=== PATIENT | female | born 1945 | race Caucasian/White ===

== ENCOUNTER 2020-03-28 01:00 | Observation (INO) | payer MEDICARE, SELFPAY ==
[2020-03-28] VITALS (9 sets, daily range): BP systolic 136–165; BP diastolic 65–88; PULSE 75–93; RESP 18–24; TEMP 36.1–37.2; O2SAT 96–99; BMI 38.7
--- NOTE | ~2020-03-28 | XR_ITS ---
EXAMINATION: XR forearm RT 2V, XR wrist RT 2V EXAM DATE: 03/28/2020 07:45 INDICATION: Right forearm pain. Right wrist pain. No known recent injury. TECHNIQUE: Right wrist frontal, frontal with ulnar deviation, oblique and lateral projections obtain ed and reviewed. Right forearm frontal and lateral projections. There are no prior studies for valdemar shaggy. TECHNIQUE: The right scapholunate joint space is maintained. Carpal bones, radius and ulna are unrema rkable.. There are no acute fractures or dislocations identified. There is no subcutaneous gas. The soft tissue is unremarkable. There are no radiopaque foreign bodies. IMPRESSION: Unremarkable right wrist, forearm exams. Reviewed, dictated and finalized at location G. WAY YARD ASSISTANT IMPRESSION: Unremarkable right wrist, forearm exams.
--- NOTE | ~2020-03-28 | XR_ITS ---
EXAMINATION: XR shoulder RT min 2V, XR humerus RT EXAM DATE: 03/28/2020 07:45 (accession [id number]), 03/28/2020 07:46 (accession [id number]) INDICATION: No known recent injury provided at this time. Pain of the right shoulder, arm. TECHNIQUE: The following right shoulder projections obtained: frontal projection with internal rotati on, frontal projection with external rotation, Grashey, and scapular Y view (4+ views). 2 orthogonal projections of the right humerus. There are no prior studies for comparison. FINDINGS: No evidence of right shoulder rotator cuff calcific tendinosis. There is mild to moderate acromioclavicular and glenohumeral acromioclavicular joint primary osteoarthritis. There are no acute fractures or dislocations identified. There is no subcutaneous gas. The soft tissue is unremarkabl e. There are no radiopaque foreign bodies. IMPRESSION: 1. Mild to moderate right shoulder osteoarthritis. 2. No acute findings. Reviewed, dictated and finalized at location G. NUE CYCLE CONSULTANT IMPRESSION: 1. Mild to moderate right shoulder osteoarthritis. 2. No acute findings.
[2020-03-28] MEDS: KETOROLAC (*BKC) 60 MG/2 ML VIAL IM (01:20)
[2020-03-28 01:53] LABS: Eosinophils Absolute Auto 0.12 K/mm3 (0.02-0.50); Eosinophils Percent Auto 1.9 % (1.0-6.0); Hematocrit 36.4 % (35.0-42.0); Hemoglobin 11.2 g/dL (11.7-13.8); Immature Granulocyte Absolute 0.02 K/mm3 (0.00-0.00); Immature Granulocyte Percent A 0.3 % (0.0-0.0); Lactic Acid Reflex 1.5 mmol/L (0.4-2.0); Lymphocytes Absolute Auto 0.57 K/mm3 (1.10-4.50); Lymphocytes Percent Auto 9.3 % (18.0-42.0); Mean Corpuscular HGB Conc 30.8 g/dL (32.0-36.0); Mean Corpuscular Hemoglobin 28.3 pg (27.0-31.0); Mean Corpuscular Volume 91.9 fL (78.0-102.0); Mean Platelet Volume 9.6 fl (9.2-11.8); Monocytes Absolute Auto 0.39 K/mm3 (0.10-0.90); Monocytes Percent Auto 6.3 % (2.0-11.0); Neutrophils Absolute Auto 5.1 K/mm3 (1.7-7.2); Neutrophils Percent Auto 82.2 % (50.0-70.0); Platelet Count Result 193 K/mm3 (150-420); Red Blood Count 3.96 M/mm3 (4.20-5.40); Red Cell Distribution Width 14.6 % (11.6-14.4); White Blood Count 6.2 K/mm3 (4.8-10.8)
[2020-03-28 01:56] LABS: Alanine Aminotransferase 19 U/L (14-59); Albumin Level 3.4 g/dL (3.4-5.0); Alkaline Phosphatase 99 U/L (46-116); Anion Gap 13 mmol/L (8-16); Aspartate Amino Transferase 11 U/L (15-37); Bilirubin,Total 0.2 mg/dL (0.00-1.00); Blood Urea Nitrogen 32 mg/dL (7-18); Calcium 8.3 mg/dL (8.5-10.1); Carbon Dioxide 22 mmol/L (21-32); Chloride 106 mmol/L (98-108); Estimated CRCL calculation 26 ml/min; Estimated Glomerular Filt Rate 24; Glucose 210 mg/dL (70-99); Osmolality Calculated 304 mOsm/kg (285-295); Sodium 141 mmol/L (136-145); Total Protein 7.5 g/dL (6.4-8.2); Uric Acid 8.3 mg/dL (2.6-6.0)
[2020-03-28 01:58] LABS: CRP 1.9 mg/dL (0.0-0.9)
--- NOTE | 2020-03-28 02:07 | ED.UPPEXIN ---
HPI - Extremity Injury (Upper) General Chief Complaint: Extremity Injury, Upper Stated Complaint: Bilateral hand pain Source: patient Mode of arrival: ambulatory Limitations: no limitations History of Present Illness HPI narrative: This is a 74-year-old female presents with some severe pain with some warmth and tenderness with decreased range of motion in her right wrist and radiating into her forearm and shoulder started earlier this evening no history of gout. The patient takes medicine for COPD and urinary incontinence. Currently there is no fever or chills no known injury to the right upper extremity and has extreme pain with with movement and pain warmth and tenderness to the right wrist. There is currently no shortness of breath no bruising no known injury to the right upper extremity with no chest pain no nausea vomiting. MD complaint: injury to: right, shoulder, forearm, wrist and hand Onset (ago): hour(s) Other injuries: none Handedness: right Place: home Severity: severe Severity scale (1-10): 10 Relieving factors: none Exacerbating factors: none Related Data Home Medications Medication Instructions Recorded Confirmed Brovana 15 mcg INHALATION BID 03/28/20 03/28/20 albuterol 0.83 mg INHALATION BID 03/28/20 03/28/20 oxybutynin chloride 5 mg PO HS 03/28/20 03/28/20 Allergies Allergy/AdvReac Type Severity Reaction Status Date / Time Iodinated Contrast Media Allergy Unknown Swelling Verified 10/10/17 14:40 Contrast Media Allergy Unknown HIVES AND Uncoded 09/25/14 10:02 SWELLING Review of Systems Review of Systems: All systems reviewed & are unremarkable except as noted in HPI and below PMFSH Past Medical History Medical History COPD (chronic obstructive pulmonary disease) Family History Family History Father Patient's father is Family history of cardiovascular disease Mother Family history of cardiovascular disease Social History Social History Smoking status: Former smoker Alcohol intake: never Exam Const: General: no acute distress and alert Orientation/consciousness: patient oriented x3 HENMT: Head: normal to inspection Eyes: Conjunctivae: conjunctivae normal Pupils: Equal, round and reactive pupils present Neck: Neck: normal visual inspection, no lymphadenopathy and no meningeal signs Lymphatic: no lymphadenopathy noted Chest: Chest palpation & inspection: normal inspection of the chest Resp: Effort & Inspection: normal respiratory effort Auscultation: clear to auscultation bilaterally Cardio: Rate: regular rate Rhythm: regular rhythm GI: GI Palp: Yes Soft to palpation : General: Yes no CVA tenderness Skin: Other: right wrist and elbow and forearm that is warm and tender with decreased range of motion secondary to pain. Extrem: General: no pedal edema Psych: Mental Status: mental status grossly normal Course Course Emergency Course: Patient receive 60 mg of IM Toradol with minimal relief of her pain Vital Signs Vital signs: Vital Signs Temperature 37.2 C 03/28/20 01:00 Pulse Rate 93 03/28/20 01:00 Respiratory Rate 20 03/28/20 01:00 Blood Pressure 153/82 H 03/28/20 01:00 Pulse Oximetry 97 03/28/20 01:00 Temperature 37.2 C 03/28/20 01:00 Pulse Rate 93 03/28/20 01:00 Respiratory Rate 20 03/28/20 01:00 Blood Pressure 153/82 H 03/28/20 01:00 Pulse Oximetry 97 03/28/20 01:00 MDM - Extremity Injury (Upper) Lab Data Result diagrams: 03/28/20 01:31 03/28/20 01:31 Labs: Lab Results 03/28/20 03/28/20 03/28/20 Range/Units 01:31 01:31 01:31 WBC 6.2 (4.8-10.8) K/mm3 RBC 3.96 L (4.20-5.40) M/mm3 Hgb 11.2 L (11.7-13.8) g/dL Hct 36.4 (35.0-42.0) % MCV 91.9 (78.0-102.0) fL MCH 28.3 (27
[2020-03-28] MEDS: MORPHINE SULFATE (*CRX) 2 MG/ML INJ IV PUSH ×3 (02:31→10:11)
--- NOTE | 2020-03-28 02:50 | ADMGEN ---
This patient, Lacie Blue, was admitted to 2nd Floor Room 208-2. Patient/family oriented to hospital policies and general routines including ID bracelet, bed and alarms, visiting hours, pain management, procedures, bathroom and other care routines, personal items, smoking policy, room service/diet, and visiting hours. Information on how to activate the Rapid Response Team has been discussed. Patient/Family are encouraged to report perceived risks to care and to ask questions if they do not understand what they are told or what they should do.
--- NOTE | 2020-03-28 02:50 | PC.NURSE ---
Patient admitted to room 208 from ER for new onset bilateral hand pain. Patient states that she started having intense bilateral hand and wrist pain that started shortly before dinner. She states that she took Tylenol at home and then went to bed but the pain continued to get worse. She describes the pain as a throbbing feeling and she is currently rating the pain 8/10 after receiving morphine in ER shortly before transfer to the floor. The pain is aggravated by movement and and painful to touch. She states that the pain radiates up her arm to her elbow and shoulder. She states that the pain is similar in both hands but that the pain is more intense on the right side. She reports inability to use her right hand or to squeeze her hand into a fist without sever pain. Her left hand is weak and she reports pain with movement but she is able to squeeze it into a fist. No edema or redness is observed and no obvious signs of trauma are observed. Patient denies any recent injury.
[2020-03-28] MEDS: SODIUM CHLORIDE 0.9% IV 1,000 ML 100 ML IV CONT (03:04)
[2020-03-28 05:49] LABS: Basophils Absolute Auto 0.01 K/mm3 (0.00-0.10); Basophils Percent Auto 0.2 % (0.0-1.0); Eosinophils Absolute Auto 0.12 K/mm3 (0.02-0.50); Eosinophils Percent Auto 2.3 % (1.0-6.0); Hematocrit 36.4 % (35.0-42.0); Hemoglobin 10.8 g/dL (11.7-13.8); Immature Granulocyte Absolute 0.03 K/mm3 (0.00-0.00); Immature Granulocyte Percent A 0.6 % (0.0-0.0); Lymphocytes Absolute Auto 0.64 K/mm3 (1.10-4.50); Lymphocytes Percent Auto 12.2 % (18.0-42.0); Mean Corpuscular HGB Conc 29.7 g/dL (32.0-36.0); Mean Corpuscular Hemoglobin 28.1 pg (27.0-31.0); Mean Corpuscular Volume 94.5 fL (78.0-102.0); Monocytes Absolute Auto 0.39 K/mm3 (0.10-0.90); Monocytes Percent Auto 7.4 % (2.0-11.0); Neutrophils Absolute Auto 4.1 K/mm3 (1.7-7.2); Neutrophils Percent Auto 77.3 % (50.0-70.0); Platelet Count Result 179 K/mm3 (150-420); Red Blood Count 3.85 M/mm3 (4.20-5.40); Red Cell Distribution Width 14.7 % (11.6-14.4); White Blood Count 5.3 K/mm3 (4.8-10.8)
--- NOTE | 2020-03-28 06:03 | PC.NURSE ---
Patient ambulated to the bathroom with stand by assist. Patient has sever pain with activity. Patient required assistance to get her legs in bed. Pillows were placed under her arms and a warm blanket was placed over her right arm. PRN pain medication was administered.
[2020-03-28 06:07] LABS: Alanine Aminotransferase 19 U/L (14-59); Albumin Level 3.2 g/dL (3.4-5.0); Alkaline Phosphatase 88 U/L (46-116); Anion Gap 14 mmol/L (8-16); Aspartate Amino Transferase 17 U/L (15-37); Bilirubin,Total 0.2 mg/dL (0.00-1.00); Blood Urea Nitrogen 33 mg/dL (7-18); Calcium 8.2 mg/dL (8.5-10.1); Carbon Dioxide 21 mmol/L (21-32); Chloride 108 mmol/L (98-108); Estimated CRCL calculation 26 ml/min; Estimated Glomerular Filt Rate 25; Glucose 117 mg/dL (70-99); Osmolality Calculated 304 mOsm/kg (285-295); Potassium 4.4 mmol/L (3.5-5.1); Sodium 143 mmol/L (136-145); Total Protein 6.6 g/dL (6.4-8.2)
[2020-03-28] MEDS: ALBUTEROL SULFATE NEB 2.5 MG/3 ML INH INHALATION (06:50)
[2020-03-28] MEDS: ALBUTEROL SULFATE NEB 2.5 MG/3 ML INH (06:50)
--- NOTE | 2020-03-28 06:50 | PCRCNOTE ---
Two albuterol entries on JUL; only one given
[2020-03-28] MEDS: ARFORMOTEROL TARTRATE 15 MCG/2 ML NEB INHALATION (06:51)
[2020-03-28 08:06] LABS: Glucose Point of Care 130 (65-105)
[2020-03-28] MEDS: INDOMETHACIN 25 MG CAPSULE 100 MG PO (08:10)
[2020-03-28] MEDS: predniSONE 20 MG TABLET 60 MG PO (08:11)
[2020-03-28] MEDS: COLCHICINE 0.6 MG TABLET 1.2 MG PO (08:12)
--- NOTE | 2020-03-28 09:39 | PM.SD ---
Same Day Admit/Disch: HPI History of Present Illness Chief complaint: CELLULITIS Narrative: Lacie Blue is a 74 year old female that presented to the ER yesterday with complaints pain to her right wrist forearm and shoulder. Patient has a past medical history of COPD and chronic kidney disease. According to the patient at approximately 4:00 PM she developed pain to her right wrist forearm shoulders. Patient did take Tylenol for her pain with no relief. 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 X-ray of her shoulders, humerus, wrist and forearm did not indicate displacement or fracture, shoulder imaging did indicate osteoarthritis. Patient WBCs hemoglobin hematocrit and platelets were all within normal limits, electrolytes were all within normal limits, patient's BUN and creatinine were elevated, patient's lactic acid was within normal limits, patient's uric acid and CRP were elevated. Patient is being admitted for gout. The patient denies SOB, CP, palpitation, extremity numbness, lightheadedness, dizziness, constipation, diarrhea, chills, or fever. PMF Past Medical History Medical History COPD (chronic obstructive pulmonary disease) Family History Family History Father Patient's father is Family history of cardiovascular disease Mother Family history of cardiovascular disease Social History Social History Smoking packs per day: 1.5 Smoking cigarettes per day: 30.0 Years smoked: 30 Smoking pack-years: 45.00 Smoking status: Former smoker Tobacco type: cigarettes Second hand tobacco smoke exposure: Yes Alcohol intake: never Substance use: never Substance use type: does not use Gender identity (if verbalized by the patient): Female Sexual Orientation (if Verbalized by the Patient): Straight or Heterosexual Spiritual care concerns: No Same Day Admit/Disch: Med Pre-admit Medications Home Medications Medication Instructions Recorded Confirmed Type Brovana 15 mcg INHALATION BID 03/28/20 03/28/20 History albuterol 0.83 mg INHALATION BID 03/28/20 03/28/20 History colchicine 0.6 mg PO DAILY 5 Days #5 tablet 03/28/20 Rx hydrocodone-acetaminophen 1 tab PO Q4H PRN #12 tablet 03/28/20 Rx indomethacin 50 mg PO TID 7 Days #21 cap 03/28/20 Rx methylprednisolone [Medrol (Karel)] See Rx Instructions .ROUTE 03/28/20 Rx .COMPLEX #21 ea oxybutynin chloride 5 mg PO HS 03/28/20 03/28/20 History Exam Narrative: Exam Narrative: GENERAL: This is a well-nourished, well-developed patient, in no apparent distress. HEAD: normocephalic, atraumatic. EYES: PERRL. Sclera clear/white. Vision is grossly intact. EARS: External ears normal, auditory canals clear and without drainage, TMs normal without perforation. Hearing grossly intact. NOSE: External nose normal with no obvious nasal discharge, nares without redness, no rhinorrhea. THROAT: Mucous membranes moist, posterior pharynx clear. NECK: Neck supple, non-tender without lymphadenopathy, masses or thyromegaly. CARDIOVASCULAR: Regular rate and rhythm without murmurs, gallops, or rubs. RESPIRATORY: Clear to auscultation. Breath sounds equal bilaterally. No wheezes, rales, or rhonchi. GASTROINTESTINAL: Abdomen soft, non-tender, nondistended. Bowel sounds are active. No hepato-splenomegaly, or palpable masses. No guarding. SKIN: warm, intact with no suspicious lesions or rash, good texture and turgor. NEURO: awake, alert, and oriented to person, place and time. There were no obvious focal neurologic abnormalities. Steady gait EXTREMITIES: Limited range of motion to the right upper extremity. Right upper extremity warm and tender to touch No calf tenderness. BACK: Nontender without deformity or crepitance. No flank tenderness.
--- NOTE | 2020-03-31 13:19 | PC.NURSE ---
states they received and understood the discharge instructions and states the care was excellent .
== END 2020-03-28 11:25 | disposition home or self-care (01) ==
LOC: CHSED 02:12 → CHS2ND 07:17
PROVIDERS: Admitting Provider Emergency Medicine; Emergency Provider Emergency Medicine; Visit Provider Emergency Medicine
DX: L03.113 Cellulitis of right upper limb (principal); J44.9 Chronic obstructive pulmonary disease, unspecified; N18.9 Chronic kidney disease, unspecified; M19.011 Primary osteoarthritis, right shoulder; Z87.891 Personal history of nicotine dependence
CPT/HCPCS: 36415; 73030; 73060; 73090; 73100; 80053; 83605; 84550; 85025; 86140; 87040; 94640; 96361; 96365; 96372; 96375; 96376; 99285; A9270; G0378; J0696; J1885; J2270; J7030; J7512

== ENCOUNTER 2020-04-08 11:41 | Inpatient (IN) | payer MEDICARE, SELFPAY ==
--- NOTE | ~2020-04-08 | US_ITS ---
EXAMINATION: US venous doppler [facility] DATE: 04/09/2020 08:44 INDICATION: Chest pain. TECHNIQUE: Grayscale ultrasound images without and with compression and Doppler ultrasound images of the bilateral lower extremity veins were obtained. COMPARISON: None. FINDINGS: The visualized portions of right common femoral vein, profunda (deep) femoral vein, femoral vein, pop liteal vein, peroneal veins, posterior tibial veins, and greater saphenous vein outflow are patent. The visualized portions of left common femoral vein, profunda femoral vein, femoral vein, popliteal v ein, peroneal veins, posterior tibial veins, and greater saphenous vein outflow are patent. IMPRESSION: 1. No deep venous thrombosis. Reviewed, dictated and finalized at location A. PRE COOLER
--- NOTE | ~2020-04-08 | XR_ITS ---
EXAMINATION: XR chest 1V portable DATE: 04/08/2020 13:36 INDICATION: Cough. COVID-19 pneumonia. TECHNIQUE: A single frontal view of the chest was obtained. COMPARISON: Chest 2 views 03/13/2019 FINDINGS: Sensitivity is decreased by obesity. A calcified right lung nodule is consistent with old g ranulomatous disease. High density material overlying the left diaphragm may be in the stomach. There are peripheral airspace opacities in the mid and lower lung zones. No pleural effusion or pneumothor ax. The heart size is normal. IMPRESSION: 1. Peripheral airspace opacities in the mid and lower lung zones, consistent with pneumonia. Reviewed, dictated and finalized at location A. ENSATION INTERN IMPRESSION: 1. Peripheral airspace opacities in the mid and lower lung zones, consistent wi th pneumonia.
[2020-04-08 11:56] VITALS: BP 118/63; PULSE 95; RESP 22; TEMP 36.8; O2SAT 95
[2020-04-08 12:00] VITALS: BP 133/62; PULSE 91; RESP 20; O2SAT 95
[2020-04-08] MEDS: KETOROLAC (*BKC) 60 MG/2 ML VIAL 30 MG IM (12:12)
[2020-04-08 12:41] LABS: Eosinophils Absolute Auto 0.01 K/mm3 (0.02-0.50); Eosinophils Percent Auto 0.2 % (1.0-6.0); Hematocrit 38.2 % (35.0-42.0); Hemoglobin 11.8 g/dL (11.7-13.8); Immature Granulocyte Absolute 0.09 K/mm3 (0.00-0.00); Immature Granulocyte Percent A 1.8 % (0.0-0.0); Lymphocytes Percent Auto 7.9 % (18.0-42.0); Mean Corpuscular HGB Conc 30.9 g/dL (32.0-36.0); Mean Corpuscular Hemoglobin 27.8 pg (27.0-31.0); Mean Corpuscular Volume 89.9 fL (78.0-102.0); Mean Platelet Volume 10.1 fl (9.2-11.8); Monocytes Absolute Auto 0.13 K/mm3 (0.10-0.90); Monocytes Percent Auto 2.6 % (2.0-11.0); Neutrophils Absolute Auto 4.4 K/mm3 (1.7-7.2); Neutrophils Percent Auto 87.5 % (50.0-70.0); Platelet Count Result 173 K/mm3 (150-420); Red Blood Count 4.25 M/mm3 (4.20-5.40); Red Cell Distribution Width 14.9 % (11.6-14.4); White Blood Count 5.1 K/mm3 (4.8-10.8)
[2020-04-08 12:49] LABS: Alanine Aminotransferase 17 U/L (14-59); Albumin Level 2.7 g/dL (3.4-5.0); Alkaline Phosphatase 68 U/L (46-116); Anion Gap 13 mmol/L (8-16); Aspartate Amino Transferase 17 U/L (15-37); Bilirubin,Total 0.3 mg/dL (0.00-1.00); Blood Urea Nitrogen 24 mg/dL (7-18); Calcium 8.5 mg/dL (8.5-10.1); Carbon Dioxide 21 mmol/L (21-32); Chloride 101 mmol/L (98-108); Estimated CRCL calculation 21 ml/min; Estimated Glomerular Filt Rate 22; Glucose 108 mg/dL (70-99); Osmolality Calculated 285 mOsm/kg (285-295); Potassium 3.3 mmol/L (3.5-5.1); Sodium 135 mmol/L (136-145); Total Protein 8.1 g/dL (6.4-8.2); Uric Acid 8.6 mg/dL (2.6-6.0)
[2020-04-08 13:04] LABS: SARS-CoV-2 Ag Positive (Negative)
[2020-04-08 13:15] VITALS: BP 125/48; PULSE 85; RESP 20; O2SAT 95
[2020-04-08 13:17] LABS: Add Urine Microscopic? YES; Appearance Urine Cloudy (Clear); Bilirubin Urine 2+ (Negative); Blood Urine 3+ (Negative); Color Urine Yellow (Yellow); Glucose Urine UA Negative (Negative); Ketones Urine Trace (Negative); Leukocyte Esterase Ur Negative (Negative); Nitrate Urine Negative (Negative); Protein Urine 2+ (Negative); Specific Grav Ur >= 1.030 (1.010-1.020); Urobilinogen Urine 0.2 mg/dL (0.2-1.0)
[2020-04-08 13:22] LABS: Squamous Epithelial Cell Urine Few /hpf (Few); WBC Urine 0-3 /hpf (0-3)
[2020-04-08 13:23] LABS: Bacteria Urine 2+ /hpf
[2020-04-08 14:00] VITALS: BP 110/61; PULSE 89; RESP 20; O2SAT 93
--- NOTE | 2020-04-08 14:06 | ED.GENADULT ---
HPI - General Adult General Chief complaint: Nausea/Vomiting/Diarrhea Stated complaint: ambulance Time Seen by Provider: 04/08/20 12:10 Source: patient Mode of arrival: ambulatory Limitations: no limitations History of Present Illness HPI narrative: Patient comes in stating she has not felt well for the past 1 week with body aches and chills. She does not think she has had a fever. Diffuse body aches have been moderately severe, and ongoing for the past several days. She has had loose stools as well. She has had cough but no significant sputum production. Related Data Home Medications Medication Instructions Recorded Confirmed oxybutynin chloride 5 mg PO HS 03/28/20 04/08/20 albuterol sulfate [ProAir HFA] 2 puff INHALATION QID PRN 04/08/20 04/08/20 allopurinol 300 mg PO DAILY 04/08/20 04/08/20 arformoterol 2 ml INHALATION BID 04/08/20 04/08/20 budesonide-formoterol [Symbicort] 2 puff INHALATION DAILY 04/08/20 04/08/20 colchicine [Colcrys] 0.6 mg PO DAILY 04/08/20 04/08/20 naproxen sodium 220 mg PO QID 04/08/20 04/08/20 revefenacin [Yupelri] 175 mcg INHALATION DAILY 04/08/20 04/08/20 tramadol 50 mg PO Q6H PRN 04/08/20 04/08/20 umeclidinium [Incruse Ellipta] 1 inh INHALATION DAILY 04/08/20 04/08/20 Allergies Allergy/AdvReac Type Severity Reaction Status Date / Time Iodinated Contrast Media Allergy Unknown Swelling Verified 10/10/17 14:40 Contrast Media Allergy Unknown HIVES AND Uncoded 09/25/14 10:02 SWELLING Review of Systems Constitutional: Constitutional: Reports no additional constitutional complaints Eyes: Eyes: Reports no additional eye complaints Cardiovascular: Cardiovascular: Reports no additional cardiovascular complaints Respiratory: Respiratory: Reports no additional respiratory complaints Gastrointestinal: Gastrointestinal: Reports no additional gastrointestinal complaints Musculoskeletal: Musculoskeletal: Reports no additional musculoskeletal complaints Integumentary/Breasts: Skin/Breast: Reports system reviewed and no additional complaints, except as docu Neurologic: Reports system reviewed and no additional complaints, except as documented Psychiatric: Psychiatric: Reports no additional psychiatric complaints Endocrine: Endocrine: Reports no additional endocrine complaints Hematologic/Lymphatic: Hematologic/Lymphatic: Reports no additional hematologic/lymphatic complaints Allergic/Immunologic: Allergic/Immunologic: Reports no additional allergic/immunologic complaints [facility] Past Medical History Medical History COPD (chronic obstructive pulmonary disease) Family History Family History Father Patient's father is Family history of cardiovascular disease Mother Family history of cardiovascular disease Social History Social History Smoking packs per day: 1.5 Smoking cigarettes per day: 30.0 Years smoked: 30 Smoking pack-years: 45.00 Smoking status: Former smoker Tobacco type: cigarettes Second hand tobacco smoke exposure: Yes Alcohol intake: never Substance use: never Substance use type: does not use Gender identity (if verbalized by the patient): Female Spiritual care concerns: No Exam Const: General: no acute distress Nutritional Appearance: well nourished and obese Orientation/consciousness: patient oriented x3 HENMT: Head: normal to inspection Ears: TM abnormal Face and sinus: normal facial exam Eyes: Conjunctivae: conjunctivae normal Neck: Neck: normal visual inspection and no lymphadenopathy Chest: Chest palpation & inspection: normal inspection of the chest Other: breath sounds decreased throughout Resp: Effort & Inspection: normal respiratory effort Auscultation: diminished lung sounds Cardio: Rate: regular rate Rhythm: regular rhythm GI: GI Palp: Yes Soft to palpation
[2020-04-08 14:26] LABS: Base Excess ABG -5.9 mmol/L (0-2); HCO3 ABG 17.7 mmol/L (23-29); Oxygen Content ABG 16.4 %vol (16.0-22.0); Oxyhemoglobin 93.4 % (94-100); PCO2 ABG 29.4 mmHg (35-45); PO2 ABG 69.6 mmHg (75-85); Total Hemoglobin 12.5 g/dL
[2020-04-08 14:28] LABS: Device ROOM AIR; Modified Allen's Test Pass; Site Drawn LEFT RADIAL
[2020-04-08 14:45] LABS: Magnesium 2.1 mg/dL (1.8-2.4)
--- NOTE | 2020-04-08 14:58 | ECG_ITS ---
Measurements Intervals [place] Rate: 90 P: 79 IA: 167 QRS: -57 QRSD: 104 T: 70 QT: 369 QTc: 452 Interpretive Statements SINUS RHYTHM LEFT ANTERIOR FASCICULAR BLOCK VOLTAGE CRITERIA FOR LVH BASELINE WANDER- AVR, AVL, AVF ABNORMAL ECG Electronically Signed On 04-08-2020 16:08:12 SOCIAL ORGANIZATION PROFESSOR by Jose Henry D.O.
[2020-04-08] MEDS: SODIUM CHLORIDE 0.9% IV 1,000 ML 100 ML IV CONT (15:17)
[2020-04-08] MEDS: POTASSIUM CHLORIDE 20 MEQ TABLET 40 MEQ PO (15:17)
[2020-04-08 16:00] VITALS: BP 112/52; PULSE 83; RESP 20; TEMP 36.5; O2SAT 92
[2020-04-08] MEDS: REMDESIVIR 200 MG/NS 250 ML 200 MG/250 ML BAG 250 MG IVPB (16:15)
[2020-04-08 16:24] VITALS: BMI 42.4
--- NOTE | 2020-04-08 16:27 | PC.NURSE ---
observation admit for covid, s/s started on of last week, cough, aches all over and diarrhea, continues and feeling worse today, never had fever, just aches all over and headache today, presents from ER on droplet precautions, educated on no visitors during this time and how to use call system IV fluids and medications for covid discussed,
[2020-04-08] MEDS: BUDESONIDE/FORMOTEROL (*SP) 160-4.5 MCG 6 GM INH 2 PUFF INHALATION (17:30)
[2020-04-08] MEDS: ENOXAPARIN 40 MG/0.4 ML SYRINGE SUB-Q (17:31)
[2020-04-08] MEDS: INDOMETHACIN 25 MG CAPSULE 50 MG PO (17:31)
[2020-04-08] MEDS: traMADol HCL (*CRX) 25 MG TABLET PO (17:41)
[2020-04-08] MEDS: PHARMACIST COMMUNICATION ORDER 1 EACH XX (17:47)
--- NOTE | 2020-04-08 18:12 | PC.NURSE ---
fluids infusing at this time, abx infusing as instructed, call light inr each of patient, know s to call for assistance, not to get up alone
[2020-04-08] MEDS: ALBUTEROL SULFATE (*SP) INHALER 2 PUFF INHALATION (20:44)
[2020-04-08] MEDS: OXYBUTYNIN CHLORIDE 5 MG TABLET PO (20:44)
--- NOTE | 2020-04-08 23:30 | PC.NURSE ---
Patient complaining of not being able to sleep. Nurse told patient would be notified of her being unable to sleep. Denies pain/needs @ this time. Respirations even and unlabored. Patient asked nurse for a cold washcloth to put on her head. Patient asked that temperature of room be decreased saying she's used to it being a lot cooler in her house. Ice water refreshed. No distress noted. Call light in reach.
--- NOTE | 2020-04-08 23:36 | PC.NURSE ---
Dr. Lobato notified of pt's inability to sleep; New orders received and noted.
[2020-04-09] VITALS: BP 120/75; PULSE 76; RESP 20; TEMP 36.6; O2SAT 94
[2020-04-09] MEDS: ZOLPIDEM TARTRATE (*CRX) 5 MG TABLET PO (00:16)
--- NOTE | 2020-04-09 00:20 | PC.NURSE ---
Patient given PRN Rigo as ordered for sleeplessness. Patient says room is cooler now. Call light in reach.
[2020-04-09 05:51] LABS: Hematocrit 32.8 % (35.0-42.0); Hemoglobin 10.2 g/dL (11.7-13.8); Mean Corpuscular HGB Conc 31.1 g/dL (32.0-36.0); Mean Corpuscular Hemoglobin 27.9 pg (27.0-31.0); Mean Corpuscular Volume 89.6 fL (78.0-102.0); Mean Platelet Volume 9.7 fl (9.2-11.8); Platelet Count Result 144 K/mm3 (150-420); Red Blood Count 3.66 M/mm3 (4.20-5.40); Red Cell Distribution Width 14.8 % (11.6-14.4); White Blood Count 3.7 K/mm3 (4.8-10.8)
[2020-04-09] MEDS: BUDESONIDE/FORMOTEROL (*SP) 160-4.5 MCG 6 GM INH 2 PUFF INHALATION ×2 (05:58→19:12)
[2020-04-09] MEDS: ALBUTEROL SULFATE (*SP) INHALER 2 PUFF INHALATION ×4 (05:59→21:01)
--- NOTE | 2020-04-09 06:11 | PC.NURSE ---
Lab called to report a critical d-dimer of 1.47.
[2020-04-09 06:12] LABS: D Dimer 1.47 mg/L (0.19-0.50)
[2020-04-09 06:13] LABS: Lactic Acid Reflex 0.9 mmol/L (0.4-2.0)
[2020-04-09 06:20] LABS: Band Neutrophils Percent 0 % (0-6); Eosinophils Percent Manual 0 % (1-6); Lymphocytes Percent Manual 11 % (18-44); Monocytes Absolute Manual 0.11 K/mm3 (0.1-0.90); Monocytes Percent Manual 3 % (3-9); Neutrophils Absolute Manual 3.18 K/mm3 (1.7-7.2); Neutrophils Percent Manual 86 % (46-73); Platelet Estimate Adequate (Adequate); Total Cells Counted 100
[2020-04-09 06:22] LABS: Alanine Aminotransferase 16 U/L (14-59); Albumin Level 2.1 g/dL (3.4-5.0); Alkaline Phosphatase 59 U/L (46-116); Anion Gap 13 mmol/L (8-16); Aspartate Amino Transferase 19 U/L (15-37); Bilirubin,Total 0.1 mg/dL (0.00-1.00); Blood Urea Nitrogen 28 mg/dL (7-18); Calcium 7.7 mg/dL (8.5-10.1); Carbon Dioxide 20 mmol/L (21-32); Chloride 104 mmol/L (98-108); Estimated CRCL calculation 20 ml/min; Estimated Glomerular Filt Rate 20; Glucose 86 mg/dL (70-99); Magnesium 1.8 mg/dL (1.8-2.4); Osmolality Calculated 288 mOsm/kg (285-295); Potassium 3.7 mmol/L (3.5-5.1); Sodium 137 mmol/L (136-145); Total Protein 7.3 g/dL (6.4-8.2)
--- NOTE | 2020-04-09 06:33 | PC.NURSE ---
Dr. Lobato notified of pt's critical d-dimer; No new orders at this time.
--- NOTE | 2020-04-09 07:57 | PC.NURSE ---
Assisted up to void with stand by assist, states has been using a walker last few days due to weakness, tolerated well, denies needs, back to bed per self
[2020-04-09 08:00] VITALS: BP 124/54; PULSE 84; RESP 20; TEMP 36.8; O2SAT 93
[2020-04-09] MEDS: COLCHICINE 0.6 MG TABLET PO (09:13)
[2020-04-09] MEDS: DEXAMETHASONE SOD PHOS INJ 4 MG/ML VIAL 6 MG IV PUSH (09:14)
[2020-04-09] MEDS: POTASSIUM CHLORIDE 20 MEQ TABLET PO (09:14)
[2020-04-09] MEDS: INDOMETHACIN 25 MG CAPSULE 50 MG PO ×3 (09:14→16:12)
[2020-04-09] MEDS: allopurinoL 300 MG TABLET PO (09:14)
[2020-04-09] MEDS: traMADol HCL (*CRX) 25 MG TABLET PO ×2 (09:39→21:01)
--- NOTE | 2020-04-09 10:03 | PM.IMHP ---
H&P: HPI History of Present Illness Date/Time: 04/09/20 10:03 <DEON Shahid - Last Filed: 04/09/20 14:09> Chief complaint: COVID <DEON Shahid - Last Filed: 04/09/20 14:09> Narrative: Lacie Blue is a 74 year old female that presented with body aches, chills and fatigue. Patient has a past medical history of COPD, chronic kidney disease and gout. According to patient last she started experiencing a decreased appetite, body aches, chills, diarrhea, nonproductive cough and fatigue. Patient did test positive for Covid with elevated CRP EKG sinus rhythm with a heart rate in the 90s. Patient will be admitted and treated with dexamethasone and remdesivir. During this assessment day patient still continues to complain about generalized body aches and fatigue. Patient does not feel like she is ready to go home today and would like to remain for 1 more day. Patient will be discharged tomorrow if labs in assessment is negative. I did call patient's to inform him that he needs to remain in quarantine for 14 days also explained to him what quarantine meant. Patient's agrees to remain quarantine. The patient denies SOB, CP, palpitation, extremity numbness, lightheadedness, dizziness, constipation, or fever. <DEON Shahid - Last Filed: 04/09/20 14:09> Review of Systems Review of Systems: All systems reviewed & are unremarkable except as noted in HPI and below (10 point system reviewed) <DEON Shahid - Last Filed: 04/09/20 14:09> [facility] Past Medical History Medical History: Medical History COPD (chronic obstructive pulmonary disease) <DEON Shahid - Last Filed: 04/09/20 14:09> Family History Family History: Family History Father Patient's father is Family history of cardiovascular disease Mother Family history of cardiovascular disease <DEON Shahid - Last Filed: 04/09/20 14:09> Social History Social History: Social History Smoking packs per day: 1.5 Smoking cigarettes per day: 30.0 Years smoked: 30 Smoking pack-years: 45.00 Smoking status: Former smoker Tobacco type: cigarettes Second hand tobacco smoke exposure: Yes Alcohol intake: never Substance use: never Substance use type: does not use Gender identity (if verbalized by the patient): Female Spiritual care concerns: No <DEON Shahid - Last Filed: 04/09/20 14:09> Meds Home Medications and Allergies Home medications: Home Medications Medication Instructions Recorded Confirmed Type indomethacin 50 mg PO TID 7 Days #21 cap 03/28/20 04/08/20 Rx methylprednisolone [Medrol (Karel)] See Rx Instructions .ROUTE 03/28/20 04/08/20 Rx .COMPLEX #21 ea oxybutynin chloride 5 mg PO HS 03/28/20 04/08/20 History albuterol sulfate [ProAir HFA] 2 puff INHALATION QID PRN 04/08/20 04/08/20 History allopurinol 300 mg PO DAILY 04/08/20 04/08/20 History arformoterol 2 ml INHALATION BID 04/08/20 04/08/20 History budesonide-formoterol [Symbicort] 2 puff INHALATION DAILY 04/08/20 04/08/20 History colchicine [Colcrys] 0.6 mg PO DAILY 04/08/20 04/08/20 History naproxen sodium 220 mg PO QID 04/08/20 04/08/20 History revefenacin [Yupelri] 175 mcg INHALATION DAILY 04/08/20 04/08/20 History tramadol 50 mg PO Q6H PRN 04/08/20 04/08/20 History umeclidinium [Incruse Ellipta] 1 inh INHALATION DAILY 04/08/20 04/08/20 History <DEON Shahid - Last Filed: 04/09/20 14:09> Allergies/Adverse reactions: Allergies Allergy/AdvReac Type Severity Reaction Status Date / Time Iodinated Contrast Media Allergy Unknown Swelling Verified 10/10/17 14:40 Contrast Media Allergy Unknown HIVES AND Uncoded 09/25/14 10:02 SWELLING <Saurav Mcgrath, MITZI-C - Last Filed:
[2020-04-09] MEDS: SODIUM CHLORIDE 0.9% IV 1,000 ML 100 ML IV CONT ×2 (10:30→21:02)
--- NOTE | 2020-04-09 10:35 | PC.NURSE ---
feeling more SOB and hot, temp check 98.5, oxygen level 94% on room air, fan to room for comfort
--- NOTE | 2020-04-09 11:13 | PC.NURSE ---
feeling better, fan in room to circulate air, headache improved
--- NOTE | 2020-04-09 14:00 | PC.NURSE ---
Up to commode, didn't want to walk to [facility] due to worsening sob at times, compalints of vaginal itching, Saurav RN OUTPATIENT SURGERY notified, awaiting orders
[2020-04-09] MEDS: FLUCONAZOLE 100 MG TABLET 150 MG PO (14:49)
[2020-04-09] MEDS: ENOXAPARIN 40 MG/0.4 ML SYRINGE SUB-Q (16:13)
[2020-04-09 16:36] VITALS: BP 151/67; PULSE 67; RESP 16; TEMP 36.3; O2SAT 94
[2020-04-09] MEDS: REMDESIVIR 100 MG/NS 250 ML 100 MG/250 ML BAG 250 MG IVPB (17:17)
[2020-04-09] MEDS: traZODone HCL 50 MG TABLET PO (21:00)
[2020-04-09] MEDS: OXYBUTYNIN CHLORIDE 5 MG TABLET PO (21:01)
[2020-04-09 23:53] VITALS: BP 148/81; PULSE 64; RESP 16; TEMP 36.3; O2SAT 95
[2020-04-10] MEDS: ZOLPIDEM TARTRATE (*CRX) 5 MG TABLET PO (00:35)
[2020-04-10] MEDS: BUDESONIDE/FORMOTEROL (*SP) 160-4.5 MCG 6 GM INH 2 PUFF INHALATION (05:40)
[2020-04-10] MEDS: ALBUTEROL SULFATE (*SP) INHALER 2 PUFF INHALATION ×2 (05:40→09:39)
[2020-04-10] MEDS: SODIUM CHLORIDE 0.9% IV 1,000 ML 100 ML IV CONT (05:48)
[2020-04-10 06:12] LABS: Alanine Aminotransferase 16 U/L (14-59)
[2020-04-10 07:42] VITALS: BP 146/78; PULSE 77; RESP 20; TEMP 35.9; O2SAT 92
[2020-04-10 08:02] LABS: Hematocrit 34.3 % (35.0-42.0); Hemoglobin 10.9 g/dL (11.7-13.8); Mean Corpuscular HGB Conc 31.8 g/dL (32.0-36.0); Mean Corpuscular Hemoglobin 28.3 pg (27.0-31.0); Mean Corpuscular Volume 89.1 fL (78.0-102.0); Mean Platelet Volume 10.2 fl (9.2-11.8); Platelet Count Result 193 K/mm3 (150-420); Red Blood Count 3.85 M/mm3 (4.20-5.40); Red Cell Distribution Width 14.9 % (11.6-14.4); White Blood Count 2.3 K/mm3 (4.8-10.8)
[2020-04-10] MEDS: POTASSIUM CHLORIDE 20 MEQ TABLET PO (08:09)
[2020-04-10] MEDS: INDOMETHACIN 25 MG CAPSULE 50 MG PO (08:09)
[2020-04-10] MEDS: ACETAMINOPHEN 500 MG TABLET 1000 MG PO (08:10)
[2020-04-10] MEDS: DEXAMETHASONE SOD PHOS INJ 4 MG/ML VIAL 6 MG IV PUSH (08:10)
[2020-04-10] MEDS: allopurinoL 300 MG TABLET PO (08:10)
[2020-04-10] MEDS: COLCHICINE 0.6 MG TABLET PO (08:11)
[2020-04-10 08:28] LABS: Alanine Aminotransferase 16 U/L (14-59); Albumin Level 2.4 g/dL (3.4-5.0); Alkaline Phosphatase 62 U/L (46-116); Anion Gap 16 mmol/L (8-16); Aspartate Amino Transferase 16 U/L (15-37); Bilirubin,Total 0.1 mg/dL (0.00-1.00); Blood Urea Nitrogen 28 mg/dL (7-18); Calcium 7.9 mg/dL (8.5-10.1); Carbon Dioxide 18 mmol/L (21-32); Chloride 108 mmol/L (98-108); Estimated CRCL calculation 24 ml/min; Estimated Glomerular Filt Rate 26; Glucose 122 mg/dL (70-99); Osmolality Calculated 300 mOsm/kg (285-295); Potassium 4.5 mmol/L (3.5-5.1); Sodium 142 mmol/L (136-145); Total Protein 6.4 g/dL (6.4-8.2)
--- NOTE | 2020-04-10 10:48 | PM.DS ---
DS: Admitting Diagnosis Admitting Diagnosis Admitting Diagnosis: COVID DS: Discharge Diagnosis Discharge Diagnosis (1) CKD (chronic kidney disease): Code(s): N18.9 - Chronic kidney disease, unspecified Status: Acute Assessment and Plan: Patient BUN/creatinine currently 28/1.90 back , 03/28/2020 patient creatinine appears to be 1.99. Renal function has improved patient appears to be at baseline EKG indicate sinus rhythm ? Potassium level within normal limits ? CXR indicate Peripheral airspace opacities in the mid and lower lung zones, consistent with pneumonia. ? (2) Gout: Qualifiers: Chronicity: acute Gout etiology: unspecified cause Gout site: multiple sites Qualified Code(s): M10.9 - Gout, unspecified Code(s): M10.9 - Gout, unspecified Status: Acute Assessment and Plan: Continue home medication (3) COPD (chronic obstructive pulmonary disease): Code(s): J44.9 - Chronic obstructive pulmonary disease, unspecified Status: Acute Assessment and Plan: ? CXR indicate Peripheral airspace opacities in the mid and lower lung zones, consistent with pneumonia. ? Continue inhaler/ nebs ? Continue Solu-Medrol ? Continue the use of ABX Rocephin and azithromycin ? (4) Pneumonia: Qualifiers: Lung location: lower lobe of lung Code(s): J18.9 - Pneumonia, unspecified organism Status: Acute Assessment and Plan: Chest x-ray indicates-Peripheral airspace opacities in the mid and lower lung zones, consistent with pneumonia. Continue azithromycin and Rocephin Blood cultures preliminary with no growth (5) COVID-19 virus detected: Code(s): U07.1 - COVID-19 Status: Acute Assessment and Plan: Continue dexamethasone for 7 additional days (6) D-dimer, elevated: Code(s): R79.89 - Other specified abnormal findings of blood chemistry Status: Acute Assessment and Plan: Patient not indicating any respiratory distress Doppler negative for DVT Unable to complete a CTA due to GFR at 20 DS: Summary Time Spent with Patient Time attestation: Total time spent providing and/or coordinating discharge services: Exam Narrative: Exam Narrative: GENERAL: This is a well-nourished, well-developed patient, in no apparent distress. HEAD: normocephalic, atraumatic. EYES: PERRL. Sclera clear/white. Vision is grossly intact. EARS: External ears normal, auditory canals clear and without drainage, TMs normal without perforation. Hearing grossly intact. NOSE: External nose normal with no obvious nasal discharge, nares without redness, no rhinorrhea. THROAT: Mucous membranes moist, posterior pharynx clear. NECK: Neck supple, non-tender without lymphadenopathy, masses or thyromegaly. CARDIOVASCULAR: Regular rate and rhythm without murmurs, gallops, or rubs. RESPIRATORY: Clear to auscultation. Breath sounds equal bilaterally. No wheezes, rales, or rhonchi. GASTROINTESTINAL: Abdomen soft, non-tender, nondistended. Bowel sounds are active. No hepato-splenomegaly, or palpable masses. No guarding. SKIN: warm, intact with no suspicious lesions or rash, good texture and turgor. NEURO: awake, alert, and oriented to person, place and time. There were no obvious focal neurologic abnormalities. Steady gait EXTREMITIES: Normal range of motion. No edema. No calf tenderness. Negative Homans sign bilaterally. BACK: Nontender without deformity or crepitance. No flank tenderness. DS: Data Data Completed and Pending Labs on day of discharge: Labs from last 24 hours 04/10/20 04/10/20 04/10/20 05:38 05:38 05:38 WBC 2.3 L RBC 3.85 L Hgb 10.9 L Hct 34.3 L MCV 89.1 MCH 28.3 MCHC 31.8 L RDW 14.9 H Plt Count 193 MPV 10.2 Sodium 142 Potassium 4.5 Chloride 108 Carbon Dioxide 18 L Anion Gap 16 BUN 28 H Creatinine 1.90 H Estim Creat Clear Calc 24 Estimated GFR 26
--- NOTE | 2020-04-14 12:04 | PC.NURSE ---
states patient received and understood her discharge instructions. He had no other comments.
== END 2020-04-10 11:35 | disposition home or self-care (01) | DRG 177 ==
LOC: CHSED 11:58 → CHS2ND 14:59
PROVIDERS: Nurse Practitioner; Admitting Provider Emergency Medicine; Emergency Provider Emergency Medicine; PCP Nurse Practitioner Family; Visit Provider Emergency Medicine
DX: U07.1 COVID-19 (principal); J12.89 Other viral pneumonia; J44.9 Chronic obstructive pulmonary disease, unspecified; N18.9 Chronic kidney disease, unspecified; M10.9 Gout, unspecified; R79.1 Abnormal coagulation profile
CPT/HCPCS: 36415; 36600; 71045; 80053; 81001; 82805; 83605; 83735; 84460; 84550; 85025; 85027; 85380; 86140; 87040; 87045; 87046; 87324; 87426; 87427; 93005; 93970; 96360; 96361; 96365; 96366; 96367; 96372; 96375; 96376; 99285; A9270; G0378; J0456; J0696; J1100; J1650; J1885; J7030

== ENCOUNTER 2020-05-13 10:47 | Outpatient (CLI) | payer MEDICARE, SELFPAY ==
--- NOTE | ~2020-05-13 | NM_ITS ---
EXAMINATION: NM pulmonary perfusion DATE: 05/13/2020 16:12 INDICATION: Shortness of breath. TECHNIQUE: 4.9 mCi Tc-99m MAA was administered intravenously for perfusion images. Scintigraphic wanda ges of the chest were obtained. COMPARISON: Chest 2 views 05/13/2020 FINDINGS: Perfusion images show a large defect in apicoposterior segment left upper lobe. There are small and m oderate sized defects in the lower lobes and right upper lobe. IMPRESSION: 1. Nondiagnostic (intermediate probability for pulmonary embolism). Reviewed, dictated and finalized at location A. OR INTEGRATION DEVELOPER
--- NOTE | ~2020-05-13 | XR_ITS ---
EXAMINATION: XR chest 2V DATE: 05/13/2020 11:13 INDICATION: Cough. COVID-19 positive on 04/08/2020. TECHNIQUE: Frontal and lateral views of the chest were obtained. COMPARISON: Chest 2 views 04/08/2020 FINDINGS: There are peripheral airspace opacities with architectural distortion in the mid and lower lung zones. A calcified right lung nodule and calcified right hilar lymph nodes are consistent with o ld granulomatous disease. No pleural effusion or pneumothorax. The heart size is normal. IMPRESSION: 1. Stable peripheral airspace opacities in the mid and lower lung zones, consistent with pneumonia. Reviewed, dictated and finalized at location A. ICAL SOCIOLOGIST IMPRESSION: 1. Stable peripheral airspace opacities in the mid and lower lung zones, consis tent with pneumonia.
[2020-05-13 11:01] LABS: Basophils Absolute Auto 0.02 K/mm3 (0.00-0.10); Basophils Percent Auto 0.4 % (0.0-1.0); Eosinophils Absolute Auto 0.08 K/mm3 (0.02-0.50); Eosinophils Percent Auto 1.5 % (1.0-6.0); Hematocrit 40.1 % (35.0-42.0); Hemoglobin 11.9 g/dL (11.7-13.8); Immature Granulocyte Absolute 0.04 K/mm3 (0.00-0.00); Immature Granulocyte Percent A 0.8 % (0.0-0.0); Lymphocytes Absolute Auto 0.92 K/mm3 (1.10-4.50); Lymphocytes Percent Auto 17.8 % (18.0-42.0); Mean Corpuscular HGB Conc 29.7 g/dL (32.0-36.0); Mean Corpuscular Hemoglobin 28.4 pg (27.0-31.0); Mean Corpuscular Volume 95.7 fL (78.0-102.0); Mean Platelet Volume 9.5 fl (9.2-11.8); Monocytes Absolute Auto 0.32 K/mm3 (0.10-0.90); Monocytes Percent Auto 6.2 % (2.0-11.0); Neutrophils Absolute Auto 3.8 K/mm3 (1.7-7.2); Neutrophils Percent Auto 73.3 % (50.0-70.0); Platelet Count Result 248 K/mm3 (150-420); Red Blood Count 4.19 M/mm3 (4.20-5.40); Red Cell Distribution Width 16.4 % (11.6-14.4); White Blood Count 5.2 K/mm3 (4.8-10.8)
[2020-05-13 11:18] LABS: D Dimer 1.38 mg/L (0.19-0.50)
[2020-05-13 11:56] LABS: CRP 0.8 mg/dL (0.0-0.9)
[2020-05-13 12:07] LABS: Erythrocyte Sedimentation Rate 45 mm/hr (0-20)
[2020-05-13 12:31] LABS: Estimated Glomerular Filt Rate 26
[2020-05-15 13:52] LABS: Procalcitonin 0.23 ng/mL (<0.10)
== END 2020-05-13 10:48 | disposition home or self-care (01) ==
PROVIDERS: PCP Nurse Practitioner Family; Visit Provider Internal Medicine Pulmonary Disease
DX: R06.02 Shortness of breath (principal); R79.1 Abnormal coagulation profile; R79.89 Other specified abnormal findings of blood chemistry; R05 Cough; J18.9 Pneumonia, unspecified organism; U07.1 COVID-19
CPT/HCPCS: 36415; 71046; 78580; 82565; 84145; 85025; 85380; 85652; 86140; A9540

== ENCOUNTER 2020-06-03 10:08 | Outpatient (CLI) | payer MEDICARE, SELFPAY ==
--- NOTE | ~2020-06-03 | CT_ITS ---
EXAMINATION: CT chest wo con DATE: 06/03/2020 10:43 INDICATION: Shortness of breath, history of COVID 19 pneumonia TECHNIQUE: Computed tomography (CT) of the chest was performed without intravenous contrast. The dose -length product (DLP) was 458.56 mGy-cm. Automated exposure control and iterative reconstruction tech Firethornque were employed. COMPARISON: 12/15/2017, 05/13/2020 FINDINGS: There are widespread subpleural reticular opacities in the lungs with a mid and lower lung zone predominance. Distribution is similar to that seen on the recent chest radiograph. There is mild emphysema. There is no pleural effusion or pneumothorax. No pathologically enlarged thoracic lymph n odes are identified. The heart size is normal. Calcified coronary artery atherosclerosis is noted. An intramuscular lipoma is noted adjacent to the left scapula. There are bridging osteophytes at multip le levels in the spine, consistent with diffuse idiopathic skeletal hyperostosis (DISH). IMPRESSION: 1. Subpleural reticular opacities with a mid and lower lung zone predominance which could reflect fib rosis related to prior COVID 19 pneumonia. Reviewed, dictated and finalized at location A. E AND SKIP CAR OPERATOR IMPRESSION: 1. Subpleural reticular opacities with a mid and lower lung zone predominance w hich could reflect fibrosis related to prior COVID 19 pneumonia.
== END 2020-06-03 10:09 | disposition home or self-care (01) ==
LOC: CHSIMG 10:13
PROVIDERS: PCP Nurse Practitioner Family; Visit Provider Internal Medicine Pulmonary Disease
DX: U07.1 COVID-19 (principal); J18.9 Pneumonia, unspecified organism
CPT/HCPCS: 71250

== ENCOUNTER 2020-06-25 12:41 | Outpatient (CLI) | payer MEDICARE, SELFPAY ==
--- NOTE | ~2020-06-25 | XR_ITS ---
XR chest 2V DATE: 06/25/2020 13:23 INDICATION: Shortness of breath for one month. Severe shortness breath for one week. TECHNIQUE: 2 views COMPARISON: 06/03/2020 CT thorax 05/13/2020 PA and lateral chest 03/13/2019 PA and lateral chest FINDINGS: There is peripheral pulmonary infiltrate or fibrotic change involving the mid and particula rly lower lung zones, mildly improved on the right since 05/13/2020. Moderate hyperinflation. No pleural effusion or pulmonary vascular congestion or pneumothorax is evident. Borderline cardiomeg vanessa. Mild aortic tortuosity. Diffuse osteopenia. There is degenerative spurring of the thoracic spine. IMPRESSION: Preferentially peripheral pulmonary infiltrate and/or fibrotic change in the mid and part icularly lower lung zones, mildly improved on the right since 05/13/2020 Reviewed, dictated and finalized at location A. IO PRODUCER IMPRESSION: Preferentially peripheral pulmonary infiltrate and/or fibrotic menon ge in the mid and particularly lower lung zones, mildly improved on the right s pan 05/13/2020
== END 2020-06-25 12:42 | disposition home or self-care (01) ==
PROVIDERS: PCP Nurse Practitioner Family; Visit Provider Nurse Practitioner Family
DX: R06.02 Shortness of breath (principal)
CPT/HCPCS: 71046

== ENCOUNTER 2020-06-26 12:12 | Outpatient (CLI) | payer MEDICARE, SELFPAY ==
--- NOTE | 2020-06-26 12:25 | ECHO_ITS ---
Patient Info Name: Lacie Blue Age: 75 years : 1945 Gender: Female Ht: 62 in Wt: 234 lbs BSA: 2.22 m2 HR: 77 bpm BP: 190 / 75 mmHg Heart Rhythm: Sinus Rhythm Technical Quality: Good Exam Date: 06/26/2020 12:27 PM Exam Location: [facility] Patient Status: Outpatient Admit Date: 06/26/2020 Staff Ordering Physician: Christin, Lisa Julien CNP Meat Pickler: Betty Amezquita RDCS Attending Provider: Louisa, Lisa Julien CNP Referring Physician: Christin RAMOS; Exam Type: CA echo doppler color flow Study Info Indications R06.02 - Shortness of breath Complete two-dimensional, color flow and Doppler transthoracic echocardiogram is performed. Strain analysis performed. History/Risk Factors Hypertension: No Dyslipidemia: No Congenital Heart Disease (CHD): No Peripheral Arterial Disease (PAD): No Myocardial Infarction (TX): No Chronic Lung Disease: No Obesity: Yes Renal Disease: Yes Coronary Artery Disease (CAD) No Cardiomyopathy/LV Systolic Dysfunction: No Diabetes Mellitus: No COPD: On Meds Tobacco Use: Former Cerebrovascular Disease: No Family History: Diabetes Mellitus, Coronary Artery Disease Deep Vein Thrombosis (DVT): None Dialysis: None Frailty Scale (CSHA): 5: Mildly Frail Cardiac Arrest: No Summary 1. Complete two-dimensional, color flow and Doppler transthoracic echocardiogram is performed. 2. Left ventricular chamber dimension is normal. 3. Left ventricular systolic function is normal, estimated at 60-65%. 4. The left ventricular diastolic function is grade II diastolic dysfunction. 5. Global longitudinal strain is normal at -21.8%. 6. Left atrial chamber dimension is mildly enlarged. 7. Right atrial chamber dimension is mildly enlarged. 8. There is mild aortic valve sclerosis. 9. The mitral valve has moderately calcified annulus. 10. There is mild tricuspid valve regurgitation. 11. Moderate pulmonary hypertension, estimated pulmonary arterial systolic pressure is 56 mmHg. 12. Small atheroma in posterior aortic root. Left Ventricle Tissue doppler E/e' is not calculated. Global longitudinal strain is normal at -21.8%. Left ventricular chamber dimension is normal. Left ventricular systolic function is normal, estimated at 60-65%. The left ventricular diastolic function is grade II diastolic dysfunction. Right Ventricle Right ventricular chamber dimension is normal. Right ventricular systolic function is normal. Left Atria Left atrial chamber dimension is mildly enlarged. Right Atria Right atrial chamber dimension is mildly enlarged. Aortic Valve The aortic valve is trileaflet. There is mild aortic valve sclerosis. There is no aortic valve stenosis. There is no aortic valve regurgitation. Pulmonic Valve There is no pulmonic regurgitation. Mitral Valve The mitral valve has moderately calcified annulus. There is no mitral valve stenosis. There is no mitral valve regurgitation. Tricuspid Valve There is mild tricuspid valve regurgitation. Moderate pulmonary hypertension, estimated pulmonary arterial systolic pressure is 56 mmHg. Pericardium/Pleural There is no pericardial effusion. Inferior Vena Cava Normal inferior vena cava with >50% collapse upon inspiration consistent with normal right atrial pressure, 5 mmHg. Aorta Small atheroma in posterior aortic root. The aortic root size at the sinus of Vals
== END 2020-06-26 12:13 | disposition home or self-care (01) ==
LOC: CHSIMG 12:14
PROVIDERS: PCP Nurse Practitioner Family; Visit Provider Nurse Practitioner Family
DX: R06.02 Shortness of breath (principal); M79.89 Other specified soft tissue disorders
CPT/HCPCS: 93306

== ENCOUNTER 2021-11-30 22:43 | Emergency (ER) | payer MEDICARE, SELFPAY ==
--- NOTE | ~2021-11-30 | XR_ITS ---
EXAMINATION: XR knee RT 3V DATE: 11/30/2021 23:17 INDICATION: Right knee pain. TECHNIQUE: 3 views of right knee were obtained. COMPARISON: None. FINDINGS: There is a total right knee arthroplasty with patellar resurfacing in near-anatomic alignme nt. No periprosthetic lucency to suggest loosening or infection. No fracture. No knee joint effusion. IMPRESSION: 1. Total right knee arthroplasty in near-anatomic alignment. Reviewed, dictated and finalized at location A.
[2021-11-30 22:45] VITALS: BP 150/73; PULSE 83; RESP 20; TEMP 36.3; O2SAT 94
--- NOTE | 2021-11-30 22:50 | ED.LOWEXIN ---
HPI - Extremity Injury (Lower) General Chief Complaint: Extremity Problem,Nontraumatic Stated Complaint: AMB Time Seen by Provider: 11/30/21 22:51 Source: patient Mode of arrival: EMS History of Present Illness HPI Narrative: 77-year-old female with a history gout, CKD, COPD, status post B/L knee replacement 30 years ago, arthritis, presents to the ER with -- right knee pain and swelling. No history of trauma. One week ago the patient had a flare-up of her left knee joint pain possibly secondary to gout Injury: Right: knee Place: home Relieving factors: immobilization Exacerbating factors: movement Associated symptoms: unable to bear weight Other symptoms: SOB Related Data Home Medications Medication Instructions Recorded Confirmed oxybutynin chloride 5 mg tablet 5 mg PO HS 03/28/20 04/08/20 albuterol sulfate 90 mcg/actuation 2 puff inhalation QID PRN 04/08/20 04/08/20 aerosol inhaler (ProAir HFA) Shortness Of Breath allopurinol 300 mg tablet 300 mg PO DAILY 04/08/20 04/08/20 arformoterol 15 mcg/2 mL solution 2 ml inhalation BID 04/08/20 04/08/20 for nebulization budesonide-formoterol HFA 160 2 puff inhalation DAILY 04/08/20 04/08/20 mcg-4.5 mcg/actuation aerosol inhaler (Symbicort) colchicine 0.6 mg tablet (Colcrys) 0.6 mg PO DAILY 04/08/20 04/08/20 naproxen sodium 220 mg tablet 220 mg PO QID 04/08/20 04/08/20 revefenacin 175 mcg/3 mL solution 175 mcg inhalation DAILY 04/08/20 04/08/20 for nebulization (Yupelri) tramadol 50 mg tablet 50 mg PO Q6H PRN Pain 04/08/20 04/08/20 umeclidinium 62.5 mcg/actuation 1 inh inhalation DAILY 04/08/20 04/08/20 blister powder for inhalation (Incruse Ellipta) Allergies Allergy/AdvReac Type Severity Reaction Status Date / Time Iodinated Contrast Media Allergy Unknown Swelling Verified 11/30/21 23:42 Contrast Media Allergy Unknown HIVES AND Uncoded 09/25/14 10:02 SWELLING Review of Systems Review of Systems: All systems reviewed & are unremarkable except as noted in HPI and below Constitutional: Constitutional: Reports as per HPI and Reports no additional constitutional complaints Eyes: Eyes: Reports as per HPI and Reports no additional eye complaints ENT: Reports system reviewed and no additional complaints, except as documented and Reports as per HPI Cardiovascular: Cardiovascular: Reports as per HPI and Reports no additional cardiovascular complaints Respiratory: Respiratory: Reports as per HPI, Reports no additional respiratory complaints, Reports cough and Reports dyspnea Gastrointestinal: Gastrointestinal: Reports as per HPI and Reports no additional gastrointestinal complaints Genitourinary: Genitourinary: Reports no additional female genitourinary complaints Musculoskeletal: Musculoskeletal: Reports no additional musculoskeletal complaints, Reports as per HPI and Reports arthralgias Comments: right knee is swollen and tender. Integumentary/Breasts: Skin/Breast: Reports system reviewed and no additional complaints, except as docu and Reports as per HPI Neurologic: Reports system reviewed and no additional complaints, except as documented and Reports as per HPI Psychiatric: Psychiatric: Reports no additional psychiatric complaints and Reports as per HPI Endocrine: Endocrine: Reports no additional endocrine complaints and Reports as per HPI Hematologic/Lymphatic: Hematologic/Lymphatic: Reports no additional hematologic/lymphatic complaints and Reports as per HPI Allergic/Immunologic: Allergic/Immunologic: Reports no additional allergic/immunologic complaints and Reports as per HPI PMFSH Past Medical History Medical History COPD (chronic obstructive pulmonary disease) Family History Family History Father Patient's father is Family history of cardiovascular disease Mother Family history of cardiovascular disease
[2021-11-30] MEDS: ONDANSETRON HCL ODT 4 MG TABLET PO (23:27)
[2021-11-30] MEDS: HYDROmorphone HCL INJ (*CRX) 2 MG/ML VIAL 0.5 MG IM (23:29)
[2021-12-01 00:05] VITALS: BP 134/89; PULSE 77; RESP 18; O2SAT 96
== END 2021-12-01 00:15 | disposition home or self-care (01) ==
PROVIDERS: Emergency Provider Internal Medicine Critical Care Medicine
DX: M25.561 Pain in right knee (principal); Z96.651 Presence of right artificial knee joint; J44.9 Chronic obstructive pulmonary disease, unspecified; Z87.891 Personal history of nicotine dependence
CPT/HCPCS: 73562; 96372; 99283; A9270; J1170

== ENCOUNTER 2022-06-17 11:00 | Outpatient (CLI) | payer MEDICARE, SELFPAY ==
--- NOTE | ~2022-06-17 | XR_ITS ---
Right foot Technique: AP and lateral standing views were obtained. Clinical History: Rheumatoid arthritis Findings: No acute fracture or dislocation is seen. Osseous alignment is anatomic. Plantar calcaneal spur noted. Joint spaces are preserved without erosive or degenerative change. Soft tissues are unrem arkable. Impression: Plantar calcaneal spur, otherwise unremarkable exam. Reviewed, dictated and finalized at [facility] [place]. ILLMENT COORDINATOR Impression: Plantar calcaneal spur, otherwise unremarkable exam.
--- NOTE | ~2022-06-17 | XR_ITS ---
Left foot Technique: AP and lateral standing views were obtained. Clinical History: Rheumatoid arthritis Findings: No acute fracture or dislocation is seen. Osseous alignment is anatomic. Plantar calcaneal spur noted. Joint spaces are preserved without erosive or degenerative change. Soft tissues are unrem arkable. Impression: Plantar calcaneal spur, otherwise unremarkable exam. Reviewed, dictated and finalized at [facility]. E RECEIVING CLERK Impression: Plantar calcaneal spur, otherwise unremarkable exam.
--- NOTE | ~2022-06-17 | XR_ITS ---
Bilateral Hands Technique: Bilateral PA, oblique, and lateral views, and ball-catcher's view were obtained. Clinical History: Rheumatoid arthritis Findings: No acute fracture or dislocation is seen. Osseous alignment is anatomic. Joint spaces are p reserved. Soft tissues are unremarkable. Impression: Unremarkable bilateral hand radiographs. Reviewed, dictated and finalized at location . X RAY ELECTRONICS WIRING TECHNICIAN Impression: Unremarkable bilateral hand radiographs.
[2022-06-17 12:58] LABS: Basophils Percent Auto 0.4 % (0.2-1.2); Eosinophils Absolute Auto 0.2 K/mm3 (0-0.3); Eosinophils Percent Auto 3.6 % (0-4.4); Hematocrit 36.2 % (37.0-47.0); Hemoglobin 11.4 g/dL (12.0-15.0); Immature Granulocyte Absolute 0.02 K/mm3 (0.00-0.031); Immature Granulocyte Percent A 0.4 % (0-0.5); Lymphocytes Absolute Auto 1.21 K/mm3 (0.9-3.2); Lymphocytes Percent Auto 24.3 % (18.3-44.2); Mean Corpuscular HGB Conc 31.5 g/dl (32-36); Mean Corpuscular Hemoglobin 28.4 pg (26-34); Mean Platelet Volume 10.6 fl (7.4-10.4); Monocytes Absolute Auto 0.4 K/mm3 (0.1-0.6); Monocytes Percent Auto 7.2 % (2.6-8.5); Neutrophils Absolute Auto 3.2 K/mm3 (1.3-6.7); Neutrophils Percent Auto 64.1 % (45.5-73.1); Platelet Count Result 212 k/mm3 (150-375); Red Blood Count 4.02 M/mm3 (4.2-5.4); Red Cell Distribution Width 14.6 % (11.5-14.5)
[2022-06-17 13:10] LABS: Appearance Urine Slightly Cloudy (Clear); Bilirubin Urine Negative (Negative); Blood Urine 2+ (Negative); Color Urine Yellow (Yellow); Glucose Urine UA Negative (Negative); Ketones Urine Negative (Negative); Leukocyte Esterase Ur 1+ LEU/UL (Negative); Nitrate Urine Negative (Negative); Protein Urine 2+ mg/dL (Negative); Urobilinogen Urine 0.2 mg/dL (<2.0)
[2022-06-17 13:14] LABS: Alanine Aminotransferase 12 U/L (6-35); Albumin Level 3.9 g/dL (3.5-5.1); Alkaline Phosphatase 93 U/L (38-126); Anion Gap 8 mmol/L (8-16); Aspartate Amino Transferase 16 U/L (14-36); Bilirubin,Total 0.4 mg/dL (0.2-1.3); Blood Urea Nitrogen 21 mg/dL (7-17); CRP 1.4 mg/dL (<1.0); Calcium 8.8 mg/dL (8.4-10.2); Carbon Dioxide 24 mmol/L (22-30); Chloride 110 mmol/L (98-107); Estimated Glomerular Filt Rate 31; Glucose 102 mg/dL (65-110); Potassium 3.8 mmol/L (3.4-5.0); Sodium 142 mmol/L (137-145); Uric Acid 6.2 mg/dL (2.5-7.5)
[2022-06-17 13:25] LABS: Complement C3 122 mg/dL (88-165); Rheumatoid Factor < 8.6 IU/ML (<12)
[2022-06-17 13:26] LABS: Erythrocyte Sedimentation Rate 86 mm/hr (0-20); Vitamin D 25 Hydroxy 14.5 ng/mL
[2022-06-17 13:40] LABS: Bacteria Urine Trace /hpf; Mucus Urine Rare /lpf; Squamous Epithelial Cell Urine Moderate /hpf (Few)
[2022-06-17 13:47] LABS: Add Urine Microscopic? YES
[2022-06-17 13:57] LABS: Hepatitis C Virus Antibody Negative (Negative)
[2022-06-19 16:17] LABS: NIL 0.03 IU/mL; Quantiferon TB Plus, 1T NEGATIVE (NEGATIVE); TB2-NIL <0.00 IU/mL
[2022-06-21 08:20] LABS: SM Antibody <1.0; SM/RNP Antibody <1.0; SS-A <1.0; SS-B <1.0
[2022-06-22 20:45] LABS: Anti Cyclic Citrullinated Pept <16 Units (<20)
== END 2022-06-17 11:01 | disposition home or self-care (01) ==
PROVIDERS: PCP Nurse Practitioner Family; Visit Provider Internal Medicine
DX: M77.32 Calcaneal spur, left foot (principal); M77.31 Calcaneal spur, right foot; M05.79 Rheumatoid arthritis with rheumatoid factor of multiple sites without organ or systems involvement; M15.9 Polyosteoarthritis, unspecified; Z71.89 Other specified counseling; Z79.899 Other long term (current) drug therapy
CPT/HCPCS: 36415; 73130; 73620; 80053; 81001; 82306; 84550; 85025; 85613; 85652; 85730; 86038; 86140; 86160; 86200; 86225; 86235; 86430; 86480; 86803

== ENCOUNTER 2022-06-23 10:11 | Outpatient (CLI) | payer MEDICARE, SELFPAY | END 2022-06-23 10:12 | disposition home or self-care (01) | LOC: ANHLAB 10:12 | PROVIDERS: PCP Nurse Practitioner Family; Visit Provider Internal Medicine | DX: M05.79 Rheumatoid arthritis with rheumatoid factor of multiple sites without organ or systems involvement (principal); M15.9 Polyosteoarthritis, unspecified; Z71.89 Other specified counseling; Z79.899 Other long term (current) drug therapy | CPT/HCPCS: 36415; 86038 ==

== ENCOUNTER 2022-07-07 10:23 | Outpatient (CLI) | payer MEDICARE, SELFPAY ==
--- NOTE | ~2022-07-07 | XR_ITS ---
XR chest 2V 07/07/2022 10:48 Indication: COPD. Dyspnea. Procedure: PA and lateral views of the chest Comparison: Comparison to multiple prior studies sequentially, with oldest reviewed study dated 02/21. Findings: Heart size normal. There are chronic interstitial infiltrates of the mid and lower lungs. T here are calcified granuloma right lower lung. The lungs are hyperinflated which is consistent with, but not diagnostic of chronic obstructive pulmonary disease. No acute focal pneumonia, pleural effusi on or pneumothorax. There are surgical changes of right clavicular osteotomy. Impression: 1: Chronic interstitial infiltrates of the mid and lower lungs bilaterally. Reviewed, dictated and finalized at location A. NISTRATIVE SALES ASSISTANT Impression: 1: Chronic interstitial infiltrates of the mid and lower lungs bilaterally.
== END 2022-07-07 10:24 | disposition home or self-care (01) ==
LOC: ANHIMG 10:28
PROVIDERS: PCP Nurse Practitioner Family; Visit Provider Internal Medicine
DX: J44.9 Chronic obstructive pulmonary disease, unspecified (principal); Z11.59 Encounter for screening for other viral diseases; R91.8 Other nonspecific abnormal finding of lung field
CPT/HCPCS: 71046

== ENCOUNTER 2023-07-21 11:01 | Outpatient (CLI) | payer MEDICARE, SELFPAY ==
[2023-07-21 11:19] LABS: Hematocrit 43.1 % (37.0-47.0); Hemoglobin 13.4 g/dL (12.0-15.0); Mean Corpuscular HGB Conc 31.1 g/dl (32-36); Mean Corpuscular Volume 96.6 fl (80-100); Platelet Count Result 198 k/mm3 (150-375); Red Blood Count 4.46 M/mm3 (4.2-5.4); Red Cell Distribution Width 13.6 % (11.5-14.5); White Blood Count 4.6 K/mm3 (4.5-10.0)
[2023-07-21 11:32] LABS: Alanine Aminotransferase 10 U/L (6-35); Albumin Level 4.7 g/dL (3.5-5.1); Alkaline Phosphatase 108 U/L (38-126); Anion Gap 10 mmol/L (8-16); Aspartate Amino Transferase 20 U/L (14-36); Bilirubin,Total 0.4 mg/dL (0.2-1.3); Blood Urea Nitrogen 46 mg/dL (7-17); CRP < 0.5 mg/dL (<1.0); Calcium 10.1 mg/dL (8.4-10.2); Carbon Dioxide 21 mmol/L (22-30); Chloride 110 mmol/L (98-107); Estimated Glomerular Filt Rate 24; Glucose 96 mg/dL (65-110); Potassium 4.5 mmol/L (3.4-5.0); Sodium 141 mmol/L (137-145)
[2023-07-21 11:32] LABS: Appearance Urine Clear (Clear); Bacteria Urine None Seen /hpf; Bilirubin Urine Negative (Negative); Blood Urine Trace (Negative); Color Urine Yellow (Yellow); Glucose Urine UA Negative (Negative); Ketones Urine Negative (Negative); Leukocyte Esterase Ur Negative LEU/UL (Negative); Nitrate Urine Negative (Negative); Protein Urine Negative (Negative); RBC Urine 0-2 /hpf (0-2); Specific Grav Ur 1.012 (1.001-1.035); Squamous Epithelial Cell Urine None seen /hpf (Few); Urobilinogen Urine 0.2 mg/dL (<2.0); WBC Urine 0-5 /hpf
[2023-07-21 11:35] LABS: Add Urine Microscopic? YES
[2023-07-21 11:45] LABS: Erythrocyte Sedimentation Rate 16 mm/hr (0-20)
== END 2023-07-21 11:02 | disposition home or self-care (01) ==
PROVIDERS: PCP Family Medicine; Visit Provider Internal Medicine
DX: M05.79 Rheumatoid arthritis with rheumatoid factor of multiple sites without organ or systems involvement (principal); M19.90 Unspecified osteoarthritis, unspecified site; M06.9 Rheumatoid arthritis, unspecified; Z79.899 Other long term (current) drug therapy
CPT/HCPCS: 36415; 80053; 81001; 85027; 85652; 86140

== ENCOUNTER 2023-08-16 15:07 | Emergency (ER) | payer MEDICARE, SELFPAY ==
[2023-08-16] VITALS (9 sets, daily range): BP systolic 120–156; BP diastolic 46–104; PULSE 67–90; RESP 16–20; TEMP 36.4–36.6; O2SAT 93–99
--- NOTE | ~2023-08-16 | CT_ITS ---
EXAMINATION: CT abdomen pelvis wo con DATE: 08/16/2023 16:12 INDICATION: Right lower quadrant abdominal pain and nausea TECHNIQUE: Computed tomography (CT) of the abdomen and pelvis was performed without intravenous contr ast. Automated exposure control and iterative reconstruction technique were employed. The dose-length product was 1285.10 mGy-cm. COMPARISON: 02/05/2015 FINDINGS: Calcified right lower lobe nodule consistent with old granulomatous disease. There is some peripheral predominant linear atelectasis/scarring in the bilateral lower lungs. Heart size is normal. No peric ardial or pleural effusion. Gallbladder is not visualized and likely surgically absent. Liver, spleen , pancreas, bilateral adrenal glands are normal. Mild bilateral renal atrophy. 1.3 cm right renal cys t. There are a few scattered colonic diverticula without adjacent comparison to suggest diverticuliti s. No abnormal bowel wall thickening or obstruction. Decompressed bladder is unremarkable. The uterus is not identified and has likely been surgically resected. 2.1 cm left adnexal cyst. Right adnexa is unremarkable. No free intraperitoneal gas or fluid. No pathologically enlarged abdominal or pelvic l ymphadenopathy. Mild lumbar levocurvature. Combined instrumented anterior and posterior spinal fusion at L4-L5 with interbody bone graft cage and bilateral vertical gildardo and pedicle screw fixation. There are bridging osteophytes at several levels in the visualized lower thoracic spine consistent with di ffuse idiopathic skeletal hyperostosis (DISH). 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 IMPRESSION: 1. No acute intra-abdominal/pelvic process. Reviewed, dictated and finalized at location A.
--- NOTE | 2023-08-16 15:15 | ED.ABDPAIN ---
HPI - Abdominal Pain General Chief Complaint: Abdominal Pain Stated Complaint: right lower abdominal pain Time Seen by Provider: 08/16/23 15:14 Source: patient Mode of arrival: ambulatory Limitations: no limitations History of Present Illness HPI narrative: Patient is an 78-year-old female with abdominal pain. It is more so on the right flank. she was also sent to the ER for renal failure concerns by the renal specialist. she has had abdominal pain for 4 days. MD elicited complaint: abdominal pain and flank pain ( Right) Pertinent past history: other ( Renal insufficiency) Onset (ago): day(s) (4) Pain Consistency: intermittent Location: R flank Severity: moderate Pain scale (0-10): 5 Quality: sharp Radiation: none Migration to: no migration Exacerbating factors: nothing Relieving factors: nothing Associated symptoms: denies other symptoms Related Data Home Medications Medication Instructions Recorded Confirmed oxybutynin chloride 5 mg tablet 5 mg PO HS 03/28/20 08/16/23 albuterol sulfate 90 mcg/actuation 2 puff inhalation QID PRN 04/08/20 08/16/23 aerosol inhaler (ProAir HFA) Shortness Of Breath allopurinol 300 mg tablet 100 mg PO DAILY 04/08/20 08/16/23 arformoterol 15 mcg/2 mL solution 2 ml inhalation BID 04/08/20 08/16/23 for nebulization budesonide-formoterol HFA 160 2 puff inhalation DAILY 04/08/20 08/16/23 mcg-4.5 mcg/actuation aerosol inhaler (Symbicort) revefenacin 175 mcg/3 mL solution 175 mcg inhalation DAILY 04/08/20 08/16/23 for nebulization (Yupelri) umeclidinium 62.5 mcg/actuation 1 inh inhalation DAILY 04/08/20 08/16/23 blister powder for inhalation (Incruse Ellipta) Allergies Allergy/AdvReac Type Severity Reaction Status Date / Time Iodinated Contrast Media Allergy Unknown Swelling Verified 08/16/23 15:26 Contrast Media Allergy Unknown HIVES AND Uncoded 08/16/23 15:26 SWELLING Review of Systems Review of Systems: All systems reviewed & are unremarkable except as noted in HPI and below Constitutional: Constitutional: Reports no additional constitutional complaints Eyes: Eyes: Reports no additional eye complaints ENT: Reports system reviewed and no additional complaints, except as documented Cardiovascular: Cardiovascular: Reports no additional cardiovascular complaints Respiratory: Respiratory: Reports no additional respiratory complaints Gastrointestinal: Gastrointestinal: Reports no additional gastrointestinal complaints Genitourinary: Genitourinary: Reports no additional female genitourinary complaints Musculoskeletal: Musculoskeletal: Reports no additional musculoskeletal complaints Integumentary/Breasts: Skin/Breast: Reports system reviewed and no additional complaints, except as docu Neurologic: Reports system reviewed and no additional complaints, except as documented Psychiatric: Psychiatric: Reports no additional psychiatric complaints Endocrine: Endocrine: Reports no additional endocrine complaints Hematologic/Lymphatic: Hematologic/Lymphatic: Reports no additional hematologic/lymphatic complaints Allergic/Immunologic: Allergic/Immunologic: Reports no additional allergic/immunologic complaints PMFSH Past Medical History Medical History Bilateral hand pain COPD (chronic obstructive pulmonary disease) Generalized osteoarthritis of multiple sites Rheumatoid arthritis with rheumatoid factor of multiple sites without organ or systems involvement Surgical History Surgical History No pertinent past surgical history Family History Family History Father Patient's father is Family history of cardiovascular disease Mother Family history of cardiovascular disease Social History Social History Smoking packs per day: 1.5
--- NOTE | 2023-08-16 15:26 | ECG_ITS ---
Measurements Intervals [place] Rate: 89 P: 72 AR: 192 QRS: -53 QRSD: 109 T: 76 QT: 351 QTc: 428 Interpretive Statements SINUS RHYTHM VENTRICULAR PREMATURE COMPLEX LEFT ANTERIOR FASCICULAR BLOCK NONSPECIFIC ST-T WAVE ABNORMALITY- HIGH LATERAL LEADS ABNORMAL ECG COMPARED TO ECG 04/08/2020 15:10:43 NO SIGNIFICANT CHANGES Electronically Signed On 08-16-2023 16:11:41 CDT by Jose Henry D.O.
[2023-08-16 16:02] LABS: Hematocrit 37.7 % (35.0-42.0); Hemoglobin 12.1 g/dL (11.7-13.8); Mean Corpuscular HGB Conc 32.1 g/dL (32-36); Mean Corpuscular Hemoglobin 30.5 pg (27.0-31.0); Platelet Count Result 135 K/mm3 (150-420); Red Blood Count 3.97 M/mm3 (4.20-5.40); Red Cell Distribution Width 14.4 % (11.6-14.4); White Blood Count 2.6 K/mm3 (4.8-10.8)
--- NOTE | 2023-08-16 16:05 | PC.NURSE ---
This RN took the patient to the bathroom in a wheelchair to obtain a urine sample. PT helped back into bed. Call light within reach. Family at bedside.
[2023-08-16 16:10] LABS: Appearance Urine Clear (Clear); Bilirubin Urine Negative (Negative); Blood Urine 1+ (Negative); Color Urine Light Yellow (Yellow); Glucose Urine UA Negative (Negative); Ketones Urine Negative (Negative); Leukocyte Esterase Ur Trace LEU/UL (Negative); Nitrate Urine Negative (Negative); Protein Urine Negative (Negative); Specific Grav Ur 1.025 (1.010-1.020); Urobilinogen Urine 0.2 mg/dL (0.2-1.0); pH Urine 5.5 (5.0-8.0)
[2023-08-16 16:14] LABS: Add Urine Microscopic? YES; Bacteria Urine Trace /hpf; Squamous Epithelial Cell Urine Few /hpf (Few); WBC Urine 0-3 /hpf (0-3)
[2023-08-16 16:21] LABS: Alanine Aminotransferase 15 U/L (14-59); Albumin Level 3.4 g/dL (3.4-5.0); Alkaline Phosphatase 86 U/L (46-116); Anion Gap 12 mmol/L (4-12); Aspartate Amino Transferase 13 U/L (15-37); Bilirubin,Total 0.2 mg/dL (0.00-1.00); Blood Urea Nitrogen 32 mg/dL (7-18); Calcium 8.8 mg/dL (8.5-10.1); Carbon Dioxide 24 mmol/L (21-32); Chloride 105 mmol/L (98-108); Estimated CRCL calculation 35 ml/min; Estimated Glomerular Filt Rate 23; Glucose 108 mg/dL (70-99); Lactic Acid Reflex 0.6 mmol/L (0.4-2.0); Lipase 29 U/L (16-77); Osmolality Calculated 299 mOsm/kg (285-295); Potassium 4.1 mmol/L (3.5-5.1); Sodium 141 mmol/L (136-145); Total Protein 6.9 g/dL (6.4-8.2); Troponin I 9.6 ng/L (0.00-60.4)
[2023-08-16 16:30] LABS: Band Neutrophils Percent 1 % (0-6); Basophils Percent Manual 0 % (0-1); Eosinophils Absolute Manual 0.05 K/mm3 (0.02-0.50); Eosinophils Percent Manual 2 % (1-6); Lymphocytes Absolute Manual 0.57 K/mm3 (1.1-4.5); Lymphocytes Percent Manual 22 % (18-44); Monocytes Absolute Manual 0.13 K/mm3 (0.1-0.90); Monocytes Percent Manual 5 % (3-9); Neutrophils Absolute Manual 1.84 K/mm3 (1.7-7.2); Neutrophils Percent Manual 70 % (46-73); Platelet Estimate Adequate (Adequate); Total Cells Counted 100
--- NOTE | 2023-08-16 16:46 | PC.NURSE ---
On arrival of ERP to the room to explain discharge paperwork. Pt is requesting pain medication before leaving. Pt has PRN pain medications at home but will be given pain medication here before discharge.
[2023-08-16] MEDS: traMADol HCL (*CRX) 50 MG TABLET 100 MG PO (16:55)
[2023-08-16] MEDS: CEPHALEXIN 500 MG CAPSULE PO (16:56)
== END 2023-08-16 17:01 | disposition home or self-care (01) ==
PROVIDERS: Emergency Provider Emergency Medicine; PCP Family Medicine
DX: N39.0 Urinary tract infection, site not specified (principal); N18.9 Chronic kidney disease, unspecified; J44.9 Chronic obstructive pulmonary disease, unspecified; M06.89 Other specified rheumatoid arthritis, multiple sites; Z79.51 Long term (current) use of inhaled steroids; Z87.891 Personal history of nicotine dependence
CPT/HCPCS: 36415; 74176; 80053; 81001; 83605; 83690; 84484; 85025; 93005; 99284; A9270

== ENCOUNTER 2024-11-16 13:17 | Outpatient (CLI) | payer MEDICARE, SELFPAY ==
[2024-11-16 13:40] LABS: Estimated Glomerular Filt Rate 29
== END 2024-11-16 13:18 | disposition home or self-care (01) ==
PROVIDERS: PCP Family Medicine; Visit Provider Physician Assistant
DX: R31.9 Hematuria, unspecified (principal)
CPT/HCPCS: 99199

== ENCOUNTER 2024-11-28 13:36 | Outpatient (CLI) | payer MEDICARE, SELFPAY ==
--- NOTE | ~2024-11-28 | CT_ITS ---
Non-contrast CT scan of the Abdomen and Pelvis Clinical indication: Hematuria Technique: 2.5 mm axial scans were obtained through the abdomen and pelvis without intravenous or or al contrast. Dose reduction technique was used on this scan by utilizing automated exposure control a nd iterative reconstruction technique. The dose-length product (DLP) was 676.74 mGy-cm. COMPARISON: 08/16/2023 Findings: Images through the lung bases reveal mild bibasilar scarring. There is no evidence of renal or ureteral calculi. The kidneys and the ureters are nondilated. The liver, spleen, pancreas, and adrenals appear normal. Gallbladder absent. There are atheroscleroti c calcifications of the aorta. Focal infrarenal abdominal aortic aneurysm measures 3.1 cm in diameter . There is no evidence of bowel obstruction. Images through the pelvis were performed. There is no evidence of ascites or lymphadenopathy. Urinary bladder unremarkable. No pelvic mass seen. Status post hysterectomy. Impression: No acute abnormality. 3.1 cm infrarenal aortic aneurysm. Reviewed, dictated and finalized at [facility]. Impression: No acute abnormality. 3.1 cm infrarenal aortic aneurysm.
--- OUTSIDE RECORDS SUMMARY | 2024-11-28 13:50 | XMS_ITS | Encounter Summary ---
Author Organization [facility] Address [facility] [place] [address] Care Team Providers Care Roller Inspector Name Role Phone Guido Perez MD Primary Care Provider [phone] Reason for Visit * Reason Onset Date Comments Referral 11/28/2024 RIGHT hip pain - PCP referral Encounter Details Date Type Department Care Team (Late st Contact Info) Description 11/28/2024 [place] [address] Hiral Powers PA [address] [place], [place] [id number] Referral (RIGHT hip pain - PCP referral) Social History Tobacco Use Types Packs/Day Years Used Date Smoking Tobacco: Former Cigarettes 1 994 - 1824 Smokeless Tobacco: Never Tobacco Cessation:Counseling Given: Not Answered Alcohol Use Standard Drinks/Week Comments Not Currently 0 (1 standard drink = 0.6 oz pur e alcohol) Comments Unknown Sex and Gender Information Value Date Recorded Sex Assigned at Female 09/04/2024 9:22 AM CDT Legal Sex Female 4:55 PM CDT Gender Identity Not on file Sexual Orientation Not on file documented as of this encounter Progress Notes * Josef Arauz RN - 11/28/2024 10:51 AM CDT Faxed referral received from [facility] for pain in RIGHT hip. Orthopedic Triage Calls Patient Name Lacie Michelleeldonboogie Date of 1945 Name of caller if NOT speaking with patient. Patient Relationship to Patient patient Verify Patient Primary Car Provider GUIDO PEREZ MD Has there been an injury: No Date of Injury Being seen for: RIGHT hip pain Work Comp Case No Work Comp Case #: Seen at Another Facilty [facility] imaging If yes what is the name of facility Date seen at facility 11/22/24 Previous Imaging Yes If yes what type of imaging? X-ray Imaging Pushed to [facility] Not Applicable Report from outside radiology obtained? Not Applicable New X-Ray Orders placed Yes Ambulatory Devices If yes what type being used Splint or bracing No If yes what type and when placed Other information: Patient reports onset of pain approximately 3 weeks ago without injury. Locates pain in RIGHT hip with radiation into her groin. PCP had images obtained at [facility]. Denies any injections or other treatments for RIGHT hip pain. documented in this encounter Plan of Treatment Upcoming Encounters Date Type Department Care Team (Late st Contact Info) Description 12/07/2024 8:30 AM CDT Office Visit [facility] [address] [address] [place], [facility] [place] [address] Scheduled Orders Name Type Priority Associated Diagnoses Orde r Schedule XR PELVIS 1 OR 2 VIEWS Imaging Routine Pain of right hip Expected: 12/07/2024, Expires: 02/28/2025 documented as of this encounter Visit Diagnoses Diagnosis Pain of right hip- Primary documented in this encounter Care Teams Roller Inspector Relationship Specialty Start Date End Date Guido Perez MD [address] [place] [phone] PCP - General FAMILY PRACTICE 09/04/24 documented as of this encounter
--- OUTSIDE RECORDS SUMMARY | 2024-11-28 13:50 | XMS_ITS | Clinical Summary ---
Author Organization [facility] Address [address] [place] [address] Care Team Providers Care Property Administrator Name Role Phone Alma Jamison MD Primary Care Provider [phone] Allergies Active Allergy Reactions Criticality Noted Date Comments Iodinated Contrast Media Itching,Rash,Hives Medium Medications amoxicillin-cla vulanate (AUGMENTIN) 875-125 MG tablet Take 1 tablet (875 mg total) by mouth 2 (two) times daily. Active chlorhexidine (PERIDEX) 0.12 % solution Use as directed 15 mLs in the mouth or throat 3 (three) times daily. Active baclofen (LIORESAL) 10 MG tablet Take 1 tablet (10 mg total) by mouth daily. Active furosemide (LASIX) 20 MG tablet Take 1 tablet (20 mg total) by mouth daily. Active calcitriol (ROCALTROL) 0.25 MCG capsule Take 1 capsule (0.25 mcg total) by mouth daily. Active allopurinol (ZYLOPRIM) 100 MG tablet Take 1 tablet (100 mg total) by mouth daily. Active busPIRone (BUSPAR) 5 MG tablet Take 1 tablet (5 mg total) by mouth daily. Active gabapentin (NEURONTIN) 300 MG capsule Take 1 capsule (300 mg total) by mouth 3 (three) times daily. Active docusate sodium (COLACE) 100 MG capsule Take 1 capsule (100 mg total) by mouth 2 (two) times daily for 3 days, THEN 1 capsule (100 mg total) daily for 28 days. 34 capsule 11/15/19 25 Active Problems No known active problems Encounters Date Type Department Care Team Description 11/28/2024 Telephone [facility] [address] [facility] [address] [place] [address] Hiral Powers PA Referral (RIGHT hip pain - PCP referral) 11/22/2024 3:44 PM CDT - 11/22/2024 11:59 PM CDT Hospital Encounter [facility] [address] [place] [address] Dru Nath PA Discharge Disposition: Home or Self Care (Routine Discharge) 11/22/2024 Travel 10/17/2024 2:39 PM CDT - 10/17/2024 11:59 PM CDT Hospital Encounter [facility] [address] [place] [address] [place] [address] Alma Jamison MD Discharge Disposition: Home or Self Care (Routine Discharge) 10/17/2024 Travel 10/14/2024 9:10 AM CDT - 10/14/2024 12:30 PM CDT Emergency [facility] [place] [address] Trey Springer DO Abdominal Pain Discharge Disposition: Home or Self Care (Routine Discharge) 10/14/2024 Travel 10/11/[address] [facility] [place] [address] Gibson Rosales MD 10/10/2024 3:44 PM CDT - 10/10/2024 11:59 PM CDT Hospital Encounter [facility] [place] [address] Gibson Rosales MD Discharge Disposition: Home or Self Care (Routine Discharge) 09/17/2024 1:12 PM CDT - 09/17/2024 11:59 PM CDT Hospital Encounter [facility] [address] [place] [address] Ashely Padilla NP Discharge Disposition: Home or Self Care (Routine Discharge) 09/17/2024 Travel 09/04/2024 10:23 AM CDT - 09/04/2024 11:59 PM CDT Hospital Encounter [facility] [address] [place] [address] Alma Jamison MD Discharge Disposition: Home or Self Care (Routine Discharge) 09/04/2024 9:25 AM CDT - 09/04/2024 10:22 AM CDT Hospital Encounter [facility] [address] [place] [address] Ashely Padilla NP Discharge Disposition: Home or Self Care (Routine Discharge) 09/04/2024 Orders Only [place] [id number] [place] [address] Ashely Padilla NP 09/04/2024 Travel from Last 3 Months Social History Tobacco Use Types Packs/Day Years Used Date Smoking Tobacco: Former Cigarettes 1 - 1962 Smokeless Tobacco: Never Tobacco Cessation:Counseling Given: Not Answered Alcohol Use Standard Drinks/Week Comments Not Currently 0 (1 standard drink = 0.6 oz pur e alcohol) Comments Unknown Sex and Gender Information Value Date Recorded Sex Assigned at Female 09/04/2024 9:22 AM CDT Legal Sex Female 4:55 PM CDT Gender Identity Not on file Sexual Orientation Not on file Last Filed Vital Signs Vital Sign Reading Time Taken Comments Blood Pressure 148/69 10/14/2024 12:30 PM CDT Pulse 66 10/14/2024 11:09 AM CDT Temperature 36.1 C (96.9 F) 10/14/2024 9:19 AM CDT Respiratory Rate 18 10/14/2024 9:19 AM CDT Oxygen Saturation 98% 10/14/2024 12:30 PM CDT Inhaled Oxygen Concentration - - Weight 99.3 kg (219 lb) 10/14/2024 9:19 AM CDT Height 152.4 cm (5') 10/14/2024 9:19 AM CDT Body Mass Index 42.77 10/14/2024 9:19 AM CDT Plan of Treatment Upcoming Encounters Date Type Department Care Team (Late st Contact Info) Description 12/07/2024 8:30 AM CDT Office Visit [facility] [address], [address] [place] [address] [address] Hernandez, ASSISTANT COOK- [address] [place] [address] Health Maintenance Due Date Last Done Comments DTaP, Tdap and Td Vaccines (1 - Tdap) 1964 Annual Medicare Wellness Visit 2008 RSV Immunization or 60+ Years (1 - 1-dose 75+ series) 2018 Zoster Vaccines (2 of 2) 06/27/2023 05/02/2023 COVID-19 Vaccine (5 - season) 2024 05/02/2023, 12/11/2021, 10/01/2020, Additional history exists Pneumococcal Vaccine: 50+ Years Completed 06/06/2020, 06/01/2019, 04/05/2012 Dexa Scan (General) Completed 05/10/2023, 05/26/2020, 05/26/2020 Meningococcal B Vaccine Aged Out No l onger eligible based on patient's age to complete this topic Meningococcal Vaccine Aged Out No janeen lolly eligible based on patient's age to complete this topic RSV Immunizations Under 20 Months Aged Out No longer eligible based on patient's age to complete this topic Procedures Procedure Name Priority Date/Time Associated Diagnosis Comments XR HIP RT 2V Routine 11/22/2024 4:01 PM CDT Right hip pain XR ABD SERIES W CHEST 1V Routine 10/17/2024 3:08 PM CDT Abdominal pain CT ABD+PEL KIDNEY STONE STAT 10/14/2024 11:15 AM CDT LACTIC ACID W REFLEX (SEPSIS) STAT 10/14/2024 10:02 AM CDT COMPREHENSIVE METABOLIC PANEL STAT 10/14/2024 10:02 AM CDT CBC W/DIFF AUTOMATED STAT 10/14/2024 10:02 AM CDT HC URINALYSIS AUTO W/MICRO STAT 10/14/2024 9:43 AM CDT MISCELLANEOUS LAB TEST Routine 3:00 PM CDT US PELVIC NON OB COMP TA Routine 09/17/2024 2:18 PM CDT Ovarian cyst US SOFT TISS HEAD OR NECK Routine 09/17/2024 2:18 PM CDT Lymphadenopathy COMPREHENSIVE METABOLIC PANEL Routine 09/04/2024 10:53 AM CDT Abdominal pain CT ABD+PEL WO CON STAT 09/04/2024 10: 51 AM CDT Abdominal pain BONE DENSITY/DEXA Routine 05/10/2023 10: 49 AM DELIVERY DIRECTOR Postmenopausal from Last 3 Months or Most Recently Relevant to Health Maintenance Results * XR HIP RT 2V (11/22/2024 4:01 PM CDT) Anatomical Region Laterality Modality Hip Radiographic Traci ging 11/24/2024 7:55 AM CDT Impressions 11/24/2024 7:56 AM CDT IMPRESSION: Degenerative changes Ordered By: DRU NATH Interpreted By: Alexey Malhotra MD, 11/24/2024 7:55 AM Narrative 11/24/2024 7:56 AM CDT [address] [place] [address] 2 VIEWS OF THE RIGHT HIP Clinical History: Pain Comparison: None 2 views of the right hip demonstrate the bony elements to be intact. There is no evidence of fracture or dislocation. Moderate degenerative changes are noted throughout the joint. The visualized bony elements of the pelvis are intact. The surrounding soft tissues appear normal. Procedure Note Alexey Malhotra MD - 11/24/[address] [place] [address] 2 VIEWS OF THE RIGHT HIP Clinical History: Pain Comparison: None 2 views of the right hip demonstrate the bony elements to be intact.There is no evidence of fracture or dislocation. Moderate degenerativechanges are noted throughout the joint. The visualized bony elements ofthe pelvis are intact. The surrounding soft tissues appear normal. IMPRESSION: Degenerative changes Ordered By: DRU NATH Interpreted By: Alexey Malhotra MD, 11/24/2024 7:55 AM us Dru Nath PA GENERAL IMAGING Final Result * XR ABD SERIES W CHEST 1V (10/17/2024 3:08 PM CDT) Anatomical Region Laterality Modality Abdomen, Chest Radiographic Traci ging 10/17/2024 3:32 PM CDT Impressions 10/17/2024 3:35 PM CDT IMPRESSION: 1. No acute findings. 2. Interval epidural stimulator placement. Ordered By: ALMA JAMISON Interpreted By: Thiago Moore MD, 10/17/2024 3:32 PM Narrative 10/17/2024 3:35 PM CDT [address] [place] [address] Examination: Abdomen series. Exam time: 1428 hours. Clinical history: Right-sided pain. Comparison: Two-view chest, 05/17/2013 ([facility]). Technique: PA chest, AP supine and upright abdomen. Findings: The heart remains within normal limits for size. Pulmonary vascularity is within normal limits. No acute infiltrates or effusions are identified. Granulomatous scarring is again evident. Implanted epidural stimulator is now in place with the lead terminating near the T7 level. There is no free air. The bowel gas pattern is unremarkable. No organomegaly or mass is noted. Atherosclerotic calcification and pelvic phleboliths noted. Changes of interbody and posterior gildardo and pedicle screw fusion at L5-S1 are evident. Epidural stimulator generator lies on the left. There are degenerative changes in the lumbar spine and hips, not unusual for age. Procedure Note Thiago Moore MD - 10/17/2024 [facility] [address] [place] [address] Examination: Abdomen series. Exam time: 1428 hours. Clinical history: Right-sided pain. Comparison: Two-view chest, 05/17/2013 ([facility]). Technique: PA chest, AP supine and upright abdomen. Findings: The heart remains within normal limits for size. Pulmonaryvascularity is within normal limits. No acute infiltrates or effusions areidentified. Granulomatous scarring is again evident. Implanted epiduralstimulator is now in place with the lead terminating near the T7 level. There is no free air. The bowel gas pattern is unremarkable. Noorganomegaly or mass is noted. Atherosclerotic calcification and pelvicphleboliths noted. Changes of interbody and posterior gildardo and pediclescrew fusion at L5-S1 are evident. Epidural stimulator generator lies onthe left. There are degenerative changes in the lumbar spine and hips, notunusual for age. IMPRESSION: 1. No acute findings. 2. Interval epidural stimulator placement. Ordered By: ALMA JAMISON Interpreted By: Thiago Moore MD, 10/17/2024 3:32 PM us Alma Jamison MD GENERAL IMAGING Final Resu lt * CT ABD+PEL KIDNEY STONE (10/14/2024 11:15 AM CDT) Anatomical Region Laterality Modality Abdomen Computed Tomogra phy 10/14/2024 11:4 6 AM CDT Impressions 10/14/2024 12:01 PM CDT IMPRESSION: NO APPRECIABLE URINARY TRACT STONE OR OBSTRUCTION. EXTENSIVE VASCULAR CALCIFICATIONS AROUND THE COURSE OF THE URETERS AND IN THE RECTOVESICAL REGION. NO DEFINITE INTRINSIC URINARY TRACT STONE. BILATERAL RENAL CORTICAL ATROPHY AND LOW-DENSITY PROBABLE CYSTS. COLONIC DIVERTICULA WITH NO DIVERTICULITIS. STABLE 2.5 CM LEFT ADNEXAL CYSTIC STRUCTURE, PREVIOUSLY NOTED. IF CONCERN WARRANTS, NONEMERGENT PELVIC ULTRASOUND AND GYNECOLOGY REFERRAL MAY BE APPROPRIATE. Referred By: Interpreted By: Edwin Burrows MD, 10/14/2024 11:46 AM Narrative 10/14/2024 12:01 PM CDT [place] [id number] [facility] [place] [address] EXAM: CT ABD+PEL KIDNEY STONE INDICATION: Right lower quadrant pain and microscopic hematuria. TECHNIQUE: Axial noncontrast CT of the abdomen and pelvis, using urinary tract stone protocol was performed. Coronal and sagittal reformatted images were created and reviewed. A radiation dose lowering technique was used for this procedure, which may include, but is not limited to, dose reduction technique, automated exposure control, the use of iterative reconstruction, ALARA (As Low As Reasonably Achievable) techniques, and Image Gently techniques. COMPARISON EXAM: CT abdomen and pelvis without contrast from 09/04/2024. FINDINGS: There is no appreciable urinary tract stone or obstruction. Bilateral renal cortical atrophy and thinning, more notable on the left than the right. Low-density probable cysts. There are couple arteriovascular calcifications and calcified phleboliths around the course of the ureters and in the pelvis no collecting system dilatation or surrounding inflammation. No stone within the relatively collapsed urinary bladder. No intrinsic bladder mass. The uterus is surgically absent or atrophic. Bilateral atrophic ovaries. There is a oval 2.5 cm left adnexal cystic structure, unchanged from the previous study. Noncontrast liver, spleen pancreas adrenal glands are unremarkable. The gallbladder is absent or collapsed. No bowel obstruction or free air. Colonic diverticula with no diverticulitis. No adenopathy or free fluid. There is an ectatic abdominal aorta with no aneurysm. Skeletal structures demonstrate L4-5 fusion hardware and moderate multilevel spondylosis. Epidural neurostimulator again noted. Bibasilar atelectatic and/or fibrotic change and granulomatous calcifications. No acute infiltrates. Procedure Note Edwin Burrows MD - 10/14/[address] [place] [address] EXAM: CT ABD+PEL KIDNEY STONE INDICATION: Right lower quadrant pain and microscopic hematuria. TECHNIQUE: Axial noncontrast CT of the abdomen and pelvis, using urinarytract stone protocol was performed. Coronal and sagittal reformattedimages were created and reviewed. A radiation dose lowering technique was used for this procedure, which mayinclude, but is not limited to, dose reduction technique, automatedexposure control, the use of iterative reconstruction, ALARA (As Low AsReasonably Achievable) techniques, and Image Gently techniques. COMPARISON EXAM: CT abdomen and pelvis without contrast from 09/04/2024. FINDINGS: There is no appreciable urinary tract stone or obstruction.Bilateral renal cortical atrophy and thinning, more notable on the leftthan the right. Low- density probable cysts. There are couplearteriovascular calcifications and calcified phleboliths around the courseof the ureters and in the pelvis no collecting system dilatation orsurrounding inflammation. No stone within the relatively collapsedurinary bladder. No intrinsic bladder mass. The uterus is surgicallyabsent or atrophic. Bilateral atrophic ovaries. There is a oval 2.5 cmleft adnexal cystic structure, unchanged from the previous study.Noncontrast liver, spleen pancreas adrenal glands are unremarkable. Thegallbladder is absent or collapsed. No bowel obstruction or free air.Colonic diverticula with no diverticulitis. No adenopathy or free fluid.There is an ectatic abdominal aorta with no aneurysm. Skeletal structuresdemonstrate L4-5 fusion hardware and moderate multilevel spondylosis.Epidural neurostimulator again noted. Bibasilar atelectatic and/orfibrotic change and granulomatous calcifications. No acute infiltrates. IMPRESSION: NO APPRECIABLE URINARY TRACT STONE OR OBSTRUCTION. EXTENSIVEVASCULAR CALCIFICATIONS AROUND THE COURSE OF THE URETERS AND IN THERECTOVESICAL REGION. NO DEFINITE INTRINSIC URINARY TRACT STONE. BILATERAL RENAL CORTICAL ATROPHY AND LOW-DENSITY PROBABLE CYSTS. COLONIC DIVERTICULA WITH NO DIVERTICULITIS. STABLE 2.5 CM LEFT ADNEXAL CYSTIC STRUCTURE, PREVIOUSLY NOTED. IFCONCERN WARRANTS, NONEMERGENT PELVIC ULTRASOUND AND GYNECOLOGY REFERRALMAY BE APPROPRIATE. Referred By: Interpreted By: Edwin Burrows MD, 10/14/2024 11:46 AM Trey Springer DO CT Final Result * LACTIC ACID W REFLEX (SEPSIS) (10/14/2024 10:02 AM CDT) LACTIC ACID VENOUS 0.8 0.4 - 2.0 MMOL/L 10/14/2024 10:29 AM CDT [facility] 10/14/2024 10:0 2 AM CDT Trey Springer DO LABORATORY Final Result [facility] [address] [place] [id number], * (ABNORMAL) COMPREHENSIVE METABOLIC PANEL (10/14/2024 10:02 AM CDT) Only the most recent of2 resultswithin the time period is included. SODIUM S/P/B 143 136 - 145 MMOL/L 10/14/2024 10:41 AM CDT [facility] POTASSIUM S/P/B 4.3 3.5 - 5.1 MMOL/L 10/14/2024 10:41 AM CDT [facility] Comment:SLIGHT HEMOLYSIS, RE SULT MAY BE AFFECTED. CHLORIDE S/P/B 108(H) 98 - 107 MMOL/L 10/14/2024 10:41 AM CDT [facility] CO2 27.6 21.0 - 32.0 MMOL/L 10/14/2024 10:41 AM CDT [facility] GLUCOSE 95 70 - 99 MG/DL 10/14/2024 10:41 AM CDT [facility] Comment: FASTING GLUCOSE 100 TO 125 MG/DL IS CONSISTENT WITH IMPAIRED FASTING GLUCOSE. FASTING GLUCOSE >125 MG/DL IS CONSISTENT WITH DIABETES. RANDOM GLUCOSE >200 MG/DL WITH HYPERGLYCEMIC SYMPTOMS IS CONSISTENT WITH DIABETES. PER ADA GUIDELINES BUN 31(H) 6 - 24 MG/DL 10/14/2024 10:41 AM CDT [facility] CREATININE S/P/B 2.08(H) 0.55 - 1.02 MG/DL 10/14/2024 10:41 AM CDT [facility] CALCIUM S/P/B 9.5 8.4 - 10.5 MG/DL 10/14/2024 10:41 AM CDT [facility] BILIRUBIN TOTAL S/P/B 0.2 0.2 - 1.0 MG/DL 10/14/2024 10:41 AM [facility] Comment: THIS ASSAY IS NOT RECOMMENDED FOR PATIENTS UNDERGOING TREATMENT WITH ELTROMBOPAG DUE TO THE POTENTIAL FOR FALSELY ELEVATED RESULTS. ALKALINE PHOSPHATASE S/P/B 116 55 - 142 U/L 10/14/2024 10:41 AM [facility] AST 13(L) 15 - 37 U/L 10/14/2024 10:41 AM [facility] ALT 13(L) 14 - 59 U/L 10/14/2024 10:41 AM [facility] TOTAL PROTEIN S/P/B 7.3 6.4 - 8.2 G/DL 10/14/2024 10:41 AM [facility] ALBUMIN S/P/B 3.2(L) 3.4 - 5.0 G/DL 10/14/2024 10:41 AM [facility] ANION GAP 7.4 5.0 - 15.0 MMOL/L 10/14/2024 10:41 AM [facility] OSMOLALITY (CALC) 302 MOSM/KG 025 10:41 AM [facility] Comment:REFERENCE RANGE NOT ESTABLISHED GFR ESTIMATE 24(L) >89 ML/MIN/1. 73 M2 10/14/2024 10:41 AM [facility] GFR NOTES GFR REFERENCE S: 10/14/2024 10:41 AM [facility] Comment: THE ESTIMATED GFR IS CALCULATED USING THE 2020 CKD-EPI EQUATION. THE FOLLOWING CATEGORIES FOR GRADING RENAL FUNCTION ARE RECOMMENDED BY THE INTERNATIONAL SOCIETY OF NEPHROLOGY (KDIGO 2012 CLINICAL PRACTICE GUIDELINE). G1,NORMAL OR HIGH: >89 ml/min/1.73 m2 G2,MILDLY DECREASED: 60-89 ml/min/1.73 m2 G3A,MILDLY TO MODERATELY DECREASED: 45-59 ml/min/1.73 m2 G3B,MODERATELY TO SEVERELY DECREASED: 30-44 ml/min/1.73 m2 G4,SEVERELY DECREASED: 15-29 ml/min/1.73 m2 G5,KIDNEY FAILURE: <15 ml/min/1.73 m2 10/14/2024 10:0 2 AM CDT Trey Weisshugoeduar LABORATORY Final Result [facility] [address] [place] [address], * (ABNORMAL) CBC W/DIFF AUTOMATED (10/14/2024 10:02 AM CDT) WBC 3.82(L) 4.00 - 10.80 x10'3/uL 10/14/2024 10:09 AM CDT [facility] RBC 4.11 4.10 - 5.40 x10'6/uL 10/14/2024 10:09 AM CDT [facility] HGB 12.1 12.0 - 16.0 G/DL 10/14/2024 10:09 AM CDT [facility] HCT 39.0 36.0 - 47.0 % 10/14/2024 10:09 AM CDT [facility] MCV 94.9 78.0 - 100.0 FL 10/14/2024 10:09 AM CDT [facility] MCH 29.4 27.0 - 31.0 PG 10/14/2024 10:09 AM CDT [facility] MCHC 31.0(L) 33.0 - 36.0 G/DL 10/14/2024 10:09 AM CDT [facility] RDW 13.2 11.5 - 14.5 % 10/14/2024 10:09 AM CDT [facility] PLT 167 150 - 350 x10'3/uL 10/14/2024 10:09 AM CDT [facility] MPV 10.0 7.4 - 10.4 FL 10/14/2024 10:09 AM CDT [facility] CBC COMMENT NORMAL REFERENCE RANGE NOT ESTABLISHED FOR THE PROPORTIONAL LEUKOCYTE DIFFERENTIAL. 10/14/2024 10:09 AM CDT [facility] NEUTROPHILS % 61.7 % 10/14/2024 10:09 AM CDT [facility] LYMPHOCYTES % 27.2 % 10/14/2024 10:09 AM CDT [facility] MONOCYTES % 6.0 % 10/14/2024 10:09 AM CDT [facility] EOSINOPHILS % 4.5 % 10/14/2024 10:09 AM CDT [facility] BASOPHILS % 0.3 % 10/14/2024 10:09 AM CDT [facility] IMMATURE GRANS % 0.3 % 10/15/19 10:09 AM CDT [facility] NRBC % 0.0 % 10/14/2024 10:09 AM CDT [facility] ABS. NEUTROPHILS 2.36 1.60 - 8.30 x10'3/uL 10/14/2024 10:09 AM CDT [facility] ABS. LYMPHOCYTES 1.04 0.80 - 4.70 x10'3/uL 10/14/2024 10:09 AM CDT [facility] ABS. MONOCYTES 0.23 0.00 - 1.50 x10'3/uL 10/14/2024 10:09 AM CDT [facility] ABS. EOSINOPHILS 0.17 0.00 - 0.40 x10'3/uL 10/14/2024 10:09 AM CDT [facility] ABS. BASOPHILS 0.01 0.00 - 0.20 x10'3/uL 10/14/2024 10:09 AM CDT [facility] ABS. IMMATURE GRANULOCYTES 0.01 0.00 - 0.03 x10'3/uL 10/14/2024 10:09 AM CDT [facility] ABS. NUCLEATED RBC'S 0.00 0.00 - 0.01 x10'3/uL 10/14/2024 10:09 AM CDT [facility] 10/14/2024 10:0 2 AM CDT us Trey Springer DO LABORATORY Final Result [facility] [address] [place] [address], * (ABNORMAL) URINALYSIS (10/14/2024 9:43 AM CDT) COLOR (U) STRAW 10/14/2024 10:07 AM CDT [facility] TRANSPARENCY CLEAR 10/14/2024 10:07 AM CDT [facility] SPECIFIC GRAVITY (U) 1.010 1.000 - 1.025 10/14/2024 10:07 AM CDT [facility] U PH 5.0 5.0 - 8.0 10/14/2024 10:07 AM CDT [facility] LEUKOCYTES (U) NEGATIVE NEGATIVE 10/14/2024 10:07 AM CDT [facility] NITRITES NEGATIVE NEGATIVE 10/14/2024 10:07 AM CDT [facility] PROTEIN RANDOM (U) NEGATIVE NEGATIVE 10/14/2024 10:07 AM CDT [facility] GLUCOSE (U) NEGATIVE NEGATIVE 10/14/2024 10:07 AM CDT [facility] KETONES MG/DL (U) NEGATIVE NEGATIVE 10/14/2024 10:07 AM CDT [facility] UROBILINOGEN 0.2 <1.0 EU/DL 10/14/2024 10:07 AM CDT [facility] BILIRUBIN (U) NEGATIVE NEGATIVE 10/14/2024 10:07 AM CDT [facility] BLOOD (U) TRACE(A) NEGATIVE 10/14/2024 10:07 AM CDT [facility] WBC/HPF RARE(A) 0 - 5 /HPF 10/14/2024 10:07 AM CDT [facility] RBC/HPF RARE(A) 0 - 5 /HPF 10/14/2024 10:07 AM CDT [facility] EPI/LPF RARE /LPF 10/14/2024 10:07 AM CDT [facility] BACTERIA (U) TRACE /HPF 10/14/2024 10:07 AM CDT [facility] MUCUS PRESENT 10/14/2024 10:07 AM CDT [facility] OTHER CASTS (U) HYALINE /LPF 10:07 AM CDT [facility] Comment:0-5 URINE SPECIMEN OBTAINED BY CLEAN CATCH PROCEDURE / Unknown 10/14/2024 9:43 AM CDT us Trey Springer DO URINE ORDERABLES Final Result [facility] [address] [place] [address], * MISCELLANEOUS LAB TEST (10/10/2024 3:00 PM CDT) TEST NAME: [id number] CUTANEOUS DIRECT IMMUNOFLUORESCENCE 5 2:11 PM CDT [facility] Comment:CORRECTED ON 10/11 A T 1411: PREVIOUSLY REPORTED [id number] BUCCAL MUCOSA SPECIMEN TYPE RIGHT BUCCAL MUCOSA ROOM TEMP 5 2:11 PM CDT [facility] Comment:CORRECTED ON 10/11 A T 1411: PREVIOUSLY REPORTED BUCCAL TEST RESULT: Flexitest 1 5 5:34 PM CDT [facility] Comment: Flexitest 1 Cutaneous Direct Immunofluorescence CUTANEOUS DIRECT IMMUNOFLUORESCENCE TESTS: Cutaneous Direct Immunofluorescence (1) DM CHUCKY (1) CLINICAL DIAGNOSIS / INFORMATION: Not provided. SITE OF BIOPSY / SOURCE: Dif - Right buccal mucosa Client Acc. #: [id number] GROSS DESCRIPTION: [employer] [facility] GROSS DESCRIPTION: The specimen is a punch biopsy received in immunofluorescence transport medium that measures 0.4 x 0.4 x 0.2 cm. The specimen is flash frozen and multiple 4 micron sections are cut for manual immunofluorescence staining. The sections are probed with fluorescein labeled antihuman antibodies as reported above. [facility] MICROSCOPIC DESCRIPTION: All positive and negative controls stained appropriately as required. FINAL DIAGNOSIS DIRECT IMMUNOFLUORESCENCE, RIGHT BUCCAL MUCOSA: - POSITIVE CONSISTENT WITH LICHEN PLANUS (SEE NOTE). COMMENTS: Note: There are thick, linear and shaggy fibrinogen deposits along with patchy granular IgM and C3 along the basement membrane zone. There is no IgG, IgG4,IgA or C5b-9 deposition in this specimen. Lichenoid mucositis or mucosal lichenoid tissue reactions other than lichen planus can rarely present with similar immunofluorescence findings; therefore, clinical and histologic correlation is recommended. There is no immunofluorescence evidence of autoimmune mucosal blistering disease. Multiple immunoreactant dilutions and sections were performed. This specimen was sent for internal consult to [facility], [address] [place] [address], [address], [place] [address], a division of [employer]. The diagnostic interpretation for this case was provided by: Farhat Vieira M.D., Dermatopathologist. SIGNATURE ON FILE Farhat Vieira M.D. Pathologist [phone] Electronic Report Released By: SALVADOR JONES M.D. Pathologist Test Performed by Enrique Guerrero, [facility], [address] [place] [address] Acosta Núñez M.D., Ph.D., Director of Laboratories , [facility] [id number] 10/10/2024 3:00 PM CDT us Gibson Rosales MD LABORATORY Edited Result - Final Opez [address] , [place] [phone] [facility] [address] [place] [address], [place] [phone] * US PELVIC NON OB COMP TA (09/17/2024 2:18 PM CDT) Anatomical Region Laterality Modality Pelvis Ultrasound 09/17/2024 2:37 PM CDT Impressions 09/17/2024 4:50 PM CDT IMPRESSION: 1. Simple left ovarian cyst as described, considered benign. 2. Nonvisualization of the right ovary without adnexal mass. Ordered By: ASHELY PADILLA Interpreted By: Thiago Moore MD, 09/17/2024 2:37 PM Narrative 09/17/2024 4:50 PM [address]T [address] [place] [address] Examination: Pelvic ultrasound. Exam time: 1356 hours. Clinical history: Follow-up of abnormal CT scan. Prior hysterectomy. Comparison: CT of the abdomen and pelvis, 09/04/2024, 01/06/2022 ([place] [facility] [place] Technique: Grayscale and color Doppler images including spectral analysis. Findings: The uterus is not identified, compatible with the history. The left ovary is identified measuring 3.4 cm in greatest dimension. Flow to the left ovary is documented on color Doppler with normal appearing spectrum. 2.8 cm simple left ovarian cyst correlates with the CT finding now shown to be chronically present and stable and considered benign on this basis. No further workup or surveillance is required. The right ovary could not be visualized however, no adnexal mass is seen. There is no free fluid. Procedure Note Thiago Moore MD - 09/17/[address] [place] [address] Examination: Pelvic ultrasound. Exam time: 1356 hours. Clinical history: Follow-up of abnormal CT scan. Prior hysterectomy. Comparison: CT of the abdomen and pelvis, 09/04/2024, 01/06/2022 ([place] [facility] [place] Technique: Grayscale and color Doppler images including spectralanalysis. Findings: The uterus is not identified, compatible with the history. Theleft ovary is identified measuring 3.4 cm in greatest dimension. Flow tothe left ovary is documented on color Doppler with normal appearingspectrum. 2.8 cm simple left ovarian cyst correlates with the CT findingnow shown to be chronically present and stable and considered benign onthis basis. No further workup or surveillance is required. The right ovarycould not be visualized however, no adnexal mass is seen. There is no freefluid. IMPRESSION: 1. Simple left ovarian cyst as described, considered benign. 2. Nonvisualization of the right ovary without adnexal mass. Ordered By: ASHELY PADILLA Interpreted By: Thiago Moore MD, 09/17/2024 2:37 PM us Ashely Padilla MANAGER WOMEN ULTRASOUND Fin al Result * US SOFT TISS HEAD OR NECK (09/17/2024 2:18 PM CDT) Anatomical Region Laterality Modality Head, Neck Ultrasound 09/19/2024 4:36 PM CDT Impressions 09/19/2024 4:40 PM CDT IMPRESSION: Bilateral reactive appearing but otherwise nonspecific lymph nodes. Clinical correlation is required with further evaluation as deemed appropriate. Ordered By: ASHELY PADILLA Interpreted By: Thiago Moore MD, 09/19/2024 4:36 PM Narrative 09/19/2024 4:40 PM CDT [address] [place] [address] Examination: Ultrasound of the soft tissues of the neck. Exam time: 1346 hours. Clinical history: Left submental/submandibular lymphadenopathy. Comparison: None. Technique: Grayscale and color Doppler images. Findings: Evaluation of the region of interest was performed with limited contralateral views for comparison. There are bilateral reactive appearing lymph nodes. The largest, on the right, measures 1.9 cm in greatest dimension. [place] appearing tissue architecture is otherwise demonstrated. No other sonographically discrete finding is identified. Procedure Note Thiago Moore MD - 09/19/[address] [place] [address] Examination: Ultrasound of the soft tissues of the neck. Exam time: 1346 hours. Clinical history: Left submental/submandibular lymphadenopathy. Comparison: None. Technique: Grayscale and color Doppler images. Findings: Evaluation of the region of interest was performed with limitedcontralateral views for comparison. There are bilateral reactive appearinglymph nodes. The largest, on the right, measures 1.9 cm in greatestdimension. [place] appearing tissue architecture is otherwise demonstrated.No other sonographically discrete finding is identified. IMPRESSION: Bilateral reactive appearing but otherwise nonspecific lymph nodes.Clinical correlation is required with further evaluation as deemedappropriate. Ordered By: ASHELY PADILLA Interpreted By: Thiago Moore MD, 09/19/2024 4:36 PM Ashely Padilla MANAGER WOMEN ULTRASOUND Fin al Result * CT ABD+PEL WO CON (09/04/2024 10:51 AM CDT) Anatomical Region Laterality Modality Abdomen Computed Tomogra phy 09/04/2024 11:3 4 AM CDT Impressions 09/04/2024 1:26 PM CDT IMPRESSION: 1. No acute intra-abdominal or intrapelvic process identified. 2. Coronary artery disease. 3. Probable 2.5 cm left ovarian cyst. Correlation with ultrasound as deemed clinically appropriate. 4. Colonic diverticulosis. 5. Additional chronic/nonurgent findings as described. Ordered By: ALMA JAMISON Interpreted By: Thiago Moore MD, 09/04/2024 11:34 AM Narrative 09/04/2024 1:26 PM CDT [address] [place] [address] Examination: CT of the abdomen and pelvis without contrast. Exam time: 1048 hours. Clinical history: Right-sided pain for one week. Reported hematuria. Prior cholecystectomy, hysterectomy and appendectomy. Comparison: None. Technique: Spiral scanning was performed through the abdomen and pelvis without contrast. Sagittal and coronal reconstructions were performed from the data set. Intravenous contrast was not administered due to the stated allergy history. A dose lowering technique was used for this procedure, which may include, but is not limited to, dose reduction techniques, automated exposure control, the use of iterative reconstruction and ALARA/Image Gently techniques. Findings: There is minor scarring at the lung bases including a calcified granuloma in the right lower lobe. Allowing for respiratory motion, the lung bases are otherwise clear. No pleural effusions are seen. Calcific coronary artery disease and mitral annular calcification noted. The gallbladder is not identified, compatible with the history. Incidental splenule is noted. There is mild bilateral renal atrophy, greater on the left. Small right renal cyst requires no further workup or surveillance. The liver, spleen, pancreas, adrenals and kidneys are otherwise unremarkable for the noncontrast technique. The urinary bladder is nondistended. The uterus and appendix are not identified, compatible with the history. Approximately 2.5 cm in greatest dimension fluid attenuation left adnexal mass is presumably ovarian cyst. Ultrasound could be considered for correlation as deemed clinically appropriate. There is colonic diverticulosis without signs of diverticulitis. There is no ascites, lymphadenopathy or bowel distention. There is mild ectasia of the infrarenal abdominal aorta, without aneurysm. There is interbody and posterior gildardo and pedicle screw fusion at L4-5. Implanted epidural stimulator is in place with the leads entering at the L1-2 level and terminating near the T6-7 level. Procedure Note Thiago Moore MD - 09/04/[address] [place] [address] Examination: CT of the abdomen and pelvis without contrast. Exam time: 1048 hours. Clinical history: Right-sided pain for one week. Reported hematuria. Priorcholecystectomy, hysterectomy and appendectomy. Comparison: None. Technique: Spiral scanning was performed through the abdomen and pelviswithout contrast. Sagittal and coronal reconstructions were performed fromthe data set. Intravenous contrast was not administered due to the statedallergy history. A dose lowering technique was used for this procedure,which may include, but is not limited to, dose reduction techniques,automated exposure control, the use of iterative reconstruction andALARA/Image Gently techniques. Findings: There is minor scarring at the lung bases including a calcifiedgranuloma in the right lower lobe. Allowing for respiratory motion, thelung bases are otherwise clear. No pleural effusions are seen. Calcificcoronary artery disease and mitral annular calcification noted. Thegallbladder is not identified, compatible with the history. Incidentalsplenule is noted. There is mild bilateral renal atrophy, greater on theleft. Small right renal cyst requires no further workup or surveillance.The liver, spleen, pancreas, adrenals and kidneys are otherwiseunremarkable for the noncontrast technique. The urinary bladder isnondistended. The uterus and appendix are not identified, compatible withthe history. Approximately 2.5 cm in greatest dimension fluid attenuationleft adnexal mass is presumably ovarian cyst. Ultrasound could beconsidered for correlation as deemed clinically appropriate. There iscolonic diverticulosis without signs of diverticulitis. There is noascites, lymphadenopathy or bowel distention. There is mild ectasia of theinfrarenal abdominal aorta, without aneurysm. There is interbody andposterior gildardo and pedicle screw fusion at L4-5. Implanted epiduralstimulator is in place with the leads entering at the L1-2 level andterminating near the T6-7 level. IMPRESSION: 1. No acute intra-abdominal or intrapelvic process identified. 2. Coronary artery disease. 3. Probable 2.5 cm left ovarian cyst. Correlation with ultrasound asdeemed clinically appropriate. 4. Colonic diverticulosis. 5. Additional chronic/nonurgent findings as described. Ordered By: ALMA JAMISON Interpreted By: Thiago Moore MD, 09/04/2024 11:34 AM us Alma Jamison MD CT Final Resu lt * BONE DENSITY/DEXA (05/10/2023 10:49 AM DELIVERY DIRECTOR) Anatomical Region Laterality Modality Bone Bone Density 05/10/2023 12:4 2 PM DELIVERY DIRECTOR Impressions 05/10/2023 12:43 PM DELIVERY DIRECTOR IMPRESSION: WHO Classification: osteopenia. FRAX Score: 4.4% chance of hip fracture and 16% chance of major osteoporotic fracture over the next 10 years Ordered By: ALMA JAMISON Interpreted By: Johann Titus MD, 05/10/2023 12:42 PM Narrative 05/10/2023 12:43 PM DELIVERY DIRECTOR Examination: Bone Density Axial Exam Date/Time: 05/10/2023 10:49 AM Reason For Exam: POSTMENOPAUSAL STATUS Prior BX or surgery with hardware. Comparison: None Findings: DEXA bone densitometry The bone mineral density (BMD) was determined by dual-energy x-ray absorptiometry, the results are as follows: Right femoral neck: BMD Patient (GM/SQCM): 0.641 T-Score (Standard deviations from young adult peak bone density): -1.9 Total right femur: BMD Patient (GM/SQCM): 0.676 T-Score (Standard deviations from young adult peak bone density): -2.2 Procedure Note Johann Titus MD - 05/10/2023 Examination: Bone Density Axial Exam Date/Time: 05/10/2023 10:49 AM Reason For Exam: POSTMENOPAUSAL STATUS Prior BX or surgery with hardware. Comparison: None Findings: DEXA bone densitometry The bone mineral density (BMD) was determined bydual-energy x-ray absorptiometry, the results are as follows: Right femoral neck: BMD Patient (GM/SQCM): 0.641 T-Score (Standard deviations from young adult peak bonedensity): -1.9 Total right femur: BMD Patient (GM/SQCM): 0.676 T-Score (Standard deviations from young adult peak bonedensity): -2.2 IMPRESSION: WHO Classification: osteopenia. FRAX Score: 4.4% chance of hip fracture and 16% chance of majorosteoporotic fracture over the next 10 years Ordered By: ALMA JAMISON Interpreted By: Johann Titus MD, 05/10/2023 12:42 PM us Alma Jamison MD DEXA Final Resu lt from Last 3 Months or Most Recently Relevant to Health Maintenance Insurance [employer] Care Teams Property Administrator Relationship Specialty Start Date End Date Alma Jamison MD [address] [place] [address] [phone] PCP - General FAMILY PRACTICE 09/04/24
== END 2024-11-28 13:37 | disposition home or self-care (01) ==
PROVIDERS: PCP Family Medicine; Visit Provider Physician Assistant
DX: R31.0 Gross hematuria (principal); I71.43 Infrarenal abdominal aortic aneurysm, without rupture
CPT/HCPCS: 74176

== ENCOUNTER 2025-05-06 13:34 | Emergency (ER) | payer MEDICARE, SELFPAY ==
[2025-05-06] VITALS (37 sets, daily range): BP systolic 126–234; BP diastolic 64–136; PULSE 53–114; RESP 11–27; TEMP 35.9; O2SAT 96–100
--- NOTE | ~2025-05-06 | CT_ITS ---
EXAMINATION: CT brain wo con, 05/06/2025 14:00 GUT SNATCHER HISTORY: Unresponsive COMPARISON: No comparisons available. Technique: Axial images obtained of the brain without contrast. One or more of the following dose reduction techniques were used: automated exposure control, adjustment of the mA and/or kV according to patient size, use of iterative reconstruction technique. Findings: No acute infarct or parenchymal hemorrhage. No abnormal mass or mass effect. No midline shift. No extra-axial fluid collections. No hydrocephalus. Mastoid air cells unremarkable. Sinuses and orbits unremarkable. No acute fracture. No significant facial or scalp soft tissue swelling evident. No radiopaque foreign body is seen. Impression: 1.No acute intracranial abnormality. Reviewed, dictated and finalized at location P. SNATCHER Impression: 1.No acute intracranial abnormality.
--- NOTE | ~2025-05-06 | XR_ITS ---
EXAMINATION: XR chest 1V portable COMPARISON: No comparisons available. HISTORY: Unresponsive FINDINGS: Mild pulmonary venous congestion. No pneumothorax. Mild cardiomegaly. Mediastinal and hilar contours are within normal limits. Bony thorax no acute abnormality. Miscellaneous: Spinal canal catheter noted. Impression: Mild CHF Reviewed, dictated and finalized at location P. FARM DESIGNER Impression: Mild CHF
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
--- NOTE | 2025-05-06 13:45 | ECG_ITS ---
Test Date: 2025-05-06 13:57:13 Measurements Intervals Millen Rate: 68 P: 66 IN: 175 QRS: -66 QRSD: 111 T: 73 QT: 409 QTc: 437 Interpretive Statements SINUS RHYTHM LEFT ANTERIOR FASCICULAR BLOCK LEFT VENTRICULAR HYPERTROPHY AND ST-T CHANGE CANNOT R/O SEPTAL INFARCT, AGE INDETERMINATE BASELINE ARTIFACT- I, II, III, AVR, AVF, V1 ABNORMAL ECG No previous ECG available for comparison Electronically Signed On 05-06-2025 14:02:23 PRODUCT LEAD by Jose Henry D.O.
--- NOTE | 2025-05-06 13:54 | PC.NURSE ---
RN and ERP Dr. Oliver spoke with patient's son and on the phone, both state patient is a DNR/Comfort Care. They will be up to the hospital as quick as they can.
[2025-05-06] MEDS: NALOXONE HCL INJ 2 MG/2 ML AMP IV PUSH ×3 (14:47→16:17)
--- NOTE | 2025-05-06 14:49 | PC.NURSE ---
Narcan administered, patient is more awake, ERP pulled to bedside. Will administer a second narcan per ERP.
--- NOTE | 2025-05-06 15:00 | PC.NURSE ---
Second Narcan administered, no change in mental status since original Narcan administered.
[2025-05-06 15:04] LABS: Hematocrit 43.9 % (35.0-42.0); Hemoglobin 13.0 g/dL (11.7-13.8); Immature Granulocyte Percent A 0.6 % (0.0-0.0); Lymphocytes Absolute Auto 0.90 K/mm3 (1.10-4.50); Mean Corpuscular HGB Conc 29.6 g/dL (32-36); Mean Corpuscular Hemoglobin 29.7 pg (27.0-31.0); Mean Corpuscular Volume 100.2 fL (78.0-102.0); Nucleated Red Blood Cells Absolute Auto 0.00 K/mm3 (0.00-0.00); Nucleated Red Blood Cells Perc 0.0 % (0-0.0); Platelet Count Result 176 K/mm3 (150-420); Red Blood Count 4.38 M/mm3 (4.20-5.40); White Blood Count 8.6 K/mm3 (4.8-10.8)
[2025-05-06 15:16] LABS: Add Urine Microscopic? YES; Appearance Urine Clear (Clear); Glucose Urine UA Negative (Negative); Leukocyte Esterase Ur Negative LEU/UL (Negative); Nitrate Urine Negative (Negative); Specific Grav Ur 1.020 (1.010-1.020)
[2025-05-06 15:18] LABS: Acetaminophen < 10 ug/mL (10-30); Salicylate < 1.0 mg/dL (2-20)
[2025-05-06 15:19] LABS: Anion Gap 11 mmol/L (4-12); Bilirubin,Total 0.4 mg/dL (0.2-1.3); Blood Urea Nitrogen 41 mg/dL (7-17); Calcium 9.5 mg/dL (8.4-10.2); Carbon Dioxide 21 mmol/L (22-30); Chloride 113 mmol/L (98-107); Estimated Glomerular Filt Rate 24; Glucose 147 mg/dL (65-110); INR 1.0; Osmolality Calculated 313 mOsm/kg (285-295); Partial Thromboplastin Time 26.5 Sec (23.9-30.70); Potassium 4.0 mmol/L (3.4-5.0); Prothrombin Time 11.1 Seconds (9.50-12.1); Sodium 145 mmol/L (137-145)
[2025-05-06 15:20] LABS: Alkaline Phosphatase 82 U/L (38-126); Aspartate Amino Transferase 25 U/L (14-36); Creatine Kinase 423 U/L (30-135); Total Protein 7.1 g/dL (6.3-8.2)
[2025-05-06 15:21] LABS: Alanine Aminotransferase 14 U/L (6-35); Albumin Level 4.3 g/dL (3.5-5.1)
[2025-05-06 15:49] LABS: Cannabinoid Screen Urine Negative (Negative)
[2025-05-06 15:51] LABS: NT Pro B Type Natriuretic Pept 471 pg/mL (19.9-100)
[2025-05-06 15:52] LABS: Troponin I < 0.012 ng/mL (0.000-0.034)
--- NOTE | 2025-05-06 16:16 | PC.NURSE ---
Family went home to find neurostimulator service coordinator elderly facility. Upon looking for service coordinator elderly facility they found multiple suicide notes to all family members. ERP is made aware, parking lot supervisor made aware at [place] and is going to get ahold of mill operator for ICU Placement.
[2025-05-06 16:56] LABS: HCO3 ABG 23.6 mmol/L (23-29); Modified Allen's Test Unable to perform; Oxygen Saturation ABG 96.7 % (95-97); PCO2 ABG 44.9 mmHg (35-45); PO2 ABG 87.3 mmHg (75-85); Site Drawn RIGHT RADIAL
[2025-05-06 16:57] LABS: Liters per Minute 4.5 LPM
[2025-05-06] MEDS: SODIUM CHLORIDE 0.9% IV 1,000 ML 250 ML IV CONT (17:25)
== END 2025-05-06 18:13 | disposition short-term general hospital (02) ==
PROVIDERS: Emergency Provider Emergency Medicine; PCP Family Medicine
DX: F32.A Depression, unspecified (principal); T65.92XA Toxic effect of unspecified substance, intentional self-harm, initial encounter; N17.9 Acute kidney failure, unspecified; J44.9 Chronic obstructive pulmonary disease, unspecified; M06.9 Rheumatoid arthritis, unspecified; Z87.891 Personal history of nicotine dependence
CPT/HCPCS: 36415; 36600; 70450; 71045; 80053; 80143; 80179; 80307; 81001; 82077; 82550; 82805; 83605; 83880; 84484; 85025; 85610; 85730; 93005; 96361; 96374; 96376; 99285; J2312; J7030

== ENCOUNTER 2025-05-06 19:08 | Inpatient (IN) | payer MEDICARE, SELFPAY ==
--- NOTE | ~2025-05-06 | XR_ITS ---
EXAM/PROCEDURE: XR abdomen gastric tube insert HISTORY: NG placement COMPARISON: None available. TECHNIQUE: KUB FINDINGS: Gastric catheter present in the upper body portion of the stomach. Dorsal column stimulating device and wires as well as lumbar spinal fusion hardware noted. Visualized bowel gas pattern is nonspecific. IMPRESSION: Gastric catheter in good position. NOTE: Preliminary radiology report provided by [facility] radiologist/physician. Reviewed, dictated and finalized at location A. ER
--- NOTE | ~2025-05-06 | CT_ITS ---
EXAM/PROCEDURE: CT chest abdomen pelvis wo con HISTORY: worsened respiratory status, sepsis COMPARISON: December 18, 2024 TECHNIQUE: Noncontrast enhanced CT of the chest abdomen and pelvis performed FINDINGS: CHEST CT: Subsegmental atelectatic changes are present in the right lower lobe. There is also [place] wall thickening, and trace right-sided pleural effusion. Scattered fibrotic appearing changes in the left lung which is clear. Central large airways are patent. Gastric catheter is present extending into the body of the stomach. Heart size normal. No pericardial effusion or bulky lymphadenopathy. ABDOMEN AND PELVIC CT: The bowel gas pattern is nonobstructive with no free air free fluid or pneumatosis. No AAA or grossly inflamed appendix. No hydroureteronephrosis. Adrenal glands spleen pancreas and liver appear stable. No bulky mesenteric or retroperitoneal lymphadenopathy or masses. Fusion hardware at the L4-5 level appears intact Diffuse degenerative changes throughout the bones. Dorsal column stimulating device in the left gluteal region with intraspinal wire entering at the L1-2 level and extending up to the mid thoracic spine. Urinary bladder is nondistended with no obvious acute abnormality. Patient appears to be status post hysterectomy. Gallbladder also appears removed. Moderate amount of stool extends to the cecum. Scattered diverticular disease with no gross acute diverticulitis. IMPRESSION: Directed noncontrast exam demonstrating no focal acute process in the abdomen and pelvis. Subsegmental atelectatic changes in the right lower lobe with peribronchial thickening may represent atypical inflammatory or infectious airways mediated process. Reviewed, dictated and finalized at location A. FLOW DEVELOPER IMPRESSION: Directed noncontrast exam demonstrating no focal acute process in the abdomen a nd pelvis. Subsegmental atelectatic changes in the right lower lobe with peribr onchial thickening may represent atypical inflammatory or infectious airways me diated process.
--- NOTE | ~2025-05-06 | CT_ITS ---
EXAMINATION: CT brain wo con DATE: 05/07/2025 11:28 INDICATION: Altered mental status TECHNIQUE: Computed tomography (CT) of the head was performed without intravenous contrast. Sagittal and coronal reconstructions were performed. The mA was adjusted according to patient size. Iterative reconstruction technique was employed. The dose-length product was 1210.67 mGy-cm. COMPARISON: head CT dated 05/06/25 FINDINGS: Evaluation mildly limited by small amount of motion artifact. No acute intracranial hemorrhage, acute infarction or abnormal extra axial fluid collection. There is mild scattered white matter hypoattenuation with periventricular predominance consistent with chronic small vessel ischemic disease. Symmetric prominence of the sulci consistent with mild age-appropriate diffuse cerebral volume loss. Ventricles are normal and symmetric. No mass/mass effect. Changes of bilateral intraocular lens replacement. The orbits and mastoid air cells are normal. Mild mucosal thickening in the bilateral ethmoid and maxillary sinuses. IMPRESSION: 1. Age-related changes including mild diffuse volume loss and mild scattered white matter hypoattenuation consistent with chronic small vessel ischemic disease. No acute intracranial process. Reviewed, dictated and finalized at location A. [place] IMPRESSION: 1. Age-related changes including mild diffuse volume loss and mild scattered wh ite matter hypoattenuation consistent with chronic small vessel ischemic diseas e. No acute intracranial process.
[2025-05-06 19:06] VITALS: O2SAT 98
--- OUTSIDE RECORDS SUMMARY | 2025-05-06 19:19 | XMS_ITS | Encounter Summary ---
Author Organization [facility] Address [address] [place] [id number] Care Team Providers Care Community Service Director Name Role Phone Cinthya Mcdonald NP Primary Care Provider [phone] Sylvain Salinas MD Primary Care Provider + [phone] Everton Cordon MD Unavailable Max Saldana MD Unavailable [phone] Alma Jamison MD Primary Care Provider Robbie Wylie NP Unavailable [phone] Amanuel Mckee MD Unavailable [phone] Encounter Details Date Type Department Care Team (Late st Contact Info) Description 05/22/2020 Telephone [facility] [address] [place] [id number] Brianna Espinoza, RT Social History Tobacco Use Types Packs/Day Years Used Date Smoking Tobacco: Former Cigarettes Smokeless Tobacco: Never Alcohol Use Standard Drinks/Week Comments No 0 (1 standard drink = 0.6 oz pur e alcohol) PHQ-2 Answer Date Recorded PHQ-2 Score 0 06/01/2019 Comments No Sex and Gender Information Value Date Recorded Sex Assigned at Not on file Legal Sex Female 10:23 AM [employer]FT [employer] Gender Identity Not on file Sexual Orientation Not on file documented as of this encounter Plan of Treatment Not on file documented as of this encounter Visit Diagnoses Not on filedocumented in this encounter Additional Health Concerns Infection Onset Date Last Indicated Resolved Time COVID: Suspected 02/05/2021 02/05/2021 02/05/2021 4:26 PM CDT COVID: Suspected 02/05/2021 02/05/2021 02/09/2021 9:03 AM CDT documented as of this encounter Care Teams Community Service Director Relationship Specialty Start Date End Date Cinthya Mcdonald NP PCP - General 06/01/19 06/24/20 Sylvain Salinas MD [address] [place] [address] PCP - General Family Medicine 06/25/20 05/03/23 Alma Jamison MD [address] [place] [id number] PCP - General Family Medicine 05/04/23 Everton Cordon MD [address] [place] [address] Consulting Physician Pulmonary Disease 02/13/21 Max Saldana MD [address] [place] [address] [address] [place] [address] [address] Consulting Physician Nephrology 01/22/22 [place] [address] [address] [place] [address] Nurse Practitioner Pain Management 04/03/24 [place] [address] [address] [place] [address] Consulting Physician Pain Management 04/02/25 documented as of this encounter
--- OUTSIDE RECORDS SUMMARY | 2025-05-06 19:19 | XMS_ITS | Continuity of Care Document ---
Author Organization [facility], [place] Address [address] [place] [address] [place] [address] Assessment No assessment recorded. Plan of Treatment Reminders Order Date Submit Date Provider Last Modified By Organization Details Last Modified Time Details Appointments None recorded. Lab None recorded. Referral None recorded. Procedures None recorded. Surgeries None recorded. Imaging CT, abdomen + pelvis, w/ contrast 2024 025 [facility], [address], [address], [place], [address], 04:01:57 Medication Orders None recorded. Patient TargetsNo targets recorded. Patient InstructionsNo instructions recorded. Reason for Referral None Reported. Results Created Date Observation Date Name Description Value Unit Range Abnormal Flag Note LastModifiedBy Organization Detail LastModifiedTime 03/21/2003/21/2025 CULTU RE: URINE result report SEE RESULT S BELOW abnormal Test: Cultu re: Urine Speci men Sourc e: Urine - Clean Catch Speci men Type: Urine Speci men Date: 03/21 1540 Resul t Date: 2024 2321 Resul t Statu s: Final resul t Abnor mal: Yes Resul lillian Lab: [facility] [address] [facility] [address] Tel: CULTU RE ----- ----- ----- --- >100, 000 CFU/m l Esche david a coli (Abno rmal) MILENACE PTIBI LITY ----- ----- ----- --- Esche david a coli METHO D JULISSA ----- ----- ----- ----- ----- ---- ----- ----- ----- ----- ----- - AMPIC ILLIN >16 ug/mL Resis tant AMPIC ILLIN /SULB ACTAM 16 ug/mL Inter media te AZTRE ONAM <=4 ug/mL Susce ptibl e CEFAZ EMILIE <=2 ug/mL Susce ptibl e CEFEP PRABHAKAR <=2 ug/mL Susce ptibl e CEFTA ZIDIM E <=1 ug/mL Susce ptibl e CEFTR IAXON E <=1 ug/mL Susce ptibl e CIPRO FLOXA MEÑO <=0.2 5 ug/mL Susce ptibl e GENTA MICIN 8 ug/mL Resis tant LEVOF LOXAC IN <=0.5 ug/mL Susce ptibl e MEROP ENEM <=1 ug/mL Susce ptibl e NITRO FURAN TOIN <=32 ug/mL Susce ptibl e PIPER ACILL IN/TA ZOBAC SANDERS <=8 ug/mL Susce ptibl e TOBRA MYCIN <=2 ug/mL Susce ptibl e TRIME THOPR IM/GIRALDO LFAME THOXA ZOLE >2 ug/mL Resis tant Not Available [facility] (Lab) [address], [place], [address], 03/24/2025 00:25:43 03/21/20 25 03/21/2025 urina lysis , dipst ick Leukocytes + Not Available [facility] [address], [place], [address], 03/21/2025 14:43:48 03/21/20 25 03/21/2025 urina lysis , dipst ick Protein + Not Available [place] [address], [place], [address], 03/21/2025 14:43:48 03/21/20 25 03/21/2025 urina lysis , dipst ick pH 5 Not Available [place] [address], [place], [address], 03/21/2025 14:43:48 03/21/20 25 03/21/2025 urina lysis , dipst ick Blood +++ Not Available [place] [address], [place], [address], 03/21/2025 14:43:48 03/21/20 25 03/21/2025 urina lysis , dipst ick Specific Zebulon 1.020 Not Available [facility] franky [address], [place], [address], 03/21/2025 14:43:48 03/21/20 25 03/21/2025 urina lysis , dipst ick Bilirubin + Not Available [facility] [address], [place], [address], 03/21/2025 14:43:48 04/01/20 25 04/01/2025 US, pelvi s No observ ation record ed. [facility] [address], [place], [address], 04/01/2025 18:50:02 04/01/20 25 04/01/2025 US, trans vagin al No observ ation record ed. [facility] [address], [place], [address], 04/01/2025 18:50:16 04/01/20 25 04/01/2025 US, pelvi s No observ ation record ed. [email or web address] Gretchen [address] [place] [address] [address], [place], [address], 04/01/2025 15:27:32 Result Notes None recorded. Procedures Surgical History Date Name Laterality Status Provider Name and Address Organization Details Recorded Time 05/23/19 24 Date of Last Mammogram completed Kassandra Barrett [facility] 03/21/2025 14:17:05 hysterectomy completed [facility] 03/21/2025 14:27:59 total arthroplasty of knee, geomedic or polycentric completed [facility] 03/21/2025 14:28:41 operation on vertebra completed [facility] 03/21/2025 14:29:01 cholecystectomy completed [facility] 03/21/2025 14:29:31 Imaging Results None recorded. Procedure Notes None recorded. Medical Equipment None Reported. Allergies Allergen ID Allergen Name Allergen Category Reaction Reaction Severity Criticality Documentation Date Start Date Code Code System Note Provider Name and Address Organization Details Recorded Time 36101 iodine medicatio n Not available Not available Not available 04/12/20252019 5933 RxNorm Not Available [employer] - prod 03:07:59 62868 Iodinated contrast media (substanc e) medicatio n hives itching rash Not available Not available Not available high 04/12/20252024 84118 2004 SNOMED Not Available [employer] - prod 10:26:31 Medications Name Sig Start Date Stop Date Status Note LastModified by Organization Details LastModified Time furosemide 40 mg tablet Take 1 tablet every day by oral route. active Not Available Not Available No t Available buspirone 5 mg tablet TAKE 1 TABLET BY MOUTH EVERY DAY active Not Available Not Available No t Available nystatin 100,000 unit/mL oral suspension 10 MILLILITE R DAILY SWISH AND SWALLOW 03/21 completed Not Available Not Available Not Available azithromyci n 250 mg tablet TAKE 2 TABLETS BY MOUTH TODAY, THEN TAKE 1 TABLET DAILY FOR 4 DAYS DIRECTED 03/21 completed Not Available Not Available Not Available valacyclovi r 1 gram tablet TAKE 1 TABLET BY MOUTH TWICE A DAY FOR 7 DAYS active Not Available Not Available No t Available hydrocodone 5 mg-acetamin ophen 325 mg tablet TAKE 1 TABLET BY MOUTH THREE TIMES A DAY NEEDED 03/21 completed Not Available Not Available Not Available prednisone 20 mg tablet TAKE 2 TABLETS BY MOUTH EVERY DAY FOR 5 DAYS 04/12 completed Not Available Not Available Not Available gabapentin 400 mg capsule TAKE 1 CAPSULE BY MOUTH THREE TIMES A DAY 03/21 completed Not Available Not Available Not Available allopurinol 100 mg tablet TAKE 1 TABLET BY MOUTH EVERY DAY active Not Available Not Available No t Available dexamethaso ne 0.5 mg/5 mL oral solution SWISH AND SPIT 1 TEASPOONF UL BY MOUTH FOR 2 MINUTES 3 TIMES DAILY FOR 1 WEEK 03/21 completed Not Available Not Available Not Available Macrobid 100 mg capsule Take 1 capsule every 12 hours by oral route for 7 days. 04/04 completed Not Available Not Available Not Available baclofen 10 mg tablet TAKE 1 TABLET BY MOUTH THREE TIMES A DAY active Not Available Not Available No t Available hydrocodone 7.5 mg-acetamin ophen 325 mg tablet TAKE 1 TABLET BY MOUTH EVERY 8 (EIGHT) HOURS NEEDED (MODERATE TO SEVERE PAIN) active Not Available Not Available No t Available prednisone 50 mg tablet PLEASE SEE ATTACHED FOR DETAILED DIRECTION S 03/21 completed Not Available Not Available Not Available docusate sodium 100 mg capsule TAKE 1 CAPSULE BY MOUTH 2 TIMES DAILY FOR 3 DAYS, THEN 1 CAPSULE DAILY FOR 28 DAYS. 03/21 completed Not Available Not Available Not Available gabapentin 300 mg capsule TAKE 1 CAPSULE BY MOUTH THREE TIMES A DAY 03/21 completed Not Available Not Available Not Available furosemide 20 mg tablet TAKE 1 TABLET BY MOUTH EVERY DAY 03/21 completed Not Available Not Available Not Available clobetasol 0.05 % topical ointment APPLY TO AFFECTED SKIN 2 TIMES PER DAY 03/21 completed Not Available Not Available Not Available methylpredn isolone 4 mg tablets in a dose pack TAKE 6 TABLETS ON DAY 1 DIRECTED ON PACKAGE AND DECREASE BY 1 TAB EACH DAY FOR A TOTAL OF 6 DAYS 03/21 completed Not Available Not Available Not Available calcitriol 0.25 mcg capsule TAKE 1 CAPSULE BY MOUTH EVERY DAY active Not Available Not Available No t Available amoxicillin 875 mg-potassiu m clavulanate 125 mg tablet TAKE 1 TABLET BY MOUTH TWICE A DAY FOR 7 DAYS 03/21 completed Not Available Not Available Not Available chlorhexidi ne gluconate 0.12 % mouthwash USE 5 ML SWISH FOR 30 SECONDS, THEN SPIT,DO NOT SWALLOW. USE THREE TIMES A DAY 7 DAYS 03/21 completed Not Available Not Available Not Available albuterol sulfate active Not Available Not Available Not Available Tylenol active Not Available Not Avail able Not Available Cortisone (hydrocorti sone) 1 % topical cream APPLY TO AFFECTED AREA NEEDED 03/21 completed Not Available Not Available Not Available Stiolto Respimat 2.5 mcg-2.5 mcg/actuati on solution for inhalation Inhale 2 puffs every day by inhalatio n route. active Not Available Not Available No t Available Vitals Date Recorded Body height Body mass index (BMI) Body weight Systolic And Diastolic Provider Name and Address Organization Details Last Updated DateTime 04/12/2025 152.4 cm 39.6 kg/m2 26209.25 g 152/94 mm[Hg] Cookie Shazia [facility] 04/12/2025 10:53:37 Social History Question Answer Notes LastModified by Organizat ion Details LastModified Time Tobacco Smoking Status Never Smoker Kassandra yadav, [facility] 03/21/2025 14:20:05 Are You Blind Or Do You Have Difficulty Seeing? Yes Glasses Information n ot available 03/21/2025 What Is Your Level Of Caffeine Consumption? None Information not available 03/21/2025 In The 14 Days Before Symptom Onset, Have You Had Close Contact With A Laboratory-confirm ed COVID-19 While That Case Was Ill? No Information n ot available 03/21/2025 In The 14 Days Before Symptom Onset, Have You Had Close Contact With A Person Who Is Under Investigation For COVID-19 While That Person Was Ill? No Information not available 03/21/2025 Have You Been To An Area Known To Be High Risk For COVID-19? No Information not available 03/21/2025 Are You Deaf Or Do You Have Serious Difficulty Hearing? Yes Information not available 03/21/2025 Are There Any Guns Present In Your Home? No Information not available 03/21/2025 Are You Sexually Active? No Information not available 03/21/2025 Do You Have Smoke And Carbon Monoxide Detectors In Your Home? Yes Information not available 03/21/2025 Do You Use Sunscreen Routinely? Yes Information not available 03/21/2025 Do You Have Difficulty Walking Or Climbing Stairs? Yes Information not available 03/21/2025 Sex: Unknown Functional Status Question Answer Note LastModified by Organizat ion Details LastModified Time What is your level of alcohol consumption? None Information not available 03/21/2025 Are you currently employed? No Information not available 03/21/2025 Are you able to walk independently without assistance or assistive devices? YESWOREST Information not available 03/21/2025 Are you able to care for yourself independently? Yes Information not available 03/21/2025 Do you have difficulty dressing, bathing, grooming, or toileting? No Information not available 03/21/2025 Mental Status Question Answer Note LastModified by Organization D etails LastModified Time Do you feel stressed (tense, restless, nervous, or anxious, or unable to sleep at night)? [id number] Information not available 03/21/2025 Family History Relationship Description Onset Age of this Age Resolved Age Notes LastModified by Organization Details LastModified Time Father Asthma [email or web address] Not available 1 14:23:30 Father Heart disease Not available 2024 14:23:41 Brother Heart disease [email or web address] Not available 2024 14:23:42 Medical History Condition Response Ovarian Cancer Y Other Y Asthma Y Gynecological History Statement/Question Response Abnormal Pap N Date of Last Mammogram 05/23/2023 Date of LMP 05/23/1984 STIs/STDs N HPV Vaccine N Current Control Method Hysterectom y Date of Last Colonoscopy Most Recent Bone Density Sexually Active? N Menses Monthly N Age of first menstrual cycle 8 Date of Last Pap Smear Sexual Problems? N LMP Approximate Obstetrics History GPAL:G 4 P 4 0 0 4 Type Value Full Term 4 Living 4 Total 4 Past Encounters Encounter ID Performer Location Encounter Start Date Encounter Closed Date Diagnosis/Indication Diagnosis SNOMED-CT Code Diagnosis ICD10 Code Diagnosis IMO Codes Diagnosis Note [id number] Eder Polo MD [place] [address] [address] 03/21/2025 12:37:44 03/22/2025 14:17:48 Urinary symptoms 100906422 R39.9 84401 Pain in female pelvis 42 9920774 R10.20 [id number] this patient is an 79-year-ol d female with recurrent urinary tract infection and right-side d pelvic and flank pain. The pain has been present for a couple of years now. It is sharp pain in the right flank that radiates upward into her chest and down into her Right pelvis. It is intermitte nt. It is worse with movement. The pain lasts hours. It is rupturing her quality of life and activities of daily living. Patient is a poor historian has very poor hearing. She has had some evaluation of this pain. It appears an adequate. We are going to refer to Urology for recurrent urinary tract infection and rule out renal calculi. We are going to treat her for urinary tract infection today. She is prescribed medication . She understand s risks, benefits, and alternativ es of the medication . She has been given precaution s and instructio ns. I spent over 30 minutes on the patient's care in total. To have pelvic ultrasound and to see me afterwards . We will discuss results of the ultrasound . To rule out problems with her single remaining ovary. She is uncertain if it is left or right-side d. [id number] Eder Polo MD [place] [address] [address] 04/01/2025 10:43:27 04/01/2025 11:58:53 Pain in pelvis [id number] R10.20 [id number] this patient is an 79-year-ol d female with recurrent urinary tract infection and right-side d pelvic and flank pain. The pain has been present for a couple of years now. It is sharp pain in the right flank that radiates upward into her chest and down into her Right pelvis. It is intermitte nt. It is worse with movement. The pain lasts hours. It is rupturing her quality of life and activities of daily living. Patient is a poor historian has very poor hearing. She has had some evaluation of this pain. It appears an adequate. We are going to refer to Urology for recurrent urinary tract infection and rule out renal calculi. We are going to treat her for urinary tract infection today. She is prescribed medication . She understand s risks, benefits, and alternativ es of the medication . She has been given precaution s and instructio ns. I spent over 30 minutes on the patient's care in total. To have pelvic ultrasound and to see me afterwards . We will discuss results of the ultrasound . To rule out problems with her single remaining ovary. She is uncertain if it is left or right-side d. [id number] Eder Polo MD [place] [address] [address] 04/12/2025 10:24:38 04/15/2025 08:57:43 Pain in pelvis 88408053 R10.21 [id number] this patient is an 79-year-ol d female with chronic abdominal pain. We performed a pelvic ultrasound . She is here to follow up on those results a. There are no specific findings on the ultrasound that would show a gynecologi c reason for the pain. Ovary appears normal but maybe large for her age. Talked about further pursuit of the pain issue. She has a primary care doctor who is aware of this pain. We agreed to perform CT scan of the abdomen and pelvis to possibly I identify an etiology of this pain. I spent over 20 minutes with the patient. Health Concerns Section Related Observation LastModified by Organization Detai ls LastModified Time None Recorded Concern Status LastModified by Organization Details LastModified Time None Recorded Payers Encounter Date Sequence Insurance Name Policy Number Policy Byrd Covered Member ID Byrd Member ID Guarantor Name 04/12/2025 1 [employer] (MEDICARE REPLACEMENT /ADVANTAGE - PPO) [id number] Lacie Blue [id number] Lacie Blue Notes Date Note Type Note Provider Name and Address Organization Details Recorded Time 04/12/2025 text/html this patient is an 79-year-old female with chronic abdominal pain. We performed a pelvic ultrasound. She is here to follow up on those results a. There are no specific findings on the ultrasound that would show a gynecologic reason for the pain. Ovary appears normal but maybe large for her age. Talked about further pursuit of the pain issue. She has a primary care doctor who is aware of this pain. We agreed to perform CT scan of the abdomen and pelvis to possibly I identify an etiology of this pain. I spent over 20 minutes with the patient. Eder Polo MD [address], [place], [address], [facility] 04/14/2025 22:30:32 OBGyn Episode No OBEpisode recorded.
--- OUTSIDE RECORDS SUMMARY | 2025-05-06 19:19 | XMS_ITS | Encounter Summary ---
Author Organization [facility] Address [address] [place] [address] Care Team Providers Care Bulk Intake Worker Name Role Phone iCnthya Mcdonald NP Primary Care Provider [phone] Sylvain Salinas MD Primary Care Provider + [phone] Everton Cordon MD Unavailable Max Saldana MD Unavailable [phone] Alma Jamison MD Primary Care Provider Robbie Wylie NP Unavailable [phone] Amanuel Mckee MD Unavailable Reason for Visit * Reason Onset Date Comments Scheduling Appointments 04/10/2020 Called f or DEXA appointment. Patient is going to cancel DEXA appointment for, tomorrow 04/11/20 Encounter Details Date Type Department Care Team (Late st Contact Info) Description 04/10/2020 Telephone [facility] [address] [place] [id number] Melita Valencia RT Scheduling Appointments (Called for DEXA appointment. 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 Gender Identity Not on file Sexual Orientation [...] documented as of this encounter Care Teams Bulk Intake Worker Relationship Specialty Start Date End Date Cinthya Mcdonald DESIGN TECHNICIAN PCP - General 06/01/19 06/24/20 Sylvain Salinas MD [address] [place] [address] PCP - General Family Medicine 06/25/20 05/03/23 Alma Jamison MD [address] [place], [place] [id number] PCP - General Family Medicine 05/04/23 Everton Cordon MD [address] [place] [address] Consulting Physician Pulmonary Disease 02/13/21 Max Saldana MD [address] [place] [address] [address] [place] [address] Consulting Physician Nephrology 01/22/22 [place] [address] [address] [facility] [address] [place] [address] Nurse Practitioner Pain Management 04/03/24 [place] [id number] [address] [facility] [address] [place] [address] Consulting Physician Pain Management 04/02/25 documented as of this encounter
--- OUTSIDE RECORDS SUMMARY | 2025-05-06 19:19 | XMS_ITS | Clinical Summary ---
Author Organization [facility] [address] [place] [id number] Care Team Providers Care Retention Specialist Name Role Phone Everton Cordon MD Unavailable Max Saldana MD Unavailable [phone] Alma Jamison MD Primary Care Provider Robbie Wylie NP Unavailable [phone] Amanuel Mckee MD Unavailable Allergies Active Allergy Reactions Criticality Noted Date Comments Iodinated Contrast Media Hives Medium 06/21/2023 Iodine Hives Medium Medications albuterol HFA (PROVENTIL HFA,VENTOLIN HFA,PROAIR HFA) 90 mcg/actuation inhaler Active calcitRIOL (ROCALTROL) 0.25 mcg capsule Take 1 capsule (0.25 mcg total) by mouth daily Active albuterol 2.5 mg /3 mL (0.083 %) nebulizer solution Take 3 mL (2.5 mg total) by nebulization 4 (four) times a day as needed for wheezing or shortness of breath 270 mL 3 03/02/20 21 Active acetaminophen (TYLENOL) 500 mg tablet Take 1 tablet (500 mg total) by mouth every 6 (six) hours as needed for pain Active furosemide (LASIX) 20 mg tablet Take 1 tablet (20 mg total) by mouth daily 90 tablet 1 04/12/20 22 Active camphor-menthoL (SARNA) lotion Apply topically as needed for itching 222 mL 09/18/19 23 Active oxyBUTYnin (DITROPAN) 5 mg tabletIndication s:Increased Urinary Frequency,Urinar y Urge Incontinence Take 1 tablet (5 mg total) by mouth nightly 90 tablet 11/04/19 23 Active allopurinoL (ZYLOPRIM) 100 mg tabletIndication s:Acute idiopathic gout of multiple sites TAKE 1 TABLET (100 MG TOTAL) BY MOUTH DAILY 90 tablet 1 01/11/20 23 Active nystatin 100,000 unit/mL suspension SWISH AND SWALLOW 10 ML DAILY 04/25/20 24 Active clobetasoL (TEMOVATE) 0.05 % ointment APPLY TO AFFECTED SKIN 2 TIMES PER DAY Active HYDROcodone-acet aminophen (NORCO) 7.5-325 mg per tablet Take 1 tablet by mouth every 8 (eight) hours as needed (moderate to severe pain) 90 tablet 04/08/20 25 025 Active HYDROcodone-acet aminophen (NORCO) 7.5-325 mg per tablet Take 1 tablet by mouth every 8 (eight) hours as needed (moderate to severe pain) 90 tablet 05/08/20 25 026 Active budesonide-glyco pyr-formoterol (Breztri Aerosphere) 160-9-4.8 mcg/actuation inhaler Inhale 2 puffs 2 (two) times a day 1 each 04/15/20 25 Active tiotropium-oloda teroL (Stiolto Respimat) 2.5-2.5 mcg/actuation inhaler Inhale 2 puffs daily 1 g 3 09/29/19 22 025 Discontin ued(Alter olive therapy) Active Problems Problem Noted Date Diagnosed Date Right hip pain 01/31/2025 Primary localized osteoarthritis of right hip Localized osteoarthritis of left shoulder 2023 Pulmonary hypertension 07/07/2023 Assessment & Plan (08/06/2024 1:07 PM CDT): RVSP was 40 per echocardiogram 06/2020 She has not had a RHC This is likely secondary to group 2 and group 3 disease I have recommended testing for KOFI I recommend a repeat echocardiogram, ordered today There is no indication for pulmonary vasodilators Assessment & Plan (01/05/2024 9:43 AM CDT): Elevated RVSP per echocardiogram This is likely secondary to group 2 and group 3 disease I have recommended testing for KOFI, she will consider There is no indication for pulmonary vasodilators Assessment & Plan (07/07/2023 9:38 AM CLOUD SUBJECT MATTER EXPERT): Elevated RVSP per last 2 echocardiograms Secondary to group 2 and group 3 No indication for pulmonary vasodilators at this time Chronic diastolic congestive heart failure 07/07 Assessment & Plan (08/06/2024 1:09 PM CDT): Continue furosemide 20 mg daily Keep follow-up with Cardiology and nephrology I have ordered a repeat echocardiogram today. Assessment & Plan (01/05/2024 9:44 AM CDT): Continue furosemide 20 mg daily Keep follow-up with Cardiology Assessment & Plan (07/07/2023 9:36 AM CLOUD SUBJECT MATTER EXPERT): Continue furosemide and follow up with Cardiology as needed Other lesions of oral mucosa 07/07/2023 Assessment & Plan (07/07/2023 9:39 AM CLOUD SUBJECT MATTER EXPERT): These lesions appear to be excoriation and irritation where her dentures sit against the oral mucosa and gums This does not appear to be thrush-like and her tongue appears normal - she is not on an ICS I have encouraged her to schedule an appointment with her dentist to check the fit of her teeth History of nicotine use 07/07/2023 Assessment & Plan (07/07/2023 9:41 AM CLOUD SUBJECT MATTER EXPERT): Lung nodule resolved on previous imaging She has not a candidate for lung cancer screening Lumbar radiculopathy 05/04/2023 Mixed hyperlipidemia 04/18/2023 Assessment & Plan (04/18/2023 9:33 AM CLOUD SUBJECT MATTER EXPERT): Has been diet controlled. Will check lipid panel plan accordingly. Lumbar post-laminectomy syndrome 05/27/2022 Gallstones 01/21/2022 Overview (01/21/2022): Added automatically from request for surgery [id number] Right wrist pain 11/12/2021 Generalized arthritis 09/07/2021 Localized osteoarthritis of both shoulder region s 08/06/2021 Spinal stenosis of lumbar re gion without neurogenic claudication 06/11/2021 Lumbosacral spondylosis without myelopathy 04/01 Sacroiliitis, not elsewhere classified Assessment & Plan (03/19/2021 8:40 AM CDT): Patient has sacroiliitis of the right sacroiliac joint. Her spinal fusion puts additional stress at the SI joint. She has mild arthritis in the hip joint and is not likely the source of her ongoing pain. A referral to pain management was given. Weight loss would be beneficial. Rotator cuff arthropathy of left shoulder 2020 Assessment & Plan (03/19/2021 8:42 AM CDT): Patient did have suggestion of superior migration of her humeral head which is usually associated with rotator cuff tearing. She does have advanced arthritis of the shoulder joint itself and evidence of cuff tendinitis clinically. After reviewing the treatment options elected undergo a cortisone injection today. She tolerated the procedure well. She may find therapy beneficial as well. Rheumatoid arthritis 02/06/2021 Assessment & Plan (04/18/2023 9:34 AM CLOUD SUBJECT MATTER EXPERT): No recent exacerbations. Continue following with rheumatology as directed. 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 Assessment & Plan (11/10/2020 10:09 AM CDT): Reviewed need to lose weight, reviewed health benefits. Reviewed recommendations for daily intake & activity 20-30 minutes/day. Discussed healthy diet and importance of regular physical activity. Vitamin D deficiency 08/07/2020 Assessment & Plan (11/10/2020 8:14 AM CDT): D level has improved from 5 to now 18. Takes vitamin D 50,000IU weekly. Advise to get 10 min of sun exposure to the hands and face 2-3 days of the week to boost Vit D levels. Assessment & Plan (08/07/2020 12:44 PM CDT): Copy of results FROM 06/06/20 given to Lacie Blue. Reviewed results at time of appointment. Ergocalciferol 50,000IU weekly sent to pharmacy. Will start today. To have labs repeated in 3 mos (few days prior to next appt). Advise to get 10 min of sun exposure to the hands and face 2-3 days of the week to boost Vit D levels. 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 No further gouty flares. Assessment & Plan (08/07/2020 12:48 PM CDT): Doing well on current allopurinol. No further gouty flares. Diastolic dysfunction 08/07/2020 Assessment & Plan (11/10/2020 8:13 AM CDT): Lasix 40mg daily. Aware to watch salt/fluid intake. Decrease canned good, lunch meats, take out foods. Exercise regularly. Taking medications as ordered. Aware to check weight daily & call if increase over 2#/day or 5#/wk. Reviewed red flags; what would warrant ED for more emergent eval. Assessment & Plan (08/07/2020 12:51 PM CDT): Reports doing well w/current furosemide 40mg daily. Minimal BLE edema. Weight remains down from 235#. Aware to watch salt/fluid intake. Decrease canned good, lunch meats, take out foods. Exercise regularly. Taking medications as ordered. Aware to check weight daily & call if increase over 2#/day or 5#/wk. Reviewed red flags; what would warrant ED for more emergent eval. Neuropathy of both feet 06/06/2020 Assessment & Plan (11/10/2020 8:12 AM CDT): Taking max dose gabapentin 100mg tid per renal dosing. Aware to check feet nightly. Assessment & Plan (08/07/2020 12:46 PM CDT): Will increase gabapentin to 200mg tid. Call placed to Dr Saldana office to verify that it is ok. Denies any SE from gabapentin. Assessment & Plan (06/06/2020 3:03 PM CLOUD SUBJECT MATTER EXPERT): Gabapentin 100mg tid prn. Wrote down titration schedule: 1 tab daily x3 days, increase to 1 tab bid x3 days if needed, may then increase to 1 tab tid if needed. Reviewed med SE & scheduling. Aware that it will make her sleepy. Osteoporosis of multiple sites 06/06/2020 Assessment & Plan (11/10/2020 8:11 AM CDT): Fosamax 70mg weekly started 05/26/20. Ergocalciferol 50,000IU weekly started 08/07/20 Assessment & Plan (08/07/2020 12:45 PM CDT): Vitamin D 50,000IU sent today. Assessment & Plan (06/06/2020 3:01 PM CLOUD SUBJECT MATTER EXPERT): 05/26/20 DEXA showing osteoporosis. Takes vitamin D The blood level will be checked today. Advise to get 10 min of sun exposure to the hands and face 2-3 days of the week to boost Vit D levels. Started fosamax. COVID-19 virus detected 04/16/2020 Assessment & Plan (04/16/2020 3:42 PM CLOUD SUBJECT MATTER EXPERT): dx'd +covid-19 while admitted to [facility] 04/08/20. Some SOB remains but back to baseline. She and are masking in the house until the end of her 10 day period. OAB (overactive bladder) 12/09/2019 Assessment & Plan (11/10/2020 4:51 PM CDT): Will continue oxybutynin 5mg qhs. Able to sleep more. Had been getting up 5- 6x/noc & now approx 2x/noc. Denies any med SE. Assessment & Plan (08/07/2020 12:45 PM CDT): Reports improvement. Now up only 2x/noc for urination. Sleeping better. Assessment & Plan (06/06/2020 2:57 PM CLOUD SUBJECT MATTER EXPERT): Oxybutynin refilled today. Has improved OAB. Had been getting up 6x/noc & now only getting up 3x/noc. Denies any med SE. Assessment & Plan (12/09/2019 9:05 AM CDT): Reports great improvement in nocturia w/oxybutynin use. Resting more at HS. Denies any med SE. No changes at this time. Oxybutynin refilled. Degenerative disc disease, thoracic 07/02/2019 Encounter for Medicare annual wellness exam 05/23 Assessment & Plan (04/18/2023 9:34 AM CLOUD SUBJECT MATTER EXPERT): Visit preventive in nature. We reviewed medications, chronic conditions, risk factors, lifestyle recommendations. Reviewed immunization recommendations. Follow-up in 6 months for chronic conditions and 1 year for annual wellness. Assessment & Plan (06/06/2020 2:27 PM CLOUD SUBJECT MATTER EXPERT): 06/01/19 a1c=6.1% rso=703 es=787 hdl=32 zc=491 ldl=72 tc/hdl=4.5 12/07/19 KW=057 HDL=35 UT=784 LDL=99 TC/HDL=4.9 06/06/20 A1C=6.0% RJ=653 HDL=83 XQ=957 LDL=50 TC/HDL=1.9 Great improvement in lipid panel. Copy of results given to Lacie Blue. Reviewed results at time of appointment. Assessment & Plan (12/09/2019 8:50 AM CDT): 06/01/19 rw=424 hdl=32 kc=503 ldl=72 tc/hdl=4.5 12/07/19 BM=914 HDL=35 OL=938 LDL=99 TC/HDL=4.9 Copy of results given to Mrs Blue as well as written explanation. Worsening lipid panel. Discussed dietary/lifestyle changest o improve HDL/TG. LDL & TC starting to rise as well. Assessment & Plan (06/01/2019 9:54 AM CLOUD SUBJECT MATTER EXPERT): POCT lipid panel today: fz=788 hdl=32 rm=182 ldl=72 tc/hdl=4.5 . Written explanation w/results given to Mrs Blue after discussing w/her & . To increase activity & watch carbs sugars. Hyperglycemia, unspecified 06/01/2019 Assessment & Plan (06/06/2020 2:27 PM CLOUD SUBJECT MATTER EXPERT): Lab Results Component Value Date HGBA1C 6.0% 06/06/2020 HGBA1C 6.1 06/01/2019 Copy of results given to Lacie Blue. Reviewed results at time of appointment. Increased steroid use d/t pulm issues & gout. Chronic kidney disease, stage 4 (severe) 018 Assessment & Plan (04/18/2023 9:33 AM CLOUD SUBJECT MATTER EXPERT): Stable. Avoid nephrotoxic medications. Continue following with Nephrology. Assessment & Plan (11/10/2020 4:50 PM CDT): Managed by Dr Saldana. Continues to see him q3 mos. Assessment & Plan (08/07/2020 12:48 PM CDT): Managed by Dr Saldana. States that she had phone visit w/him last week. Relates that he felt her kidney function had improved somewhat. Is to f/u again in 3 mos. Assessment & Plan (06/06/2020 2:59 PM CLOUD SUBJECT MATTER EXPERT): Has not f/u w/Dr Saldana in some time (prior to covid). Asked her to re-engage. Labs drawn today. Denies any itching. 03/28/20 GFR=25. Assessment & Plan (12/09/2019 9:01 AM CDT): Followed by Dr Saldana but has not seen in some time d/t Covid. Will call to set up appt. GFR 05/2019=26. Denies itching. Reviewed meds to avoid. Centrilobular emphysema 10/10/2017 Assessment & Plan (08/06/2024 9:48 AM CDT): Continue Stiolto 2 puffs daily Albuterol as needed only, we have discussed indications for use Alpha 1 buccal swab collected in clinic today I recommend pulmonary rehab however she is caring for her with prostate cancer at this time We have discussed signs and symptoms that would require earlier evaluation or change to her plan of care Assessment & Plan (01/05/2024 9:42 AM CDT): Continue Stiolto 2 puffs daily Albuterol as needed only, we have discussed indications for use Need alpha-1 buccal swab Assessment & Plan (07/07/2023 9:33 AM CLOUD SUBJECT MATTER EXPERT): She is doing well on Stiolto 2 puffs daily, continue I do not think this is a causative factor in her oral lesions Albuterol as needed, discussed indications for use I do not see alpha-1 testing in previous records, will swab at next office visit if this has not been completed Assessment & Plan (04/18/2023 9:33 AM CLOUD SUBJECT MATTER EXPERT): Stable. Compliant with inhalers. Continue following with pulmonology as directed. Assessment & Plan (11/10/2020 8:13 AM CDT): COPD remains stable. Followed by Dr Chahal in [place]. Discussed monitoring symptoms and use of quick-relief medications; to contact us early in course of exacerbation. Warning signs of respiratory distress were reviewed with Lacie Blue. Will continue current treatment at this time. Assessment & Plan (08/07/2020 12:47 PM CDT): Managed by Dr Chahal. Sees q3 mos. Has upcoming appt in 08/2020 COPD remains stable. Discussed monitoring symptoms and use of quick-relief medications; to contact us early in course of exacerbation. Warning signs of respiratory distress were reviewed with Lacie Blue. Will continue current treatment at this time. Assessment & Plan (06/06/2020 2:59 PM CLOUD SUBJECT MATTER EXPERT): Follows w/Dr Chahal in [facility] for pulm. Saw him Tues; rec'd IVF & steroids. Has appt Tues for CT. Asked for her to have him fax notes/results (card given w/fax #). COPD remains stable. Discussed monitoring symptoms and use of quick-relief medications; to contact us early in course of exacerbation. Warning signs of respiratory distress were reviewed with Lacie Blue. Will continue current treatment at this time. Assessment & Plan (12/09/2019 9:02 AM CDT): Doing well on current therapy. Followed by Dr Chahal in [place] for pulm. Relates difficulty in heat/humidity of summer w/breathing. Aware to be cautious this time of year. Reviewed red flags. KOFI on CPAP 10/10/2017 Assessment & Plan (11/10/2020 4:49 PM CDT): Reports compliance. States that she still wears from 4-7 hrs/noc. Assessment & Plan (08/07/2020 12:45 PM CDT): Reports compliance w/CPAP. Wears anywhere from 4-7hr/noc. Assessment & Plan (06/06/2020 2:57 PM CLOUD SUBJECT MATTER EXPERT): Reports compliance w/CPAP QHS. Assessment & Plan (12/09/2019 9:06 AM CDT): Wearing CPAP at HS nightly but only able to wear average of 4hr/noc. Does feel more rested even w/only 4hr usage per noc. Assessment & Plan (06/01/2019 9:52 AM CLOUD SUBJECT MATTER EXPERT): Wears CPAP at HS w/o difficulty. Reports improved sleep. Cervical spondylosis with radiculopathy 11/18/19 16 Overview (08/28/2016): Cervical spondylosis with radiculopathy Resolved Problems Problem Noted Date Diagnosed Date Resolved Date Class 3 severe obesity due t o excess calories with serious comorbidity and body mass index (BMI) of 40.0 to 44.9 in adult 08/07/2020 Assessment & Plan (08/07/2020 12:51 PM CDT): Reviewed need to lose weight, reviewed health benefits. Reviewed recommendations for daily intake & activity 20-30 minutes/day. Discussed healthy diet and importance of regular physical activity. Morbid obesity with BMI of 40.0-44.9, adult 06/06/2020 08/07/2020 Assessment & Plan (06/06/2020 2:18 PM CLOUD SUBJECT MATTER EXPERT): Reviewed need to lose weight, reviewed health benefits. Reviewed recommendations for daily intake & activity 20-30 minutes/day. Discussed healthy diet and importance of regular physical activity. Need for pneumococcal vaccination 06/06/2020 08/07/2020 Assessment & Plan (06/06/2020 3:01 PM CLOUD SUBJECT MATTER EXPERT): prevnar 13 vaccine given today. Discussed possible tenderness/redness at injection site. Functional diarrhea 04/16/2020 08/08/19 Assessment & Plan (04/16/2020 3:46 PM CLOUD SUBJECT MATTER EXPERT): rec'd multiple abx in hospital. Discussed ensuring adequate hydration. BRAT diet. Start probiotic to help. Reviewed red flags. BMI 39.0-39.9,adult 04/16/2020 06/06/19 Assessment & Plan (04/16/2020 3:41 PM CLOUD SUBJECT MATTER EXPERT): Reviewed need to lose weight, reviewed health benefits. Reviewed recommendations for daily intake & activity 20-30 minutes/day. Discussed healthy diet and importance of regular physical activity. Encounter for osteoporosis s creening in asymptomatic postmenopausal patient 04/03/202005/23 Assessment & Plan (04/05/2020 3:38 PM CLOUD SUBJECT MATTER EXPERT): DEXA ordered. Will contact with results once received. Acute idiopathic gout of multiple sites 04/03/2020 08/07/2020 Assessment & Plan (04/16/2020 3:39 PM CLOUD SUBJECT MATTER EXPERT): No further pain. Some foot pain Hands no longer painful. Able to assess/visualize as it was a telephone telehealth visit. Has been taking allopurinol 1/2 of the 100mg tab. Completed indocin in hospital. Has hydrocodone at home now. Only takes every 2-3 days; only w/severe pain. Assessment & Plan (04/05/2020 3:39 PM CLOUD SUBJECT MATTER EXPERT): Allopurinol 100mg sent. To take 1/2 tab daily (d/t CKD). Medrol dose pack sent. Can take naproxen 500mg po bid also. Release signed to get copy of results from [facility]. Discussed foods to avoid:high-fructose foods (soda & store bought cakes & cookies), meats, poultry, fish, organ meats, beans, peas, shrimp, asparagus & ETOH. Can eat: low purine foods include: protein intake--eggs & cheeses; increase vegetables & whole grain foods. Reviewed red flags. Acute thoracic myofascial strain 07/02/2019 12/09/2019 Encounter for medical examin ation to establish care 06/01/2019 12/09/2019 Assessment & Plan (06/01/2019 10:04 AM CLOUD SUBJECT MATTER EXPERT): Reviewed screening guidelines: no family history of breast or colon cancer. Encouraged monthly SBEs. Mammogram ordered. Number for [facility] given to call to schedule appt. Colonoscopy ~5yrs ago at [facility]. Release signed to get copy. Reviewed dietary/activity recommendations. Encounter for screening for diabetes mellitus 06/01/19 20 06/06/2020 Assessment & Plan (06/01/2019 9:55 AM CLOUD SUBJECT MATTER EXPERT): POCT A1c: a1c=6.1% Spg=715. Discussed inhalers as possible cause for increase glucose/A1c. Discussed increasing activity. Encounter for screening mamm ogram for breast cancer 06/01/2019 12/09/2019 Assessment & Plan (06/01/2019 9:56 AM CLOUD SUBJECT MATTER EXPERT): Mammogram order given; will call with results when received. Encouraged to perform monthly SBE. Acute cystitis with hematuria 06/01/2019 12/07/2019 Assessment & Plan (06/01/2019 10:00 AM CLOUD SUBJECT MATTER EXPERT): Complete antibiotic as prescribed Do not hold your urine. Urinate as soon as you feel the need to go Drink plenty of water and fluids. Limit alcohol, caffeine, and citrus juices- They will irritate the bladder Wipe front to back & wear cotton underwear Try emptying your bladder before and after having sexual intercourse Follow up with your PCP if you are not getting better If you have severe back, flank, or groin pain with nausea/vomiting or are unable to get comfortable from the pain, please go to ER for further treatment Tylenol/Motrin for pain Can add cranberry supplement to acidify the urine I will culture the urine to ensure bacteria is sensitive to antibiotic prescribed- this will take a few days to come back. Urinary frequency 06/01/2019 12/07/2019 Assessment & Plan (06/01/2019 10:01 AM CLOUD SUBJECT MATTER EXPERT): Oxybutynin 5mg qhs sent. Aware to take 30-60 minutes prior to bed. Aware to stop drinking 2-3 hours before bed. Reviewed SE; to watch for dizziness. Reviewed safety. Discussed possible increase in frequency of medication if improvement noted w/o SE. Need for pneumococcal vaccination 06/01/2019 12/07/2019 Assessment & Plan (06/01/2019 10:01 AM CLOUD SUBJECT MATTER EXPERT): Pneumovax 23 vaccine given today. Discussed possible tenderness/redness at injection site. Morbid obesity with BMI of 45.0-49.9, adult 06/01/2019 06/06/2020 Assessment & Plan (04/05/2020 3:38 PM CLOUD SUBJECT MATTER EXPERT): Reviewed need to lose weight, reviewed health benefits. Reviewed recommendations for daily intake & activity 20-30 minutes/day Discussed healthy diet and importance of regular physical activity. Difficulty exercising at this time d/t gouty flare. Weight remains down from beginning of year. Assessment & Plan (12/09/2019 9:04 AM CDT): Reviewed need to lose weight, reviewed health benefits. Reviewed recommendations for daily intake & activity 20-30 minutes/day. Discussed healthy diet and importance of regular physical activity. Has lost 24# since 06/2019. Congratulated on weight loss. Encouraged to continue. Assessment & Plan (06/01/2019 10:01 AM CLOUD SUBJECT MATTER EXPERT): The BMI is in the obese range thus increasing your risk for cardiovascular, endocrine, GI, and musculoskeletal problems. Strive to cut back on calories and increase exercise to achieve weight loss. Include at least 4-5 fruits and vegetables in the diet daily and exercise for about 30 min nearly every day. Limit fried and high fat foods and include lean sources of protein as well as low fat dairy or other calcium sources. Consider making short and residential goal to track your progress. Keep a diet/exercise record or on line resource to track calories in and out. Discuss your efforts with me at the next visit. Look up Promuc - this is a free calorie tracking renetta. Discussed healthy diet and importance of regular physical activity. Essential hypertension 11/14/201712/08 Encounters Date Type Department Care Team Description 04/15/2025 Orders Only [facility] at [address] [place] [phone] Everton Cordon MD 04/14/2025 Results Follow-Up [facility] at [address] [place] [phone] Everton Cordon MD D-dimer, quantitative, Pro B-type natriuretic peptide, Basic metabolic panel, Additional followed-up results: 3 04/02/2025 7:20 AM CLOUD SUBJECT MATTER EXPERT - 04/02/2025 11:59 PM CLOUD SUBJECT MATTER EXPERT Hospital Encounter [facility] [address] [place] [id number] Robbie Wylie NP Spinal stenosis of lumbar region without neurogenic claudication (Primary Dx); Lumbar radiculopathy; Right hip pain; Lumbosacral spondylosis without myelopathy; Lumbar post-laminectomy syndrome; Primary localized osteoarthritis of right hip Discharge Disposition: Discharge to home or self care 03/29/2025 1:46 PM CLOUD SUBJECT MATTER EXPERT - 03/29/2025 11:59 PM CLOUD SUBJECT MATTER EXPERT Hospital Encounter [address] [id number] Screening mammogram, encounter for Discharge Disposition: Discharge to home or self care 03/29/2025 Orders Only [facility] Pulmonary at [address] [phone] Everton Cordon MD 03/22/2025 8:45 AM CDT Lab [address] [phone] Acute hypoxemic respiratory failure (HCC) 03/22/2025 8:42 AM CDT - 03/22/2025 11:59 PM CDT Hospital Encounter [address] [address] Acute hypoxemic respiratory failure (HCC) Discharge Disposition: Discharge to home or self care 03/20/2025 Orders Only [facility] Pulmonary at [address] [phone] Everton Cordon MD Acute hypoxemic respiratory failure (HCC) (Primary Dx) 03/20/2025 Telephone [facility] Pulmonary at [address] [phone] Chela Carballo LPN 02/14/2025 9:15 AM CDT Office Visit [facility] Orthopedics and Sports Medicine at [address] [phone] Goyo Jay MD Right hip pain (Primary Dx); Chronic pain of right hip; Trochanteric bursitis of right hip 02/14/2025 8:58 AM CDT - 02/14/2025 11:59 PM CDT Hospital Encounter [facility] [address] [place] [phone] Discharge Disposition: Discharge to home or self care 02/14/2025 Telephone [facility] Pulmonary at [address] [place] [phone] Chela Carballo LPN PFT results 02/13/2025 8:06 AM CDT - 02/13/2025 11:59 PM CDT Hospital Encounter [facility] [address] [place] [address] Chronic obstructive pulmonary disease, unspecified COPD type (HCC) Discharge Disposition: Discharge to home or self care 02/06/2025 11:00 AM CDT Lab [address] Chronic diastolic heart failure (HCC) 02/06/2025 10:30 AM CDT Office Visit [facility] Pulmonary at [address] [place] [phone] Everton Cordon MD Chronic obstructive pulmonary disease, unspecified COPD type (HCC) (Primary Dx); Pulmonary hypertension (HCC); Chronic diastolic heart failure (HCC) from Last 3 Months Immunizations Immunization Administration Dates Next Due Influenza, Quadrivalent, Hig h Dose, Preservative Free, Intrr 04/18/2023,04/12/2022,02/23/2021 Influenza, Quadrivalent, Spl it, Intramuscular 04/09/2016,04/09/2016,02/26/2014,02/26 Influenza, Quadrivalent, Spl it, Preservative Free, Intramuscular 02/03/2018,02/03/2018,04/05/2017,04/05 Influenza, Trivalent, Adjuva nted, Intramuscular 01/15/2020 Influenza, Trivalent, High D ose, Split, Preservative Free, Intramuscular 02/27/2013,02/27/2013,02/11/2012,02/10 Influenza, Trivalent, IM (MDV) 02/05/2015,2014 Influenza, Unspecified 02/20/2021,2019,02/21/2020,05/30,05/30/2019,02/20/2019,02/20/2019 Pfizer SARS-CoV-2 Monovalent Vaccination (12+ Yrs) PURPLE 10/01/2020,10/01/2020,09/10/2020,09/10 Pneumococcal Conjugate PCV 13 06/06/2020 Pneumococcal Polysaccharide PPV23 06/01/2019,,04/05/2012 Surgical History Surgery Date Site/Laterality Comments KNEE ARTHROPLASTY 05/23/1999 - 05/22/2000 Right Knee replacement KNEE ARTHROPLASTY Bilateral Knee replacement ROTATOR CUFF REPAIR 05/23/2012 - 05/22/2013 Bilateral Rotator cuff repair APPENDECTOMY 1957 BACK SURGERY 2016, x2 with Dr Monet HYSTERECTOMY 05/23/1983 - 05/22/1984 Hysterectomy OOPHORECTOMY 05/23/1983 - 05/22/1984 1 ovary removed CHOLECYSTECTOMY 02/01/2022 FLUORO GUIDED ASPIRATION OR INJECTION INTERMEDIATE JOINT RIGHT 09/22/2023 Right SPINAL CORD STIMULATOR IMPLANT 11/18/2023 Dr.Chris Mckee Medical History Medical History Date Comments Hx Other Medical Lung disease Asthma Asthma Hypertension Hypertension Chronic obstructive pulmonary disease COPD Rheumatoid arthritis (HCC) Rheum atoid arthritis Back pain Gout 03/2020 Bilateral hands Covid-19 03/2020 Gout 03/2020 Malignant neoplasm of ovary 1984 Canc er, ovarian Sleep apnea Other lesions of oral mucosa 07/07/2023 Chronic kidney disease Cataract Family History Medical History Relation Name Comments Diabetes Daughter dutch uncontrolled T2 DM Heart disease Father Heart disease Mother Hypertension Mother Stroke Mother Diabetes Other 1 Family history of Diabetes mellitus; Heart disease Other 2 Family history of Heart disease; Hypertension Other 3 Family history of Hypertension; Suicide Completion Son 2018 Breast cancer Neg Hx Ovarian cancer Neg Hx Relation Name Status Comments Daughter dutch Alive Father Mother Other 1 Other 2 Other 3 Son Social History Tobacco Use Types Packs/Day Years Used Date Smoking Tobacco: Former Cigarettes Q uit: 1993 Passive Smoke Exposure: Never Smokeless Tobacco: Never Comments:Quit over 30 years ago Alcohol Use Standard Drinks/Week Comments No 0 (1 standard drink = 0.6 oz pur e alcohol) PHQ-2 Answer Date Recorded PHQ-2 Total Score (If total score is 3 or more points, staff should administer the PHQ-9) 0 04/18/2023 AUDIT-C Answer Date Recorded Frequency of Alcohol Consumption Not on file 02/06/2025 Q2: How many drinks containi ng alcohol do you have on a typical day when you are drinking? Patient does not drink Frequency of Binge Drinking Not on file 01/21 Personal Safety Answer Date Recorded Have you ever been in or are you currently in a harmful physical or emotional relationship or is someone making you feel afraid or unsafe? Denies 11/18/2023 Comments No Sex and Gender Information Value Date Recorded Sex Assigned at Not on file Legal Sex Female 10:23 AM CLOUD SUBJECT MATTER EXPERT Gender Identity Not on file Sexual Orientation Not on file Obstetrics History Para Term AB IAB SAB Ectopic Multiple Livin g Live Births 4 4 4 Date Outcome GA Total Labor Labor/2nd/3rd Weight Sex Type Anes PTL Veronica A1 A5 Name Clin Term Term Term Term Last Filed Vital Signs Vital Sign Reading Time Taken Comments Blood Pressure 186/85 04/02/2025 7:30 AM CLOUD SUBJECT MATTER EXPERT Pulse 80 04/02/2025 7:30 AM CLOUD SUBJECT MATTER EXPERT Temperature 36.5 C (97.7 F) 02/06/2025 10:20 AM CDT Respiratory Rate 18 04/02/2025 7:30 AM CLOUD SUBJECT MATTER EXPERT Oxygen Saturation 96% 04/02/2025 7:30 AM CLOUD SUBJECT MATTER EXPERT Inhaled Oxygen Concentration - - Weight 98 kg (216 lb) 03/29/2025 1:49 PM CLOUD SUBJECT MATTER EXPERT Height 152.4 cm (5') 02/14/2025 8:37 AM CDT Body Mass Index 42.18 02/14/2025 8:37 AM CDT Plan of Treatment Health Maintenance Due Date Last Done Comments DTaP/Tdap/Td Vaccine (1 - Tdap) 1954 Hepatitis B Screening 1961 Zoster Vaccine (1 of 2) 1993 Depression Screening 04/18/2024 04/18/2023, 11/03/2022, 09/23/2022, Additional history exists Well Visit 65+ 04/18/2024 04/18/2023, 03/24, 02/23/2021 Covid-19 Vaccine (6 - 2024-2 6 season) 2025 12/11/2021, 10/01/2020, 10/01/2020, Additional history exists Influenza Vaccine (#1) 2025 , 04/12/2022, 02/23/2021, Additional history exists Osteoporosis Screening-Bone Density Scan 05/10/2025 05/10/2023, 05/26/2020 Fall Risk Assessment 04/02/2026 04/02/2025, 04/18/2023, 11/03/2022, Additional history exists Pneumococcal vaccine 65+ Completed 021, 06/01/2019, 04/05/2012, Additional history exists Medical Devices Implanted Type Area Irrigation Equipment Mechanic Device Identifier Shelf Expiration Date Model / Serial / Lot [employer] Vectris 5mm 60cm 1x8 Electrode Mri Lead Neurostimulator [id number] - [id number] Implanted:Qty: 1 on 11/18/2023 by Amanuel Mckee MD at [facility] Left: Back [employer] 07/13/2027 [id number] / / [id number] [employer] Vectris 5mm 60cm 1x8 Electrode Mri Lead Neurostimulator [id number] - [id number] Implanted:Qty: 1 on 11/18/2023 by Amanuel Mckee MD at [facility] Left: Back [employer] 10/06/2027 [id number] / / [id number] [employer] Neurostimulator Implantable Chronic Pain [id number] - [id number] - [id number] Implanted:Qty: 1 on 11/18/2023 by Amanuel Mckee MD at [facility] Left: Back [employer] 09/17/2024 [id number] / [id number] / Procedures Procedure Name Priority Date/Time Associated Diagnosis Comments SCREENING MAMMOGRAM BILATERAL W YOBANY Schedule Routine, Read Routine (OP Routine) 03/29/2025 1:54 PM CLOUD SUBJECT MATTER EXPERT Screening mammogram, encounter for XR CHEST PA LATERAL 2 VIEWS Schedule Routine, Read Routine (OP Routine) 03/22/2025 9:04 AM CDT Acute hypoxemic respiratory failure (HCC) EGFR Routine 03/22/2025 8:52 AM CDT Acute hypoxemic respiratory failure (HCC) DIFFERENTIAL AUTO Routine 03/22/2025 8:5 2 AM CDT Acute hypoxemic respiratory failure (HCC) CBC WITH AUTO DIFFERENTIAL Routine 03/22/2025 8:52 AM CDT Acute hypoxemic respiratory failure (HCC) BASIC METABOLIC PANEL Routine 03/22/2025 8:52 AM CDT Acute hypoxemic respiratory failure (HCC) PRO B-TYPE NATRIURETIC PEPTIDE Routine 03/22/2025 8:52 AM CDT Acute hypoxemic respiratory failure (HCC) D-DIMER, QUANTITATIVE Routine 03/22/2025 8:52 AM CDT Acute hypoxemic respiratory failure (HCC) DC ARTHROCENTESIS ASPIR&/INJ MAJOR JT/BURSA W/O US Routine 02/14/2025 9:15 AM CDT Chronic pain of right hip Trochanteric bursitis of right hip PULMONARY FUNCTION TEST (PFT) Routine 02/13/2025 9:21 AM CDT Chronic obstructive pulmonary disease, unspecified COPD type (HCC) PRO B-TYPE NATRIURETIC PEPTIDE Routine 02/06/2025 11:00 AM CDT Chronic diastolic heart failure (HCC) DEXA AXIAL SKELETON BONE DENSITY 1 OR MORE SITES Schedule Routine, Read Routine (OP Routine) 05/26/2020 10:53 AM CLOUD SUBJECT MATTER EXPERT Encounter for osteoporosis screening in asymptomatic postmenopausal patient from Last 3 Months or Most Recently Relevant to Health Maintenance Results * Screening Mammogram Bilateral W Yobany (03/29/2025 1:54 PM CLOUD SUBJECT MATTER EXPERT) Anatomical Region Laterality Modality Breast Bilateral Mammography Impressions 03/29/2025 2:16 PM CLOUD SUBJECT MATTER EXPERT Bilateral No evidence of malignancy in either breast. OVERALL BI-RADS FINAL ASSESSMENT: 1 - Negative RECOMMENDATION: Recommend bilateral annual screening mammography. Decision to continue screening mammography should be made based on clinical factors. Narrative 03/29/2025 2:16 PM CLOUD SUBJECT MATTER EXPERT EXAMINATION: Screening Mammogram Bilateral W Yobany: 03/29/2025 COMPARISON: Relevant prior studies available at the time of interpretation were reviewed, including the most recent mammogram on: 02/17/2024. TECHNIQUE: Mammography was performed with 2D and 3D digital breast tomosynthesis (DBT) images. CAD was utilized. BREAST PARENCHYMAL COMPOSITION: The breasts are almost entirely fatty. FINDINGS: Bilateral There is no suspicious mass, calcification, or architectural distortion in either breast. us Self Screening Mammogram IMG MAMMO PROCEDURES Fi nal Result * X-ray chest 2 views (03/22/2025 9:04 AM CDT) Anatomical Region Laterality Modality Body, Chest N/A Computed Radiogr aphy 03/22/2025 9:27 AM CDT Impressions 03/22/2025 9:27 AM CDT No acute cardiopulmonary process. Electronically signed by: Dru Corley M.D. Narrative 03/22/2025 9:27 AM CDT EXAMINATION: XR CHEST PA LATERAL 2 VIEWS HISTORY: Acute dyspnea, hypoxia, respiratory failure in a former smoker (without provided pack year history) with history of asthma and COPD. TECHNIQUE: Frontal and lateral radiographic views acquired of the chest. COMPARISON: Chest radiograph 12/06/2024; CT chest without contrast FINDINGS: Trachea midline. Heart normal in size and contour. Hilar and mediastinal structures unremarkable. No focal consolidation. Redemonstration of emphysematous changes and right calcified pulmonary granuloma. No pleural effusion. No pneumothorax. Gross stable termination of dual thoracic spinal stimulator leads. No acute osseous abnormality. Procedure Note Dru Corley MD - 03/22/2025 EXAMINATION: XR CHEST PA LATERAL 2 VIEWS HISTORY: Acute dyspnea, hypoxia, respiratory failure in a former smoker (without provided pack year history) with history of asthma and COPD. TECHNIQUE: Frontal and lateral radiographic views acquired of the chest. COMPARISON: Chest radiograph 12/06/2024; CT chest without contrast FINDINGS: Trachea midline. Heart normal in size and contour. Hilar and mediastinal structures unremarkable. No focal consolidation. Redemonstration of emphysematous changes and right calcified pulmonary granuloma. No pleural effusion. No pneumothorax. Gross stable termination of dual thoracic spinal stimulator leads. No acute osseous abnormality. IMPRESSION: No acute cardiopulmonary process. Electronically signed by: Dru Corley M.D. us Everton Cordon MD IMG XR PROCEDURES Final Result * (ABNORMAL) eGFR (03/22/2025 8:52 AM CDT) eGFR 27(L) >=60 mL/min/1. 73 m2 Comment: Interpretive Data Reference Interval Normal >/= 90 mL/min/1.73m2 Mildly decreased* 60 - 89 mL/min/1.73m2 Mildly to moderately decreased 45 - 59 mL/min/1.73m2 Moderately to severely decreased 30 - 44 mL/min/1.73m2 Severely decreased 15 - 29 mL/min/1.73m2 Kidney Failure < 15 mL/min/1.73m2 *Relative to young adult level Estimated glomerular filtration rate is determined by the 2020 CKD-EPI equation recommended by the National Kidney Foundation (A Unifying Approach to GFR Estimation: Recommendations of the NKF-ASK Task Force on Reassessing the Inclusion of Race in Diagnosing Kidney Disease, JASN 2020). The CKD-EPI equation should not be used for patients with unstable renal function and has not been validated in children and those over 70. Current interpretive data was last reviewed 2021. Blood 03/22/2025 8:52 AM CDT 03/22/2025 9:52 AM CDT us Everton Cordon MD LAB BLOOD ORDERABLES Final Resul t [facility] ([place]) 1 [facility] Department [place] [address] * Differential, auto (03/22/2025 8:52 AM CDT) Neutrophil abs 3.74 1.50 - 6.50 K/cumm Imm gran abs 0.05 0.00 - 0.10 K/cumm [facility] ([place]) Lymphocyte abs 0.90 0.80 - 3.30 K/cumm [facility] [place] Monocyte abs 0.33 0.20 - 0.80 K/cumm [facility] [place]) Eosinophil abs 0.14 0.00 - 0.50 K/cumm [facility] [place]) Basophil abs 0.01 0.00 - 0.10 K/cumm [facility] [place]) Neutrophil pct 72.3 % [facility] Comment: Interpretive Data Percent cell count reference ranges are not reported, since discordance with absolute values may lead to misinterpretation of CBC data. Current Interpretive Data was last revised on 2017. Imm gran pct 1.0 % [facility]) Comment: Interpretive Data Percent cell count reference ranges are not reported, since discordance with absolute values may lead to misinterpretation of CBC data. Current Interpretive Data was last revised on 2017. Lymphocyte pct 17.4 % [facility] Comment: Interpretive Data Percent cell count reference ranges are not reported, since discordance with absolute values may lead to misinterpretation of CBC data. Current Interpretive Data was last revised on 2017. Monocyte pct 6.4 % [facility]) Comment: Interpretive Data Percent cell count reference ranges are not reported, since discordance with absolute values may lead to misinterpretation of CBC data. Current Interpretive Data was last revised on 2017. Eosinophil pct 2.7 % [facility] Comment: Interpretive Data Percent cell count reference ranges are not reported, since discordance with absolute values may lead to misinterpretation of CBC data. Current Interpretive Data was last revised on 2017. Basophil pct 0.2 % [facility]) Comment: Interpretive Data Percent cell count reference ranges are not reported, since discordance with absolute values may lead to misinterpretation of CBC data. Current Interpretive Data was last revised on 2017. Blood 03/22/2025 8:52 AM CDT 03/22/2025 9:52 AM CDT us Everton Cordon MD LAB BLOOD ORDERABLES Final Resul t [facility] ([place] Department [place] [address] * (ABNORMAL) Pro B-type natriuretic peptide (03/22/2025 8:52 AM CDT) NT-proBNP 494(H) <=450 pg/mL Comment: Interpretive Comments: A. Dyspnea in Acute Care Setting All Ages: < 300 pg/ml, acute heart failure unlikely. < 50 yrs: 300 - 450 pg/ml, further investigation warranted. > 450 pg/ml, acute heart failure likely. 50 - 74 yrs: 300 - 900 pg/ml, further investigation warranted. > 900 pg/ml, acute heart failure likely . > or = 75 yrs: 450 - 1800 pg/ml, further investigation warranted. > 1800 pg/ml, acute heart failure likely. B. Non-acute Setting < 75 yrs < 125 pg/ml, rules out heart failure. > or = 125 pg/ml, further investigation warranted. > or = 75 yrs < 450 pg/ml, rules out heart failure. > or = 450 pg/ml, further investigation warranted. - Knowledge of each individual patient's NT-proBNP range may be more useful than using similar cut-points for every patient. Please note that marked elevations in NT-proBNP levels may be observed in state other than Left Ventricular Congestive Failure, including: acute coronary syndromes, right heart strain/failure (including pulmonary embolism and cor pulmonale), critical illness, renal failure, as well as advanced age. - References: 1. Deanna JL et.al. Eur Heart J. 2006:27:330-337. 2. Deepika RW, David ATWOOD. J. AM Jose Cardiol: Cardiovasc Imag. 2009;2: 216- 225. Interpretive Data Last Revised Date: 2018. Blood 03/22/2025 8:52 AM CDT 03/22/2025 9:52 AM CDT us Everton Cordon MD LAB BLOOD ORDERABLES Final Resul t [facility] ([place] [address] [facility] Department [place] [address] * (ABNORMAL) CBC with auto differential (03/22/2025 8:52 AM CDT) Pathologist [facility] WBC 5.17 3.80 - 9.90 K/cumm Hgb 11.8(L) 11.9 - 15.5 g/dL [facility] Hct 37.2 35.6 - 45.5 % [facility] Plt 239 150 - 400 K/cumm [facility] MPV 10.5 9.1 - 12.3 fL [facility] RBC 4.02 3.90 - 5.20 M/cumm [facility] MCV 92.5 81.3 - 96.4 fL [facility] MCH 29.4 27.1 - 33.3 pg [facility] MCHC 31.7(L) 32.3 - 35.7 g/dL [facility] RDW CV 13.6 11.1 - 14.9 % [facility] RDW SD 46.0 35.7 - 48.1 fL [facility]) NRBC abs 0.00 0.00 - 0.01 K/cumm [facility]) Blood 03/22/2025 8:52 AM CDT 03/22/2025 9:52 AM CDT us Everton Cordon MD LAB BLOOD ORDERABLES Final Resul t [facility] ([place] 1 [facility] Department [place] [address] * (ABNORMAL) D-dimer, quantitative (03/22/2025 8:52 AM CDT) D-Dimer 1,696(H) <=499 ng/mL FEU [facility] ([place]) Comment: Interpretive data FDA approved the D-dimer, in conjunction with a low or moderate pretest probability score, to exclude venous thromboembolic events (VTE) (PE and DVT) in outpatients when the D-dimer result is < 500 ng/ml FEU. Evidence supports using an age-adjusted D-dimer cut-off for outpatients older than 50 (age x 10) to improve specificity without sacrificing sensitivity. Example: age 68, VTE cut-off 680 ng/ml FEU. References; Schoutdannielle HT et al. Brit Med J. 2013;346:f2492. Raja et al. Annals Int Med. 2015;163:701-11. Current interpretive data was last revised on 2019. Blood 03/22/2025 8:52 AM CDT 03/22/2025 9:52 AM CDT Everton Cordon MD LAB BLOOD ORDERABLES Final Resul t [facility] ([place] 1 [facility] Department [place] [address] * (ABNORMAL) Basic metabolic panel (03/22/2025 8:52 AM CDT) Sodium 142 135 - 145 mmol/L Potassium, pl 3.5 3.3 - 4.9 mmol/L [facility] Chloride 105 97 - 110 mmol/L [facility]) CO2 23 22 - 32 mmol/L [facility] Anion gap 14 2 - 15 mmol/L [facility] BUN 26(H) 6 - 25 mg/dL [facility]) Creatinine 1.88(H) 0.60 - 1.10 mg/dL [facility] Glucose 109 70 - 199 mg/dL [facility]) Comment: Interpretive Data Fasting glucose >/= 126 mg/dl is diagnostic for diabetes. Fasting is defined as no caloric intake for at least 8 hours. Fasting glucose between 100 mg/dl to 125 mg/dl is diagnostic of prediabetes. In a patient with classic symptoms of hyperglycemia or hyperglycemic crisis, a random glucose >/= 200 mg/dl is diagnostic for diabetes. In the absence of unequivocal hyperglycemia, results should be confirmed by repeat testing. The classification and Diagnosis of Diabetes Diabetes Care 2021; 46: S19-S40. Current interpretive data was last revised 2022. Calcium 9.7 8.5 - 10.3 mg/dL [facility]) Blood 03/22/2025 8:52 AM CDT 03/22/2025 9:52 AM CDT Everton Cordon MD LAB BLOOD ORDERABLES Final Resul t [facility] [place] [facility] Department of Laboratories [place], [place] [id number] * DC ARTHROCENTESIS ASPIR&/INJ MAJOR JT/BURSA W/O US (02/14/2025 9:15 AM CDT) Narrative Goyo Jay MD - 02/14/2025 9:15 AM CDT Goyo Jay MD 02/14/2025 9:57 AM Large Joint (Hip, Knee, Shoulder) Injection: R greater trochanteric bursa Performed by: Goyo Jay MD Authorized by: Goyo Jay MD Large Joint Injection/Aspiration: Consent Given by: Patient Site marked: the procedure site was marked Timeout: prior to procedure the correct patient, procedure, and site was verified Verbal consent obtained: Yes Supporting Documentation: Indications: Pain Procedure Details: Location: Hip Site: R greater trochanteric bursa Prep: patient was prepped and draped in usual sterile fashion Needle Size: 22 G Approach: Lateral Medications: 80 mg methylPREDNISolone acetate 40 mg/mL; 4 mL BUPivacaine 0.5 % (5 mg/mL) Patient tolerance: Patient tolerated the procedure well with no immediate complications Goyo Jay MD IN CLINIC/BEDSIDE ANISA SAUCEDA Final Result * Pulmonary Function Test - (02/13/2025 9:21 AM CDT) Anatomical Region Laterality Modality PFT 02/13/2025 8:09 AM CDT Impressions 02/14/2025 12:25 PM CDT 1. Mild obstructive ventilatory limitation 2. Likely moderate diffusion impairment 3. During a 6 minute walk test the patient ambulated 420 ft on ambient air with lowest oxygen saturation of 90%. There was significant desaturation from her resting oxygen saturation of 98% Electronically signed by Everton Cordon MD Pulmonary & Critical Care Narrative 02/14/2025 12:25 PM CDT PULMONARY FUNCTION TESTS Lacie Blue 79 y.o. 02/14/2025 INTERPRETATION Please see technologist's comments mentioned in attached results report. SPIROMETRY: Pre bronchodilator FEV1 is 68 % predicted, FVC is 92 % predicted, FEV1/FVC is 0.55 Bronchodilator response: No Inspection of the patient's flow-volume loops shows: Scooping of the expiratory limb. Otherwise normal configuration of the inspiratory and expiratory limbs. LUNG VOLUMES: Lung volumes by body plethysmography: TLC is 101 % predicted, RV is 114 % predicted DLCO: Unadjusted for hemoglobin and carboxyhemoglobin DLCO is 46 % predicted Everton Corodn MD PFT ORDERABLES Final Result * (ABNORMAL) Pro B-type natriuretic peptide (02/06/2025 11:00 AM CDT) NT-proBNP 607(H) <=450 pg/mL [facility] ([place]) Comment: Interpretive Comments: A. Dyspnea in Acute Care Setting All Ages: < 300 pg/ml, acute heart failure unlikely. < 50 yrs: 300 - 450 pg/ml, further investigation warranted. > 450 pg/ml, acute heart failure likely. 50 - 74 yrs: 300 - 900 pg/ml, further investigation warranted. > 900 pg/ml, acute heart failure likely . > or = 75 yrs: 450 - 1800 pg/ml, further investigation warranted. > 1800 pg/ml, acute heart failure likely. B. Non-acute Setting < 75 yrs < 125 pg/ml, rules out heart failure. > or = 125 pg/ml, further investigation warranted. > or = 75 yrs < 450 pg/ml, rules out heart failure. > or = 450 pg/ml, further investigation warranted. - Knowledge of each individual patient's NT-proBNP range may be more useful than using similar cut-points for every patient. Please note that marked elevations in NT-proBNP levels may be observed in state other than Left Ventricular Congestive Failure, including: acute coronary syndromes, right heart strain/failure (including pulmonary embolism and cor pulmonale), critical illness, renal failure, as well as advanced age. - References: 1. Deanna JACOBS et.al. Eur Heart J. 2006:27:330-337. 2. Deepika RW, David AM. J. AM Jose Cardiol: Cardiovasc Imag. 2009;2: 216- 225. Interpretive Data Last Revised Date: 2018. Blood 02/06/2025 11:0 0 AM CDT 02/06/2025 1:19 PM CDT us Everton Cordon MD LAB BLOOD ORDERABLES Final Resul t [facility] ([place] 1 [facility] Department [place] [address] * Dexa Axial Skeleton Bone Density 1 or 2 Site (05/26/2020 10:53 AM CLOUD SUBJECT MATTER EXPERT) Anatomical Region Laterality Modality Body N/A Other 05/26/2020 11:1 5 AM CLOUD SUBJECT MATTER EXPERT Impressions 05/26/2020 11:16 AM CLOUD SUBJECT MATTER EXPERT According to the World Health Organization criteria, based upon the left femoral neck bone mineral density (T score value of -2.8), the patient has osteoporosis. A FRAX score based upon a DXA study is not reported unless all of the following criteria are met. The patient: a. Is an untreated postmenopausal woman or a man age 50 or older. b. Has low bone mass (T-score between -1.0 and -2.5). c. Has no prior hip or vertebral fracture (clinical or morphometric). d. Has an evaluable hip for DXA study. General Recommendations: 1. Consider an evaluation for secondary causes of osteoporosis in patients with low bone density. 2. All patients should be counseled on adequate intake of calcium (1200 mg/day), vitamin D (600-800 IU daily) and exercise. 3. The National Osteoporosis Foundation (NOF) guidelines recommend initiating pharmacological therapy, in addition to calcium, vitamin D and exercise, to reduce fracture risk when: a. T-score less than or equal to -2.5 after secondary causes excluded. b. T-score between -1.0 and -2.5 with secondary causes associated with high risk of fracture. c. 10-year probability of hip fracture more than or equal to 3% (based on FRAX score). d. 10-year probability of major osteoporosis related fracture more than or equal to 20% (based on FRAX score). Followup: People with diagnosed cases of osteoporosis or at high risk for fracture should have regular bone mineral density tests. For patients eligible for Medicare, routine testing is allowed once every 2 years. The testing frequency can be increased to one year for patients who have rapidly progressive disease or those who are receiving long-term steroid therapy. Electronically signed by: Derrick Amos M.D. Narrative 05/26/2020 11:16 AM CLOUD SUBJECT MATTER EXPERT STUDY DESCRIPTION: DEXA AXIAL SKELETON BONE DENSITY 1 OR MORE SITES CLINICAL INDICATIONS: post-menopausal osteoporosis prevention. Chronic obstructive pulmonary disease. COMPARISON: None TECHNIQUE: Dual x-ray absorptiometry (DEXA) was performed using Surgient system. GENERAL GUIDELINES: According to WHO guidelines, a T score of -1.0 or greater is normal, between -1.0 to -2.4 is osteopenia, and -2.5 or less is osteoporosis. Z score (instead of T score) is preferred for pediatric, young adults, premenopausal women and men under age of 50 years. In these patients, a Z score greater than or equal to -2.0 is considered to be in the expected range. FINDINGS: LEFT FEMORAL NECK: T-score -2.8. Bone mineral density 0.539 g/sq/cm. LEFT TOTAL HIP: T-score -2.2. Bone mineral density 0.676 g/sq/cm. LUMBAR SPINE: T-score 0.7. Bone mineral density 1.100 g/sq/cm. Procedure Note Derrick Amos MD - 05/26/2020 STUDY DESCRIPTION: DEXA AXIAL SKELETON BONE DENSITY 1 OR MORE SITES CLINICAL INDICATIONS: post-menopausal osteoporosis prevention. Chronic obstructive pulmonary disease. COMPARISON: None TECHNIQUE: Dual x-ray absorptiometry (DEXA) was performed using Surgient system. GENERAL GUIDELINES: According to WHO guidelines, a T score of -1.0 or greater is normal, between -1.0 to -2.4 is osteopenia, and -2.5 or less is osteoporosis. Z score (instead of T score) is preferred for pediatric, young adults, premenopausal women and men under age of 50 years. In these patients, a Z score greater than or equal to -2.0 is considered to be in the expected range. FINDINGS: LEFT FEMORAL NECK: T-score -2.8. Bone mineral density 0.539 g/sq/cm. LEFT TOTAL HIP: T-score -2.2. Bone mineral density 0.676 g/sq/cm. LUMBAR SPINE: T-score 0.7. Bone mineral density 1.100 g/sq/cm. IMPRESSION: According to the World Health Organization criteria, based upon the left femoral neck bone mineral density (T score value of -2.8), the patient has osteoporosis. A FRAX score based upon a DXA study is not reported unless all of the following criteria are met. The patient: a. Is an untreated postmenopausal woman or a man age 50 or older. b. Has low bone mass (T-score between -1.0 and -2.5). c. Has no prior hip or vertebral fracture (clinical or morphometric). d. Has an evaluable hip for DXA study. General Recommendations: 1. Consider an evaluation for secondary causes of osteoporosis in patients with low bone density. 2. All patients should be counseled on adequate intake of calcium (1200 mg/day), vitamin D (600-800 IU daily) and exercise. 3. The National Osteoporosis Foundation (NOF) guidelines recommend initiating pharmacological therapy, in addition to calcium, vitamin D and exercise, to reduce fracture risk when: a. T-score less than or equal to -2.5 after secondary causes excluded. b. T-score between -1.0 and -2.5 with secondary causes associated with high risk of fracture. c. 10-year probability of hip fracture more than or equal to 3% (based on FRAX score). d. 10-year probability of major osteoporosis related fracture more than or equal to 20% (based on FRAX score). Followup: People with diagnosed cases of osteoporosis or at high risk for fracture should have regular bone mineral density tests. For patients eligible for Medicare, routine testing is allowed once every 2 years. The testing frequency can be increased to one year for patients who have rapidly progressive disease or those who are receiving long-term steroid therapy. Electronically signed by: Derrick Amos M.D. Cinthya Mcdonald NP IM DXA PROCEDURES Final Result from Last 3 Months or Most Recently Relevant to Health Maintenance Insurance MEDICARE [facility] Advance Directives For more information, please contact: [phone] * Full Code (Latest Code Status on File) Date Activated Date Inactivated Comments 02/06/2021 12:42 AM 02/13/2021 6:29 PM Care Teams Retention Specialist Relationship Specialty Start Date End Date Alma Jamison MD [address] [place] [id number] PCP - General Family Medicine 05/04/23 Everton Cordon MD Consulting Physician Pulmonary Disease 02/13/21 Max Saldana MD [address] [place] [id number] Consulting Physician Nephrology 01/22/22 [place] [phone] [address] [place] [address] Nurse Practitioner Pain Management 04/03/24 [place] [id number] [address] [place] [address] Consulting Physician Pain Management 04/02/25
--- OUTSIDE RECORDS SUMMARY | 2025-05-06 19:19 | XMS_ITS | Encounter Summary ---
Author Organization [facility] Healthcare Address [address] [place] [address] Care Team Providers Care Lever Tender Name Role Phone Everton Cordon MD Unavailable Max Saldana MD Unavailable [phone] Alma Jamison MD Primary Care Provider Robbie Wylie NP Unavailable [phone] Amanuel Mckee MD Unavailable [phone] Encounter Details Date Type Department Care Team (Late st Contact Info) Description 04/14/2025 Results Follow-Up [facility] Medical Group Pulmonary at [address] [place] [address] Everton Cordon MD [address] [place] [address] [address] [place] [address] D-dimer, quantitative, Pro B-type natriuretic peptide, Basic metabolic panel, Additional followed-up results: 3 Social History Tobacco Use Types Packs/Day Years [...] on file Legal Sex Female 10:23 AM [employer] Gender Identity Not on file Sexual Orientation Not on file documented as of this encounter Miscellaneous Notes * Telephone Encounter - Windy Hillman CMA - 04/15/2025 3:38 PM CST Patient spouse reports patient would be interested in the Breztri inhaler. [employer] * Telephone Encounter - Windy Hillman CMA - 04/15/2025 11:43 AM CST Spoke to patient spouse who reports Steroids are helping wants a refill, patient still has side pain and Dr. Polo patient CRITICAL CARE TRANSPORT NURSE is ordering a CT on patient has an apt IN [place]. [employer] documented in this encounter Plan of Treatment Not on file documented as of this encounter Visit Diagnoses Not on filedocumented in this encounter Care Teams Lever Tender Relationship Specialty Start Date End Date Alma Jamison MD [address] [place] [id number] PCP - General Family Medicine 05/04/23 Everton Cordon MD Consulting Physician Pulmonary Disease 02/13/21 Max Saldana MD [address] [place] [address] [address] [place] [id number] Consulting Physician Nephrology 01/22/22 [place] [phone] [address] [place] [address] Nurse Practitioner Pain Management 04/03/24 [place] [address] [address] [facility] [address] [place] [address] Consulting Physician Pain Management 04/02/25 documented as of this encounter
--- OUTSIDE RECORDS SUMMARY | 2025-05-06 19:19 | XMS_ITS ---
Author Organization Unknown Address [address] [place] [phone] Phone Care Team Providers Care Applications Support Analyst Name Role Phone CAROLINE FLORES Attending Unavailable ANA Peterson Primary Unavailable Social History Type Status Start Date End Date Code Code Syst em Sex Female Vital Signs Vital Sign Value Unit Hewett Value Hewett Unit Date/Time Recent/Initial? Code Code System Body Mass Index 37.68 kg/m2 04/08/2025 08:05 Initial 23073 -5 [facility] Systolic Blood Pressure 152 mm[Hg] 04/08/2025 08:05 Initial 8480- 6 [facility] Diastolic Blood Pressure 81 mm[Hg] 04/08/2025 08:05 Initial 8462- 4 [facility] Body Surface Area 2.02 m2 04/08/2025 08:05 Initial 3140- 1 [facility] Height 157.480 0 cm 62.00 in 04/08/2025 08:05 Initial 8302- 2 [facility] O2 Saturation 92 % 2024 08:05 Initial 82682 -5 [facility] Pulse 105.0 /min 04/08/2025 08:05 Initial 8867- 4 [facility] Temperature 36.6 Mayra 97.8 F 04/08/20 08:05 Initial 8310- 5 [facility] Weight 93.44 kg 206.00 lbs 04/08/2025 08:05 Initial 37916 -7 [facility] Medications Medication Start Date End Date Route Frequency Dose Code Code System Medication Instructions Home Meds Furosemide 40MG Oral Tablet 04/22/2025 Unknown ORAL ONCE A DAY 40 MILLIGRAMS 617711 RxNorm TAKE 40 MILLIGRAMS ORAL ONCE A DAY Allopurinol 100MG Oral Tablet 04/22/2025 Unknown ORAL ONCE A DAY 100 MILLIGRAMS 662202 RxNorm TAKE 100 MILLIGRAMS ORAL ONCE A DAY oxyBUTYnin 5MG Oral Tablet 04/22/2025 Unknown ORAL AT BEDTIME 5 MILLIGRAMS 708407 RxNorm TAKE 5 MILLIGRAMS ORAL AT BEDTIME Albuterol Sulfate 0.09MG/1Actu ation Inhalation Suspension 04/22/2025 Unknown INHALATIO N NEEDED 1 unit(s) 4587265 RxNorm 1 EACH INHALATION NEEDED HYDROcodone bitartrate-a cetaminophen 7.5MG-325MG Oral Tablet 04/22/2025 Unknown ORAL NEEDED EVERY 8 HOURS 1 unit(s) 264087 RxNorm TAKE 1 EACH ORAL NEEDED EVERY 8 HOURS Stiolto Respimat 2.5MCG-2.5MC G/1Act Inhalation [place] 04/22/2025 Unknown INHALATIO N ONCE A DAY 1 unit(s) 9732989 RxNorm 1 EACH INHALATION ONCE A DAY Calcitriol 04/22/2025 Unknown BY MOUTH 1 RxNorm TAKE 1 BY MOUTH Assessment You had the following problems:PAIN IN RIGHT HIPUNSPECIFIED ABDOMINAL PAINCHRONIC KIDNEY DISEASE, UNSPECIFIEDUNSPECIFIED DEMENTIA, UNSPECIFIED SEVERITY, WITHOUT BEHAVIORAL DISTURBANCE, PSYCCHRONIC PAIN Hospital Discharge Instructions Should you have any questions prior to discharge, please contact a member of your healthcare team. If you have left the hospital and have any questions, please contact your primary care physician. Reason For Referral No Data Found Problems Problem Start Date Resolved Date Status Code Code System PAIN IN RIGHT HIP active [id number] 102 SNOMED-CT UNSPECIFIED ABDOMINAL PAIN active 12790191 SNOMED-CT CHRONIC KIDNEY DISEASE, UNSPECIFIED active 336744694 SNOMED-CT UNSPECIFIED DEMENTIA, UNSPECIFIED SEVERITY, WITHOUT BEHAVIORAL DISTURBANCE, PSYC active 91121525 SNOMED-CT CHRONIC PAIN active 88957673 SNOMED- CT Allergies and Adverse Reactions Allergy Substance Reaction Severity Start Date Concern Status Code Code System CONTRAST MEDIA, IODINE RELATED Hives (SNOMED-CT: 409226436) Active 029514964 SNOMED-CT Plan of Treatment SI Joint Injection Bilateral 04/22/2025 OR SI Joint Injection 04/22/2025 SI Joint Injection Bilateral 04/22/2025 OR SI Joint Injection 04/22/2025 Plan SI joint injections and f/u post procedure. obtain right hip xray. Encounters Encounter Diagnosis Start Date Code Code Sys tem Pain in right hip 04/08/2025 SNOMED-CT Personal Care Team Section Performer Name Performer Role Active Date Inactive [place] PCP - Primary care physician 2025-03 Progress Notes [facility] 04/08/2025 08:31 All Demographics Patient Name Age Sex Visit Number Admission Date/Time Attending Physician Date of Service Room and Bed Emergency Contact ANEESH STYLES 1945 79 years Female [id number] 04/08/2025 00:00 Migue Geronimo 04/08/2025 JUSTIN STYLES - [id number] PAIN MANAGEMENT HISTORY & PHYSICAL Vital Signs: Most Recent Today Date/Time BP (mm/Hg) BP Position/Site Heart Rate Resp Temp (F) SPO2% O2 Device Pain Score Height (in) Weight (lbs/ozs) BMI Systolic Diastolic Pulse Site O2 L/min 04/08/2025 08:05 152/81 Sitting/Left Arm 105 97.8 Tympanic 92 % Room Air 21% 10 62 in 206.0 37.68 152 81 Pulse Ox Chief Complaint: Chronic pain History of Present Illness: Patient here today, for pain management evaluation for Chronic pain, right hip. Location: The pain is located in the right hip and back. The pain does not radiate. Quality: Patient rates the pain today, as a 10/10 at this time, and at times the pain may be as severe as a 10/10. The pain may be described as sharp, burning, and a hot poker. Duration: Constant Timing: Patient reports this pain has been present for 4-5 months. Alleviating Factors: Pain is relieved by nothing. Associated Symptoms: Pain is worsened by standing, walking, lying on that side, and ADLs. Pain History: Patient with a history of chronic kidney disease. Patient reports that they have had no recent falls. PHQ-9 Depression Screening Patient condition has declined since last screening Patient condition has improved since last screening X No previous Screening Patient Declined Screening Score has not changed significantly since last visit PHQ-9 Score Assessment: N/A: PHQ-9 not performed/Patient declined 0-4: Not an indicator of depression 5-9: Indicates mild depression 13 10-14: Indicates moderate depression 15-19: Indicates moderately severe depression 20-27: Indicates severe depression Depression Remission Indicated: Yes, previous PHQ-9 score >9 in the past 12 months with current score <5 X Previous PHQ-9 score or date is unknown Previous PHQ-9 score is 5 or higher LEN-7 Score Assessment: N/A: LEN-7 not performed/Patient declined 4 0-4: Minimal Anxiety 5-9: Mild Anxiety 10-14: Moderate Anxiety 15-21: Severe Anxiety Review of Systems Constitutional: denies changes in speech, night sweats or chills HEENT: denies facial swelling or nasal deformity Cardiovascular: denies chest pain or chest pressure Respiratory: denies cough, sputum or chest congestion Gastrointestinal: denies excessive belching or abdominal mass Endocrine: denies excessive thirst or fruity breath Musculoskeletal: denies muscle atrophy. admits muscle spasm. Low back pain and hip pain. Neurologic: denies altered mental status or speech Integumentary: denies blistering or hives Hematologic/Lymphatic: denies abnormal bleeding or lymph node tenderness Psychiatric: denies agitation or delusions Physical Exam Appearance: well groomed, healthy appearance, well nourished, NAD HEENT: PERRLA, neurological systems grossly intact Neck: supple, nontender Chest/Lungs: clear to auscultation, no dyspnea, breath sounds normal, no rales/crackles/rhonchi or wheezing Cardiovascular: regular rate and rhythm S1-S2 present, no carotid bruit, femoral/pedal pulses normal throughout Abdomen: round, soft, nontender, active bowel sounds, no tenderness with palpation Rectal: normal per patient Pelvic: normal per patient Extremities: no signs of significant edema, good pulses Problem Focused Physical Exam: Patient presents for chronic right hip pain and right sided back pain. She states that the pain does not radiate down her leg and describes it as a sharp burning and hot poker type of feeling. She rates the pain at a 10 out of 10 and is constant for the last 5 months. She has tried injections into her side of her hip and into the anterior portion of her hip. She has a history of right trochanteric bursa injection. She states that none of the injections have helped. Patient has history of back surgery and spinal cord stimulator implant she has bilateral TKA.. She has not participated in any physical therapy and does not wish to at this time. She denies seeing a chiropractor in the past. Patient is poor historian and hard of hearing which makes exam somewhat difficult. She also has. She states that nothing helps her pain, but it is exacerbated by standing walking laying on sides and regular daily activities. She is currently taking hydrocodone 7.5 mg every 8 hours and baclofen 10 mg 3 times daily. Sacroiliac Joint Assessment Patient is positive for SI joint pain. Patient has pain with femoral sheer test and also gapping tests. FABERS is positive. Positive David Finger test. Patient has pain with prolonged standing and sitting. Pain is worse in the AM when they wake. Pain is significant enough that is causing difficulty with activities of daily living.Patient describes the pain as starting in back and goes all the way through. Recommend trial of SIJ injection. Educated on procedure, benefits, and risks and patient wishes to move forward. Radiology: Imaging reviewed with patient Pain Treatment History: Conservative Measures Tried and Failed: NSAID, ice, heat Medications Trialed:hydrocodne, baclofen Previous Interventional Pain Procedures: Plan SI joint injections and f/u post procedure. obtain right hip xray. Problem List Pain in right hip Unspecified abdominal pain Chronic kidney disease, unspecified Unspecified dementia, unspecified severity, without behavioral disturbance, psychotic disturbance, mood disturbance, and anxiety Chronic pain Surgery List: No Surgical History Available Smoking Status List: No Social History Available Allergy List No Known Drug Allergies, Medication Home Meds: Dose and Freq Medication Dosage Frequency Allopurinol Calcitriol Furosemide Baclofen OXybutynin HYDROcodone bitartrate-acetaminophen 7.5MG-325MG Oral Tablet 1 EACH NEEDED EVERY 8 HOURS
--- NOTE | 2025-05-06 19:20 | PM.IMHP2 ---
H&P: HPI History of Present Illness Date/Time: 05/06/25 19:20 Chief Complaint: Altered mental status Narrative: This is an 79-year-old patient who was brought to [facility] via ambulance. She had facial drooping drooling and not responsive. She was unable to keep her eyes open at the time. According to the records the saw her last at 9:30 pm last night. The patient is typically awake, and alert, and orientated x4. At her baseline she is able to walk with walker. She is DNR. Chest x-ray shows mild congestive heart failure. Head CT was read as no acute intracranial abnormality. The patient has chronic back pain and is on narcotics. Her urine drug screen was positive for opiates. The patient received 2 mg of Narcan IV x3 doses with mild improvement. Several suicide notes were found in the home. Patient was placed on a non-rebreather. She was also given a he fluids at [facility]. ABGs pH 7.34. PO2 87.3. Creatinine is 2.0 with a baseline 1.7 to 2.32. Her GFR is 24 with a baseline of 26 to 31. Her glucose was found to be 147. Calculated osmolality is 313. Total CK is 471. EKG was read as sinus rhythm heart rate 68. Left anterior fascicular block. Cannot rule out septal infarction age indeterminate. Patient is being admitted to ICU as on IMU status. Review of Systems Constitutional: Constitutional: Reports as per HPI and Reports no additional constitutional complaints Eyes: Eyes: Reports as per HPI and Reports no additional eye complaints ENT: Reports system reviewed and no additional complaints, except as documented and Reports Normal hearing present Cardiovascular: Cardiovascular: Reports no additional cardiovascular complaints Respiratory: Respiratory: Reports as per HPI and Reports no additional respiratory complaints Gastrointestinal: Gastrointestinal: Reports as per HPI and Reports no additional gastrointestinal complaints Genitourinary: Genitourinary: Reports no additional female genitourinary complaints Musculoskeletal: Musculoskeletal: Reports no additional musculoskeletal complaints Integumentary/Breasts: Skin/Breast: Reports system reviewed and no additional complaints, except as docu Neurologic: Reports system reviewed and no additional complaints, except as documented and Reports Normal hearing present Psychiatric: Psychiatric: Reports no additional psychiatric complaints and Reports as per HPI Hematologic/Lymphatic: Hematologic/Lymphatic: Reports no additional hematologic/lymphatic complaints Allergic/Immunologic: Allergic/Immunologic: Reports no additional allergic/immunologic complaints [facility] Past Medical History Medical History (Updated 05/06/25 @ 20:07 by Faiza Coyle APRN) Hypertension Obstructive sleep apnea Opiate use Ovarian cancer D-dimer, elevated SAM (acute kidney injury) Cellulitis Thrush COVID-19 virus detected Bilateral hand pain Generalized osteoarthritis of multiple sites Rheumatoid arthritis with rheumatoid factor of multiple sites without organ or systems involvement COPD (chronic obstructive pulmonary disease) Surgical History Surgical History (Updated 05/06/25 @ 19:34 by Faiza Coyle APRN) H/O Spinal surgery History of appendectomy H/O: hysterectomy Total knee replacement status Bilaterally Cataract extraction status Family History Family History Father Patient's father is Family history of cardiovascular disease Mother Family history of cardiovascular disease Social History Social History (Updated 05/06/25 @ 19:50 by Faiza Coyle APRN) Social History: She is . She is a homemaker. She is a former smoker. She had 2 sons and Her 1 son committed suicide. She lives with her . Code status DNR Smoking packs per day: 2 Smoking cigarettes per day: 40.0 Years smoked: 30 Smoking pack-years: 60.00 Smoking status: Former smoker Tobacco type: cigarettes Second hand tobacco smoke exposure: Yes Alcohol intake: never Substance use: never Substance use type: does not use Gender identity (if verbalized by the patient): Female Sexual Orientation (if Verbalized by the Patient): Straight or Heterosexual Spiritual care concerns: No Meds Home Medications and Allergies Home Medications ?Medication ?Instructions ?Recorded ?Confirmed ?Type oxybutynin chloride 5 mg tablet 5 mg PO HS 03/28/20 05/06/25 History albuterol sulfate 90 mcg/actuation 2 puff inhalation QID PRN 04/08/20 05/06/25 History aerosol inhaler (ProAir HFA) Shortness Of Breath allopurinol 300 mg tablet 100 mg PO DAILY 04/08/20 05/06/25 History umeclidinium 62.5 mcg/actuation 1 inh inhalation DAILY 04/08/20 05/06/25 History blister powder for inhalation (Incruse Ellipta) acetaminophen 500 mg tablet 1,000 mg (2 x 500 mg) PO Q6H PRN 04/10/20 05/06/25 Rx Mild Pain (1-3) Or Fever #30 tabs hydrocodone 5 mg-acetaminophen 325 1 tablet PO Q6H PRN pain #10 tabs 11/30/21 05/06/25 Rx mg tablet buspirone 5 mg tablet 5 mg PO DAILY 05/06/25 05/06/25 History calcitriol 0.25 mcg capsule 0.25 mcg PO DAILY 05/06/25 05/06/25 History furosemide 20 mg tablet 20 mg PO DAILY 05/06/25 05/06/25 History trazodone 50 mg tablet 50 mg PO HS PRN insomnia 05/06/25 05/06/25 History Allergies Allergy/AdvReac Type Severity Reaction Status Date / Time Iodinated Contrast Media Allergy Unknown Swelling Verified 05/06/25 19:50 Contrast Media Allergy Unknown HIVES AND Uncoded 08/18/23 10:03 SWELLING Vital Signs Vital Signs - 24 hr 05/06/25 19:06 Pulse Oximetry 98 Oxygen Delivery Nasal Cannula Oxygen Flow Rate 2 Exam Const: General: cooperative Nutritional Appearance: average body habitus and well nourished HENMT: Head: normal to inspection and No palpable skull fracture present Other: Patient is drooling heavily Eyes: Alignment and Position: alignment normal Periorbital: periorbital findings normal Eyelids: eyelids normal Conjunctivae: conjunctivae normal Sclera: sclerae normal Cornea: corneas normal Pupils: Pupil accommodation reflex normal EOM: EOMs intact bilaterally Other: Pupils are sluggish to react. Neck: Neck: normal visual inspection Chest: Chest palpation & inspection: normal inspection of the chest Resp: Auscultation: wheezes Cardio: Palpation: normal PMI Rate: regular rate Rhythm: regular rhythm Heart sounds: S1 normal heart sound present and S2 normal heart sound present Peripheral pulses: Peripheral pulses 2+ throughout GI: Inspection: normal to inspection Auscultation: normal bowel sounds Urinary Catheter: Urinary Catheter: patent and draining and urine clear Back/Spine/Pelvis: Back: no CVA tenderness Skin: General skin exam: normal color Lesions: no lesions Rashes: no rashes Trauma: no lacerations or abrasions Wounds: no wounds Hair: normal Nails: normal Neuro: Cranial nerves: Yes Equal, round and reactive pupils present Other: Patient is opening her eyes at times but is not responding to her name. She is having muscle spasms. Extrem: Other: She is having muscle spasms Results ECG Interpretation: est Date: 2025-05-06 13:57:13 Measurements Intervals [place] Rate: 68 P: 66 WA: 175 QRS: -66 QRSD: 111 T: 73 QT: 409 QTc: 437 Interpretive Statements SINUS RHYTHM LEFT ANTERIOR FASCICULAR BLOCK LEFT VENTRICULAR HYPERTROPHY AND ST-T CHANGE CANNOT R/O SEPTAL INFARCT, AGE INDETERMINATE BASELINE ARTIFACT- I, II, III, AVR, AVF, V1 ABNORMAL ECG No previous ECG available for comparison Electronically Signed On 05-06-2025 14:02:23 PHARMACEUTICAL SPECIALTY REPRESENTATIVE by Jose Henry Imaging CT scan - head: Radiologist's impression: COMPARISON: No comparisons available. Technique: Axial images obtained of the brain without contrast. One or more of the following dose reduction techniques were used: automated exposure control, adjustment of the mA and/or kV according to patient size, use of iterative reconstruction technique. Findings: No acute infarct or parenchymal hemorrhage. No abnormal mass or mass effect. No midline shift. No extra-axial fluid collections. No hydrocephalus. Mastoid air cells unremarkable. Sinuses and orbits unremarkable. No acute fracture. No significant facial or scalp soft tissue swelling evident. No radiopaque foreign body is seen. Impression: 1.No acute intracranial abnormality. Critical Care Time Critical Care Time Time Type: Continuous Initial evaluation, discuss w/ involved parties, attempting to gather old records: 30 minutes Documenting medical record: 15 minutes Total Critical Care Time: 45 Quality VTE Prophylaxis VTE prophylaxis: mechanical ordered Assessment and Plan Assessment and plan (1) Unresponsive episode: Code(s): R40.4 - Transient alteration of awareness Status: Acute Assessment and Plan: -initial head CT was read as negative per radiologist. -the patient is not responding to her name -repeat head CT tomorrow without contrast. The patient has an IV contrast dye allergy and also has chronic renal failure. -several suicide notes were found in the home. The patient does have a history of depression. The denies any previous suicide attempts. According to the , the patient started feeling very depressed this past Tuesday as it was her son's per day(the son that committed suicide). -we reviewed her home medications. It is difficult to do a complete pill count as the stated that she puts her pills in a different container that is easier to open. -her urine toxicology screen was positive for opiates. She was given 2 doses of Narcan at [facility] with little results. -she is a DNR. I confirmed this with the family and her records. I spoke with the family who stated that they will consider comfort care in the next couple days if she does not become responsive. -ABGs were performed and the patient was found to be hypoxic. She is currently on a non-rebreather. -I will repeat her Tylenol level as she is on [place]. -according to the , her last known normal was at 9:00 p.m. last night. -when the patient is more alert than we would do a care coordination consult for the suicidal ideation. -neurology consult was placed as well (2) Major depression: Code(s): F32.9 - Major depressive disorder, single episode, unspecified Status: Acute Assessment and Plan: -the patient will need crisis when she is more awake. - per her , he stated that she was more depressed this week as it was her son's birthday that committed suicide. -several suicide notes were left in the home. (3) Suicidal overdose: Code(s): T50.902A - Poisoning by unspecified drugs, medicaments and biological substances, intentional self-harm, initial encounter Status: Acute Assessment and Plan: -urine toxicology was positive for opiates. -repeat Tylenol level. The patient is on [place] at home. -unable to obtain accurate medication count is she places her pills in a different bottle that is easier to open -the patient was given 2 mg narcan x2 at [facility] with little effect. (4) Hypertension: Code(s): I10 - Essential (primary) hypertension Status: Acute Assessment and Plan: -p.r.n. hydralazine with parameters. -blood pressure currently 180/67. (5) CKD (chronic kidney disease): Code(s): N18.9 - Chronic kidney disease, unspecified Status: Acute Assessment and Plan: -her creatinine is at baseline. BUN is at baseline. GFR is her baseline. -continue with IV fluids for now. (6) COPD (chronic obstructive pulmonary disease): Code(s): J44.9 - Chronic obstructive pulmonary disease, unspecified Status: Acute Assessment and Plan: -continue with DuoNebs every 6 hours. (7) Pneumonia: Qualifiers: Lung location: lower lobe of lung Code(s): J18.9 - Pneumonia, unspecified organism Status: Acute Assessment and Plan: -the patient was empirically started on Zosyn and vancomycin for the possibility of aspiration pneumonia. -blood and sputum cultures are pending. (8) Obstructive sleep apnea: Code(s): G47.33 - Obstructive sleep apnea (adult) (pediatric) Status: Acute Assessment and Plan: -home settings for CPAP/BiPAP when patient is more awake.
--- OUTSIDE RECORDS SUMMARY | 2025-05-06 19:20 | XMS_ITS ---
Author Organization Unknown Address [address] [place] [address] [phone] Phone Care Team Providers Care Art Professor Name Role Phone ANTIONE HU Attending Unavailable ANA Peterson Primary Unavailable Social History Type Status Start Date End Date Code Code Syst em Sex Female Vital Signs Vital Sign Value Unit [place] Value [place] Unit Date/Time Recent/Initial? Code Code System Body Mass Index 37.68 kg/m2 04/22/2025 13:08 Most Recent 65735 -5 LOINC Body Mass Index 37.68 kg/m2 04/15/2025 10:30 Initial 67117 -5 LOINC Systolic Blood Pressure 135 mm[Hg] 04/22/2025 13:10 Initial 8480- 6 LOINC Diastolic Blood Pressure 81 mm[Hg] 04/22/2025 13:10 Initial 8462- 4 LOINC Body Surface Area 2.02 m2 04/22/2025 13:08 Most Recent 3140- 1 LOINC Body Surface Area 2.02 m2 04/15/2025 10:30 Initial 3140- 1 LOINC Height 157.480 0 cm 62.00 in 04/22/2025 13:08 Most Recent 8302- 2 LOINC Height 157.480 0 cm 62.00 in 04/15/2025 10:30 Initial 8302- 2 LOINC O2 Saturation 95 % 2024 13:10 Initial 89051 -5 LOINC Pulse 92.0 /min 04/22/2025 13:10 Initial 8867- 4 LOINC Respiration 20 /min 04/22/20 13:10 Initial 9279- 1 LOINC Temperature 36.5 Mayra 97.7 F 04/22/20 13:10 Initial 8310- 5 LOINC Weight 93.44 kg 206.00 lbs 04/22/2025 13:08 Most Recent 35623 -7 LOINC Weight 93.44 kg 206.00 lbs 04/15/2025 10:30 Initial 91888 -7 [facility] Medications Medication Start Date End Date Route Frequency Dose Code Code System Medication Instructions Home Meds Furosemide 40MG Oral Tablet 04/22/2025 Unknown ORAL ONCE A DAY 40 MILLIGRAMS 847156 RxNorm TAKE 40 MILLIGRAMS ORAL ONCE A DAY Allopurinol 100MG Oral Tablet 04/22/2025 Unknown ORAL ONCE A DAY 100 MILLIGRAMS 455948 RxNorm TAKE 100 MILLIGRAMS ORAL ONCE A DAY oxyBUTYnin 5MG Oral Tablet 04/22/2025 Unknown ORAL AT BEDTIME 5 MILLIGRAMS 237390 RxNorm TAKE 5 MILLIGRAMS ORAL AT BEDTIME Albuterol Sulfate 0.09MG/1Actu ation Inhalation Suspension 04/22/2025 Unknown INHALATIO N NEEDED 1 unit(s) 3119927 RxNorm 1 EACH INHALATION NEEDED HYDROcodone bitartrate-a cetaminophen 7.5MG-325MG Oral Tablet 04/22/2025 Unknown ORAL NEEDED EVERY 8 HOURS 1 unit(s) 351430 RxNorm TAKE 1 EACH ORAL NEEDED EVERY 8 HOURS Stiolto Respimat 2.5MCG-2.5MC G/1Act Inhalation [place] 04/22/2025 Unknown INHALATIO N ONCE A DAY 1 unit(s) 4309272 RxNorm 1 EACH INHALATION ONCE A DAY [...] physician. Reason For Referral No Data Found Procedures Procedure Name Date Status Code Code Syste m Oophorectomy completed 71872284 SNOMEDCT Total knee replacement completed 129309965 SN OMEDCT INJECT SI JOINT ARTHRGRPHY&/ ANES/STEROID W/JOSE; (-LT Left side of body) 04/22/2025 completed 64178 C PT APPENDECTOMY completed 10475084 SNOMEDCT Cholecystectomy completed 40161394 SNOMEDCT INJECT SI JOINT ARTHRGRPHY&/ ANES/STEROID W/JOSE; (-RT Right side of body) 04/22/2025 completed 69938 CPT Problems Problem Start Date Resolved Date Status Code Code System PAIN IN RIGHT HIP active 506320312303 102 SNOMED-CT UNSPECIFIED ABDOMINAL PAIN active 29218754 SNOMED-CT CHRONIC KIDNEY DISEASE, UNSPECIFIED active 460546738 SNOMED-CT UNSPECIFIED DEMENTIA, UNSPECIFIED SEVERITY, WITHOUT BEHAVIORAL DISTURBANCE, PSYC active 09166242 SNOMED-CT CHRONIC PAIN active 05540960 SNOMED- CT Allergies and Adverse Reactions Allergy Substance Reaction Severity Start Date Concern Status Code Code System CONTRAST MEDIA, IODINE RELATED Hives (SNOMED-CT: 494138476) Active 352001266 SNOMED-CT Plan of Treatment SI Joint Injection Bilateral 04/22/2025 OR SI Joint Injection 04/22/2025 SI Joint Injection Bilateral 04/22/2025 OR SI Joint Injection 04/22/2025 Encounters Encounter Diagnosis Start Date Code Code Sys tem Sacrococcygeal disorders, not elsewhere classified 05/2024 SNOMED-CT Personal Care Team Section Performer Name Performer Role Active Date Inactive GUIDO Aguilar PCP - Primary care physician 2025-03 Procedures Notes [facility] 04/22/2025 13:59 All Demographics Patient Name Age Sex Visit Number Admission Date/Time Attending Physician Date of Service Room and Bed Emergency Contact ANEESH STYLES 1945 79 years Female [id number] 04/22/2025 12:52 Terrence Hall 04/22/2025 SDS-5 JUSTIN STYLES - [id number] Pain Management Procedural Note I had an extensive discussion with the patient. We once again discussed the risks, benefits and alternatives to this procedure. I discussed the operative and postoperative course in detail. I discussed potential complications that we may encounter. The patient is electing to undergo this procedure. No guarantees were given or implied. I reviewed the history and physical, examined the patient this morning, no changes. Home Meds: Dose and Freq Medication Dosage Frequency Allopurinol 100MG Oral Tablet 100 MILLIGRAMS ONCE A DAY Furosemide 40MG Oral Tablet 40 MILLIGRAMS ONCE A DAY oxyBUTYnin 5MG Oral Tablet 5 MILLIGRAMS AT BEDTIME HYDROcodone bitartrate-acetaminophen 7.5MG-325MG Oral Tablet 1 EACH NEEDED EVERY 8 HOURS Stiolto Respimat 2.5MCG-2.5MCG/1Act Inhalation [place] 1 EACH ONCE A DAY Albuterol Sulfate 0.09MG/1Actuation Inhalation Suspension 1 EACH NEEDED Bilateral Sacroiliac Joint Steroid Injection Provider: CAROLE Brumfield Pre-Procedure Diagnosis: Sacroiliitis (Inflammation of SIJ) - M46.11 Sacroiliac Joint (SIJ) Pain - M53.3 Sacroiliac Joint Injection-BILATERAL - 71507-41 Post- Procedure Diagnosis: Same Location of Procedure: [ ] Clinic [X ] OR Complications: None Description of Procedure in Detail: The patient presents for Bilateral sacroiliac joint steroid injection. Risk, benefits, side effects, and alternatives to this procedure were discussed and consent was obtained. The patient was placed in the prone position. The skin was prepped in the usual sterile fashion with chlorhexidine and maximum barrier technique. A 27-gauge needle was used to anesthetize the skin with 2ml 2% Lidocaine. A 22-gauge 3.5-inch spinal needle was advanced into the posteroinferior aspect of the right SI joint under direct fluoroscopic visualization. After confirmation of the intra-articular position of the needle tip with injection pf 0.5ml of Omnipaque 240 contrast medium, a mixture of 0.5ml of Kenalog (40mg/ml) and 2.5ml of Naropin (0.5%) was injected. The patient tolerated the procedure well. The patient was placed in the prone position. The skin was prepped in the usual sterile fashion with chlorhexidine and maximum barrier technique. A 27-gauge needle was used to anesthetize the skin with 2ml 2% Lidocaine. A 22-gauge 3.5-inch spinal needle was advanced into the posteroinferior aspect of the left SI joint under direct fluoroscopic visualization. After confirmation of the intra-articular position of the needle tip with injection pf 0.5ml of Omnipaque 240 contrast medium, a mixture of 0.5ml of Kenalog (40mg/ml) and 2.5ml of Naropin (0.5%) was injected. The patient tolerated the procedure well. Follow-up will be within 2 weeks. EBL: Minimal Provider Signature: CAROLE BrumfieldC
--- OUTSIDE RECORDS SUMMARY | 2025-05-06 19:20 | XMS_ITS | Clinical Summary ---
Author Organization [facility] Address [facility] [place] [address] Care Team Providers Care Cripple Cutter Name Role Phone Guido Perez MD Primary Care Provider [phone] Allergies Active Allergy Reactions Criticality Noted Date Comments Iodinated Contrast Media Itching,Rash,Hives Medium Medications baclofen (LIORESAL) 10 MG tablet Take 1 [...] by mouth 3 (three) times daily. Active albuterol sulfate HFA 108 (90 Base) MCG/ACT inhaler Inhale 2 puffs into the lungs every 4 (four) hours as needed for Wheezing or Shortness of breath. Active dexamethasone (DECADRON) 0.5 MG/5ML Solution Take 1 mL (0.1 mg total) by mouth 3 (three) times daily. Active HYDROcodone-acet aminophen (NORCO) 5-325 MG tablet Take 1 tablet by mouth 3 (three) times daily as needed. Active tiotropium bromide-olodater ol (STIOLTO RESPIMAT) 2.5-2.5 MCG/ACT inhaler Inhale 2 puffs into the lungs daily. Active tiotropium bromide-olodater ol (STIOLTO RESPIMAT) 2.5-2.5 MCG/ACT inhaler Inhale 2 puffs into the lungs daily. Active JAE Cha, (MEDROL DOSEPAK) 4 MG tabletIndication s:Chronic right-sided low back pain, unspecified whether sciatica present 4 mg Oral Tablet Therapy Pack. Follow package directions 1 each 5 Active clobetasol (TEMOVATE) 0.05 % ointment APPLY TO AFFECTED SKIN 2 TIMES PER DAY 5 Active Active Problems Problem Noted Date Diagnosed Date Contrast media allergy 12/07/2024 Gross hematuria 12/07/2024 Primary localized osteoarthritis of right hip Chronic diastolic congestive heart failure 07/07 History of nicotine use 07/07/2023 Other lesions of oral mucosa 07/07/2023 Pulmonary hypertension 07/07/2023 Mixed hyperlipidemia 04/18/2023 Lumbar post-laminectomy syndrome 05/27/2022 Localized osteoarthritis of both shoulder region s 08/06/2021 Rotator cuff arthropathy of left shoulder 2020 Sacroiliitis, not elsewhere classified Methotrexate lung 02/06/2021 Generalized arthritis 02/06/2021 Class 2 severe obesity due t o excess calories with serious comorbidity and body mass index (BMI) of 39.0 to 39.9 in adult 11/10/2020 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 08/07/2020 Diastolic dysfunction 08/07/2020 Vitamin D deficiency 08/07/2020 Osteoporosis of multiple sites 06/06/2020 Neuropathy of both feet 06/06/2020 OAB (overactive bladder) 12/09/2019 Degenerative disc disease, thoracic 07/02/2019 Hyperglycemia, unspecified 06/01/2019 Essential hypertension 11/14/2017 Centrilobular emphysema 10/10/2017 KOFI on CPAP 10/10/2017 Stage 4 chronic kidney disease 10/10/2017 Cervical spondylosis with radiculopathy 11/18/19 16 Overview (12/07/2024): Cervical spondylosis with radiculopathy Resolved Problems Problem Noted Date Diagnosed Date Resolved Date Lumbar radiculopathy 05/04/2023 025 Gallstones 01/21/2022 12/07/2024 Overview (12/07/2024): Added automatically from request for surgery [id number] Right wrist pain 11/12/2021 12/07/2024 Spinal stenosis of lumbar re gion without neurogenic claudication 06/11/2021 12/07/2024 Lumbosacral spondylosis without myelopathy 04/01/2021 12/07/2024 Pneumonia 02/05/2021 12/07/2024 COVID-19 virus detected 04/16/202011/20 Encounters Date Type Department Care Team Description 03/05/2025 7:36 AM CDT - 03/05/2025 11:59 PM CDT Hospital Encounter [facility] [address] [place] [address] Ashely Padilla NP Discharge Disposition: Home or Self Care (Routine Discharge) 03/05/2025 Travel from Last 3 Months Social History Tobacco Use Types Packs/Day Years Used Date Smoking Tobacco: Former Cigarettes 1 994 - 1963 Smokeless Tobacco: Never Tobacco Cessation:Counseling Given: Not [...] - - Weight 99.3 kg (219 lb) 01/14/2025 9:53 AM CDT Height 152.4 cm (5') 01/14/2025 9:53 AM CDT Body Mass Index 42.77 01/14/2025 9:53 AM CDT Plan of Treatment Health Maintenance Due Date Last Done Comments DTaP, Tdap and Td Vaccines (1 - Tdap) 1964 Annual Medicare Wellness Visit 2008 RSV Immunization or 60+ Years (1 - 1-dose 75+ series) 2018 Zoster Vaccines (2 of 2) 06/27/2023 05/02/2023 COVID-19 Vaccine (5 - season) 2025 05/02/2023, 12/11/2021, 10/01/2020, Additional history exists Influenza Adult (#1) 2025 02/20/2021, 02/21/2020, 01/15/2020, Additional history exists Pneumococcal Vaccine: 50+ Years Completed 06/06/2020, 06/01/2019, 04/05/2012 Dexa Scan (General) Completed 05/10/2023, 05/26/2020, 05/26/2020 Hepatitis A Vaccines Aged Out No long er eligible based on patient's age to complete this topic Meningococcal B Vaccine Aged Out No l onger eligible based on patient's age to complete this topic Meningococcal Vaccine Aged Out No janeen lolly eligible based on patient's age to complete this topic RSV Immunizations Under 20 Months Aged Out No longer eligible based on patient's age to complete this topic Procedures Procedure Name Priority Date/Time Associated Diagnosis Comments CT ABD+PEL WO CON STAT 03/05/2025 8:1 3 AM CDT Right flank pain BONE DENSITY/DEXA Routine 05/10/2023 10: 49 AM SURGERY MANAGER Postmenopausal from Last 3 Months or Most Recently Relevant to Health Maintenance Results * CT ABD+PEL WO CON (03/05/2025 8:13 AM CDT) Anatomical Region Laterality Modality Abdomen Computed Tomogra phy 03/05/2025 8:26 AM CDT Impressions 03/05/2025 8:38 AM CDT IMPRESSION: 1. No acute intra-abdominal or intrapelvic process identified. 2. Additional chronic/nonurgent findings as described. Ordered By: ASHELY PADILLA Interpreted By: Thiago Moore MD, 03/05/2025 8:26 AM Narrative 03/05/2025 8:38 AM CDT [facility] [address] [place] [address] Examination: CT of the abdomen and pelvis without contrast. Exam time: 0814 hours. Clinical history: Right-sided pain. Renal insufficiency. Prior cholecystectomy, hysterectomy and appendectomy. Comparison: 10/14/2024. Technique: Spiral scanning was performed through the abdomen and pelvis without contrast. Sagittal and coronal reconstructions were performed from the data set. Intravenous contrast was not administered due to the reported allergy history and diminished GFR. A dose lowering technique was used for this procedure, which may include, but is not limited to, dose reduction techniques, automated exposure control, the use of iterative reconstruction and ALARA/Image Gently techniques. Findings: Scarring at the lung bases is again evident including a calcified granuloma in the right lower lobe. The lung bases are otherwise clear. No pleural effusions are seen. Calcific coronary artery disease and calcification in the mitral annulus again evident. The gallbladder is not identified, compatible with the history. Incidental splenule is again evident. Calcified splenic granulomas again evident. The liver, spleen, pancreas and adrenal glands are otherwise unremarkable for the noncontrast technique. Bilateral renal atrophy is again evident. Bilateral subcentimeter renal cortical hypodensities remain too small to accurately characterize but are most likely cysts. These require no further workup or surveillance. The kidneys are otherwise unremarkable for the noncontrast technique. No ureteral calculi or signs of obstructive uropathy are identified. The urinary bladder is nearly empty. The uterus and appendix are not identified, compatible with the history. Approximately 2.5 cm in greatest dimension fluid attenuation left adnexal mass is again evident and stable, presumably physiologic ovarian cyst. Colonic diverticulosis is again evident without signs of diverticulitis. There is no ascites, lymphadenopathy or bowel distention. There is stable borderline aneurysmal dilatation of the infrarenal abdominal aorta (approximately 3 cm) without signs of leakage. Changes of interbody and posterior gildardo and pedicle screw fusion at L4-5 again evident. Implanted epidural stimulator remains in place. Stable mild wedging of T11 on sagittal reconstruction may be congenital. Procedure Note Thiago Moore MD - 03/05/2025 [facility] [address] [place] [address] Examination: CT of the abdomen and pelvis without contrast. Exam time: 0814 hours. Clinical history: Right-sided pain. Renal insufficiency. Priorcholecystectomy, hysterectomy and appendectomy. Comparison: 10/14/2024. Technique: Spiral scanning was performed through the abdomen and pelviswithout contrast. Sagittal and coronal reconstructions were performed fromthe data set. Intravenous contrast was not administered due to thereported allergy history and diminished GFR. A dose lowering techniquewas used for this procedure, which may include, but is not limited to,dose reduction techniques, automated exposure control, the use ofiterative reconstruction and ALARA/Image Gently techniques. Findings: Scarring at the lung bases is again evident including acalcified granuloma in the right lower lobe. The lung bases are otherwiseclear. No pleural effusions are seen. Calcific coronary artery disease andcalcification in the mitral annulus again evident. The gallbladder is notidentified, compatible with the history. Incidental splenule is againevident. Calcified splenic granulomas again evident. The liver, spleen,pancreas and adrenal glands are otherwise unremarkable for the noncontrasttechnique. Bilateral renal atrophy is again evident. Bilateralsubcentimeter renal cortical hypodensities remain too small to accuratelycharacterize but are most likely cysts. These require no further workup orsurveillance. The kidneys are otherwise unremarkable for the noncontrasttechnique. No ureteral calculi or signs of obstructive uropathy areidentified. The urinary bladder is nearly empty. The uterus and appendixare not identified, compatible with the history. Approximately 2.5 cm ingreatest dimension fluid attenuation left adnexal mass is again evidentand stable, presumably physiologic ovarian cyst. Colonic diverticulosis isagain evident without signs of diverticulitis. There is no ascites,lymphadenopathy or bowel distention. There is stable borderline aneurysmaldilatation of the infrarenal abdominal aorta (approximately 3 cm) withoutsigns of leakage. Changes of interbody and posterior gildardo and pedicle screwfusion at L4-5 again evident. Implanted epidural stimulator remains inplace. Stable mild wedging of T11 on sagittal reconstruction may becongenital. IMPRESSION: 1. No acute intra-abdominal or intrapelvic process identified. 2. Additional chronic/nonurgent findings as described. Ordered By: ASHELY PADILLA Interpreted By: Thiago Moore MD, 03/05/2025 8:26 AM us Ashely Padilla [facility] CT Fin al Result * BONE DENSITY/DEXA (05/10/2023 10:49 AM SURGERY MANAGER) Anatomical Region Laterality Modality Bone Bone Density 05/10/2023 12:4 2 PM SURGERY MANAGER Impressions 05/10/2023 12:43 PM SURGERY MANAGER IMPRESSION: WHO Classification: osteopenia. FRAX Score: 4.4% chance of hip fracture and 16% chance of major osteoporotic fracture over the next 10 years Ordered By: GUIDO PEREZ Interpreted By: Johann Titus MD, 05/10/2023 12:42 PM Narrative 05/10/2023 12:43 PM SURGERY MANAGER Examination: Bone Density Axial Exam Date/Time: 05/10/2023 [...] over the next 10 years Ordered By: GUIDO PEREZ Interpreted By: Johann Titus MD, 05/10/2023 12:42 PM Guido Perez MD DEXA Final Resu lt from Last 3 Months or Most Recently Relevant to Health Maintenance Insurance [employer] MEDICARE Care Teams Cripple Cutter Relationship Specialty Start Date End Date Guido Perez MD [address] [place] [phone] PCP - General FAMILY PRACTICE 09/04/24
--- OUTSIDE RECORDS SUMMARY | 2025-05-06 19:20 | XMS_ITS | Data Portability ---
Author Organization [facility] [place] Address [address] [place] [address] [place] [address] Assessment No assessment recorded. Plan of Treatment Reminders Order Date Submit Date Provider Last Modified By Organization Details Last Modified Time Details Appointments None recorded. Lab urinalysis, dipstick [email or web address] [place], [place] [id number] [address], [address], [place], [address], 14:51:14 culture, urine 2024 [facility] (Lab), [address], [place], [address], 00:25:43 Referral None recorded. Procedures None recorded. Surgeries None recorded. Imaging CT, abdomen + pelvis, w/ contrast 2024 025 [facility], [address], [address] [address], [place], [address], 04:01:57 US, pelvis 2024 025 [email or web address] [place], [address], [place], [address], 15:27:44 US, transvagina l 2024 025 [facility], [address], [place], [address], 18:50:16 Medication Orders None recorded. Patient TargetsNo targets [...] Final resul t Abnor mal: Yes Resul nickg Lab: [facility] [address] [facility] [address] Tel: CULTU RE ----- ----- ----- --- >100, 000 CFU/m l Esche david a coli (Abno rmal) SUSCE PTIBI LITY ----- ----- ----- --- Esche [...] ZOLE >2 ug/mL Resis tant Not Available [facility] (Lab) [address], [place], [address], 03/24/2025 00:25:43 03/21/20 25 03/21/2025 urina lysis , dipst ick Leukocytes + Not Available [facility] maye [address], [place], [address], 03/21/2025 14:43:48 03/21/2003/21/2025 urina lysis , dipst ick Protein + Not Available [place] [address], [place], [address], 03/21/2025 14:43:48 03/21/2003/21/2025 urina lysis , dipst ick pH 5 Not Available [facility] [address], [place], [address], 03/21/2025 14:43:48 03/21/2003/21/2025 urina lysis , dipst ick Blood +++ Not Available [facility] [address], [place], [address], 03/21/2025 14:43:48 03/21/2003/21/2025 urina lysis , dipst ick Specific [place] 1.020 [facility] [address], [place], [address], 03/21/2025 14:43:48 03/21/2003/21/2025 urina lysis , dipst ick Bilirubin + Not Available [facility] yasmin [address], [place], [address], 03/21/2025 14:43:48 04/01/2004/01/2025 US, pelvi s No observ ation record ed. [facility] [address], [place], [address], 04/01/2025 18:50:02 04/01/20 25 04/01/2025 US, trans vagin al No observ ation record ed. [facility] [address], [place], [address], 04/01/2025 18:50:16 04/01/20 25 04/01/2025 US, pelvi s No observ ation record ed. [email or web address] [place] [address] [place] [address], [place], [address], 04/01/2025 15:27:32 Result Notes None recorded. Procedures Surgical History Date Name Laterality Status Provider Name and Address Organization Details Recorded Time 05/23/19 24 Date of Last Mammogram completed Kassandra Barrett [facility] 03/21/2025 14:17:05 hysterectomy completed [facility] 03/21/2025 14:27:59 total arthroplasty of knee, geomedic or polycentric completed [facility] 03/21/2025 14:28:41 operation on vertebra completed [facility] 03/21/2025 14:29:01 cholecystectomy completed [facility] 03/21/2025 14:29:31 Imaging Results None recorded. Procedure Notes None recorded. Medical Equipment None Reported. Allergies Allergen ID Allergen Name Allergen Category Reaction Reaction Severity Criticality Documentation Date Start Date Code Code System Note Provider Name and Address Organization Details Recorded Time 18947 iodine medicatio n Not available Not available Not available 04/12/20252019 5933 RxNorm Not Available [facility] - External Data Service - prod 03:07:59 23265 Iodinated contrast media (substanc e) medicatio n hives itching rash Not available Not available Not available high 04/12/20252024 09146 2003 SNOMED Not Available [facility] - External Data Service - prod 10:26:31 Medications Name [...] Available Vitals Date Recorded Body height Body weight Body mass index (BMI) Systolic And Diastolic Provider Name and Address Organization Details Last Updated DateTime 03/21/2025 152.4 cm 46035.84 g 39.8 kg/m2 143/84 mm[Hg] Kassandra Barrett [facility] 03/21/2025 14:15:43 Date Recorded Body height Body mass index (BMI) Body weight Systolic And Diastolic Provider Name and Address Organization Details Last Updated DateTime 04/12/2025 152.4 cm 39.6 kg/m2 49088.25 g 152/94 mm[Hg] Cookie Mccray [facility] 04/12/2025 10:53:37 Social History Question Answer Notes LastModified by Organizat ion Details LastModified Time Tobacco Smoking Status Never Smoker Kassandra Barrett leif, [facility] 03/21/2025 14:20:05 Are You Blind Or [...] anxious, or unable to sleep at night)? [id number] Information not available 03/21/2025 Family History Relationship Description Onset Age of this Age Resolved Age Notes LastModified by Organization Details LastModified Time Father Asthma Not available 1 14:23:30 Father Heart disease [email or web address] Not available 2024 14:23:41 Brother Heart disease Not available 2024 14:23:42 Medical History Condition [...] ICD10 Code Diagnosis IMO Codes Diagnosis Note [id number] Eder Polo MD [facility] [address] [address] 03/21/2025 12:37:44 03/22/2025 14:17:48 Urinary symptoms [id number] R39.9 65128 Pain in female pelvis 42 5170142 R10.20 [id number] this patient is an 79-year-ol d female [...] if it is left or right-side d. [id number] Eder Polo MD [facility] [address] [address] 04/01/2025 10:43:27 04/01/2025 11:58:53 Pain in pelvis 13750006 R10.20 262116 this patient is an 79-year-ol d female [...] if it is left or right-side d. [id number] Eder Polo MD [facility] [address] [address] 04/12/2025 10:24:38 04/15/2025 08:57:43 Pain in pelvis 41598415 R10.21 [id number] this patient is an 79-year-ol d female [...] by Organization Details LastModified Time None Recorded Advance Directives Directive None Recorded Payers Insurance Date Sequence Insurance Name Policy Number Policy Byrd Covered Member ID Byrd Member ID Guarantor Name 04/15/2025 1 [employer] (MEDICARE REPLACEMENT /ADVANTAGE - PPO) [id number] Lacie Blue [id number] Lacie Blue Notes Date Note Type Note Provider Name and Address Organization Details Recorded Time 03/21/2025 text/html this patient is an 79-year-old female with recurrent urinary tract infection and right-sided pelvic and flank pain. The pain has been present for a couple of years now. It is sharp pain in the right flank that radiates upward into her chest and down into her Right pelvis. It is intermittent. It is worse with movement. The pain [...] urinary tract infection today. She is prescribed medication. She understands risks, benefits, and alternatives of the medication. She has been given precautions and instructions. I spent over 30 minutes on the patient's care in total. To have pelvic ultrasound and to see me afterwards. We will discuss results of the ultrasound. To rule out problems with her single remaining ovary. She is uncertain if it is left or right-sided. Eder Polo MD [address], [place], [address], [facility] 03/22/2025 14:16:40 04/12/2025 text/html this patient is an 79-year-old [...] patient. Eder Polo MD [address], [place], [address], [facility] 04/14/2025 22:30:32 OBGyn Episode Ob Episode Information Episode Created Date Number of Fetuses Patient Bloodtype Patient rh Status Prepregnancy Weight lbs Domestic Partner Domestic Partner Phone Father Name Extractor Puller Status 03/21/20 25 1 CLOSED Fetus Data First Name Last Name Admitted to NICU Weight (g) Sex Living Outcome Pediatric Complications Fetus ID Race Codes Race Delivery Type M Full Term 10006 Vaginal Delivery Nacho Calculation Initial Nacho Date Initial Exam Date Initial Exam Provider Initial Ultrasound Date Last Menstrual Period Date Ultra Sound Weeks Gestation 0 Eighteen To Twenty Week Nacho Update Ultra Sound Date Fundal Height At Umbil Quickening Date Ultra Sound Latest Weeks Gestation Final Nacho Confirmed By Final Nacho Confirmed Date Final Nacho Date Ultra Sound Latest Days Gestation 0 0 Menstrual History Last Menstrual Date Menses Monthly On Bcp Conception Prior Menses Frequency Hcg Plus Date Menarche Onset Age Delivery Information Delivery Date Delivery Type Labor Anesthesia Weeks Gestation Incision Type Labor Labor Length Hrs Delivered By Post Complications Tubal Sterilization Discharge Date Comments 9 Discharge Information Feeding Method Contraceptive Method Maternal HG B and HCT Levels Ob Episode Information Episode Created Date Number of Fetuses Patient Bloodtype Patient rh Status Prepregnancy Weight lbs Domestic Partner Domestic Partner Phone Father Name Extractor Puller Status 03/21/20 25 1 CLOSED Fetus Data First Name Last Name Admitted to NICU Weight (g) Sex Living Outcome Pediatric Complications Fetus ID Race Codes Race Delivery Type M Full Term [id number] Vaginal Delivery Nacho Calculation Initial Nacho Date Initial Exam Date Initial Exam Provider Initial Ultrasound Date Last Menstrual Period Date Ultra Sound Weeks Gestation 0 Eighteen To Twenty Week Nacho Update Ultra Sound Date Fundal Height At Umbil Quickening Date Ultra Sound Latest Weeks Gestation Final Nacho Confirmed By Final Nacho Confirmed Date Final Nacho Date Ultra Sound Latest Days Gestation 0 0 Menstrual History Last Menstrual Date Menses Monthly On Bcp Conception Prior Menses Frequency Hcg Plus Date Menarche Onset Age Delivery Information Delivery Date Delivery Type Labor Anesthesia Weeks Gestation Incision Type Labor Labor Length Hrs Delivered By Post Complications Tubal Sterilization Discharge Date Comments 7 Discharge Information Feeding Method Contraceptive Method Maternal HG B and HCT Levels Ob Episode Information Episode Created Date Number of Fetuses Patient Bloodtype Patient rh Status Prepregnancy Weight lbs Domestic Partner Domestic Partner Phone Father Name Extractor Puller Status 03/21/20 1 CLOSED Fetus Data First Name Last Name Admitted to NICU Weight (g) Sex Living Outcome Pediatric Complications Fetus ID Race Codes Race Delivery Type F Full Term [id number] Vaginal Delivery Nacho Calculation Initial Nacho Date Initial Exam Date Initial Exam Provider Initial Ultrasound Date Last Menstrual Period Date Ultra Sound Weeks Gestation 0 Eighteen To Twenty Week Nacho Update Ultra Sound Date Fundal Height At Umbil Quickening Date Ultra Sound Latest Weeks Gestation Final Nacho Confirmed By Final Nacho Confirmed Date Final Nacho Date Ultra Sound Latest Days Gestation 0 0 Menstrual History Last Menstrual Date Menses Monthly On Bcp Conception Prior Menses Frequency Hcg Plus Date Menarche Onset Age Delivery Information Delivery Date Delivery Type Labor Anesthesia Weeks Gestation Incision Type Labor Labor Length Hrs Delivered By Post Complications Tubal Sterilization Discharge Date Comments 3 Discharge Information Feeding Method Contraceptive Method Maternal HG B and HCT Levels Ob Episode Information Episode Created Date Number of Fetuses Patient Bloodtype Patient rh Status Prepregnancy Weight lbs Domestic Partner Domestic Partner Phone Father Name Extractor Puller Status 03/21/20 25 1 CLOSED Fetus Data First Name Last Name Admitted to NICU Weight (g) Sex Living Outcome Pediatric Complications Fetus ID Race Codes Race Delivery Type F Full Term 53671 Vaginal Delivery Nacho Calculation Initial Nacho Date Initial Exam Date Initial Exam Provider Initial Ultrasound Date Last Menstrual Period Date Ultra Sound Weeks Gestation 0 Eighteen To Twenty Week Nacho Update Ultra Sound Date Fundal Height At Umbil Quickening Date Ultra Sound Latest Weeks Gestation Final Nacho Confirmed By Final Nacho Confirmed Date Final Nacho Date Ultra Sound Latest Days Gestation 0 0 Menstrual History Last Menstrual Date Menses Monthly On Bcp Conception Prior Menses Frequency Hcg Plus Date Menarche Onset Age Delivery Information Delivery Date Delivery Type Labor Anesthesia Weeks Gestation Incision Type Labor Labor Length Hrs Delivered By Post Complications Tubal Sterilization Discharge Date Comments 4 Discharge Information Feeding Method Contraceptive Method Maternal HG B and HCT Levels
--- OUTSIDE RECORDS SUMMARY | 2025-05-06 19:20 | XMS_ITS | Continuity of Care Document ---
Author Organization [facility] [place] Address [address] [place] [address] [address] Assessment No assessment recorded. Plan of Treatment Reminders Order Date Submit Date Provider Last Modified By Organization Details Last Modified Time Details Appointments None recorded. Lab None recorded. Referral None recorded. Procedures None recorded. Surgeries None recorded. Imaging US, pelvis 2024 025 [email or web address] [place], [address], [place], [address], 15:27:44 US, transvagina l 2024 025 IVONNE [place], [address], [address], [place], [address], 18:50:16 Medication Orders None recorded. Patient TargetsNo [...] t Abnor mal: Yes Resul nickg Lab: [facility] [address] [address] Tel: CULTU RE ----- ----- ----- --- [...] ZOLE >2 ug/mL Resis tant Not Available [facility] (Lab) [address], [place], [address], 03/24/2025 00:25:43 03/21/20 25 03/21/2025 urina lysis , dipst ick Leukocytes + Not Available [facility] [address], [place], [address], 03/21/2025 14:43:48 03/21/20 25 03/21/2025 urina lysis , dipst ick Protein + Not Available [place] [address] [address], [place], [address], 03/21/2025 14:43:48 03/21/20 25 03/21/2025 urina lysis , dipst ick pH 5 Not Available [place] [address], [place], [address], 03/21/2025 14:43:48 03/21/20 25 03/21/2025 urina lysis , dipst ick Blood +++ Not Available [place] [address], [place], [address], 03/21/2025 14:43:48 03/21/2003/21/2025 urina lysis , dipst ick Specific [place] 1.020 [facility] Available [facility] [address], [place], [address], 03/21/2025 14:43:48 03/21/20 25 03/21/2025 urina lysis , dipst ick Bilirubin + Not Available [facility] yasmin [address], [place], [address], 03/21/2025 14:43:48 04/01/20 25 04/01/2025 US, pelvi s No observ ation record ed. [facility] [address], [place], [address], 04/01/2025 18:50:02 04/01/20 25 04/01/2025 US, trans vagin al No observ ation record ed. [facility] [address], [place], [address], 04/01/2025 18:50:16 04/01/20 25 04/01/2025 US, pelvi s No observ ation record ed. [email or web address] [place] [address] [place] [address] [address], [place], [address], 04/01/2025 15:27:32 Result Notes None recorded. Procedures Surgical History Date Name Laterality Status Provider Name and Address Organization Details Recorded Time 05/23/19 24 Date of Last Mammogram completed Kassandra Arnold [facility] 03/21/2025 14:17:[address] [facility] 03/21/2025 14:27:59 total arthroplasty of knee, geomedic or polycentric completed [facility] 03/21/2025 14:28:41 operation on vertebra completed [facility] 03/21/2025 14:29:[address] [facility] 03/21/2025 14:29:31 Imaging Results None recorded. Procedure Notes None recorded. Medical Equipment None Reported. Allergies Allergen ID Allergen Name Allergen Category Reaction Reaction Severity Criticality Documentation Date Start Date Code Code System Note Provider Name and Address Organization Details Recorded Time 69552 iodine medicatio n Not available Not available Not available 04/12/20252019 5933 RxNorm Not Available [facility] - prod 5 03:07:59 32384 Iodinated contrast media (substanc e) medicatio n hives itching rash Not available Not available Not available high 04/12/20252024 15667 2004 SNOMED Not Available [facility] - prod 5 10:26:31 Medications Name Sig Start Date Stop [...] Available Not Available No t Available Vitals None Recorded Social History Question Answer Notes LastModified by Organizat ion Details LastModified Time Tobacco Smoking Status Never Smoker Kassandra Barrett [facility], [facility] 03/21/2025 14:20:05 Are You [...] anxious, or unable to sleep at night)? [id number] Information not available 03/21/2025 Family History Relationship Description Onset Age of this Age Resolved Age Notes LastModified by Organization Details LastModified Time Father Asthma [email or web address] Not available 1 14:23:30 Father Heart disease Not available 2024 14:23:41 Brother Heart disease [email or web address] Not available 2024 14:23:42 Medical History Condition [...] ICD10 Code Diagnosis IMO Codes Diagnosis Note [id number] Eder Polo MD [place] [address] [address] 03/21/2025 12:37:44 03/22/2025 14:17:48 Urinary symptoms [id number] R39.9 92330 Pain in female pelvis 42 2306461 R10.20 [id number] this patient is an 79-year-ol d female [...] if it is left or right-side d. [id number] Eder Polo MD [place] [address] [address] 04/01/2025 10:43:27 04/01/2025 11:58:53 Pain in pelvis 20064931 R10.20 [id number] this patient is an 79-year-ol d female [...] if it is left or right-side d. Health Concerns Section Related Observation LastModified by Organization Detai ls LastModified Time None Recorded Concern Status LastModified by Organization Details LastModified Time None Recorded Payers Encounter Date Sequence Insurance Name Policy Number Policy Byrd Covered Member ID Byrd Member ID Guarantor Name 04/01/2025 1 [employer] (MEDICARE REPLACEMENT /ADVANTAGE - PPO) [id number] L Lacie Blue [id number] Lacie Blue OBGyn Episode No OBEpisode recorded.
[2025-05-06 19:39] VITALS: PULSE 88; RESP 20; O2SAT 96
[2025-05-06] MEDS: ALBUTEROL SULFATE NEB 2.5 MG/3 ML INH INHALATION (19:46)
[2025-05-06] MEDS: IPRATROPIUM BR 0.02% INH SOLN 0.5 MG/2.5 ML VIAL INHALATION (19:46)
[2025-05-06 19:48] VITALS: PULSE 84; RESP 20
--- NOTE | 2025-05-06 19:49 | ADMGEN ---
This patient, Lacie Blue, was admitted to Intensive Care Unit-4. Patient/family oriented to hospital policies and general routines including ID bracelet, bed and alarms, visiting hours, pain management, procedures, bathroom and other care routines, personal items, smoking policy, room service/diet, and visiting hours. Information on how to activate the Rapid Response Team has been discussed. Patient/Family are encouraged to report perceived risks to care and to ask questions if they do not understand what they are told or what they should do.
[2025-05-06 19:52] VITALS: BMI 37.8
[2025-05-06 20:00] VITALS: BP 184/100; PULSE 103; PULSE 109; RESP 21; TEMP 36.9; O2SAT 99
[2025-05-06 20:03] LABS: Hematocrit 44.4 % (37.0-47.0); Hemoglobin 13.6 g/dL (12.0-15.0); Immature Granulocyte Percent A 0.5 % (0-0.5); Lymphocytes Absolute Auto 0.89 K/mm3 (0.9-3.2); Mean Corpuscular HGB Conc 30.6 g/dl (32-36); Mean Corpuscular Hemoglobin 30.0 pg (26-34); Mean Corpuscular Volume 98.0 fl (80-100); Nucleated Red Blood Cells Absolute Auto 0.000 K/mm3 (0.0-0.012); Nucleated Red Blood Cells Perc 0.0 % (0.0-0.2); Platelet Count Result 171 k/mm3 (150-375); Red Blood Count 4.53 M/mm3 (4.2-5.4); White Blood Count 11.1 K/mm3 (4.5-10.0)
[2025-05-06 20:22] LABS: Acetaminophen < 10 ug/mL (10-30); Anion Gap 7 mmol/L (4-12); Blood Urea Nitrogen 37 mg/dL (7-17); Calcium 10.0 mg/dL (8.4-10.2); Carbon Dioxide 23 mmol/L (22-30); Chloride 114 mmol/L (98-107); Estimated CRCL calculation 24 ml/min; Estimated Glomerular Filt Rate 28; Glucose 137 mg/dL (65-110); Magnesium 2.3 mg/dL (1.6-2.3); Potassium 3.9 mmol/L (3.4-5.0); Sodium 144 mmol/L (137-145)
[2025-05-06] MEDS: LACTATED RINGERS 1,000 ML 100 ML IV CONT (20:30)
[2025-05-06 20:38] LABS: Troponin I 0.087 ng/mL (0.000-0.034)
[2025-05-06] MEDS: VANCOMYCIN 1,500 MG/NS 500 ML 1,500 MG/500 ML BAG 250 MG IVPB (20:51)
[2025-05-06 22:00] VITALS: PULSE 93
[2025-05-06 22:46] VITALS: PULSE 81; RESP 20; O2SAT 97
[2025-05-06 23:16] LABS: Add Urine Microscopic? YES; Appearance Urine Clear (Clear); Glucose Urine UA Negative (Negative); Leukocyte Esterase Ur Negative LEU/UL (Negative); Nitrate Urine Negative (Negative); Non Pathogenic Casts 0-2; Specific Grav Ur 1.021 (1.001-1.035)
[2025-05-06 23:22] LABS: Troponin I 0.105 ng/mL (0.000-0.034)
[2025-05-07] VITALS (24 sets, daily range): BP systolic 119–189; BP diastolic 62–83; PULSE 77–120; RESP 14–27; TEMP 36.7–37.9; O2SAT 95–100
--- NOTE | 2025-05-07 | ECHO_ITS ---
Patient Info Name: Lacie Blue Age: 79 years : 1945 Gender: Female Ht: 62 in Wt: 206 lbs BSA: 2.07 m2 HR: 120 bpm BP: 155 / 75 mmHg Heart Rhythm: Sinus Rhythm Technical Quality: Fair Exam Date: 05/07/2025 11:56 AM Patient Status: I Admit Date: 05/06/2025 Exam Type: CA echo doppler color flow Complete two-dimensional, color flow and Doppler transthoracic echocardiogram is performed. Staff Referring Physician: Faiza Coyle NP [place] Alarm Operator: Radha Headley Attending Provider: Susanna Spence Summary 1. Complete two-dimensional, color flow and Doppler transthoracic echocardiogram is performed. 2. Technically difficult exam because of poor patient cooperation. 3. Hyperdynamic appearing left ventricular systolic function. 4. Calcified mitral valve annulus. 5. No significant valvular dysfunction identified although imaging is suboptimal. Left Ventricle Left ventricular chamber dimension is normal. Left ventricular systolic function is hyperdynamic, estimated at >70. There is mild concentric increased left ventricular wall thickness. The left ventricular diastolic function is grade I diastolic dysfunction. Right Ventricle Right ventricular chamber dimension is normal. Left Atria Left atrial chamber dimension is normal. Right Atria Right atrial chamber dimension is normal. Aortic Valve The aortic valve is not well visualized. Pulmonic Valve The pulmonic valve is not well visualized. Mitral Valve The mitral valve has normal leaflets. The mitral valve annulus is moderately calcified. Tricuspid Valve The tricuspid valve leaflets are not well visualized. Pericardium/Pleural The pericardium appears normal. Aorta The aortic root size at the sinus of Valsalva is not well visualized. Left Ventricular Outflow Tract Name Value Normal LVOT 2D LVOT Diameter 1.9 cm LVOT Doppler LVOT Peak Velocity 151 cm/s LVOT Peak Gradient 8 mmHg LVOT Mean Gradient 4 mmHg LVOT VTI 22 cm LVOT VTI/AV VTI Ratio 0.6 LVOT Stroke Volume 64 ml LVOT CO 6.5 l/min LVOT CI 3.2 l/min/m2 Pulmonic Valve Name Value Normal RVOT Doppler RVOT Peak Velocity 108 cm/s RVOT Peak Gradient 5 mmHg PV Doppler PV Peak Velocity 155 cm/s PV Peak Gradient 10 mmHg Mitral Valve Name Value Normal MV Diastolic Function MV E Peak Velocity 167 cm/s MV A Peak Velocity 2 cm/s MV E/A 70.9 MV Decel Time (PW) 124 ms Tricuspid Valve Name Value Normal TV Regurgitation Doppler TR Peak Velocity 400 cm/s TR Peak Gradient 53 mmHg Estimated PAP/RSVP RA Pressure 10 mmHg <=5 PA Systolic Pressure 74 mmHg <36 RV Systolic Pressure 74 mmHg <36 TV Annular TDI TV Lateral Angela s' Velocity 15.0 cm/s >=9.5 Aorta Name Value Normal Ascending Aorta Ao Root Diameter (MM) 3.0 cm Ao Root Diam Index (MM) 1.5 cm/m2 Aortic Valve Name Value Normal AV Doppler AV Peak Velocity 249 cm/s AV Peak Gradient 16 mmHg AV Mean Gradient 14 mmHg AV VTI 41 cm AV Area (Cont Eq VTI) 1.6 cm2 >=3.0 AV Area (Cont Eq Je) 1.7 cm2 AV DI (Je) 0.61 AV Regurgitation 2D LVOT Area 2.8 cm2 Ventricles Name Value Normal LV Dimensions 2D/MM LVOT Diameter 1.9 cm LV Fractional Shortening/Ejection Fraction 2D/MM LV Diastolic Volume (4C MOD) 50 ml LV EF (4C MOD) 67 % LV Diastolic Volume (2C MOD) 34 ml LV EF (2C MOD) 63 % LV Diastolic Volume (BP MOD) 41 ml 46-106 LV Diastolic Volume Index (BP MOD) 20 ml/m2 29-61 LV Systolic Volume (BP MOD) 15 ml 14-42 LV Systolic Volume Index (BP MOD) 7 ml/m2 8-24 LV EF (BP MOD) 64 % 54-74 LV Diastolic Length (4C) 6.8 cm LV Systolic Length (4C) 5.0 cm LV Stroke Volume (4C MOD) 33 ml Atria Name Value Normal LA Dimensions LA Dimension (MM) 3.8 cm 2.7-3.8 LA Volume (4C A-L) 34 ml LA Volume (BP A-L) 36 ml RA Dimensions RA Systolic Major [place] Length (4C) 4.7 cm 2.2-2.8 RA Area (4C) 13.0 cm2 <=18.0 Report Signatures
[2025-05-07 00:20] LABS: MRSA (PCR) NOT DETECTED (NOT DETECTE)
[2025-05-07] MEDS: IPRATROPIUM BR 0.02% INH SOLN 0.5 MG/2.5 ML VIAL INHALATION (01:23)
[2025-05-07] MEDS: ALBUTEROL SULFATE NEB 2.5 MG/3 ML INH INHALATION (01:23)
[2025-05-07] MEDS: ONDANSETRON INJ 4 MG/2 ML VIAL IV PUSH (02:41)
--- NOTE | 2025-05-07 04:20 | PC.NURSE ---
0332- Pt's family returned call. This RN notified family of the patients current condition.
[2025-05-07 04:22] LABS: Hematocrit 43.8 % (37.0-47.0); Hemoglobin 13.3 g/dL (12.0-15.0); Immature Granulocyte Percent A 0.5 % (0-0.5); Lymphocytes Absolute Auto 0.58 K/mm3 (0.9-3.2); Mean Corpuscular HGB Conc 30.4 g/dl (32-36); Mean Corpuscular Hemoglobin 30.1 pg (26-34); Mean Corpuscular Volume 99.1 fl (80-100); Nucleated Red Blood Cells Absolute Auto 0.000 K/mm3 (0.0-0.012); Nucleated Red Blood Cells Perc 0.0 % (0.0-0.2); Platelet Count Result 169 k/mm3 (150-375); Red Blood Count 4.42 M/mm3 (4.2-5.4); White Blood Count 11.3 K/mm3 (4.5-10.0)
[2025-05-07 04:46] LABS: Estimated CRCL calculation 27 ml/min; Estimated Glomerular Filt Rate 32
[2025-05-07 05:00] LABS: Troponin I 0.093 ng/mL (0.000-0.034)
[2025-05-07] MEDS: LACTATED RINGERS 1,000 ML 100 ML IV CONT ×2 (07:15→16:14)
[2025-05-07 07:45] LABS: Alanine Aminotransferase 17 U/L (6-35); Albumin Level 4.0 g/dL (3.5-5.1); Alkaline Phosphatase 68 U/L (38-126); Anion Gap 8 mmol/L (4-12); Aspartate Amino Transferase 29 U/L (14-36); Bilirubin,Total 0.7 mg/dL (0.2-1.3); Blood Urea Nitrogen 33 mg/dL (7-17); Calcium 9.5 mg/dL (8.4-10.2); Carbon Dioxide 21 mmol/L (22-30); Chloride 113 mmol/L (98-107); Creatine Kinase 310 U/L (30-135); Glucose 153 mg/dL (65-110); Magnesium 2.0 mg/dL (1.6-2.3); Potassium 4.1 mmol/L (3.4-5.0); Sodium 142 mmol/L (137-145); Total Protein 7.3 g/dL (6.3-8.2)
[2025-05-07 08:20] LABS: Thyroid Stimulating Hormone 1.260 uIU/mL (0.465-4.680)
[2025-05-07] MEDS: BUDESONIDE RESPULE NEB 0.5 MG/2 ML AMP INHALATION ×2 (08:31→19:47)
[2025-05-07] MEDS: IPRATROPIUM 0.5 MG/ALBUTEROL SULFATE 2.5 MG (BASE) AMPUL.NEB 3 ML INHALATION ×3 (08:31→19:47)
[2025-05-07] MEDS: ENOXAPARIN 40 MG/0.4 ML SYRINGE SUB-Q (08:47)
[2025-05-07] MEDS: levETIRAcetam 1000MG/NACL100ML 1,000 MG/100 ML BAG 400 MG IVPB (10:24)
--- NOTE | 2025-05-07 11:28 | PM.IMPN2 ---
Assessment and Plan Assessment and Plan (1) Unresponsive episode: Code(s): R40.4 - Transient alteration of awareness Status: Acute Assessment and Plan: -05/06/2025: Patient was seen at [facility] ER in [facility] for altered mental status. -05/06: CT head: With no acute intracranial abnormality -several suicide notes were found in the home. The patient does have a history of may depression. The denies any previous suicide attempts. According to the , the patient started feeling very depressed this on May 04, as it was her son's birthday (the son that committed suicide). -we reviewed her home medications. It is difficult to do a complete pill count as the stated that she puts her pills in a different container that is easier to open. -her urine toxicology screen was positive for opiates. She was given 2 doses of Narcan at [facility] with little benefit -patient currently is a DNR/DNI, is a nurse practitioner confirmed this overnight with the family and her records. SH[employer]ER spoke with the family who stated that they will consider comfort care in the next couple days if she does not become responsive. -Patient requiring 5 L nasal cannula, also had an episode of emesis overnight -acetaminophen levels <10 -urine tox screen was positive for opiates -salicylic acid level was normal -according to the , her last known normal was at 9:00 p.m. 05/06/2025 -continue suicide precautions - bedside sitter at -neurology has been consulted (2) Major depression: Code(s): F32.9 - Major depressive disorder, single episode, unspecified Status: Inactive Assessment and Plan: -the patient will need crisis when she is more awake. - per her , he stated that she was more depressed this week as it was her son's birthday that committed suicide. -several suicide notes were left in the home. (3) Suicidal overdose: Code(s): T50.902A - Poisoning by unspecified drugs, medicaments and biological substances, intentional self-harm, initial encounter Status: Inactive Assessment and Plan: -urine toxicology was positive for opiates. -repeat Tylenol level within normal limits -unable to obtain accurate medication count is she places her pills in a different bottle that is easier to open -the patient was given 2 mg narcan x2 at [facility] with little effect. (4) Hypertension: Code(s): I10 - Essential (primary) hypertension Status: Acute Assessment and Plan: -p.r.n. hydralazine with parameters. (5) CKD (chronic kidney disease): Code(s): N18.9 - Chronic kidney disease, unspecified Status: Acute Assessment and Plan: -her creatinine is at baseline. BUN is at baseline. GFR is her baseline. -continue with IV fluids for now. (6) COPD (chronic obstructive pulmonary disease): Code(s): J44.9 - Chronic obstructive pulmonary disease, unspecified Status: Acute Assessment and Plan: -continue with DuoNebs every 6 hours. (7) Pneumonia: Qualifiers: Lung location: lower lobe of lung Code(s): J18.9 - Pneumonia, unspecified organism Status: Acute Assessment and Plan: -the patient was empirically started on Zosyn and vancomycin for the possibility of aspiration pneumonia. -blood and sputum cultures are pending. (8) Obstructive sleep apnea: Code(s): G47.33 - Obstructive sleep apnea (adult) (pediatric) Status: Acute Assessment and Plan: -home settings for CPAP/BiPAP when patient is more awake. Plan DVT prophylaxis: Lovenox Stress ulcer prophylaxis: Not indicated Nutrition: NPO Code Status: DNR/DNI Due to a high probability of clinically significant, life threatening deterioration, the patient required my highest level of preparedness to intervene emergently and I personally spent this critical care time directly and personally managing the patient. This critical care time included obtaining a history; examining the patient; pulse oximetry; ordering and review of studies; arranging urgent treatment with development of a management plan; evaluation of patient's response to treatment; frequent reassessment; and discussions with other providers. It was exclusive of separately billable procedures and treating other patients and teaching time. Please see Assessment and Plan section and the rest of the note for further information on patient assessment and treatment This dictation may have been done utilizing a voice recognition system. Attempts have been made to correct errors. However, there may be uncorrected grammatical, spelling, and recognitions errors present. Subjective Date/time seen: 05/07/25 11:28 Interval history: 79 years old white female with past medical history of essential hypertension, obstructive sleep apnea, opiate use, leading cancer, acute kidney injury, cellulitis, thrush, on CT arthritis, rheumatoid arthritis, COPD presented to the ED from home on 05/06/2025 with acute change of mental status, last time was seen at her normal pace 9:30 p.m. on 05/05/2025. Patient was unresponsive to painful stimulation, was snoring. Patient is a DNR/DNI. CT head did not show any acute abnormality. Urine tox screen was positive for opiates, she did receive Narcan with mild improvement. She is on narcotics chronic back pain. According the records patient had left suicide notes at home. Off note her son had committed suicide in front of her some years back, and it was his birthday a few days back. Poison Control was notified. 05/07/2025: Patient being seen for hospitalist group Patient with altered mental status, opens her eyes to deep pain stimulation, does not answer any questions or follows simple commands. She did have emesis overnight, now requiring 5 L oxygen via nasal cannula. Patient does have some twitching of her left side of the mouth. No nystagmus noted, pupils are equal and dilated but reactive bilaterally. Patient is hemodynamically stable, adequate urine output, afebrile Review of Systems Review of Systems: ROS unobtainable: Yes unobtainable due to medical condition and unobtainable due to mental status Exam Narrative: General: Elderly female, obese, in no acute distress HEENT:? Pupils are dilated, equal and reactive to light bilaterally, sclera is clear Neck:? Short neck, supple Respiratory:? Clear to auscultation bilaterally, decreased at bases bilaterally, no wheeze Cardiac:? S1-S2 is normal, tachycardia Abdomen:? Soft, nontender, nondistended, obese, hypoactive bowel sounds Extremities:? Bilateral lower extremity edema, palpable pedal pulses Neuro:? Patient has altered mental status, opens her eyes to name, does not follow simple commands, grimaces to pain stimulus Skin:? Warm and dry Psych:? Unable to assess at this time Objective Data Vital Signs Vital Signs: Vital Signs - 24 hr 05/06/25 19:06 05/06/25 19:39 05/06/25 19:48 Temperature Pulse Rate 88 84 Respiratory Rate 20 20 Blood Pressure Pulse Oximetry 98 96 Oxygen Delivery Nasal Cannula Non-Rebreather Mask Oxygen Flow Rate 2 15 Fraction of Inspired Oxygen 100 05/06/25 20:00 05/06/25 20:00 05/06/25 20:00 Temperature 98.5 F Pulse Rate 103 H 109 H Respiratory Rate 21 H Blood Pressure 184/100 H Pulse Oximetry 99 99 Oxygen Delivery Non-Rebreather Mask Oxygen Flow Rate 15 Fraction of Inspired Oxygen 05/06/25 22:00 05/06/25 22:46 05/07/25 00:00 Temperature Pulse Rate 93 81 Respiratory Rate 20 Blood Pressure Pulse Oximetry 97 98 Oxygen Delivery Venturi Mask Venturi Mask Oxygen Flow Rate 15 15 Fraction of Inspired Oxygen 50 50 05/07/25 00:00 05/07/25 00:00 05/07/25 01:23 Temperature 98.3 F Pulse Rate 83 77 90 Respiratory Rate 15 20 Blood Pressure 182/62 H Pulse Oximetry 98 Oxygen Delivery Oxygen Flow Rate Fraction of Inspired Oxygen 05/07/25 01:25 05/07/25 01:32 05/07/25 02:00 Temperature Pulse Rate 95 97 86 Respiratory Rate 20 20 Blood Pressure Pulse Oximetry 97 Oxygen Delivery Venturi Mask Oxygen Flow Rate 15 Fraction of Inspired Oxygen 50 05/07/25 02:28 05/07/25 04:00 05/07/25 04:00 Temperature 98.1 F Pulse Rate 104 H 98 Respiratory Rate 20 19 Blood Pressure 189/68 H Pulse Oximetry 98 98 99 Oxygen Delivery High Flow Nasal Cannula High Flow Nasal Cannula Oxygen Flow Rate 5 5 Fraction of Inspired Oxygen 40 05/07/25 04:00 05/07/25 06:00 05/07/25 08:00 Temperature 100.3 F H Pulse Rate 102 H 86 85 Respiratory Rate 18 Blood Pressure 147/72 H Pulse Oximetry 100 Oxygen Delivery Oxygen Flow Rate Fraction of Inspired Oxygen 05/07/25 08:00 05/07/25 09:00 05/07/25 09:15 Temperature Pulse Rate 85 Respiratory Rate Blood Pressure 183/81 H 173/81 H Pulse Oximetry Oxygen Delivery Oxygen Flow Rate Fraction of Inspired Oxygen 05/07/25 09:27 Temperature 100.2 F H Pulse Rate 99 Respiratory Rate 14 Blood Pressure 170/68 H Pulse Oximetry 95 Oxygen Delivery Oxygen Flow Rate Fraction of Inspired Oxygen Intake/Output Intake/Output: Intake & Output 05/04/25 05/05/25 05/06/25 05/07/25 23:59 23:59 23:59 23:59 Intake Total 600 1200 Output Total 1200 Balance 600 0 Meds/Results Medications: Active Medications Generic Name Dose Route Start Last Admin Trade Name Freq PRN Reason Stop Dose Admin Albuterol/Ipratropium 3 ml 05/07/25 08:00 05/07/25 08:31 Ipratropium 0.5 Mg/Albuterol Sulfate 2.5 Mg (Base) Ampul.Neb 3 Ml INHALATION 3 ml Q6HRT GEOVANNI Administration Budesonide 0.5 mg 05/07/25 08:00 05/07/25 08:31 Budesonide Respule Neb 0.5 Mg/2 Ml Amp INHALATION 0.5 mg Q12HRT GEOVANNI Administration Enoxaparin Sodium 40 mg 05/07/25 09:00 05/07/25 08:47 Enoxaparin 40 Mg/0.4 Ml Syringe SUB-Q 40 mg DAILY GEOVANNI Administration Hydralazine HCl 10 mg 05/07/25 11:28 Hydralazine Hcl 20 Mg/Ml Vial IV PUSH Q4H PRN Blood Pressure - High Lactated Ringer's 1,000 mls @ 100 mls/hr 05/06/25 19:20 05/07/25 07:15 Lr - Lactated Ringers Iv IV CONT 100 mls/hr .Q10H GEOVANNI Administration Piperacillin Sod/Tazobactam 100 mls @ 200 mls/hr 05/06/25 20:00 05/07/25 09:17 Sod 3.375 gm/ Sodium Chloride IVPB Infused Q6H GEOVANNI Infusion Morphine Sulfate 2 mg 05/06/25 19:08 Morphine Sulfate (*Crx) 4 Mg/Ml Inj IV PUSH Q4H PRN Pain Rated 7-10 Naloxone HCl 0.1 mg 05/06/25 19:13 Naloxone Hcl 0.4 Mg/Ml Vial IV PUSH Q2M PRN Opiate Reversal Ondansetron HCl 4 mg 05/06/25 19:08 05/07/25 02:41 Ondansetron Inj 4 Mg/2 Ml Vial IV PUSH 4 mg Q6H PRN Administration Nausea And Vomiting Perflutren Lipid Microsphere 0 ml 05/07/25 00:23 Perflutren Lipid Microspheres 1.5 Ml Vial Diluted To 10 Ml Total Volume IV PUSH 05/10/25 00:23 ONCE PRN adequate visualization Protocol Radiology Results: ITS Impressions Abdomen X-Ray 05/07/25 07:51 IMPRESSION: Gastric catheter in good position. NOTE: Preliminary radiology report provided by [facility] radiologist/physician. Labs Labs: Laboratory Results - last 24 hr 05/06/25 05/06/25 05/06/25 19:57 22:54 23:02 WBC 11.1 H RBC 4.53 Hgb 13.6 Hct 44.4 MCV 98.0 MCH 30.0 MCHC 30.6 L RDW 15.3 H Plt Count 171 MPV 10.8 H Immature Gran % (Auto) 0.5 Neut % (Auto) 85.2 H Lymph % (Auto) 8.1 L [place] % (Auto) 5.6 Eos % (Auto) 0.4 Baso % (Auto) 0.2 Lymph # (Auto) 0.89 L [place] # (Auto) 0.6 Eos # (Auto) 0.0 Baso # (Auto) 0.0 Abs Immat Gran (auto) 0.06 H Absolute Neuts (auto) 9.4 H Absolute Nucleated RBC 0.000 Nucleated RBC % 0.0 Sodium 144 Potassium 3.9 Chloride 114 H Carbon Dioxide 23 Anion Gap 7 BUN 37 H Creatinine 1.75 H Estim Creat Clear Calc 24 Estimated GFR 28 L Glucose 137 H Lactic Acid 1.3 Calcium 10.0 Phosphorus Magnesium 2.3 Total Bilirubin AST ALT Alkaline Phosphatase Total Creatine Kinase Troponin I 0.087 H* D 0.105 H* D Total Protein Albumin TSH Urine Color Yellow Urine Appearance Clear Urine pH 5.0 Ur Specific [place] 1.021 Urine Protein 2+ H Urine Glucose (UA) Negative Urine Ketones Negative Ur Blood (Man) 3+ H Urine Nitrate Negative Urine Bilirubin Negative Urine Urobilinogen 0.2 Ur Leukocyte Esterase Negative Urine RBC >100 H Urine WBC 0-5 Ur Squamous Epith Cells None seen Urine Bacteria None seen Urine Casts 0-2 Nasal MRSA (PCR) Not detected Acetaminophen < 10 L 05/07/25 03:55 WBC 11.3 H RBC 4.42 Hgb 13.3 Hct 43.8 MCV 99.1 MCH 30.1 MCHC 30.4 L RDW 15.3 H Plt Count 169 MPV 11.5 H Immature Gran % (Auto) 0.5 Neut % (Auto) 88.8 H Lymph % (Auto) 5.1 L [place] % (Auto) 4.9 Eos % (Auto) 0.5 Baso % (Auto) 0.2 Lymph # (Auto) 0.58 L [place] # (Auto) 0.6 Eos # (Auto) 0.1 Baso # (Auto) 0.0 Abs Immat Gran (auto) 0.06 H Absolute Neuts (auto) 10.1 H Absolute Nucleated RBC 0.000 Nucleated RBC % 0.0 Sodium 142 Potassium 4.1 Chloride 113 H Carbon Dioxide 21 L Anion Gap 8 BUN 33 H Creatinine 1.55 H Estim Creat Clear Calc 27 Estimated GFR 32 L Glucose 153 H Lactic Acid Calcium 9.5 Phosphorus 3.6 Magnesium 2.0 Total Bilirubin 0.7 AST 29 ALT 17 Alkaline Phosphatase 68 Total Creatine Kinase 310 H Troponin I 0.093 H* Total Protein 7.3 Albumin 4.0 TSH 1.260 Urine Color Urine Appearance Urine pH Ur Specific [place] Urine Protein Urine Glucose (UA) Urine Ketones Ur Blood (Man) Urine Nitrate Urine Bilirubin Urine Urobilinogen Ur Leukocyte Esterase Urine RBC Urine WBC Ur Squamous Epith Cells Urine Bacteria Urine Casts Nasal MRSA (PCR) Acetaminophen
[2025-05-07 12:40] LABS: Ammonia < 9 umol/L (9-30)
--- NOTE | 2025-05-07 14:29 | WPDNEURCNPN ---
Assessment and Plan Assessment and plan (1) Encephalopathy: Code(s): G93.40 - Encephalopathy, unspecified Status: Acute Plan Encephalopathy with negative CT scan of the head for any intracranial bleed, will obtain the EEG at a later date as at this stage she is moving a lot treatment is to be continued as such and further management as warranted. Consult date: 05/07/25 HPI: Lacie Blue is a 79 year old female Admitted to the hospital through the emergency room where she was brought by the ambulance with complaints of facial drooping, drooling, not talking, and not able to keep her eyes open and with the information the patient was seen by her last time at 9:30 p.m. last night in her normal health condition. Today on the day of admission to the ER 30minutes prior to the arrival patient was unable to wake her up they usually the baseline she is awake alert oriented x4 and able to walk with a walker. Patient carries the DNR status. Her medications included 1.oxybutynin 5mg HS 2. Allopurinol daily 3. ellipta inhalation. She is allergic to contrast media her past history is consistent with generalized osteoarthritis in addition to rheumatoid arthritis and COPD. She has history of years smoked 30 with smoking pack years 45 but at present she is a former smoker and there is no history of alcohol drinking. On initial exam in the emergency room she was noted to be gurgling with agonal breathing but unresponsive to painful stimuli her vital signs were with blood pressure 192/83, CBC was normal, BMP with BUN of 41 creatinine of 2.0, UA negative for the drug screen and alcohol level less than 10 routine UA was normal also, ABGs PO2 of 87.3 pCO2 of 44.9, CT scan of the head negative for intracranial bleed, x-ray of the chest with mild congestive heart failure, EKG without any atrial fibrillation, patient was initially taken to [facility] via ambulance and she carries the DNR status with history of mild congestive heart failure, chronic back pain, history of several suicide notes in the house. She has another list of medications which included oxybutynin, allopurinol, BuSpar, hydrocodone p.r.n., furosemide, and trazodone 50mg daily, p.r.n., patient is a nurse practitioner by profession and carries the DNR status as mentioned before. Review of Systems Review of Systems: All systems reviewed & are unremarkable except as noted in HPI and below PMFSH Past Medical History Medical History Hypertension Obstructive sleep apnea Opiate use Ovarian cancer D-dimer, elevated SAM (acute kidney injury) Cellulitis Thrush COVID-19 virus detected Bilateral hand pain Generalized osteoarthritis of multiple sites Rheumatoid arthritis with rheumatoid factor of multiple sites without organ or systems involvement COPD (chronic obstructive pulmonary disease) Surgical History Surgical History H/O Spinal surgery History of appendectomy H/O: hysterectomy Total knee replacement status Bilaterally Cataract extraction status Family History Family History Father Patient's father is Family history of cardiovascular disease Mother Family history of cardiovascular disease Social History Social History Social History: She is . She is a homemaker. She is a former smoker. She had 2 sons and Her 1 son committed suicide. She lives with her . Code status DNR Smoking packs per day: 2 Smoking cigarettes per day: 40.0 Years smoked: 30 Smoking pack-years: 60.00 Smoking status: Former smoker Tobacco type: cigarettes Second hand tobacco smoke exposure: Yes Alcohol intake: never Substance use: never Substance use type: does not use Gender identity (if verbalized by the patient): Female Sexual Orientation (if Verbalized by the Patient): Straight or Heterosexual Spiritual care concerns: No Meds Home Medications and Allergies Home Medications ?Medication ?Instructions ?Recorded ?Confirmed ?Type oxybutynin chloride 5 mg tablet 5 mg PO HS 03/28/20 05/06/25 History albuterol sulfate 90 mcg/actuation 2 puff inhalation QID PRN 04/08/20 05/06/25 History aerosol inhaler (ProAir HFA) Shortness Of Breath allopurinol 300 mg tablet 100 mg PO DAILY 04/08/20 05/06/25 History umeclidinium 62.5 mcg/actuation 1 inh inhalation DAILY 04/08/20 05/06/25 History blister powder for inhalation (Incruse Ellipta) acetaminophen 500 mg tablet 1,000 mg (2 x 500 mg) PO Q6H PRN 04/10/20 05/06/25 Rx Mild Pain (1-3) Or Fever #30 tabs hydrocodone 5 mg-acetaminophen 325 1 tablet PO Q6H PRN pain #10 tabs 11/30/21 05/06/25 Rx mg tablet buspirone 5 mg tablet 5 mg PO DAILY 05/06/25 05/06/25 History calcitriol 0.25 mcg capsule 0.25 mcg PO DAILY 05/06/25 05/06/25 History furosemide 20 mg tablet 20 mg PO DAILY 05/06/25 05/06/25 History trazodone 50 mg tablet 50 mg PO HS PRN insomnia 05/06/25 05/06/25 History Allergies Allergy/AdvReac Type Severity Reaction Status Date / Time Iodinated Contrast Media Allergy Unknown Swelling Verified 05/06/25 19:50 Contrast Media Allergy Unknown HIVES AND Uncoded 08/18/23 10:03 SWELLING Vital Signs Vital Signs - 24 hr 05/06/25 19:06 05/06/25 19:39 05/06/25 19:48 Temperature Pulse Rate 88 84 Respiratory Rate 20 20 Blood Pressure Pulse Oximetry 98 96 Oxygen Delivery Nasal Cannula Non-Rebreather Mask Oxygen Flow Rate 2 15 Fraction of Inspired Oxygen 100 05/06/25 20:00 05/06/25 20:00 05/06/25 20:00 Temperature 36.9 C Pulse Rate 103 H 109 H Respiratory Rate 21 H Blood Pressure 184/100 H Pulse Oximetry 99 99 Oxygen Delivery Non-Rebreather Mask Oxygen Flow Rate 15 Fraction of Inspired Oxygen 05/06/25 22:00 05/06/25 22:46 05/07/25 00:00 Temperature Pulse Rate 93 81 Respiratory Rate 20 Blood Pressure Pulse Oximetry 97 98 Oxygen Delivery Venturi Mask Venturi Mask Oxygen Flow Rate 15 15 Fraction of Inspired Oxygen 50 50 05/07/25 00:00 05/07/25 00:00 05/07/25 01:23 Temperature 36.8 C Pulse Rate 83 77 90 Respiratory Rate 15 20 Blood Pressure 182/62 H Pulse Oximetry 98 Oxygen Delivery Oxygen Flow Rate Fraction of Inspired Oxygen 05/07/25 01:25 05/07/25 01:32 05/07/25 02:00 Temperature Pulse Rate 95 97 86 Respiratory Rate 20 20 Blood Pressure Pulse Oximetry 97 Oxygen Delivery Venturi Mask Oxygen Flow Rate 15 Fraction of Inspired Oxygen 50 05/07/25 02:28 05/07/25 04:00 05/07/25 04:00 Temperature 36.7 C Pulse Rate 104 H 98 Respiratory Rate 20 19 Blood Pressure 189/68 H Pulse Oximetry 98 98 99 Oxygen Delivery High Flow Nasal Cannula High Flow Nasal Cannula Oxygen Flow Rate 5 5 Fraction of Inspired Oxygen 40 05/07/25 04:00 05/07/25 06:00 05/07/25 08:00 Temperature 37.9 C H Pulse Rate 102 H 86 85 Respiratory Rate 18 Blood Pressure 147/72 H Pulse Oximetry 100 Oxygen Delivery Oxygen Flow Rate Fraction of Inspired Oxygen 05/07/25 08:00 05/07/25 08:31 05/07/25 08:31 Temperature Pulse Rate 85 101 H 101 H Respiratory Rate 16 16 Blood Pressure Pulse Oximetry 100 Oxygen Delivery High Flow Nasal Cannula Oxygen Flow Rate 5 Fraction of Inspired Oxygen 05/07/25 09:00 05/07/25 09:15 05/07/25 09:27 Temperature 37.9 C H Pulse Rate 99 Respiratory Rate 14 Blood Pressure 183/81 H 173/81 H 170/68 H Pulse Oximetry 95 Oxygen Delivery Oxygen Flow Rate Fraction of Inspired Oxygen 05/07/25 12:00 Temperature 37.9 C H Pulse Rate 115 H Respiratory Rate 25 H Blood Pressure 159/83 H Pulse Oximetry 96 Oxygen Delivery Oxygen Flow Rate Fraction of Inspired Oxygen Exam Narrative: Remains unresponsive to verbal commands, is spontaneously moving her upper and lower extremities and her head from side to side, there is no cranial bruit, there is no meningeal signs, and eyes opened there is no spontaneous nystagmus, corneals intact, pupils sluggish but reactive, facial grimace intact tongue in the oral cavity and patient moving upper and lower extremities spontaneously with deep tendon reflexes symmetrical and plantar responses questionable. Results Labs 05/07/25 03:55 05/07/25 03:55 Labs: Short CBC 05/06/25 05/07/25 Range/Units 19:57 03:55 WBC 11.1 H 11.3 H (4.5-10.0) K/mm3 Hgb 13.6 13.3 (12.0-15.0) g/dL Hct 44.4 43.8 (37.0-47.0) % Plt Count 171 169 (150-375) k/mm3 BMP 05/06/25 05/07/25 19:57 03:55 Sodium 144 142 Potassium 3.9 4.1 Chloride 114 H 113 H Carbon Dioxide 23 21 L BUN 37 H 33 H Creatinine 1.75 H 1.55 H Glucose 137 H 153 H Calcium 10.0 9.5 Cardiac Enzymes 05/06/25 05/06/25 05/07/25 Range/Units 19:57 22:54 03:55 Total Creatine Kinase 310 H (30-135) U/L Troponin I 0.087 H* D 0.105 H* D 0.093 H* (0.000-0.034) ng/mL Liver Function 05/07/25 Range/Units 03:55 Total Bilirubin 0.7 (0.2-1.3) mg/dL AST 29 (14-36) U/L ALT 17 (6-35) U/L Alkaline Phosphatase 68 (38-126) U/L Albumin 4.0 (3.5-5.1) g/dL Urine 05/06/25 Range/Units 23:02 Urine Color Yellow (Yellow) Urine Appearance Clear (Clear) Urine pH 5.0 (5.0-9.0) Ur Specific [place] 1.021 (1.001-1.035) Urine Protein 2+ H (Negative) mg/dL Urine Glucose (UA) Negative (Negative) mg/dL
--- NOTE | 2025-05-07 17:18 | PM.CNCAR ---
Assessment and Plan Assessment and plan (1) Elevated troponin: Code(s): R79.89 - Other specified abnormal findings of blood chemistry Status: Acute (2) Hypertension: Code(s): I10 - Essential (primary) hypertension Status: Acute History of Present Illness History of Present Illness Consult date/time: 05/07/25 17:18 Reason For Visit: acute unresponsiveness Narrative: 79 y/o female with PMH of HTN, KOFI, ovarian cancer, COPD, rheumatoid arthritis was admitted with altered mental status. Cardiology was consulted for elevated troponins. Chest x-ray: mild congestive heart failure Head CT: no acute intracranial abnormality UDS: positive for opiates Creatinine 2.0 GFR 24 (baseline of 26 to 31 EKG: sinus rhythm, left anterior fascicular block, septal infarction age indeterminate Review of Systems Review of Systems: A complete reiew of systems could not be performed as patient is intubated and sedated. [facility] Past Medical History Medical History Hypertension Obstructive sleep apnea Opiate use Ovarian cancer D-dimer, elevated SAM (acute kidney injury) Cellulitis Thrush COVID-19 virus detected Bilateral hand pain Generalized osteoarthritis of multiple sites Rheumatoid arthritis with rheumatoid factor of multiple sites without organ or systems involvement COPD (chronic obstructive pulmonary disease) Surgical History Surgical History H/O Spinal surgery History of appendectomy H/O: hysterectomy Total knee replacement status Bilaterally Cataract extraction status Family History Family History Father Patient's father is Family history of cardiovascular disease Mother Family history of cardiovascular disease Social History Social History Social History: She is . She is a homemaker. She is a former smoker. She had 2 sons and Her 1 son committed suicide. She lives with her . Code status DNR Smoking packs per day: 2 Smoking cigarettes per day: 40.0 Years smoked: 30 Smoking pack-years: 60.00 Smoking status: Former smoker Tobacco type: cigarettes Second hand tobacco smoke exposure: Yes Alcohol intake: never Substance use: never Substance use type: does not use Gender identity (if verbalized by the patient): Female Sexual Orientation (if Verbalized by the Patient): Straight or Heterosexual Spiritual care concerns: No Meds Home Medications and Allergies Home Medications ?Medication ?Instructions ?Recorded ?Confirmed ?Type oxybutynin chloride 5 mg tablet 5 mg PO HS 03/28/20 05/06/25 History albuterol sulfate 90 mcg/actuation 2 puff inhalation QID PRN 04/08/20 05/06/25 History aerosol inhaler (ProAir HFA) Shortness Of Breath allopurinol 300 mg tablet 100 mg PO DAILY 04/08/20 05/06/25 History umeclidinium 62.5 mcg/actuation 1 inh inhalation DAILY 04/08/20 05/06/25 History blister powder for inhalation (Incruse Ellipta) acetaminophen 500 mg tablet 1,000 mg (2 x 500 mg) PO Q6H PRN 04/10/20 05/06/25 Rx Mild Pain (1-3) Or Fever #30 tabs hydrocodone 5 mg-acetaminophen 325 1 tablet PO Q6H PRN pain #10 tabs 11/30/21 05/06/25 Rx mg tablet buspirone 5 mg tablet 5 mg PO DAILY 05/06/25 05/06/25 History calcitriol 0.25 mcg capsule 0.25 mcg PO DAILY 05/06/25 05/06/25 History furosemide 20 mg tablet 20 mg PO DAILY 05/06/25 05/06/25 History trazodone 50 mg tablet 50 mg PO HS PRN insomnia 05/06/25 05/06/25 History Allergies Allergy/AdvReac Type Severity Reaction Status Date / Time Iodinated Contrast Media Allergy Unknown Swelling Verified 05/06/25 19:50 Contrast Media Allergy Unknown HIVES AND Uncoded 08/18/23 10:03 SWELLING Vital Signs Vital Signs - 24 hr 05/06/25 19:06 05/06/25 19:39 05/06/25 19:48 Temperature Pulse Rate 88 84 Respiratory Rate 20 20 Blood Pressure Pulse Oximetry 98 96 Oxygen Delivery Nasal Cannula Non-Rebreather Mask Oxygen Flow Rate 2 15 Fraction of Inspired Oxygen 100 05/06/25 20:00 05/06/25 20:00 05/06/25 20:00 Temperature 36.9 C Pulse Rate 103 H 109 H Respiratory Rate 21 H Blood Pressure 184/100 H Pulse Oximetry 99 99 Oxygen Delivery Non-Rebreather Mask Oxygen Flow Rate 15 Fraction of Inspired Oxygen 05/06/25 22:00 05/06/25 22:46 05/07/25 00:00 Temperature Pulse Rate 93 81 Respiratory Rate 20 Blood Pressure Pulse Oximetry 97 98 Oxygen Delivery Venturi Mask Venturi Mask Oxygen Flow Rate 15 15 Fraction of Inspired Oxygen 50 50 05/07/25 00:00 05/07/25 00:00 05/07/25 01:23 Temperature 36.8 C Pulse Rate 83 77 90 Respiratory Rate 15 20 Blood Pressure 182/62 H Pulse Oximetry 98 Oxygen Delivery Oxygen Flow Rate Fraction of Inspired Oxygen 05/07/25 01:25 05/07/25 01:32 05/07/25 02:00 Temperature Pulse Rate 95 97 86 Respiratory Rate 20 20 Blood Pressure Pulse Oximetry 97 Oxygen Delivery Venturi Mask Oxygen Flow Rate 15 Fraction of Inspired Oxygen 50 05/07/25 02:28 05/07/25 04:00 05/07/25 04:00 Temperature 36.7 C Pulse Rate 104 H 98 Respiratory Rate 20 19 Blood Pressure 189/68 H Pulse Oximetry 98 98 99 Oxygen Delivery High Flow Nasal Cannula High Flow Nasal Cannula Oxygen Flow Rate 5 5 Fraction of Inspired Oxygen 40 05/07/25 04:00 05/07/25 06:00 05/07/25 08:00 Temperature 37.9 C H Pulse Rate 102 H 86 85 Respiratory Rate 18 Blood Pressure 147/72 H Pulse Oximetry 100 Oxygen Delivery Oxygen Flow Rate Fraction of Inspired Oxygen 05/07/25 08:00 05/07/25 08:00 05/07/25 08:31 Temperature Pulse Rate 85 112 H 101 H Respiratory Rate 24 H 16 Blood Pressure Pulse Oximetry 97 100 Oxygen Delivery High Flow Nasal Cannula High Flow Nasal Cannula Oxygen Flow Rate 5 5 Fraction of Inspired Oxygen 05/07/25 08:31 05/07/25 09:00 05/07/25 09:15 Temperature Pulse Rate 101 H Respiratory Rate 16 Blood Pressure 183/81 H 173/81 H Pulse Oximetry Oxygen Delivery Oxygen Flow Rate Fraction of Inspired Oxygen 05/07/25 09:27 05/07/25 10:00 05/07/25 12:00 Temperature 37.9 C H 37.9 C H Pulse Rate 99 89 115 H Respiratory Rate 14 25 H Blood Pressure 170/68 H 159/83 H Pulse Oximetry 95 96 Oxygen Delivery Oxygen Flow Rate Fraction of Inspired Oxygen 05/07/25 12:00 05/07/25 12:00 05/07/25 13:52 Temperature Pulse Rate 89 98 105 H Respiratory Rate 22 H 16 Blood Pressure Pulse Oximetry 97 97 Oxygen Delivery High Flow Nasal Cannula High Flow Nasal Cannula Oxygen Flow Rate 5 5 Fraction of Inspired Oxygen 05/07/25 13:52 05/07/25 14:00 05/07/25 16:00 Temperature Pulse Rate 105 H 88 85 Respiratory Rate 16 Blood Pressure Pulse Oximetry Oxygen Delivery Oxygen Flow Rate Fraction of Inspired Oxygen 05/07/25 16:00 05/07/25 16:00 05/07/25 16:35 Temperature Pulse Rate 85 106 H 107 H Respiratory Rate 20 27 H 16 Blood Pressure 119/67 Pulse Oximetry 99 96 Oxygen Delivery High Flow Nasal Cannula Oxygen Flow Rate 5 Fraction of Inspired Oxygen Exam Narrative: General: no acute distress Neck: Supple, no JVD Chest: Bilaterally clear to auscultation, no rales or rhonchi Cardiac: S1, S2 +, regular rate, regular rhythm, no murmurs or rubs Extremities: Bilateral lower extremity edema 1+, no skin rash Neurologic: altered mental status, not following commands Results Labs and Meds 05/07/25 03:55 05/07/25 03:55 Lab results: Cardiac Enzymes 05/06/25 05/06/25 05/07/25 Range/Units 19:57 22:54 03:55 AST 29 (14-36) U/L Troponin I 0.087 H* D 0.105 H* D 0.093 H* (0.000-0.034) ng/mL CBC 05/06/25 05/07/25 Range/Units 19:57 03:55 WBC 11.1 H 11.3 H (4.5-10.0) K/mm3 RBC 4.53 4.42 (4.2-5.4) M/mm3 Hgb 13.6 13.3 (12.0-15.0) g/dL Hct 44.4 43.8 (37.0-47.0) % Plt Count 171 169 (150-375) k/mm3 Lymph # (Auto) 0.89 L 0.58 L (0.9-3.2) K/mm3 [place] # (Auto) 0.6 0.6 (0.1-0.6) K/mm3 Eos # (Auto) 0.0 0.1 (0-0.3) K/mm3 Baso # (Auto) 0.0 0.0 (0.0-0.1) K/mm3 Comprehensive Metabolic Panel 05/06/25 05/07/25 Range/Units 19:57 03:55 Sodium 144 142 (137-145) mmol/L Potassium 3.9 4.1 (3.4-5.0) mmol/L Chloride 114 H 113 H (98-107) mmol/L Carbon Dioxide 23 21 L (22-30) mmol/L BUN 37 H 33 H (7-17) mg/dL Creatinine 1.75 H 1.55 H (0.7-1.0) mg/dL Glucose 137 H 153 H (65-110) mg/dL Calcium 10.0 9.5 (8.4-10.2) mg/dL AST 29 (14-36) U/L ALT 17 (6-35) U/L Alkaline Phosphatase 68 (38-126) U/L Total Protein 7.3 (6.3-8.2) g/dL Albumin 4.0 (3.5-5.1) g/dL Intake and Output 05/07/25 05/07/25 05/07/25 07:59 15:59 23:59 Intake Total 1100 200 898.3 Output Total 1200 Balance -100 200 898.3 Intake: IV 1100 200 898.3 Lactated Ringers 1,000 ml @ 100 1000 898.3 mls/hr IV CONT .Q10H GEOVANNI Rx#: [id number] Piperacillin/Tazobactam Sod 3. 100 200 375 gm In Sodium Chloride 0.9% IV 100 ml @ 200 mls/hr IVPB Q6H GEOVANNI Rx#:[id number] Output: Catheter Urine 1100 Urethral Catheter 1100 Gastric Drainage 100 [place] Sump Left Nare 100 Patient Weight 05/07/25 23:59 Weight 92.3 kg
[2025-05-08] VITALS (25 sets, daily range): BP systolic 124–179; BP diastolic 48–99; PULSE 93–114; RESP 11–98; TEMP 37.1–38.4; O2SAT 95–100
[2025-05-08] MEDS: ACETAMINOPHEN ELIXIR 325 MG/10.15 ML UDC 650 MG FEED TUBE ×3 (01:23→23:28)
[2025-05-08] MEDS: IPRATROPIUM 0.5 MG/ALBUTEROL SULFATE 2.5 MG (BASE) AMPUL.NEB 3 ML INHALATION ×4 (01:27→20:27)
[2025-05-08] MEDS: LACTATED RINGERS 1,000 ML 100 ML IV CONT ×3 (02:08→23:33)
[2025-05-08 04:23] LABS: Hematocrit 42.1 % (37.0-47.0); Hemoglobin 13.1 g/dL (12.0-15.0); Immature Granulocyte Percent A 0.8 % (0-0.5); Lymphocytes Absolute Auto 1.02 K/mm3 (0.9-3.2); Mean Corpuscular HGB Conc 31.1 g/dl (32-36); Mean Corpuscular Hemoglobin 29.9 pg (26-34); Mean Corpuscular Volume 96.1 fl (80-100); Nucleated Red Blood Cells Absolute Auto 0.000 K/mm3 (0.0-0.012); Nucleated Red Blood Cells Perc 0.0 % (0.0-0.2); Platelet Count Result 143 k/mm3 (150-375); Red Blood Count 4.38 M/mm3 (4.2-5.4); White Blood Count 16.2 K/mm3 (4.5-10.0)
[2025-05-08 04:39] LABS: Alanine Aminotransferase 18 U/L (6-35); Albumin Level 3.9 g/dL (3.5-5.1); Alkaline Phosphatase 79 U/L (38-126); Anion Gap 9 mmol/L (4-12); Aspartate Amino Transferase 31 U/L (14-36); Bilirubin,Total 1.4 mg/dL (0.2-1.3); Blood Urea Nitrogen 26 mg/dL (7-17); Calcium 9.6 mg/dL (8.4-10.2); Carbon Dioxide 24 mmol/L (22-30); Chloride 114 mmol/L (98-107); Creatine Kinase 329 U/L (30-135); Estimated CRCL calculation 24 ml/min; Estimated Glomerular Filt Rate 28; Glucose 138 mg/dL (65-110); Lipase 33 U/L (23-300); Magnesium 1.9 mg/dL (1.6-2.3); Potassium 3.6 mmol/L (3.4-5.0); Sodium 147 mmol/L (137-145); Total Protein 7.3 g/dL (6.3-8.2)
[2025-05-08] MEDS: POTASSIUM PHOS,M-BASIC-D-BASIC 20 MMOL in SODIUM CHLORIDE 0.9% IV 250 ML 64.17 MMOL IVPB (08:24)
[2025-05-08] MEDS: ENOXAPARIN 40 MG/0.4 ML SYRINGE SUB-Q (08:24)
[2025-05-08] MEDS: BUDESONIDE RESPULE NEB 0.5 MG/2 ML AMP INHALATION ×2 (08:41→20:27)
--- NOTE | 2025-05-08 11:35 | PM.IMPN2 ---
Assessment and Plan Assessment and Plan (1) Unresponsive episode: Code(s): R40.4 - Transient alteration of awareness Status: Acute Assessment and Plan: -05/06/2025: Patient was seen at [facility] in [facility] for altered mental status. -05/06: CT head: With no acute intracranial abnormality -several suicide notes were found in the home. The patient does have a history of may depression. The denies any previous suicide attempts. According to the , the patient started feeling very depressed this on May 04, as it was her son's birthday (the son that committed suicide). -we reviewed her home medications. It is difficult to do a complete pill count as the stated that she puts her pills in a different container that is easier to open. -her urine toxicology screen was positive for opiates. She was given 2 doses of Narcan at [facility] with little benefit -patient currently is a DNR/DNI, is a nurse practitioner confirmed this overnight with the family and her records. [employer] spoke with the family who stated that they will consider comfort care in the next couple days if she does not become responsive. -acetaminophen levels <10 -urine tox screen was positive for opiates -salicylic acid level was normal -according to the , her last known normal was at 9:00 p.m. 05/06/2025 -continue suicide precautions -sitter at bedside -appreciate Neurology evaluation and recommendations, (2) Major depression: Code(s): F32.9 - Major depressive disorder, single episode, unspecified Status: Inactive Assessment and Plan: -the patient will need crisis when she is more awake. - per her , he stated that she was more depressed this week as it was her son's birthday that committed suicide. -several suicide notes were left in the home. (3) Suicidal overdose: Code(s): T50.902A - Poisoning by unspecified drugs, medicaments and biological substances, intentional self-harm, initial encounter Status: Inactive Assessment and Plan: -urine toxicology was positive for opiates. -repeat Tylenol level within normal limits -unable to obtain accurate medication count is she places her pills in a different bottle that is easier to open -the patient was given 2 mg narcan x2 at [facility] with little effect. (4) Hypertension: Code(s): I10 - Essential (primary) hypertension Status: Acute Assessment and Plan: -p.r.n. hydralazine with parameters. (5) CKD (chronic kidney disease): Code(s): N18.9 - Chronic kidney disease, unspecified Status: Acute Assessment and Plan: -her creatinine is at baseline. BUN is at baseline. GFR is her baseline. -continue with IV fluids for now. (6) COPD (chronic obstructive pulmonary disease): Code(s): J44.9 - Chronic obstructive pulmonary disease, unspecified Status: Acute Assessment and Plan: -continue with DuoNebs every 6 hours. (7) Pneumonia: Qualifiers: Lung location: lower lobe of lung Code(s): J18.9 - Pneumonia, unspecified organism Status: Acute Assessment and Plan: -the patient was empirically started on Zosyn and vancomycin (05/06) for the possibility of aspiration pneumonia. 05/07: Discontinued vancomycin, will continue Zosyn for now 05/06/2025: Blood and sputum cultures are pending. (8) Obstructive sleep apnea: Code(s): G47.33 - Obstructive sleep apnea (adult) (pediatric) Status: Acute Assessment and Plan: -home settings for CPAP/BiPAP when patient is more awake. Plan DVT prophylaxis: Lovenox Stress ulcer prophylaxis: Not indicated Nutrition: NPO Code Status: DNR/DNI 05/07: Discussed with patient's spouse and daughter in-law at bedside updated with patient's condition plan of care. I answered all the question Due to a high probability of clinically significant, life threatening deterioration, the patient required my highest level of preparedness to intervene emergently and I personally spent this critical care time directly and personally managing the patient. This critical care time included obtaining a history; examining the patient; pulse oximetry; ordering and review of studies; arranging urgent treatment with development of a management plan; evaluation of patient's response to treatment; frequent reassessment; and discussions with other providers. It was exclusive of separately billable procedures and treating other patients and teaching time. Please see Assessment and Plan section and the rest of the note for further information on patient assessment and treatment This dictation may have been done utilizing a voice recognition system. Attempts have been made to correct errors. However, there may be uncorrected grammatical, spelling, and recognitions errors present. Subjective Date/time seen: 05/08/25 11:35 Interval history: 79 years old white female with past medical history of essential hypertension, obstructive sleep apnea, opiate use, leading cancer, acute kidney injury, cellulitis, thrush, on CT arthritis, rheumatoid arthritis, COPD presented to the ED from home on 05/06/2025 with acute change of mental status, last time was seen at her normal pace 9:30 p.m. on 05/05/2025. Patient was unresponsive to painful stimulation, was snoring. Patient is a DNR/DNI. CT head did not show any acute abnormality. Urine tox screen was positive for opiates, she did receive Narcan with mild improvement. She is on narcotics chronic back pain. According the records patient had left suicide notes at home. Off note her son had committed suicide in front of her some years back, and it was his birthday a few days back. Poison Control was notified. Fe 05/08/2025: Patient being seen for hospitalist group Patient with altered mental status, more awake this morning, is tracking to name, does not answer any questions or follows simple commands. Opens her eyes to deep pain stimulation, does not answer any questions or follows simple commands. Febrile with a T-max of 101.1?, hemodynamically stable, adequate urine output Review of Systems Review of Systems: ROS unobtainable: Yes unobtainable due to medical condition and unobtainable due to mental status Exam Narrative: General: Elderly female, obese, in no acute distress HEENT:? Pupils are dilated, equal and reactive to light bilaterally, sclera is clear Neck:? Short neck, supple Respiratory:? Clear to auscultation bilaterally, decreased at bases bilaterally, no wheeze Cardiac:? S1-S2 is normal, tachycardia Abdomen:? Soft, nontender, nondistended, obese, hypoactive bowel sounds Extremities:? Bilateral lower extremity edema, palpable pedal pulses Neuro:? More awake this morning, tracking, but does not answer questions or follow simple commands Skin:? Warm and dry Psych:? Unable to assess at this time Objective Data Vital Signs Vital Signs: Vital Signs - 24 hr 05/07/25 12:00 05/07/25 12:00 05/07/25 12:00 Temperature 100.3 F H Pulse Rate 115 H 89 98 Respiratory Rate 25 H 22 H Blood Pressure 159/83 H Pulse Oximetry 96 97 Oxygen Delivery High Flow Nasal Cannula Oxygen Flow Rate 5 05/07/25 13:52 05/07/25 13:52 05/07/25 14:00 Temperature Pulse Rate 105 H 105 H 88 Respiratory Rate 16 16 Blood Pressure Pulse Oximetry 97 Oxygen Delivery High Flow Nasal Cannula Oxygen Flow Rate 5 05/07/25 16:00 05/07/25 16:00 05/07/25 16:00 Temperature Pulse Rate 85 85 106 H Respiratory Rate 20 27 H Blood Pressure 119/67 Pulse Oximetry 99 96 Oxygen Delivery High Flow Nasal Cannula Oxygen Flow Rate 5 05/07/25 16:35 05/07/25 18:00 05/07/25 19:48 Temperature Pulse Rate 107 H 85 117 H Respiratory Rate 16 16 Blood Pressure Pulse Oximetry 98 Oxygen Delivery High Flow Nasal Cannula Oxygen Flow Rate 4 05/07/25 19:48 05/07/25 19:59 05/07/25 20:00 Temperature Pulse Rate 117 H 118 H Respiratory Rate 16 18 Blood Pressure Pulse Oximetry 97 Oxygen Delivery High Flow Nasal Cannula Oxygen Flow Rate 4 05/07/25 20:00 05/07/25 20:00 05/07/25 22:00 Temperature 99.7 F H Pulse Rate 117 H 120 H 117 H Respiratory Rate 20 Blood Pressure 151/69 H Pulse Oximetry 98 Oxygen Delivery Oxygen Flow Rate 05/08/25 00:00 05/08/25 00:00 05/08/25 01:00 Temperature 101.1 F H Pulse Rate 113 H 112 H Respiratory Rate 12 Blood Pressure 144/76 H Pulse Oximetry 98 98 Oxygen Delivery High Flow Nasal Cannula Oxygen Flow Rate 4 05/08/25 01:23 05/08/25 01:28 05/08/25 01:35 Temperature 101.1 F H Pulse Rate 112 H 114 H Respiratory Rate 98 H 14 Blood Pressure Pulse Oximetry Oxygen Delivery Oxygen Flow Rate 05/08/25 02:00 05/08/25 02:23 05/08/25 04:00 Temperature 99.0 F Pulse Rate 113 H Respiratory Rate Blood Pressure Pulse Oximetry 99 Oxygen Delivery High Flow Nasal Cannula Oxygen Flow Rate 4 05/08/25 04:00 05/08/25 04:00 05/08/25 05:33 Temperature 98.7 F Pulse Rate 104 H 108 H Respiratory Rate 11 L Blood Pressure 151/81 H 179/99 H Pulse Oximetry 98 Oxygen Delivery Oxygen Flow Rate 05/08/25 06:00 05/08/25 08:00 05/08/25 08:42 Temperature 98.9 F Pulse Rate 104 H 104 H 101 H Respiratory Rate 18 13 Blood Pressure 136/48 L Pulse Oximetry 98 Oxygen Delivery Oxygen Flow Rate 05/08/25 08:43 Temperature Pulse Rate 105 H Respiratory Rate 16 Blood Pressure Pulse Oximetry 100 Oxygen Delivery High Flow Nasal Cannula Oxygen Flow Rate 3 Intake/Output Intake/Output: Intake & Output 05/05/25 05/06/25 05/07/25 05/08/25 23:59 23:59 23:59 23:59 Intake Total 600 2298.3 1190 Output Total 2000 500 Balance 600 298.3 690 Meds/Results Medications: Active Medications Generic Name Dose Route Start Last Admin Trade Name Freq PRN Reason Stop Dose Admin Acetaminophen 650 mg 05/08/25 00:59 05/08/25 01:23 Acetaminophen Elixir 325 Mg/10.15 Ml Udc FEED TUBE 650 mg Q4H PRN Administration Mild Pain (1-3) or Fever Albuterol/Ipratropium 3 ml 05/07/25 08:00 05/08/25 08:41 Ipratropium 0.5 Mg/Albuterol Sulfate 2.5 Mg (Base) Ampul.Neb 3 Ml INHALATION 3 ml Q6HRT GEOVANNI Administration Budesonide 0.5 mg 05/07/25 08:00 05/08/25 08:41 Budesonide Respule Neb 0.5 Mg/2 Ml Amp INHALATION 0.5 mg Q12HRT GEOVANNI Administration Enoxaparin Sodium 40 mg 05/07/25 09:00 05/08/25 08:24 Enoxaparin 40 Mg/0.4 Ml Syringe SUB-Q 40 mg DAILY GEOVANNI Administration Hydralazine HCl 10 mg 05/07/25 11:28 05/08/25 05:33 Hydralazine Hcl 20 Mg/Ml Vial IV PUSH 10 mg Q4H PRN Administration Blood Pressure - High Lactated Ringer's 1,000 mls @ 100 mls/hr 05/06/25 19:20 05/08/25 02:08 Lr - Lactated Ringers Iv IV CONT 100 mls/hr .Q10H GEOVANNI Administration Piperacillin Sod/Tazobactam 100 mls @ 200 mls/hr 05/06/25 20:00 05/08/25 08:54 Sod 3.375 gm/ Sodium Chloride IVPB Infused Q6H GEOVANNI Infusion Morphine Sulfate 2 mg 05/06/25 19:08 Morphine Sulfate (*Crx) 4 Mg/Ml Inj IV PUSH Q4H PRN Pain Rated 7-10 Naloxone HCl 0.1 mg 05/06/25 19:13 Naloxone Hcl 0.4 Mg/Ml Vial IV PUSH Q2M PRN Opiate Reversal Ondansetron HCl 4 mg 05/06/25 19:08 05/07/25 02:41 Ondansetron Inj 4 Mg/2 Ml Vial IV PUSH 4 mg Q6H PRN Administration Nausea And Vomiting Perflutren Lipid Microsphere 0 ml 05/07/25 00:23 Perflutren Lipid Microspheres 1.5 Ml Vial Diluted To 10 Ml Total Volume IV PUSH 05/10/25 00:23 ONCE PRN adequate visualization Protocol Radiology Results: ITS Impressions Abdomen X-Ray 05/07/25 07:51 IMPRESSION: Gastric catheter in good position. NOTE: Preliminary radiology report provided by [facility] radiologist/physician. Chest/Abdomen/Pelvis CT 05/07/25 11:31 IMPRESSION: Directed noncontrast exam demonstrating no focal acute process in the abdomen and pelvis. Subsegmental atelectatic changes in the right lower lobe with peribronchial thickening may represent atypical inflammatory or infectious airways mediated process. Head CT 05/07/25 11:39 IMPRESSION: 1. Age-related changes including mild diffuse volume loss and mild scattered white matter hypoattenuation consistent with chronic small vessel ischemic disease. No acute intracranial process. Labs Labs: Laboratory Results - last 24 hr 05/07/25 05/07/25 05/07/25 07:34 11:37 12:25 WBC RBC Hgb Hct MCV MCH MCHC RDW Plt Count MPV Immature Gran % (Auto) Neut % (Auto) Lymph % (Auto) [place] % (Auto) Eos % (Auto) Baso % (Auto) Lymph # (Auto) [place] # (Auto) Eos # (Auto) Baso # (Auto) Abs Immat Gran (auto) Absolute Neuts (auto) Absolute Nucleated RBC Nucleated RBC % Sodium Potassium Chloride Carbon Dioxide Anion Gap BUN Creatinine Estim Creat Clear Calc Estimated GFR Glucose POC Capillary Glucose 114 H 155 H Lactic Acid Calcium Phosphorus Magnesium Total Bilirubin AST ALT Alkaline Phosphatase Ammonia < 9 L Total Creatine Kinase Total Protein Albumin Lipase 05/07/25 05/07/25 05/08/25 18:03 23:33 04:05 WBC 16.2 H RBC 4.38 Hgb 13.1 Hct 42.1 MCV 96.1 MCH 29.9 MCHC 31.1 L RDW 15.7 H Plt Count 143 L MPV 10.9 H Immature Gran % (Auto) 0.8 H Neut % (Auto) 88.3 H Lymph % (Auto) 6.3 L [place] % (Auto) 4.3 Eos % (Auto) 0.1 Baso % (Auto) 0.2 Lymph # (Auto) 1.02 [place] # (Auto) 0.7 H Eos # (Auto) 0.0 Baso # (Auto) 0.0 Abs Immat Gran (auto) 0.13 H Absolute Neuts (auto) 14.4 H Absolute Nucleated RBC 0.000 Nucleated RBC % 0.0 Sodium 147 H Potassium 3.6 Chloride 114 H Carbon Dioxide 24 Anion Gap 9 BUN 26 H Creatinine 1.77 H Estim Creat Clear Calc 24 Estimated GFR 28 L Glucose 138 H POC Capillary Glucose 144 H 115 H Lactic Acid 1.8 Calcium 9.6 Phosphorus 1.8 L Magnesium 1.9 Total Bilirubin 1.4 H AST 31 ALT 18 Alkaline Phosphatase 79 Ammonia Total Creatine Kinase 329 H Total Protein 7.3 Albumin 3.9 Lipase 33 05/08/25 11:23 WBC RBC Hgb Hct MCV MCH MCHC RDW Plt Count MPV Immature Gran % (Auto) Neut % (Auto) Lymph % (Auto) [place] % (Auto) Eos % (Auto) Baso % (Auto) Lymph # (Auto) [place] # (Auto) Eos # (Auto) Baso # (Auto) Abs Immat Gran (auto) Absolute Neuts (auto) Absolute Nucleated RBC Nucleated RBC % Sodium Potassium Chloride Carbon Dioxide Anion Gap BUN Creatinine Estim Creat Clear Calc Estimated GFR Glucose POC Capillary Glucose 121 H Lactic Acid Calcium Phosphorus Magnesium Total Bilirubin AST ALT Alkaline Phosphatase Am[place] Total Creatine Kinase Total Protein Albumin Lipase Quality VTE Prophylaxis VTE prophylaxis: mechanical ordered
[2025-05-09] VITALS (16 sets, daily range): BP systolic 114–170; BP diastolic 51–101; PULSE 88–107; RESP 18–27; TEMP 36.3–37.3; O2SAT 94–99
[2025-05-09] MEDS: IPRATROPIUM 0.5 MG/ALBUTEROL SULFATE 2.5 MG (BASE) AMPUL.NEB 3 ML INHALATION ×3 (02:18→14:16)
[2025-05-09 04:32] LABS: Hematocrit 39.3 % (37.0-47.0); Hemoglobin 11.8 g/dL (12.0-15.0); Immature Granulocyte Percent A 1.2 % (0-0.5); Lymphocytes Absolute Auto 0.63 K/mm3 (0.9-3.2); Mean Corpuscular HGB Conc 30.0 g/dl (32-36); Mean Corpuscular Hemoglobin 29.6 pg (26-34); Mean Corpuscular Volume 98.5 fl (80-100); Nucleated Red Blood Cells Absolute Auto 0.000 K/mm3 (0.0-0.012); Nucleated Red Blood Cells Perc 0.0 % (0.0-0.2); Platelet Count Result 127 k/mm3 (150-375); Red Blood Count 3.99 M/mm3 (4.2-5.4); White Blood Count 12.1 K/mm3 (4.5-10.0)
[2025-05-09 04:49] LABS: Alanine Aminotransferase 14 U/L (6-35); Albumin Level 3.3 g/dL (3.5-5.1); Alkaline Phosphatase 81 U/L (38-126); Anion Gap 6 mmol/L (4-12); Aspartate Amino Transferase 19 U/L (14-36); Bilirubin,Total 1.0 mg/dL (0.2-1.3); Blood Urea Nitrogen 25 mg/dL (7-17); Calcium 9.2 mg/dL (8.4-10.2); Carbon Dioxide 27 mmol/L (22-30); Chloride 115 mmol/L (98-107); Estimated CRCL calculation 26 ml/min; Estimated Glomerular Filt Rate 30; Glucose 121 mg/dL (65-110); Magnesium 1.9 mg/dL (1.6-2.3); Potassium 3.5 mmol/L (3.4-5.0); Sodium 148 mmol/L (137-145); Total Protein 6.6 g/dL (6.3-8.2)
[2025-05-09 05:12] LABS: Schistocytes None Seen
[2025-05-09] MEDS: BUDESONIDE RESPULE NEB 0.5 MG/2 ML AMP INHALATION (08:24)
[2025-05-09] MEDS: ENOXAPARIN 40 MG/0.4 ML SYRINGE SUB-Q (08:25)
[2025-05-09] MEDS: POTASSIUM CHLORIDE INJ 40 MEQ in SODIUM CHLORIDE 0.9% IV 500 ML 130 MEQ IVPB (08:25)
[2025-05-09] MEDS: DEXTROSE 5% 75 ML IV CONT (08:30)
--- NOTE | 2025-05-09 09:11 | WPDINTPN2 ---
Assessment and Plan Assessment and Plan (1) Unresponsive episode: Code(s): R40.4 - Transient alteration of awareness Status: Acute Assessment and Plan: -05/06/2025: Patient was seen at [facility] in [facility] for altered mental status. -05/06: CT head: With no acute intracranial abnormality -several suicide notes were found in the home. The patient does have a history of may depression. The denies any previous suicide attempts. According to the , the patient started feeling very depressed this on May 04, as it was her son's birthday (the son that committed suicide). -we reviewed her home medications. It is difficult to do a complete pill count as the stated that she puts her pills in a different container that is easier to open. -her urine toxicology screen was positive for opiates. She was given 2 doses of Narcan at [facility] with little benefit -patient currently is a DNR/DNI, is a nurse practitioner confirmed this overnight with the family and her records. [employer] spoke with the family who stated that they will consider comfort care in the next couple days if she does not become responsive. -acetaminophen levels <10 -urine tox screen was positive for opiates -salicylic acid level was normal -according to the , her last known normal was at 9:00 p.m. 05/06/2025 -continue suicide precautions -sitter at bedside -appreciate Neurology evaluation and recommendations, 05/09: Awake, alert, oriented, very hard of hearing Speech to evaluate the patient for bedside swallow (2) Major depression: Code(s): F32.9 - Major depressive disorder, single episode, unspecified Status: Inactive Assessment and Plan: -the patient will need crisis when she is more awake. - per her , he stated that she was more depressed this week as it was her son's birthday that committed suicide. -several suicide notes were left in the home. -patient is medically stable, will have care coordination and crisis management evaluate the patient (3) Suicidal overdose: Code(s): T50.902A - Poisoning by unspecified drugs, medicaments and biological substances, intentional self-harm, initial encounter Status: Inactive Assessment and Plan: -urine toxicology was positive for opiates. -repeat Tylenol level within normal limits -unable to obtain accurate medication count is she places her pills in a different bottle that is easier to open -the patient was given 2 mg narcan x2 at [facility] with little effect. (4) Hypertension: Code(s): I10 - Essential (primary) hypertension Status: Acute Assessment and Plan: -p.r.n. hydralazine with parameters. (5) CKD (chronic kidney disease): Code(s): N18.9 - Chronic kidney disease, unspecified Status: Acute Assessment and Plan: -creatinine is improving . -adequately fluid-resuscitated -switch IV fluids to D5 at 75 mL/hour for 500 mL as her sodium is 147 this morning. (6) COPD (chronic obstructive pulmonary disease): Code(s): J44.9 - Chronic obstructive pulmonary disease, unspecified Status: Acute Assessment and Plan: -continue with DuoNebs every 6 hours. (7) Pneumonia: Qualifiers: Lung location: lower lobe of lung Code(s): J18.9 - Pneumonia, unspecified organism Status: Acute Assessment and Plan: -the patient was empirically started on Zosyn and vancomycin (05/06) for the possibility of aspiration pneumonia. 05/07: Discontinued vancomycin, will continue Zosyn for now 05/06/2025: Blood and sputum cultures are pending. (8) Obstructive sleep apnea: Code(s): G47.33 - Obstructive sleep apnea (adult) (pediatric) Status: Acute Assessment and Plan: -home settings for CPAP/BiPAP when patient is more awake. Plan DVT prophylaxis: Lovenox Stress ulcer prophylaxis: Not indicated Nutrition: Speech evaluation for bedside swallow Code Status: DNR/DNI 05/07: Discussed with patient's spouse and daughter in-law at bedside updated with patient's condition plan of care. I answered all the question Due to a high probability of clinically significant, life threatening deterioration, the patient required my highest level of preparedness to intervene emergently and I personally spent this critical care time directly and personally managing the patient. This critical care time included obtaining a history; examining the patient; pulse oximetry; ordering and review of studies; arranging urgent treatment with development of a management plan; evaluation of patient's response to treatment; frequent reassessment; and discussions with other providers. It was exclusive of separately billable procedures and treating other patients and teaching time. Please see Assessment and Plan section and the rest of the note for further information on patient assessment and treatment This dictation may have been done utilizing a voice recognition system. Attempts have been made to correct errors. However, there may be uncorrected grammatical, spelling, and recognitions errors present. Subjective Date/time seen: 05/09/25 09:11 Interval history: 79 years old white female with past medical history of essential hypertension, obstructive sleep apnea, opiate use, leading cancer, acute kidney injury, cellulitis, thrush, on CT arthritis, rheumatoid arthritis, COPD presented to the ED from home on 05/06/2025 with acute change of mental status, last time was seen at her normal pace 9:30 p.m. on 05/05/2025. Patient was unresponsive to painful stimulation, was snoring. Patient is a DNR/DNI. CT head did not show any acute abnormality. Urine tox screen was positive for opiates, she did receive Narcan with mild improvement. She is on narcotics chronic back pain. According the records patient had left suicide notes at home. Off note her son had committed suicide in front of her some years back, and it was his birthday a few days back. Poison Control was notified. Fe 05/09/2025: Patient being seen for hospitalist group Patient more awake, alert, oriented x3, very hard of hearing, denies any pain, shortness of breath. Does not remember why she was admitted to the hospital but she does remember writing suicidal notes and overdosing on pills. Hemodynamically stable, afebrile, low urine output. Sodium 147 this morning, and potassium 3.5 Review of Systems Review of Systems: ROS unobtainable: Yes unobtainable due to medical condition and unobtainable due to mental status Exam Narrative: General: Elderly female, obese, in no acute distress HEENT:? Pupils equal and reactive to light bilaterally, sclera is clear Neck:? Short neck, supple Respiratory:? Clear to auscultation bilaterally, decreased at bases bilaterally, no wheeze Cardiac:? S1-S2 is normal, tachycardia Abdomen:? Soft, nontender, nondistended, obese, hypoactive bowel sounds Extremities:? Bilateral lower extremity edema, palpable pedal pulses Neuro:? Awake, alert, oriented x3, nonfocal, answers to questions appropriately, very hard of hearing Skin:? Warm and dry Psych:? Unable to assess at this time Objective Data Vital Signs Vital Signs: Vital Signs - 24 hr 05/08/25 10:00 05/08/25 12:00 05/08/25 12:00 Temperature 98.8 F Pulse Rate 104 H 107 H 110 H Respiratory Rate 17 17 Blood Pressure 167/75 H Pulse Oximetry 98 96 Oxygen Delivery High Flow Nasal Cannula Oxygen Flow Rate 2 05/08/25 12:00 05/08/25 14:00 05/08/25 14:14 Temperature Pulse Rate 104 H 102 H 100 Respiratory Rate 18 Blood Pressure Pulse Oximetry Oxygen Delivery Oxygen Flow Rate 05/08/25 14:19 05/08/25 16:00 05/08/25 16:00 Temperature Pulse Rate 99 106 H Respiratory Rate 21 H Blood Pressure Pulse Oximetry 95 Oxygen Delivery High Flow Nasal Cannula Oxygen Flow Rate 2 05/08/25 16:00 05/08/25 20:00 05/08/25 20:00 Temperature 98.9 F Pulse Rate 107 H 102 H 99 Respiratory Rate 16 24 H Blood Pressure 124/63 129/58 L Pulse Oximetry 95 97 Oxygen Delivery Oxygen Flow Rate 05/08/25 20:00 05/08/25 20:27 05/08/25 20:28 Temperature Pulse Rate 93 101 H Respiratory Rate 21 H 22 H Blood Pressure Pulse Oximetry 95 97 Oxygen Delivery High Flow Nasal Cannula High Flow Nasal Cannula Oxygen Flow Rate 2 3 05/08/25 20:37 05/08/25 22:00 05/09/25 00:00 Temperature Pulse Rate 102 H 107 H Respiratory Rate 22 H Blood Pressure Pulse Oximetry 96 Oxygen Delivery High Flow Nasal Cannula Oxygen Flow Rate 2 05/09/25 00:00 05/09/25 00:00 05/09/25 02:00 Temperature 99.1 F Pulse Rate 97 96 92 Respiratory Rate 18 Blood Pressure 121/51 L Pulse Oximetry 96 Oxygen Delivery Oxygen Flow Rate 05/09/25 02:19 05/09/25 02:25 05/09/25 04:00 Temperature Pulse Rate 91 88 Respiratory Rate 24 H 21 H Blood Pressure Pulse Oximetry 98 Oxygen Delivery High Flow Nasal Cannula Oxygen Flow Rate 2 05/09/25 04:00 05/09/25 04:00 05/09/25 06:00 Temperature 98.9 F Pulse Rate 94 96 88 Respiratory Rate 22 H Blood Pressure 129/64 Pulse Oximetry 98 Oxygen Delivery Oxygen Flow Rate 05/09/25 08:00 05/09/25 08:25 Temperature 98.3 F Pulse Rate 88 95 Respiratory Rate 27 H 26 H Blood Pressure 149/67 H Pulse Oximetry 98 Oxygen Delivery Oxygen Flow Rate Intake/Output Intake/Output: Intake & Output 05/06/25 05/07/25 05/08/25 05/09/25 23:59 23:59 23:59 23:59 Intake Total 600 2298.3 3390 100 Output Total 2000 655 450 Balance 600 298.3 2735 -350 Meds/Results Medications: Active Medications Generic Name Dose Route Start Last Admin Trade Name Freq PRN Reason Stop Dose Admin Acetaminophen 650 mg 05/08/25 00:59 05/08/25 23:28 Acetaminophen Elixir 325 Mg/10.15 Ml Udc FEED TUBE 650 mg Q4H PRN Administration Mild Pain (1-3) or Fever Albuterol/Ipratropium 3 ml 05/07/25 08:00 05/09/25 08:24 Ipratropium 0.5 Mg/Albuterol Sulfate 2.5 Mg (Base) Ampul.Neb 3 Ml INHALATION 3 ml Q6HRT GEOVANNI Administration Budesonide 0.5 mg 05/07/25 08:00 05/09/25 08:24 Budesonide Respule Neb 0.5 Mg/2 Ml Amp INHALATION 0.5 mg Q12HRT GEOVANNI Administration Enoxaparin Sodium 40 mg 05/07/25 09:00 05/09/25 08:25 Enoxaparin 40 Mg/0.4 Ml Syringe SUB-Q 40 mg DAILY GEOVANNI Administration Hydralazine HCl 10 mg 05/07/25 11:28 05/08/25 05:33 Hydralazine Hcl 20 Mg/Ml Vial IV PUSH 10 mg Q4H PRN Administration Blood Pressure - High Piperacillin Sod/Tazobactam 100 mls @ 200 mls/hr 05/06/25 20:00 05/09/25 08:25 Sod 3.375 gm/ Sodium Chloride IVPB 200 mls/hr Q6H GEOVANNI Administration Potassium Chloride 40 meq/ 520 mls @ 130 mls/hr 05/09/25 08:00 05/09/25 08:25 Sodium Chloride IVPB 05/09/25 11:59 130 mls/hr ONCE ONE Administration Dextrose 1,000 mls @ 75 mls/hr 05/09/25 07:50 05/09/25 08:24 Dextrose 5% 1,000 Ml IV CONT 05/09/25 14:29 75 mls/hr .[id number] GEOVANNI Administration Morphine Sulfate 2 mg 05/06/25 19:08 Morphine Sulfate (*Crx) 4 Mg/Ml Inj IV PUSH Q4H PRN Pain Rated 7-10 Naloxone HCl 0.1 mg 05/06/25 19:13 Naloxone Hcl 0.4 Mg/Ml Vial IV PUSH Q2M PRN Opiate Reversal Ondansetron HCl 4 mg 05/06/25 19:08 05/07/25 02:41 Ondansetron Inj 4 Mg/2 Ml Vial IV PUSH 4 mg Q6H PRN Administration Nausea And Vomiting Perflutren Lipid Microsphere 0 ml 05/07/25 00:23 Perflutren Lipid Microspheres 1.5 Ml Vial Diluted To 10 Ml Total Volume IV PUSH 05/10/25 00:23 ONCE PRN adequate visualization Protocol Radiology Results: ITS Impressions Abdomen X-Ray 05/07/25 07:51 IMPRESSION: Gastric catheter in good position. NOTE: Preliminary radiology report provided by [facility] radiologist/physician. Chest/Abdomen/Pelvis CT 05/07/25 11:31 IMPRESSION: Directed noncontrast exam demonstrating no focal acute process in the abdomen and pelvis. Subsegmental atelectatic changes in the right lower lobe with peribronchial thickening may represent atypical inflammatory or infectious airways mediated process. Head CT 05/07/25 11:39 IMPRESSION: 1. Age-related changes including mild diffuse volume loss and mild scattered white matter hypoattenuation consistent with chronic small vessel ischemic disease. No acute intracranial process. Labs Labs: Laboratory Results - last 24 hr 05/07/25 05/08/25 05/08/25 07:34 11:23 12:34 WBC RBC Hgb Hct MCV MCH MCHC RDW Plt Count MPV Immature Gran % (Auto) Neut % (Auto) Lymph % (Auto) [place] % (Auto) Eos % (Auto) Baso % (Auto) Lymph # (Auto) [place] # (Auto) Eos # (Auto) Baso # (Auto) Abs Immat Gran (auto) Absolute Neuts (auto) Absolute Nucleated RBC Band Neutrophils % Nucleated RBC % Platelet Estimate Schistocytes Sodium Potassium Chloride Carbon Dioxide Anion Gap BUN Creatinine Estim Creat Clear Calc Estimated GFR Glucose POC Capillary Glucose 114 H 121 H 128 H Calcium Phosphorus Magnesium Total Bilirubin AST ALT Alkaline Phosphatase Total Protein Albumin 05/08/25 05/09/25 05/09/25 17:37 00:27 04:14 WBC 12.1 H RBC 3.99 L Hgb 11.8 L Hct 39.3 MCV 98.5 MCH 29.6 MCHC 30.0 L RDW 16.1 H Plt Count 127 L MPV 10.9 H Immature Gran % (Auto) 1.2 H Neut % (Auto) 90.1 H Lymph % (Auto) 5.2 L [place] % (Auto) 2.9 Eos % (Auto) 0.5 Baso % (Auto) 0.1 L Lymph # (Auto) 0.63 L [place] # (Auto) 0.4 Eos # (Auto) 0.1 Baso # (Auto) 0.0 Abs Immat Gran (auto) 0.14 H Absolute Neuts (auto) 10.9 H Absolute Nucleated RBC 0.000 Band Neutrophils % Not Reportable Nucleated RBC % 0.0 Platelet Estimate Slightly decreased Schistocytes None seen Sodium 148 H Potassium 3.5 Chloride 115 H Carbon Dioxide 27 Anion Gap 6 BUN 25 H Creatinine 1.63 H Estim Creat Clear Calc 26 Estimated GFR 30 L Glucose 121 H POC Capillary Glucose 130 H 149 H Calcium 9.2 Phosphorus 3.3 Magnesium 1.9 Total Bilirubin 1.0 AST 19 ALT 14 Alkaline Phosphatase 81 Total Protein 6.6 Albumin 3.3 L Quality VTE Prophylaxis VTE prophylaxis: mechanical ordered
[2025-05-09 20:18] LABS: Influenza A QL RT-PCR Negative (Negative); Influenza B QL RT-PCR Negative (Negative); RSV RNA, RT-PCR Negative (Negative); SARS-CoV-2 RNA PCR Negative (Negative)
[2025-05-09] MEDS: ALPRAZolam (*CRX) 0.5 MG TABLET PO (22:31)
[2025-05-10] VITALS (12 sets, daily range): BP systolic 141–154; BP diastolic 81–94; PULSE 73–110; RESP 18–23; TEMP 36.6; O2SAT 94–95
[2025-05-10] MEDS: IPRATROPIUM 0.5 MG/ALBUTEROL SULFATE 2.5 MG (BASE) AMPUL.NEB 3 ML INHALATION ×4 (00:23→19:30)
[2025-05-10] MEDS: BUDESONIDE RESPULE NEB 0.5 MG/2 ML AMP INHALATION ×3 (00:23→19:30)
[2025-05-10 05:15] LABS: Alanine Aminotransferase 13 U/L (6-35); Albumin Level 3.5 g/dL (3.5-5.1); Alkaline Phosphatase 76 U/L (38-126); Anion Gap 10 mmol/L (4-12); Aspartate Amino Transferase 17 U/L (14-36); Bilirubin,Total 0.7 mg/dL (0.2-1.3); Blood Urea Nitrogen 24 mg/dL (7-17); Calcium 8.8 mg/dL (8.4-10.2); Carbon Dioxide 21 mmol/L (22-30); Chloride 111 mmol/L (98-107); Estimated CRCL calculation 30 ml/min; Estimated Glomerular Filt Rate 35; Glucose 102 mg/dL (65-110); Magnesium 1.9 mg/dL (1.6-2.3); Potassium 3.5 mmol/L (3.4-5.0); Sodium 142 mmol/L (137-145); Total Protein 6.9 g/dL (6.3-8.2)
--- NOTE | 2025-05-10 06:37 | PCRCNOTE ---
Window of time for administration has passed. See next scheduled administration.
[2025-05-10] MEDS: ENOXAPARIN 40 MG/0.4 ML SYRINGE SUB-Q (09:14)
[2025-05-10] MEDS: POTASSIUM CHLORIDE 20 MEQ ER TABLET 40 MEQ PO (09:14)
--- NOTE | 2025-05-10 11:06 | P.PNIM_ITS ---
Assessment and Plan Assessment and Plan (1) Unresponsive episode: Code(s): R40.4 - Transient alteration of awareness Status: Acute Assessment and Plan: -05/06/2025: Patient was seen at [facility] [place] [facility] in [facility] for altered mental status. -05/06: CT head: With no acute intracranial abnormality -several suicide notes were found in the home. The patient does have a history of may depression. The denies any previous suicide attempts. According to the , the patient started feeling very depressed this on May 04, as it was her son's birthday (the son that committed suicide). -we reviewed her home medications. It is difficult to do a complete pill count as the stated that she puts her pills in a different container that is easier to open. -her urine toxicology screen was positive for opiates. She was given 2 doses of Narcan at [facility] with little benefit -patient currently is a DNR/DNI, is a nurse practitioner confirmed this overn ight with the family and her records. SPIRAL BINDER spoke with the family who stated that they will consider comfort care in the next couple days if she does not become responsive. -acetaminophen levels <10 -urine tox screen was positive for opiates -salicylic acid level was normal -according to the , her last known normal was at 9:00 p.m. 05/06/2025 -continue suicide precautions -sitter at bedside -appreciate Neurology evaluation and recommendations, 05/09: Awake, alert, oriented, very hard of hearing Patient passed speech evaluation PT/OT following the patient -off oxygen, hemodynamically stable, medically stable to be transferred to a psych facility (2) Major depression: Code(s): F32.9 - Major depressive disorder, single episode, unspecified Status: Inactive Assessment and Plan: -the patient will need crisis when she is more awake. - per her , he stated that she was more depressed this week as it was her son's birthday that committed suicide. -several suicide notes were left in the home. -patient is medically stable, appreciate care coordination and crisis management evaluation (3) Suicidal overdose: Code(s): T50.902A - Poisoning by unspecified drugs, medicaments and biological substances, intentional self-harm, initial encounter Status: Inactive Assessment and Plan: -urine toxicology was positive for opiates. -repeat Tylenol level within normal limits -unable to obtain accurate medication count is she places her pills in a different bottle that is easier to open -the patient was given 2 mg narcan x2 at [facility] with little effect. (4) Hypertension: Code(s): I10 - Essential (primary) hypertension Status: Acute Assessment and Plan: -p.r.n. hydralazine with parameters. (5) CKD (chronic kidney disease): Code(s): N18.9 - Chronic kidney disease, unspecified Status: Acute Assessment and Plan: -creatinine is improving . -adequately fluid-resuscitated -switch IV fluids to D5 at 75 mL/hour for 500 mL as her sodium is 147 this morning. (6) COPD (chronic obstructive pulmonary disease): Code(s): J44.9 - Chronic obstructive pulmonary disease, unspecified Status: Acute Assessment and Plan: -continue with DuoNebs every 6 hours. (7) Pneumonia: Qualifiers: Lung location: lower lobe of lung Code(s): J18.9 - Pneumonia, unspecified organism Status: Acute Assessment and Plan: -the patient was empirically started on Zosyn and vancomycin (05/06) for the possibility of aspiration pneumonia. 05/07: Discontinued vancomycin, will continue Zosyn for now, will stop on 05/1105/06/2025: Blood and sputum cultures are pending. (8) Obstructive sleep apnea: Code(s): G47.33 - Obstructive sleep apnea (adult) (pediatric) Status: Acute Assessment and Plan: -home settings for CPAP/BiPAP when patient is more awake. Plan DVT prophylaxis: Lovenox Stress ulcer prophylaxis: Not indicated Nutrition: Speech evaluation for bedside swallow Code Status: DNR/DNI 05/07: Discussed with patient's spouse and daughter in-law at bedside updated with patient's condition plan of care. I answered all the question Due to a high probability of clinically significant, life threatening deterioration, the patient required my highest level of preparedness to intervene emergently and I personally spent this critical care time directly and personally managing the patient. This critical care time included obtaining a history; examining the patient; pulse oximetry; ordering and review of studies; arranging urgent treatment with development of a management plan; evaluation of patient's response to treatment; frequent reassessment; and discussions with other providers. It was exclusive of separately billable procedures and treating other patients and teaching time. Please see Assessment and Plan section and the rest of the note for further information on patient assessment and treatment This dictation may have been done utilizing a voice recognition system. Attempts have been made to correct errors. However, there may be uncorrected grammatical, spelling, and recognitions errors present. Subjective Date/time seen: 05/10/25 11:06 Interval history: 79 years old white female with past medical history of essential hypertension, obstructive sleep apnea, opiate use, leading cancer, acute kidney injury, cellulitis, thrush, on CT arthritis, rheumatoid arthritis, COPD presented to the ED from home on 05/06/2025 with acute change of mental status, last time was seen at her normal pace 9:30 p.m. on 05/05/2025. Patient was unresponsive to painful stimulation, was snoring. Patient is a DNR/DNI. CT head did not show any acute abnormality. Urine tox screen was positive for opiates, she did receive Narcan with mild improvement. She is on narcotics chronic back pain. According the records patient had left suicide notes at home. Off note her son had committed suicide in front of her some years back, and it was his birthday a few days back. Poison Control was notified. Fe 05/10/2025: Patient being seen for hospitalist group Patient more awake, alert, oriented x3, very hard of hearing, denies any pain, shortness of breath. Off oxygen. Urine output has been adequate, hemodynamically stable, afebrile. Potassium is low this morning which will be repleted. Patient has been sitting up in chair Review of Systems Review of Systems: ROS unobtainable: Yes unobtainable due to medical condition and unobtainable due to mental status Exam Narrative: General: Elderly female, obese, in no acute distress HEENT:? Pupils equal and reactive to light bilaterally, sclera is clear Neck:? Short neck, supple Respiratory:? Clear to auscultation bilaterally, decreased at bases bilaterally, no wheeze Cardiac: S1-S2 is normal, regular rate and rhythm Abdomen:? Soft, nontender, nondistended, obese, hypoactive bowel sounds Extremities:? Bilateral lower extremity edema, palpable pedal pulses Neuro:? Awake, alert, oriented x3, nonfocal, answers to questions appropriately, very hard of hearing Skin:? Warm and dry Psych:? Unable to assess at this time Objective Data Vital Signs Vital Signs: Vital Signs - 24 hr 05/09/25 12:45 05/09/25 13:01 05/09/25 14:17 Temperature Pulse Rate 101 H Respiratory Rate 20 Blood Pressure Pulse Oximetry Oxygen Delivery High Flow Therapy with Na Nasal Cannula Oxygen Flow Rate 2 2 05/09/25 14:21 05/09/25 15:45 05/09/25 20:00 Temperature 97.4 F L Pulse Rate 102 H 98 Respiratory Rate 20 20 Blood Pressure 157/81 H Pulse Oximetry 99 94 Oxygen Delivery Nasal Cannula Oxygen Flow Rate 2 05/09/25 22:30 05/09/25 23:53 05/10/25 00:24 Temperature 98.5 F Pulse Rate 107 H 73 Respiratory Rate 19 20 Blood Pressure 170/101 H 114/65 Pulse Oximetry 97 Oxygen Delivery Oxygen Flow Rate 05/10/25 00:35 05/10/25 03:50 05/10/25 08:00 Temperature 97.9 F Pulse Rate 75 110 H Respiratory Rate 20 23 H Blood Pressure 141/81 H Pulse Oximetry 95 95 Oxygen Delivery Room Air Oxygen Flow Rate 05/10/25 08:43 05/10/25 08:46 05/10/25 08:51 Temperature Pulse Rate 101 H 100 Respiratory Rate 18 18 Blood Pressure Pulse Oximetry 95 Oxygen Delivery Room Air Oxygen Flow Rate Intake/Output Intake/Output: Intake & Output 05/07/25 05/08/25 05/09/25 05/10/25 23:59 23:59 23:59 23:59 Intake Total 2298.3 3390 1240 860 Output Total 1999 655 450 Balance 298.3 2735 790 860 Meds/Results Medications: Active Medications Generic Name Dose Route Start Last Admin Trade Name Freq PRN Reason Stop Dose Admin Acetaminophen 650 mg 05/08/25 00:59 05/08/25 23:28 Acetaminophen Elixir 325 Mg/10.15 Ml Udc FEED TUBE 650 mg Q4H PRN Administration Mild Pain (1-3) or Fever Albuterol/Ipratropium 3 ml 05/07/25 08:00 05/10/25 08:43 Ipratropium 0.5 Mg/Albuterol Sulfate 2.5 Mg (Base) Ampul.Neb 3 Ml INHALATION 3 ml Q6HRT GEOVANNI Administration Budesonide 0.5 mg 05/07/25 08:00 05/10/25 08:43 Budesonide Respule Neb 0.5 Mg/2 Ml Amp INHALATION 0.5 mg Q12HRT [facility] Administration Enoxaparin Sodium 40 mg 05/07/25 09:00 05/10/25 09:14 Enoxaparin 40 Mg/0.4 Ml Syringe SUB-Q 40 mg DAILY [facility] Administration Hydralazine HCl 10 mg 05/07/25 11:28 05/08/25 05:33 Hydralazine Hcl 20 Mg/Ml Vial IV PUSH 10 mg Q4H PRN Administration Blood Pressure - High Piperacillin Sod/Tazobactam 100 mls @ 200 mls/hr 05/10/25 05:00 05/10/25 06:32 Sod 3.375 gm/ Sodium Chloride IVPB 05/11/25 17:29 Infused Q6H [facility] Infusion Morphine Sulfate 2 mg 05/06/25 19:08 Morphine Sulfate (*Crx) 4 Mg/Ml Inj IV PUSH Q4H PRN Pain Rated 7-10 Naloxone HCl 0.1 mg 05/06/25 19:13 Naloxone Hcl 0.4 Mg/Ml Vial IV PUSH Q2M PRN Opiate Reversal Ondansetron HCl 4 mg 05/06/25 19:08 05/07/25 02:41 Ondansetron Inj 4 Mg/2 Ml Vial IV PUSH 4 mg Q6H PRN Administration Nausea And Vomiting Umeclidinium [place] 1 puff 05/10/25 09:00 Umeclidinium [place] 62.5 Mcg Ellipta INHALATION DAILYRT [facility] Radiology Results: ITS Impressions Abdomen X-Ray 05/07/25 07:51 IMPRESSION: Gastric catheter in good position. NOTE: Preliminary radiology report provided by [facility] radiologist/physician. Chest/Abdomen/Pelvis CT 05/07/25 11:31 IMPRESSION: Directed noncontrast exam demonstrating no focal acute process in the abdomen and pelvis. Subsegmental atelectatic changes in the right lower lobe with peribr onchial thickening may represent atypical inflammatory or infectious airways mediated process. Head CT 05/07/25 11:39 IMPRESSION: 1. Age-related changes including mild diffuse volume loss and mild scattered white matter hypoattenuation consistent with chronic small vessel ischemic disease. No acute intracranial process. Labs Labs: Laboratory Results - last 24 hr 05/09/25 05/10/25 16:51 04:10 Sodium 142 Potassium 3.5 Chloride 111 H Carbon Dioxide 21 L Anion Gap 10 BUN 24 H Creatinine 1.45 H Estim Creat Clear Calc 30 Estimated GFR 35 L Glucose 102 Calcium 8.8 Phosphorus 2.6 Magnesium 1.9 Total Bilirubin 0.7 AST 17 ALT 13 Alkaline Phosphatase 76 Total Protein 6.9 Albumin 3.5 Influenza A (RT-PCR) Negative Influenza B (RT-PCR) Negative RSV (RT-PCR) Negative SARS-CoV-2 RNA (RT-PCR) Negative Quality VTE Prophylaxis VTE prophylaxis: mechanical ordered
[2025-05-10] MEDS: ACETAMINOPHEN ELIXIR 325 MG/10.15 ML UDC 650 MG FEED TUBE ×2 (17:19→23:31)
[2025-05-11] VITALS: BP 152/87; PULSE 93; RESP 20; TEMP 37.3; O2SAT 94
[2025-05-11] MEDS: QUEtiapine FUMARATE 12.5 MG TABLET PO (02:37)
[2025-05-11 04:06] LABS: Hematocrit 37.6 % (37.0-47.0); Hemoglobin 11.4 g/dL (12.0-15.0); Immature Granulocyte Percent A 0.9 % (0-0.5); Lymphocytes Absolute Auto 0.70 K/mm3 (0.9-3.2); Mean Corpuscular HGB Conc 30.3 g/dl (32-36); Mean Corpuscular Hemoglobin 29.5 pg (26-34); Mean Corpuscular Volume 97.2 fl (80-100); Nucleated Red Blood Cells Absolute Auto 0.000 K/mm3 (0.0-0.012); Nucleated Red Blood Cells Perc 0.0 % (0.0-0.2); Platelet Count Result 143 k/mm3 (150-375); Red Blood Count 3.87 M/mm3 (4.2-5.4); White Blood Count 5.6 K/mm3 (4.5-10.0)
[2025-05-11 04:20] LABS: Anion Gap 6 mmol/L (4-12); Blood Urea Nitrogen 22 mg/dL (7-17); Calcium 9.2 mg/dL (8.4-10.2); Carbon Dioxide 23 mmol/L (22-30); Chloride 111 mmol/L (98-107); Estimated CRCL calculation 27 ml/min; Estimated Glomerular Filt Rate 31; Glucose 106 mg/dL (65-110); Magnesium 2.0 mg/dL (1.6-2.3); Potassium 3.7 mmol/L (3.4-5.0); Sodium 140 mmol/L (137-145)
[2025-05-11 08:00] VITALS: BP 159/95; PULSE 105; RESP 14; TEMP 37.2; O2SAT 98
--- NOTE | 2025-05-11 08:33 | ECG_ITS ---
Test Date: 2025-05-11 09:30:43 Measurements Intervals [place] Rate: 101 P: 102 NH: 174 QRS: -47 QRSD: 106 T: 75 QT: 333 QTc: 433 Interpretive Statements SINUS TACHYCARDIA VOLTAGE CRITERIA FOR LVH LEFT ANTERIOR FASCICULAR BLOCK BASELINE ARTIFACT- V6 ABNORMAL ECG Compared to ECG 05/06/2025 13:57:13 HEART RATE HAS INCREASED Electronically Signed On 05-11-2025 17:24:17 GEOTHERMAL OPERATING ENGINEER by Jose Henry D.O.
[2025-05-11] MEDS: IPRATROPIUM 0.5 MG/ALBUTEROL SULFATE 2.5 MG (BASE) AMPUL.NEB 3 ML INHALATION (08:54)
[2025-05-11] MEDS: BUDESONIDE RESPULE NEB 0.5 MG/2 ML AMP INHALATION ×2 (08:54→20:25)
[2025-05-11 08:55] LABS: Troponin I 0.023 ng/mL (0.000-0.034)
[2025-05-11 08:56] VITALS: PULSE 110; RESP 20; O2SAT 93
[2025-05-11] MEDS: ENOXAPARIN 40 MG/0.4 ML SYRINGE SUB-Q (08:58)
[2025-05-11 09:05] VITALS: PULSE 88; RESP 20
--- NOTE | 2025-05-11 10:49 | P.PNIM_ITS ---
Assessment and Plan Assessment and Plan (1) Unresponsive episode: Code(s): R40.4 - Transient alteration of awareness Status: Acute Assessment and Plan: -05/06/2025: Patient was seen at [facility] [place] [facility] in [facility] for altered mental status. -05/06: CT head: With no acute intracranial abnormality -several suicide notes were found in the home. The patient does have a history of depression. The denies any previous suicide attempts. According to the , the patient started feeling very depressed this on May 04, as it was her son's birthday (the son that committed suicide). We reviewed her home medications. It is difficult to do a complete pill count as the stated that she puts her pills in a different container that is easier to open. Her urine toxicology screen was positive for opiates. She was given 2 doses of Narcan at [facility] with little benefit though. -acetaminophen levels <10 -urine tox screen was positive for opiates -salicylic acid level was normal -according to the , her last known normal was at 9:00 p.m. 05/06/2025 Patient now alert oriented. She denies any suicidal or homicidal ideation or attempts. She states she takes at medications as prescribed although hard to community artist accuracy of the statements. -continue suicide precautions -sitter at bedside -appreciate Neurology evaluation and recommendations, 05/09: Awake, alert, oriented, very hard of hearing Patient passed speech evaluation PT/OT following the patient Patient will be evaluated by crisis management. (2) Major depression: Code(s): F32.9 - Major depressive disorder, single episode, unspecified Status: Inactive Assessment and Plan: See above -patient is medically stable, appreciate care coordination and crisis management evaluation (3) Suicidal overdose: Code(s): T50.902A - Poisoning by unspecified drugs, medicaments and biological substances, intentional self-harm, initial encounter Status: Inactive Assessment and Plan: See above (4) Hypertension: Code(s): I10 - Essential (primary) hypertension Status: Acute Assessment and Plan: -p.r.n. hydralazine with parameters. (5) CKD (chronic kidney disease): Code(s): N18.9 - Chronic kidney disease, unspecified Status: Acute Assessment and Plan: -creatinine is close to baseline -adequately fluid-resuscitated Off IV (6) COPD (chronic obstructive pulmonary disease): Code(s): J44.9 - Chronic obstructive pulmonary disease, unspecified Status: Acute Assessment and Plan: Continue DuoNebs p.r.n. (7) Pneumonia: Qualifiers: Lung location: lower lobe of lung Code(s): J18.9 - Pneumonia, unspecified organism Status: Acute Assessment and Plan: -the patient was empirically started on Zosyn and vancomycin (05/06) for the possibility of aspiration pneumonia. 05/07: Discontinued vancomycin, patient was on Zosyn switch to p.o. Augmentin 05/06/2025: Blood negative Sputum culture growing Staph aureus Patient afebrile with normal WBC and on room air (8) Obstructive sleep apnea: Code(s): G47.33 - Obstructive sleep apnea (adult) (pediatric) Status: Acute Assessment and Plan: -home settings for CPAP/BiPAP when patient is more awake. Plan DVT prophylaxis: Lovenox Stress ulcer prophylaxis: Not indicated Nutrition: Modified diet ordered Code Status: DNR/DNI Subjective Date/time seen: 05/11/25 Overnight events reviewed. Patient tolerating p.o. diet. Patient is afebrile. Patient denies any new complaints. Patient denies fever, chest pain, shortness of breath, cough, nausea vomiting, abdominal pain,, diarrhea, headache or constipation. Review of system was positive for hearing impairment All other systems were reviewed and were negative Patient denies any suicidal homicidal ideation Interval history: 79 years old white female with past medical history of essential hypertension, obstructive sleep apnea, opiate use, leading cancer, acute kidney injury, cellulitis, thrush, on CT arthritis, rheumatoid arthritis, COPD presented to the ED from home on 05/06/2025 with acute change of mental status, last time was seen at her normal pace 9:30 p.m. on 05/05/2025. Patient was unresponsive to painful stimulation, was snoring. Patient is a DNR/DNI. CT head did not show any acute abnormality. Urine tox screen was positive for opiates, she did receive Narcan with mild improvement. She is on narcotics chronic back pain. According the records patient had left suicide notes at home. Off note her son had committed suicide in front of her some years back, and it was his birthday a few days back. Poison Control was notified. Fe Exam Narrative: General: Elderly female, obese, in no acute distress HEENT:? Pupils equal and reactive to light bilaterally, sclera is clear Neck:? Short neck, supple Respiratory:? Clear to auscultation bilaterally, decreased at bases bilaterally, no wheeze Cardiac: S1-S2 is normal, regular rate and rhythm Abdomen:? Soft, nontender, nondistended, obese, hypoactive bowel sounds Extremities:? Bilateral lower extremity edema, palpable pedal pulses Neuro:? Awake, alert, oriented x2. She thought she was in [place], nonfocal, answers to questions appropriately, very hard of hearing Skin:? Warm and dry Psych:? Normal speech and affect Objective Data Vital Signs Vital Signs: Vital Signs - 24 hr 05/10/25 13:44 05/10/25 13:51 05/10/25 16:00 Temperature 36.6 C Pulse Rate 80 76 92 Respiratory Rate 18 18 22 H Blood Pressure 154/94 H Pulse Oximetry 94 Oxygen Delivery Fraction of Inspired Oxygen 05/10/25 19:30 05/10/25 19:30 05/10/25 20:00 Temperature Pulse Rate 86 86 Respiratory Rate 18 18 Blood Pressure Pulse Oximetry 94 Oxygen Delivery Room Air Room Air Fraction of Inspired Oxygen 21 05/10/25 21:40 05/11/25 00:00 05/11/25 08:56 Temperature 37.3 C Pulse Rate 85 93 Respiratory Rate 18 20 Blood Pressure 152/87 H Pulse Oximetry 94 93 Oxygen Delivery Room Air Fraction of Inspired Oxygen 05/11/25 08:56 05/11/25 09:05 Temperature Pulse Rate 110 H 88 Respiratory Rate 20 20 Blood Pressure Pulse Oximetry Oxygen Delivery Fraction of Inspired Oxygen Intake/Output Intake/Output: Intake & Output 05/08/25 05/09/25 05/10/25 05/11/25 23:59 23:59 23:59 23:59 Intake Total 3390 1240 1850 800 Output Total 655 450 Balance 2735 790 1850 800 Meds/Results Medications: Active Medications Generic Name Dose Route Start Last Admin Trade Name Freq PRN Reason Stop Dose Admin Acetaminophen 650 mg 05/08/25 00:59 05/10/25 23:31 Acetaminophen Elixir 325 Mg/10.15 Ml Udc FEED TUBE 650 mg Q4H PRN Administration Mild Pain (1-3) or Fever Albuterol/Ipratropium 3 ml 05/11/25 10:43 Ipratropium 0.5 Mg/Albuterol Sulfate 2.5 Mg (Base) Ampul.Neb 3 Ml INHALATION Q6HRT PRN Wheezing Budesonide 0.5 mg 05/07/25 08:00 05/11/25 08:54 Budesonide Respule Neb 0.5 Mg/2 Ml Amp INHALATION 0.5 mg Q12HRT GEOVANNI Administration Enoxaparin Sodium 40 mg 05/07/25 09:00 05/11/25 08:58 Enoxaparin 40 Mg/0.4 Ml Syringe SUB-Q 40 mg DAILY GEOVANNI Administration Hydralazine HCl 10 mg 05/07/25 11:28 05/08/25 05:33 Hydralazine Hcl 20 Mg/Ml Vial IV PUSH 10 mg Q4H PRN Administration Blood Pressure - High Piperacillin Sod/Tazobactam 100 mls @ 200 mls/hr 05/10/25 05:00 05/11/25 10:38 Sod 3.375 gm/ Sodium Chloride IVPB 05/11/25 17:29 200 mls/hr Q6H GEOVANNI Administration Morphine Sulfate 2 mg 05/06/25 19:08 Morphine Sulfate (*Crx) 4 Mg/Ml Inj IV PUSH Q4H PRN Pain Rated 7-10 Naloxone HCl 0.1 mg 05/06/25 19:13 Naloxone Hcl 0.4 Mg/Ml Vial IV PUSH Q2M PRN Opiate Reversal Ondansetron HCl 4 mg 05/06/25 19:08 05/07/25 02:41 Ondansetron Inj 4 Mg/2 Ml Vial IV PUSH 4 mg Q6H PRN Administration Nausea And Vomiting Umeclidinium [place] 1 puff 05/10/25 09:00 05/10/25 11:33 Umeclidinium [place] 62.5 Mcg Ellipta INHALATION Not Given On Hold: 05/10/25 11:35 DAILYRT [facility] Radiology Results: ITS Impressions Abdomen X-Ray 05/07/25 07:51 IMPRESSION: Gastric catheter in good position. NOTE: Preliminary radiology report provided by [facility] radiologist/physician. Chest/Abdomen/Pelvis CT 05/07/25 11:31 IMPRESSION: Directed noncontrast exam demonstrating no focal acute process in the abdomen and pelvis. Subsegmental atelectatic changes in the right lower lobe with peribronchial thickening may represent atypical inflammatory or infectious airways mediated process. Head CT 05/07/25 11:39 IMPRESSION: 1. Age-related changes including mild diffuse volume loss and mild scattered white matter hypoattenuation consistent with chronic small vessel ischemic disease. No acute intracranial process. Labs Labs: Laboratory Results - last 24 hr 05/11/25 03:54 WBC 5.6 RBC 3.87 L Hgb 11.4 L Hct 37.6 MCV 97.2 MCH 29.5 MCHC 30.3 L RDW 15.8 H Plt Count 143 L MPV 10.9 H Immature Gran % (Auto) 0.9 H Neut % (Auto) 78.3 H Lymph % (Auto) 12.5 L [place] % (Auto) 5.2 Eos % (Auto) 2.9 Baso % (Auto) 0.2 Lymph # (Auto) 0.70 [place] # (Auto) 0.3 Eos # (Auto) 0.2 Baso # (Auto) 0.0 Abs Immat Gran (auto) 0.05 H Absolute Neuts (auto) 4.4 Absolute Nucleated RBC 0.000 Nucleated RBC % 0.0 Sodium 140 Potassium 3.7 Chloride 111 H Carbon Dioxide 23 Anion Gap 6 BUN 22 H Creatinine 1.60 H Estim Creat Clear Calc 27 Estimated GFR 31 L Glucose 106 Calcium 9.2 Phosphorus 2.8 Magnesium 2.0 Troponin I 0.023 Quality VTE Prophylaxis VTE prophylaxis: mechanical ordered
[2025-05-11] MEDS: POTASSIUM BICARBONATE 25 MEQ TABEF PO (10:55)
[2025-05-11] MEDS: UMECLIDINIUM BROMIDE 62.5 MCG ELLIPTA 1 PUFF INHALATION (12:27)
[2025-05-11 16:00] VITALS: BP 157/77; PULSE 101; RESP 14; TEMP 36.7; O2SAT 97
[2025-05-11 20:25] VITALS: PULSE 90; RESP 22; O2SAT 95
[2025-05-12] VITALS (12 sets, daily range): BP systolic 154–190; BP diastolic 70–105; PULSE 70–93; RESP 18–20; TEMP 36.4–36.9; O2SAT 92–100
[2025-05-12] MEDS: FUROSEMIDE INJ 40 MG/4 ML VIAL IV PUSH (08:35)
[2025-05-12] MEDS: ENOXAPARIN 40 MG/0.4 ML SYRINGE SUB-Q (08:35)
--- NOTE | 2025-05-12 08:39 | PM.IMPN2 ---
Assessment and Plan Assessment and Plan (1) Unresponsive episode: Code(s): R40.4 - Transient alteration of awareness Status: Acute Assessment and Plan: -05/06/2025: Patient was seen at [facility] in [facility] for altered mental status. -05/06: CT head: With no acute intracranial abnormality Several suicide notes were found in the home. The patient does have a history of depression. The denies any previous suicide attempts. According to the , the patient started feeling very depressed this on May 04, as it was her son's birthday (the son that committed suicide). We reviewed her home medications. It is difficult to do a complete pill count as the stated that she puts her pills in a different container that is easier to open. Her urine toxicology screen was positive for opiates. She was given 2 doses of Narcan at [facility] with little benefit though. -acetaminophen levels <10 -urine tox screen was positive for opiates -salicylic acid level was normal -according to the , her last known normal was at 9:00 p.m. 05/06/2025 Patient now alert oriented. She denies any suicidal or homicidal ideation or attempts but she is a poor historian. She states she takes at medications as prescribed although hard to foreign language interpreter accuracy of the statements. Continue suicide precautions and sitter at bedside. She is waiting for a transfer to inpatient psych facility -appreciate Neurology evaluation and recommendations, Patient passed speech evaluation PT/OT following the patient Patient will be evaluated by crisis management. (2) Major depression: Code(s): F32.9 - Major depressive disorder, single episode, unspecified Status: Inactive Assessment and Plan: See above -patient is medically stable, appreciate care coordination and crisis management evaluation Patient awaits transfer to inpatient psychiatry facility for management of depression (3) Suicidal overdose: Code(s): T50.902A - Poisoning by unspecified drugs, medicaments and biological substances, intentional self-harm, initial encounter Status: Inactive Assessment and Plan: See above (4) Hypertension: Code(s): I10 - Essential (primary) hypertension Status: Acute Assessment and Plan: Start Norvasc and hydrochlorothiazide Lasix IV x1 Continuep.r.n. hydralazine with parameters. (5) CKD (chronic kidney disease): Code(s): N18.9 - Chronic kidney disease, unspecified Status: Acute Assessment and Plan: -creatinine is close to baseline -adequately fluid-resuscitated Off IV Lasix for lower extremity edema (6) COPD (chronic obstructive pulmonary disease): Code(s): J44.9 - Chronic obstructive pulmonary disease, unspecified Status: Acute Assessment and Plan: Continue DuoNebs p.r.n. (7) Pneumonia: Qualifiers: Lung location: lower lobe of lung Code(s): J18.9 - Pneumonia, unspecified organism Status: Acute Assessment and Plan: -the patient was empirically started on Zosyn and vancomycin (05/06) for the possibility of aspiration pneumonia. 05/07: Discontinued vancomycin, patient was on Zosyn switch to p.o. Augmentin 05/06/2025: Blood negative Sputum culture growing MSSA Patient afebrile with normal WBC and on room air (8) Obstructive sleep apnea: Code(s): G47.33 - Obstructive sleep apnea (adult) (pediatric) Status: Acute Assessment and Plan: -home settings for CPAP/BiPAP when patient is more awake. Plan DVT prophylaxis: Lovenox Stress ulcer prophylaxis: Not indicated Nutrition: Modified diet ordered Code Status: DNR/DNI Subjective Date/time seen: 05/12/25 Patient sitting in a chair this morning. She states she feels fine. She complains of some swelling in the legs. Denies any pain or shortness of breath. Overnight to vitals reviewed. Blood pressure was elevated. Patient denies fever, chest pain, shortness of breath, cough, nausea vomiting, abdominal pain,, diarrhea, headache or constipation. All other systems were reviewed and were negative Interval history: 79 years old white female with past medical history of essential hypertension, obstructive sleep apnea, opiate use, leading cancer, acute kidney injury, cellulitis, thrush, on CT arthritis, rheumatoid arthritis, COPD presented to the ED from home on 05/06/2025 with acute change of mental status, last time was seen at her normal pace 9:30 p.m. on 05/05/2025. Patient was unresponsive to painful stimulation, was snoring. Patient is a DNR/DNI. CT head did not show any acute abnormality. Urine tox screen was positive for opiates, she did receive Narcan with mild improvement. She is on narcotics chronic back pain. According the records patient had left suicide notes at home. Off note her son had committed suicide in front of her some years back, and it was his birthday a few days back. Poison Control was notified. Fe Exam Narrative: General: Elderly female, obese, in no acute distress HEENT:? Pupils equal and reactive to light bilaterally, sclera is clear Neck:? Short neck, supple Respiratory:? Clear to auscultation bilaterally, decreased at bases bilaterally, no wheeze Cardiac: S1-S2 is normal, regular rate and rhythm Abdomen:? Soft, nontender, nondistended, obese, hypoactive bowel sounds Extremities:? Bilateral lower extremity edema, palpable pedal pulses Neuro:? Awake, alert, oriented x2. She thought she was in [place], nonfocal, answers to questions appropriately, very hard of hearing Skin:? Warm and dry Psych:? Normal speech and affect Objective Data Vital Signs Vital Signs: Vital Signs - 24 hr 05/11/25 08:56 05/11/25 08:56 05/11/25 09:05 Temperature Pulse Rate 110 H 88 Respiratory Rate 20 20 Blood Pressure Pulse Oximetry 93 Oxygen Delivery Room Air Fraction of Inspired Oxygen 05/11/25 16:00 05/11/25 20:00 05/11/25 20:25 Temperature 36.7 C Pulse Rate 101 H 90 Respiratory Rate 14 22 H Blood Pressure 157/77 H Pulse Oximetry 97 95 Oxygen Delivery Room Air Room Air Fraction of Inspired Oxygen 21 05/11/25 20:25 05/12/25 00:00 05/12/25 07:42 Temperature 36.8 C 36.4 C L Pulse Rate 90 85 70 Respiratory Rate 22 H 18 20 Blood Pressure 155/83 H 190/105 H Pulse Oximetry 96 92 Oxygen Delivery Fraction of Inspired Oxygen 05/12/25 07:44 Temperature Pulse Rate Respiratory Rate Blood Pressure 181/97 H Pulse Oximetry Oxygen Delivery Fraction of Inspired Oxygen Intake/Output Intake/Output: Intake & Output 05/09/25 05/10/25 05/11/25 05/12/25 23:59 23:59 23:59 23:59 Intake Total 1240 1850 1620 240 Output Total 450 700 Balance 790 1850 920 240 Meds/Results Medications: Active Medications Generic Name Dose Route Start Last Admin Trade Name Freq PRN Reason Stop Dose Admin Acetaminophen 650 mg 05/08/25 00:59 05/10/25 23:31 Acetaminophen Elixir 325 Mg/10.15 Ml Udc FEED TUBE 650 mg Q4H PRN Administration Mild Pain (1-3) or Fever Albuterol/Ipratropium 3 ml 05/11/25 10:43 Ipratropium 0.5 Mg/Albuterol Sulfate 2.5 Mg (Base) Ampul.Neb 3 Ml INHALATION Q6HRT PRN Wheezing Amlodipine Besylate 5 mg 05/12/25 08:00 05/12/25 08:34 Amlodipine Besylate 5 Mg Tablet PO 5 mg DAILY GEOVANNI Administration Amoxicillin/Clavulanate Potassium 1 tablet 05/11/25 10:54 05/12/25 08:34 Amoxicillin/Clavulanate K 875-125 Mg Tab PO 05/16/25 10:53 1 tablet Q12HR GEOVANNI Administration Budesonide 0.5 mg 05/07/25 08:00 05/11/25 20:25 Budesonide Respule Neb 0.5 Mg/2 Ml Amp INHALATION 0.5 mg Q12HRT GEOVANNI Administration Enoxaparin Sodium 40 mg 05/07/25 09:00 05/12/25 08:35 Enoxaparin 40 Mg/0.4 Ml Syringe SUB-Q 40 mg DAILY GEOVANNI Administration Hydralazine HCl 10 mg 05/07/25 11:28 05/08/25 05:33 Hydralazine Hcl 20 Mg/Ml Vial IV PUSH 10 mg Q4H PRN Administration Blood Pressure - High Hydrochlorothiazide 12.5 mg 05/12/25 09:00 05/12/25 08:34 Hydrochlorothiazide 12.5 Mg Capsule PO 12.5 mg QAM GEOVANNI Administration Morphine Sulfate 2 mg 05/06/25 19:08 Morphine Sulfate (*Crx) 4 Mg/Ml Inj IV PUSH Q4H PRN Pain Rated 7-10 Naloxone HCl 0.1 mg 05/06/25 19:13 Naloxone Hcl 0.4 Mg/Ml Vial IV PUSH Q2M PRN Opiate Reversal Ondansetron HCl 4 mg 05/06/25 19:08 05/07/25 02:41 Ondansetron Inj 4 Mg/2 Ml Vial IV PUSH 4 mg Q6H PRN Administration Nausea And Vomiting Umeclidinium [place] 1 puff 05/11/25 12:25 05/11/25 12:27 Umeclidinium [place] 62.5 Mcg Ellipta INHALATION 1 puff DAILYRT GEOVANNI Administration Radiology Results: ITS Impressions Abdomen X-Ray 05/07/25 07:51 IMPRESSION: Gastric catheter in good position. NOTE: Preliminary radiology report provided by [facility] radiologist/physician. Chest/Abdomen/Pelvis CT 05/07/25 11:31 IMPRESSION: Directed noncontrast exam demonstrating no focal acute process in the abdomen and pelvis. Subsegmental atelectatic changes in the right lower lobe with peribronchial thickening may represent atypical inflammatory or infectious airways mediated process. Head CT 05/07/25 11:39 IMPRESSION: 1. Age-related changes including mild diffuse volume loss and mild scattered white matter hypoattenuation consistent with chronic small vessel ischemic disease. No acute intracranial process. Labs Labs: Laboratory Results - last 24 hr 05/11/25 03:54 Troponin I 0.023 Quality VTE Prophylaxis VTE prophylaxis: mechanical ordered and pharmacologic ordered
[2025-05-12] MEDS: BUDESONIDE RESPULE NEB 0.5 MG/2 ML AMP INHALATION ×2 (09:45→20:57)
[2025-05-12] MEDS: UMECLIDINIUM BROMIDE 62.5 MCG ELLIPTA 1 PUFF INHALATION (09:46)
[2025-05-12 14:50] LABS: Anion Gap 8 mmol/L (4-12); Blood Urea Nitrogen 18 mg/dL (7-17); Calcium 9.7 mg/dL (8.4-10.2); Carbon Dioxide 26 mmol/L (22-30); Chloride 106 mmol/L (98-107); Estimated CRCL calculation 27 ml/min; Estimated Glomerular Filt Rate 31; Glucose 130 mg/dL (65-110); Potassium 3.6 mmol/L (3.4-5.0); Sodium 140 mmol/L (137-145)
--- NOTE | 2025-05-12 17:50 | PC.NURSE ---
Received a call from Jimmie at [facility] stating that they had a bed for patient but needs a new inpatient certification form as the last one has . It was stated that they called with the bed yesterday but no one is aware of any bed given. I am not sure if there was a miscommunication from [facility] yesterday. Dr. Jordan is no longer in the facility. He is the provider that evaluated patient today. He is not able to fill out the form. Dr. Dias and Jocelyn were contacted as a hospitalist but as they did not see patient today does not fill comfortable filling out the form. Call placed to [facility] to notify them that we would not be able to have form completed today but could first thing in the morning and can send her at that time. Betty at [facility] stated ok but they can come in the morning Kiara patient's RN told her yes. After form filled out in the AM we are to fax it to [phone] with a follow up phone call to make sure they received it. At that time we should receive a phone number to call report and a room number will be given upon report being called.
[2025-05-13] VITALS: BP 174/78; PULSE 84; RESP 16; TEMP 36.8; O2SAT 100
[2025-05-13 04:35] LABS: Hematocrit 38.1 % (37.0-47.0); Hemoglobin 11.8 g/dL (12.0-15.0); Mean Corpuscular HGB Conc 31.0 g/dl (32-36); Mean Corpuscular Hemoglobin 29.7 pg (26-34); Mean Corpuscular Volume 96.0 fl (80-100); Platelet Count Result 153 k/mm3 (150-375); Red Blood Count 3.97 M/mm3 (4.2-5.4); White Blood Count 6.4 K/mm3 (4.5-10.0)
[2025-05-13 04:46] LABS: Alanine Aminotransferase 12 U/L (6-35); Albumin Level 3.6 g/dL (3.5-5.1); Alkaline Phosphatase 74 U/L (38-126); Anion Gap 8 mmol/L (4-12); Aspartate Amino Transferase 15 U/L (14-36); Bilirubin,Total 0.6 mg/dL (0.2-1.3); Blood Urea Nitrogen 17 mg/dL (7-17); Calcium 9.5 mg/dL (8.4-10.2); Carbon Dioxide 26 mmol/L (22-30); Chloride 105 mmol/L (98-107); Estimated CRCL calculation 28 ml/min; Estimated Glomerular Filt Rate 34; Glucose 100 mg/dL (65-110); Magnesium 1.9 mg/dL (1.6-2.3); Potassium 3.5 mmol/L (3.4-5.0); Sodium 139 mmol/L (137-145); Total Protein 6.8 g/dL (6.3-8.2)
[2025-05-13 07:55] VITALS: BP 175/83; PULSE 84; PULSE 88; RESP 16; RESP 22; TEMP 36.7; O2SAT 100; O2SAT 99
[2025-05-13] MEDS: BUDESONIDE RESPULE NEB 0.5 MG/2 ML AMP INHALATION (08:37)
[2025-05-13] MEDS: UMECLIDINIUM BROMIDE 62.5 MCG ELLIPTA 1 PUFF INHALATION (08:37)
[2025-05-13] MEDS: POTASSIUM CHLORIDE 20 MEQ ER TABLET 40 MEQ PO (08:45)
[2025-05-13] MEDS: ENOXAPARIN 40 MG/0.4 ML SYRINGE SUB-Q (08:46)
--- NOTE | 2025-05-13 09:41 | P.TS_ITS ---
Transfer Discharge Sum: Prov Provider Date of admission: 05/06/25 19:08 Primary care physician: Alma Jamison, MD Admitting clinician: Susanna Spence MD Consults: 05/06/25 Care Coordination Consult Routine Reason for Consult:: Crisis Intervention Additional Comments: When she is more awake. Consult to Physician Routine Comment: Consulting Provider: Ethan Pollard call worker/MD group to consult: neurology Reason for consultation: possible cva Has provider been notified: Yes Attending physician on discharge: Mark Jordan Discharging clinician: Mark Jordan Anticipated date of transfer: 05/13/25 Receiving physician/facility: [facility] psychiatry DS: Admitting Diagnosis Discharge Date 05/13/2025 Admitting Diagnosis Altered mental status DS: Discharge Diagnosis Discharge Diagnosis (1) Unresponsive episode: Code(s): R40.4 - Transient alteration of awareness Status: Acute (2) Major depression: Code(s): F32.9 - Major depressive disorder, single episode, unspecified Status: Inactive (3) Suicidal overdose: Code(s): T50.902A - Poisoning by unspecified drugs, medicaments and biological substances, intentional self-harm, initial encounter Status: Inactive (4) Hypertension: Code(s): I10 - Essential (primary) hypertension Status: Acute (5) CKD (chronic kidney disease): Code(s): N18.9 - Chronic kidney disease, unspecified Status: Acute (6) COPD (chronic obstructive pulmonary disease): Code(s): J44.9 - Chronic obstructive pulmonary disease, unspecified Status: Acute (7) Pneumonia: Qualifiers: Lung location: lower lobe of lung Code(s): J18.9 - Pneumonia, unspecified organism Status: Acute (8) Obstructive sleep apnea: Code(s): G47.33 - Obstructive sleep apnea (adult) (pediatric) Status: Acute Transfer Discharge Sum: Med Medications Active and Home Medications: Home Medications oxybutynin chloride 5 mg tablet 5 mg PO HS 03/28/20 [History Confirmed 05/06/25] albuterol sulfate 90 mcg/actuation aerosol inhaler (ProAir HFA) 2 puff inhalation QID PRN Shortness Of Breath 04/08/20 [History Confirmed 05/06/25] allopurinol 300 mg tablet 100 mg PO DAILY 04/08/20 [History Confirmed 05/06/25] umeclidinium 62.5 mcg/actuation blister powder for inhalation (Incruse Ellipta) 1 inh inhalation DAILY 04/08/20 [History Confirmed 05/06/25] acetaminophen 500 mg tablet 1,000 mg (2 x 500 mg) PO Q6H PRN Mild Pain (1-3) Or Fever #30 tabs 04/10/20 [Rx Confirmed 05/06/25] hydrocodone 5 mg-acetaminophen 325 mg tablet 1 tablet PO Q6H PRN pain #10 tabs 11/30/21 [Rx Confirmed 05/06/25] buspirone 5 mg tablet 5 mg PO DAILY 05/06/25 [History Confirmed 05/06/25] calcitriol 0.25 mcg capsule 0.25 mcg PO DAILY 05/06/25 [History Confirmed 05/06/25] furosemide 20 mg tablet 20 mg PO DAILY 05/06/25 [History Confirmed 05/06/25] trazodone 50 mg tablet 50 mg PO HS PRN insomnia 05/06/25 [History Confirmed 05/06/25] Active Medications Acetaminophen (Acetaminophen Elixir 325 Mg/10.15 Ml Udc) 650 mg FEED TUBE Q4H PRN PRN Reason: Mild Pain (1-3) or Fever Last Admin: 05/10/25 23:31 Dose: 650 mg Albuterol/Ipratropium (Ipratropium 0.5 Mg/Albuterol Sulfate 2.5 Mg (Base) Ampul.Neb 3 Ml) 3 ml INHALATION Q6HRT PRN PRN Reason: Wheezing Amlodipine Besylate (Amlodipine Besylate 10 Mg Tablet) 10 mg PO DAILY PENDING SALE TO [facility] Last Admin: 05/13/25 08:45 Dose: 10 mg Amoxicillin/Clavulanate Potassium (Amoxicillin/Clavulanate K 875-125 Mg Tab) 1 tablet PO Q12HR GEOVANNI Stop: 05/16/25 10:53 Last Admin: 05/13/25 08:45 Dose: 1 tablet Budesonide (Budesonide Respule Neb 0.5 Mg/2 Ml Amp) 0.5 mg INHALATION Q12HRT PENDING SALE TO [facility] Last Admin: 05/13/25 08:37 Dose: 0.5 mg Enoxaparin Sodium (Enoxaparin 40 Mg/0.4 Ml Syringe) 40 mg SUB-Q DAILY PENDING SALE TO [facility] Last Admin: 05/13/25 08:46 Dose: 40 mg Hydralazine HCl (Hydralazine Hcl 20 Mg/Ml Vial) 10 mg IV PUSH Q4H PRN PRN Reason: Blood Pressure - High Last Admin: 05/08/25 05:33 Dose: 10 mg Hydrochlorothiazide (Hydrochlorothiazide 25 Mg Tablet) 25 mg PO QAM PENDING SALE TO [facility] Last Admin: 05/13/25 08:45 Dose: 25 mg Morphine Sulfate (Morphine Sulfate (*Crx) 4 Mg/Ml Inj) 2 mg IV PUSH Q4H PRN PRN Reason: Pain Rated 7-10 Naloxone HCl (Naloxone Hcl 0.4 Mg/Ml Vial) 0.1 mg IV PUSH Q2M PRN PRN Reason: Opiate Reversal Ondansetron HCl (Ondansetron Inj 4 Mg/2 Ml Vial) 4 mg IV PUSH Q6H PRN PRN Reason: Nausea And Vomiting Last Admin: 05/07/25 02:41 Dose: 4 mg Umeclidinium [place] (Umeclidinium [place] 62.5 Mcg Ellipta) [facility] Last Admin: 05/13/25 08:37 Dose: 1 puff Transfer Discharge Sum: Hosp Hospital Course Hospital course: Lacie Blue is a 79 year old female with past medical history hypertension, obstructive sleep apnea, COPD and rheumatoid arthritis was brought to [facility] on 05/06 with altered mental status.. Patient had a negative head CT on presentation. Patient takes narcotics for her chronic pain at home. Her urine drug screen was positive opioids. Presentation a creatinine was 2. She initially presented test on hospital but then was transferred to [facility]. She was given some Narcan by EMS but without any significant improvement. On further investigation it was found that patient had a several suicide notes at home and some the pills are missing although it was difficult to count exact amount of pills considering patient use a different pill boxes.. Patient's reported the patient had been depressed since 04 of May which was the day patient's son had by committing suicide in the past.. Patient was admitted to step-down unit and was placed on suicide precautions with a bedside sitter. Poison control was notified. Patient's overall mental status improved over next couple of days. Patient was unreliable when it came to her history with often changing history. She also had episodes of confusion. Patient was evaluated by crisis who recommended inpatient psychiatry admission. Patient now has been accepted [facility]ry for further evaluation of her depression and management. For medical standpoint patient blood pressure was elevated patient was started on Norvasc and hydrochlorothiazide. Patient also has a lower extremity edema and was given dose of Lasix. Her electrolytes were normal and she received electrolyte replacement. Her creatinine appears to be close to baseline. Her COPD does not seem to be in exacerbation and she was receiving p.r.n. DuoNebs. There was also concern whether patient had aspirated when she was obtunded she was started on IV Zosyn which was switched to p.o. Augmentin. Patient is DNR DNI as per patient's Today patient is being transferred to inpatient psychiatry in stable condition. Patient will continue with Norvasc and hydrochlorothiazide for blood pressure and course of Augmentin through 05/16. For COPD no changes made she will continue with p.r.n. DuoNeb and umeclidinium. Patient Condition: Stable Time Spent with Patient Time attestation: Total time spent providing and/or coordinating transfer services: Total time spent: Greater than 30 minutes Exam Narrative: General: Elderly female, obese, in no acute distress HEENT:? Pupils equal and reactive to light bilaterally, sclera is clear Neck:? Short neck, supple Respiratory:? Clear to auscultation bilaterally, decreased at bases bilaterally, no wheeze Cardiac: S1-S2 is normal, regular rate and rhythm Abdomen:? Soft, nontender, nondistended, obese, hypoactive bowel sounds Extremities:? Bilateral lower extremity edema, palpable pedal pulses Neuro:? Awake, alert, oriented x3 nonfocal, answers to questions appropriately, very hard of hearing Skin:? Warm and dry Psych:? Normal speech and affect DS: Data Data Completed and Pending Labs on day of discharge: Labs from last 24 hours 05/13/25 05/12/25 04:24 14:21 WBC 6.4 RBC 3.97 L Hgb 11.8 L Hct 38.1 MCV 96.0 MCH 29.7 MCHC 31.0 L RDW 14.9 H Plt Count 153 MPV 10.9 H Sodium 139 140 Potassium 3.5 3.6 Chloride 105 106 Carbon Dioxide 26 26 Anion Gap 8 8 BUN 17 18 H Creatinine 1.49 H 1.60 H Estim Creat Clear Calc 28 27 Estimated GFR 34 L 31 L Glucose 100 130 H Calcium 9.5 9.7 Magnesium 1.9 Total Bilirubin 0.6 AST 15 ALT 12 Alkaline Phosphatase 74 Total Protein 6.8 Albumin 3.6 Preliminary micro results at discharge 05/06/25 21:10 Blood Culture - Preliminary Blood 05/06/25 21:10 Blood Culture - Preliminary Blood
[2025-05-13 09:49] VITALS: BP 156/72
[2025-05-13] MEDS: ACETAMINOPHEN ELIXIR 325 MG/10.15 ML UDC 650 MG FEED TUBE (10:27)
--- NOTE | 2025-05-13 11:05 | PCNWS ---
Weekly nutritional screen. Patient is tolerating current diet. Awaiting bed for transfer. No weight loss reported. No nutritional needs at this time.
--- NOTE | 2025-05-13 12:33 | PC.NURSE ---
Pt transferred to [facility]. Johann Blue Jr notified of transfer. Belongings sent with patient
== END 2025-05-13 12:33 | DRG 917 ==
PROVIDERS: Internal Medicine; Nurse Practitioner; Admitting Provider Internal Medicine; PCP Family Medicine; Visit Provider Internal Medicine
DX: T50.902A Poisoning by unspecified drugs, medicaments and biological substances, intentional self-harm, initial encounter (principal); J18.9 Pneumonia, unspecified organism; I13.0 Hypertensive heart and chronic kidney disease with heart failure and stage 1 through stage 4 chronic kidney disease, or unspecified chronic kidney disease; R40.4 Transient alteration of awareness; I50.9 Heart failure, unspecified; N18.9 Chronic kidney disease, unspecified; J44.9 Chronic obstructive pulmonary disease, unspecified; M05.79 Rheumatoid arthritis with rheumatoid factor of multiple sites without organ or systems involvement; M15.9 Polyosteoarthritis, unspecified; M54.9 Dorsalgia, unspecified; G89.29 Other chronic pain; G47.33 Obstructive sleep apnea (adult) (pediatric); F32.9 Major depressive disorder, single episode, unspecified; Z96.653 Presence of artificial knee joint, bilateral; Z20.822 Contact with and (suspected) exposure to COVID-19; Z79.891 Long term (current) use of opiate analgesic; Z85.43 Personal history of malignant neoplasm of ovary; Z87.891 Personal history of nicotine dependence
CPT/HCPCS: 36415; 70450; 71250; 74176; 80048; 80053; 80143; 81001; 82140; 82550; 82565; 82948; 83605; 83690; 83735; 84100; 84443; 84484; 85025; 85027; 87040; 87070; 87186; 87205; 87637; 87641; 92610; 93005; 93306; 94640; 97110; 97162; 97165; 97530; 97535; A9270; J0360; J1650; J1938; J1953; J2405; J2543; J3373; J3480; J7040; J7050; J7070; J7120